=== PATIENT | male | born 1955 | race Caucasian/White ===

== ENCOUNTER 2017-10-02 01:35 | Emergency (ER) | payer MEDICARE ==
[~2017-10-02] VITALS: Ht 170.2 cm; Wt 99.5 kg
[~2017-10-02 01:35] MED LIST: AMIO200T2 PO; AMIO400T4 PO; AMIO400T5 PO; ASP325TEC PO; ASPI-983 PO; CARV3.122 PO; CEFU500T5 PO; DIGO125T PO; DIGO125T18 PO; DIGO250T PO; FURO-124 PO; FURO80TA PO; FURO80TA3 PO; HYDR-3820 PO; IPRA3AMP INH; KCL20TCR PO; LEVO500T80 PO; LISI-556 PO; LISI2.5T PO; LISI2.5T56 PO; LOVA10TA PO; MAGN400T6 PO; METO-387 PO; METO-395 PO; ONDA4TAB8 PO; PANT40TA2 PO; PRD20T PO; RT-ALBUINH IH; SPIR25TA3 PO; SPRN25T PO
[2017-10-02 02:04] LABS: BASOPHILS # (AUTO) 0.1 10^3/uL (0.0-0.1); BASOPHILS % (AUTO) 2 % (0-10); EOSINOPHILS # (AUTO) 0.4 10^3/uL (0.0-0.3); EOSINOPHILS % (AUTO) 9 % (0-10); HEMATOCRIT 43 % (40-54); LYMPHOCYTES % (AUTO) 19 % (12-44); MEAN CORPUSCULAR HEMOGLOBIN 32 PG (25-34); MEAN CORPUSCULAR HGB CONC 35 G/DL (32-36); MEAN CORPUSCULAR VOLUME 90 FL (80-99); MONOCYTES # (AUTO) 0.6 X 10^3 (0.0-1.0); MONOCYTES % (AUTO) 12 % (0-12); NEUTROPHILS # (AUTO) 2.9 X 10^3 (1.8-7.8); NEUTROPHILS % (AUTO) 59 % (42-75); PLATELET COUNT 211 10^3/uL (130-400); RED BLOOD COUNT 4.72 10^6/uL (4.35-5.85); WHITE BLOOD COUNT 4.9 10^3/uL (4.3-11.0)
[2017-10-02 02:13] LABS: INR 1.2 (0.8-1.4); PROTHROMBIN TIME PATIENT 15.7 SEC (12.2-14.7)
--- OUTSIDE RECORDS SUMMARY | 2017-10-02 02:19 | XMS REPORT | Clinical Summary ---
Author Author [facility] Organization [facility] Address Unknown Phone Unavailable Care Team Providers Care Assistant Guest Services Manager Name Role Phone PCP Unavailable Source Comments Some departments are not documenting in the electronic medical record. If you do not see the information that you expected, contact Release of Information in the Health Information Management department at [phone] for further assistance in locating additional records.[facility] Allergies No Known Allergies Current Medications Prescription Sig. Disp. Refills Start End Date Status Date aspirin EC 81 mg tablet Take 81 mg by mouth Active daily. digoxin (LANOXIN) 125 mcg Take 0.125 mg by mouth Active tablet daily. furosemide (LASIX) 80 mg Take 80 mg by mouth Active tablet daily. lisinopril (PRINIVIL; Take 5 mg by mouth daily. Active ZESTRIL) 5 mg tablet metoprolol XL (TOPROL XL) Take 100 mg by mouth Active 100 mg tablet daily. spironolactone Take 25 mg by mouth Active (ALDACTONE) 25 mg tablet daily. amiodarone (PACERONE) 400 Take 1 Tab by mouth 3 02/16/20 Active mg tablet daily. 15 Active Problems Problem Noted Date Paroxysmal SVT (supraventricular tachycardia) (HCC) 02/14/2015 SVT (supraventricular tachycardia) (HCC) 02/14/2015 ICD (implantable cardioverter-defibrillator) in place 02/14/2015 Overview: 02/14/15 RA lead placed for SVT discrimination and ICD upgraded to dual-chamber device. Wide-complex tachycardia (HCC) 01/09/2015 Systolic and diastolic CHF, chronic (HCC) 01/09/2015 Nonischemic dilated cardiomyopathy (HCC) 01/09/2015 Overview: 06/12/10: Heart Cath: Severe nonischemic cardiomyopathy with EF 5-10%.Mild mitral regurg. 08/06: Echo EF 30 09/02/10: Single Chamber pacemaker defibrillator implant. DFT's done. 10/26/11: Echo: EF 40-45. Moderate Family History Medical History Relation Name Comments Heart Disease Maternal Grandfather Heart Disease Maternal Grandmother Heart Disease Mother Hypertension Mother Heart Disease Sister Hypertension Sister Relation Name Status Comments Maternal Grandfather Maternal Grandmother Mother Sister Social History Tobacco Use Types Packs/Day Years Used Date Never Smoker Sex Assigned at Date Recorded Not on file Last Filed Vital Signs Vital Sign Reading Time Taken Blood Pressure 110/70 02/15/2015 10:24 AM CDT Pulse 76 02/15/2015 10:24 AM CDT Temperature 37.1 C (98.8 F) 02/15/2015 10:24 AM CDT Respiratory Rate - - Oxygen Saturation 95% 02/15/2015 10:24 AM CDT Inhaled Oxygen - - Concentration Weight 120.8 kg (266 lb 6.4 oz) 02/14/2015 6:46 AM CDT Height 167.6 cm (5' 6") 02/14/2015 6:46 AM CDT Body Mass Index 43 02/14/2015 6:46 AM CDT Plan of Treatment Health Maintenance Due Date Last Done Comments HEPATITIS C SCREENING 1954 PHYSICAL (COMPREHENSIVE) 1961 EXAM PERTUSSIS VACCINE 1965 TETANUS VACCINE 1971 COLORECTAL CANCER 2004 SCREENING SHINGLES VACCINE 2014 INFLUENZA VACCINE 04/27/2017 Results Not on filefrom Last 3 Months
--- OUTSIDE RECORDS SUMMARY | 2017-10-02 02:21 | XMS REPORT | Continuity of Care Document ---
Author Author [facility] Organization [facility] Address Unknown Phone Unavailable Allergies Active Description Code Type Severity Reaction Onset Reported/Identified Relationship to Patient Clinical Status Yes No Known Drug Allergies [id number] Drug Allergy Unknown N/A 06/10/2010 Medications There is no data. 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 09/03/2010 Ot V15.81 HX OF PAST NONCOMPLIANCE 09/03/2010 Ot V58.69 OTH MED,LT, CURRENT USE 05/13/2015 Ot 425.4 05/13/2015 Ot 428.0 05/13/2015 Ot V58.69 05/13/2015 Ot 425.4 05/13/2015 Ot 786.09 05/13/2015 Ot V58.69 05/13/2015 Ot V58.83 05/13/2015 MAIDA RILEY FRONT DESK MONITOR Ot 719.41 05/13/2015 MAIDA RILEY FRONT DESK MONITOR Ot 723.1 05/14/2015 EVELIN GAY FACC, NAOMIE WARRENP CCDS Ot 424.0 MITRAL VALVE DISORDER 05/14/2015 EVELIN GAY FACC, NAOMIE FACP CCDS Ot 425.4 PRIM CARDIOMYOPATHY NEC 05/14/2015 EVELIN GAY FACC, NAOMIE FACP CCDS Ot 427.1 PAROX VENTRIC TACHYCARD 05/14/2015 EVELIN GAY FAC, ALI FACP CCDS Ot 428.0 CONGESTIVE HEART FAILURE NOS 05/14/2015 EVELIN GAY FAC, ALI FACP CCDS Ot 428.40 UNSPEC SYSTOLIC/DIASTOLIC HRT FAILURE 05/14/2015 EVELIN GAY FACC, ALI FACP CCDS Ot 719.41 JOINT PAIN-SHLDER 05/14/2015 EVELIN GAY FACC, ALI FACP CCDS Ot 724.5 BACKACHE NOS 05/14/2015 EVELIN GAY FAC, ALI FACP CCDS Ot 780.2 SYNCOPE AND COLLAPSE 05/14/2015 EVELIN GAY FAC, ALI FACP CCDS Ot V45.02 AUTO IMPLANTABLE 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 I 12/12/2015 FAISAL GAY, ENEIDA Burns Ot F17.210 NICOTINE DEPENDENCE, CIGARETTES, UNCOMPL 12/12/2015 ENEIDA MALONE MD Ot J01.00 ACUTE MAXILLARY SINUSITIS, UNSPECIFIED 12/12/2015 ENEIDA MALONE MD Ot J40 BRONCHITIS, NOT SPECIFIED ACUTE OR CH 12/13/2015 ENEIDA MALONE MD Ot F17.210 12/13/2015 ENEIDA MALONE MD Ot J01.00 12/13/2015 ENEIDA MALONE MD Ot J40 01/13/2016 LYNDON TEMPLETON DO Ot K57.90 DVRTCLOS OF INTEST, PART UNSP, W/O PERF 01/13/2016 LYNDON TEMPLETON DO Ot R11.0 NAUSEA 01/13/2016 LYNDON TEMPLETON DO Ot R42 DIZZINESS AND GIDDINESS 01/13/2016 LYNDON TEMPLETON DO Ot Z95.0 PRESENCE OF CARDIAC PACEMAKER 01/14/2016 LYNDON TEMPLETON DO Ot K57.90 DVRTCLOS OF INTEST, PART UNSP, W/O PERF 01/14/2016 LYNDON TEMPLETON DO Ot R11.0 NAUSEA 01/14/2016 LYNDON TEMPLETON DO Ot R42 DIZZINESS AND GIDDINESS 01/14/2016 LYNDON TEMPLETON DO Ot Z95.0 PRESENCE OF CARDIAC PACEMAKER 01/20/2016 Ot 425.4 PRIM CARDIOMYOPATHY NEC 01/20/2016 Ot 425.4 PRIM CARDIOMYOPATHY NEC 01/20/2016 Ot 786.09 RESPIRATORY ABNORM NEC 01/20/2016 Ot V58.69 OTH MED,LT, CURRENT USE 01/20/2016 Ot V58.83 ENCOUNTER FOR THERAPEUTIC DRUG MONITORIN 01/20/2016 MAIDA RILEY FRONT DESK MONITOR Ot 719.41 JOINT PAIN-SHLDER 01/20/2016 MAIDA RILEY L FRONT DESK MONITOR Ot 723.1 CERVICALGIA 02/14/2016 ENEIDA MALONE MD Ot F17.210 NICOTINE DEPENDENCE, CIGARETTES, UNCOMPL 02/14/2016 ENEIDA MALONE MD Ot J01.00 ACUTE MAXILLARY SINUSITIS, UNSPECIFIED 02/14/2016 ENEIDA MALONE MD Ot J40 BRONCHITIS, NOT SPECIFIED ACUTE OR CH 03/10/2016 Ot 425.4 PRIM CARDIOMYOPATHY NEC 03/10/2016 Ot 786.09 RESPIRATORY ABNORM NEC 03/10/2016 Ot V58.69 OTH MED,LT, CURRENT USE 03/10/2016 Ot V58.83 ENCOUNTER FOR THERAPEUTIC DRUG MONITORIN 03/10/2016 CLAUDIADANIEL MAIDA L FRONT DESK MONITOR Ot 719.41 JOINT PAIN-SHLDER 03/10/2016 CLAUDIAMAIDA SANCHEZ L FRONT DESK MONITOR Ot 723.1 CERVICALGIA 03/10/2016 JAYESH POOLE DO Ot R09.02 HYPOXEMIA 03/12/2016 JAYESH POOLE DO Ot R09.02 HYPOXEMIA 03/13/2016 JAYESH POOLE DO Ot R09.02 HYPOXEMIA 03/13/2016 JAYESH POOLE DO Ot I50.42 CHRONIC COMBINED SYSTOLIC AND DIASTOLIC 03/13/2016 JAYESH POOLE DO Ot J90 PLEURAL EFFUSION, NOT ELSEWHERE CLASSIFI 03/19/2016 EVELIN GAY FACC, [facility] CCDS Ot G47.30 SLEEP APNEA, UNSPECIFIED 03/19/2016 EVELIN GAY FACC, ALI FACP CCDS Ot I42.0 DILATED CARDIOMYOPATHY 03/19/2016 EVELIN GAY FACC, ALI FACP CCDS Ot I47.2 VENTRICULAR TACHYCARDIA 03/19/2016 EVELIN GAY FACC, NAOMIE WARRENP CCDS Ot I50.42 CHRONIC COMBINED SYSTOLIC AND DIASTOLIC 03/24/2016 JAYESH POOLE DO Ot I42.0 DILATED CARDIOMYOPATHY 03/24/2016 JAYESH POOLE DO Ot I47.1 SUPRAVENTRICULAR TACHYCARDIA 03/24/2016 JAYESH POOLE DO Ot I50.42 CHRONIC COMBINED SYSTOLIC AND DIASTOLIC 03/24/2016 JAYESH POOLE DO Ot R09.02 HYPOXEMIA 03/24/2016 JAYESH POOLE DO Ot R09.89 OTH SYMPTOMS AND SIGNS INVOLVING THE CIR 03/24/2016 JAYESH POOLE DO Ot I50.42 CHRONIC COMBINED SYSTOLIC AND DIASTOLIC 03/24/2016 JAYESH POOLE DO Ot J90 PLEURAL EFFUSION, NOT ELSEWHERE CLASSIFI 04/01/2016 EVELIN GAY FACC, ALI FACP CCDS Ot G47.30 SLEEP APNEA, UNSPECIFIED 04/01/2016 EVELIN GAY FACC, ALI FACP CCDS Ot I42.0 DILATED CARDIOMYOPATHY 04/01/2016 EVELIN GAY FACC, ALI FACP CCDS Ot I47.2 VENTRICULAR TACHYCARDIA 04/01/2016 EVELIN GAY FACC, ALI FACP CCDS Ot I50.42 CHRONIC COMBINED SYSTOLIC AND DIASTOLIC 04/09/2016 EVELIN GAY FACC, NAOMIE FACP CCDS Ot G47.30 SLEEP APNEA, UNSPECIFIED 04/09/2016 EVELIN GAY FACC, ALI FACP CCDS Ot I42.0 DILATED CARDIOMYOPATHY 04/09/2016 EVELIN AGY FACC, ALI FACP CCDS Ot I47.1 SUPRAVENTRICULAR TACHYCARDIA 04/09/2016 EVELIN GAY FACC, ALI FACP CCDS Ot I47.2 VENTRICULAR TACHYCARDIA 04/09/2016 EVELIN WARREN, ALI FACP CCDS Ot I50.42 CHRONIC COMBINED SYSTOLIC AND DIASTOLIC 04/09/2016 JAYESH POOLE DO Ot I47.1 SUPRAVENTRICULAR TACHYCARDIA 04/09/2016 JAYESH POOLE DO Ot I50.9 HEART FAILURE, UNSPECIFIED 04/09/2016 JAYESH POOLE DO Ot R09.89 OTH SYMPTOMS AND SIGNS INVOLVING THE CIR 04/21/2016 JAYESH POOLE DO Ot I47.1 SUPRAVENTRICULAR TACHYCARDIA 04/21/2016 JAYESH POOLE DO Ot I50.9 HEART FAILURE, UNSPECIFIED 04/21/2016 JAYESH POOLE DO Ot R09.89 OTH SYMPTOMS AND SIGNS INVOLVING THE CIR 04/21/2016 EVELIN GAY FACC, ALI FACP CCDS Ot G47.30 SLEEP APNEA, UNSPECIFIED 04/21/2016 EVELIN GAY FACC, ALI FACP CCDS Ot I42.0 DILATED CARDIOMYOPATHY 04/21/[address] [facility] CCDS Ot I47.1 SUPRAVENTRICULAR TACHYCARDIA 04/21/[address] [facility], [facility] CCDS Ot I47.2 VENTRICULAR TACHYCARDIA 04/21/[address] [facility], [facility] CCDS Ot I50.42 CHRONIC COMBINED SYSTOLIC AND DIASTOLIC 04/28/2016 JAYESH POOLE DO Ot I50.42 CHRONIC COMBINED SYSTOLIC AND DIASTOLIC 04/28/2016 JAYESH POOLE DO Ot J90 PLEURAL EFFUSION, NOT ELSEWHERE CLASSIFI 05/08/2016 JAYESH POOLE DO Ot G47.33 OBSTRUCTIVE SLEEP APNEA (ADULT) (PEDIATR 05/11/2016 JAYESH POOLE DO Ot G47.33 OBSTRUCTIVE SLEEP APNEA (ADULT) (PEDIATR 05/11/2016 JAYESH POOLE DO Ot G47.33 OBSTRUCTIVE SLEEP APNEA (ADULT) (PEDIATR 05/11/2016 ZULEMAJAYESH MENDIOLA DO Ot I48.91 UNSPECIFIED ATRIAL FIBRILLATION 05/12/2016 JAYESH POOLE DO Ot G47.33 OBSTRUCTIVE SLEEP APNEA (ADULT) (PEDIATR 05/12/2016 ZULEMAJAYESH MENDIOLA DO Ot I48.91 UNSPECIFIED ATRIAL FIBRILLATION 05/19/2016 JAYESH POOLE DO Ot G47.33 OBSTRUCTIVE SLEEP APNEA (ADULT) (PEDIATR 05/19/2016 ZULEMAJAYESH MENDIOLA DO Ot I48.91 UNSPECIFIED ATRIAL FIBRILLATION 05/26/2016 MIGUEL ANGEL HART MD Ot I12.9 HYPERTENSIVE CHRONIC KIDNEY DISEASE W ST 05/26/2016 MIGUEL ANGEL HART MD Ot I25.10 ATHSCL HEART DISEASE OF [place] CORONARY 05/26/2016 MIGUEL ANGEL HART MD Ot I25.2 OLD MYOCARDIAL INFARCTION 05/26/2016 MIGUEL ANGEL HART MD Ot I25.5 ISCHEMIC CARDIOMYOPATHY 05/26/2016 MIGUEL ANGEL HART MD Ot I47.2 VENTRICULAR TACHYCARDIA 05/26/2016 MIGUEL ANGEL HART MD Ot I48.91 UNSPECIFIED ATRIAL FIBRILLATION 05/26/2016 MIGUEL ANGEL HART MD Ot I50.23 ACUTE ON CHRONIC SYSTOLIC (CONGESTIVE) H 05/26/2016 MIGUEL ANGEL HART MD Ot I95.9 HYPOTENSION, UNSPECIFIED 05/26/2016 MIGUEL ANGEL HART MD Ot J44.9 CHRONIC OBSTRUCTIVE PULMONARY DISEASE, U 05/26/2016 MIGUEL ANGEL HART MD Ot J90 PLEURAL EFFUSION, NOT ELSEWHERE CLASSIFI 05/26/2016 MIGUEL ANGEL HART MD Ot M10.9 GOUT, UNSPECIFIED 05/26/2016 MIGUEL ANGEL HART MD Ot M19.90 UNSPECIFIED OSTEOARTHRITIS, UNSPECIFIED 05/26/2016 MIGUEL ANGEL HART MD Ot N17.9 ACUTE KIDNEY FAILURE, UNSPECIFIED 05/26/2016 MIGUEL ANGEL HART MD Ot N18.9 CHRONIC KIDNEY DISEASE, UNSPECIFIED 05/26/2016 MIGUEL ANGEL HART MD Ot R73.9 HYPERGLYCEMIA, UNSPECIFIED 05/26/2016 MIGUEL ANGEL HART MD Ot Z95.810 PRESENCE OF AUTOMATIC (IMPLANTABLE) CARD 05/26/2016 MIGUEL ANGEL HART MD Ot Z99.81 DEPENDENCE ON SUPPLEMENTAL OXYGEN 05/26/2016 MIGUEL ANGEL HART MD Ot I12.9 HYPERTENSIVE CHRONIC KIDNEY DISEASE W ST 05/26/2016 MIGUEL ANGEL HART MD Ot I25.10 ATHSCL HEART DISEASE OF [place] CORONARY 05/26/2016 MIGUEL ANGEL HART MD Ot I25.2 OLD MYOCARDIAL INFARCTION 05/26/2016 MIGUEL ANGEL HART MD Ot I25.5 ISCHEMIC CARDIOMYOPATHY 05/26/2016 MIGUEL ANGEL HART MD Ot I47.2 VENTRICULAR TACHYCARDIA 05/26/2016 MIGUEL ANGEL HART MD Ot I48.91 UNSPECIFIED ATRIAL FIBRILLATION 05/26/2016 MIGUEL ANGEL HART MD Ot I50.23 ACUTE ON CHRONIC SYSTOLIC (CONGESTIVE) H 05/26/2016 MIGUEL ANGEL HART MD Ot I95.9 HYPOTENSION, UNSPECIFIED 05/26/2016 MIGUEL ANGEL HART MD, Ot J44.9 CHRONIC OBSTRUCTIVE PULMONARY DISEASE, U 05/26/2016 MIGUEL ANGEL HART MD Ot J90 PLEURAL EFFUSION, NOT ELSEWHERE CLASSIFI 05/26/2016 MIGUEL ANGEL HART MD Ot M10.9 GOUT, UNSPECIFIED 05/26/2016 MIGUEL ANGEL HART MD Ot M19.90 UNSPECIFIED OSTEOARTHRITIS, UNSPECIFIED 05/26/2016 MIGUEL ANGEL HART MD Ot N17.9 ACUTE KIDNEY FAILURE, UNSPECIFIED 05/26/2016 MIGUEL ANGEL HART MD Ot N18.9 CHRONIC KIDNEY DISEASE, UNSPECIFIED 05/26/2016 MIGUEL ANGEL HART MD Ot R73.9 HYPERGLYCEMIA, UNSPECIFIED 05/26/2016 MIGUEL ANGEL HART MD Ot Z95.810 PRESENCE OF AUTOMATIC (IMPLANTABLE) CARD 05/26/2016 MIGUEL ANGEL HART MD Ot Z99.81 DEPENDENCE ON SUPPLEMENTAL OXYGEN 05/27/2016 MIGUEL ANGEL HART MD Ot I12.9 HYPERTENSIVE CHRONIC KIDNEY DISEASE W ST 05/27/2016 MIGUEL ANGEL HART MD Ot I25.10 ATHSCL HEART DISEASE OF [place] CORONARY 05/27/2016 MIGUEL ANGEL HART MD Ot I25.2 OLD MYOCARDIAL INFARCTION 05/27/2016 MIGUEL ANGEL HART MD Ot I25.5 ISCHEMIC CARDIOMYOPATHY 05/27/2016 MIGUEL ANGEL HART MD Ot I47.2 VENTRICULAR TACHYCARDIA 05/27/2016 MIGUEL ANGEL HART MD Ot I48.91 UNSPECIFIED ATRIAL FIBRILLATION 05/27/2016 MIGUEL ANGEL HART MD Ot I50.23 ACUTE ON CHRONIC SYSTOLIC (CONGESTIVE) H 05/27/2016 MIGUEL ANGEL HART MD Ot I95.9 HYPOTENSION, UNSPECIFIED 05/27/2016 MIGUEL ANGEL HART MD Ot J44.9 CHRONIC OBSTRUCTIVE PULMONARY DISEASE, U 05/27/2016 MIGUEL ANGEL HART MD, Ot J90 PLEURAL EFFUSION, NOT ELSEWHERE CLASSIFI 05/27/2016 MIGUEL ANGEL HART MD Ot M10.9 GOUT, UNSPECIFIED 05/27/2016 MIGUEL ANGEL HART MD Ot M19.90 UNSPECIFIED OSTEOARTHRITIS, UNSPECIFIED 05/27/2016 MIGUEL ANGEL HART MD Ot N17.9 ACUTE KIDNEY FAILURE, UNSPECIFIED 05/27/2016 MIGUEL ANGEL HART MD Ot N18.9 CHRONIC KIDNEY DISEASE, UNSPECIFIED 05/27/2016 MIGUEL ANGEL HART MD Ot R73.9 HYPERGLYCEMIA, UNSPECIFIED 05/27/2016 MIGUEL ANGEL HART MD Ot Z95.810 PRESENCE OF AUTOMATIC (IMPLANTABLE) CARD 05/27/2016 MIGUEL ANGEL HART MD Ot Z99.81 DEPENDENCE ON SUPPLEMENTAL OXYGEN 05/27/2016 MIGUEL ANGEL HART MD Ot I12.9 HYPERTENSIVE CHRONIC KIDNEY DISEASE W ST 05/27/2016 MIGUEL ANGEL HART MD Ot I25.10 ATHSCL HEART DISEASE OF [place] CORONARY 05/27/2016 MIGUEL ANGEL HART MD Ot I25.2 OLD MYOCARDIAL INFARCTION 05/27/2016 MIGUEL ANGEL HART MD Ot I25.5 ISCHEMIC CARDIOMYOPATHY 05/27/2016 MIGUEL ANGEL HART MD Ot I47.2 VENTRICULAR TACHYCARDIA 05/27/2016 MIGUEL ANGEL HART MD Ot I48.91 UNSPECIFIED ATRIAL FIBRILLATION 05/27/2016 MIGUEL ANGEL HART MD Ot I50.23 ACUTE ON CHRONIC SYSTOLIC (CONGESTIVE) H 05/27/2016 MIGUEL ANGEL HART MD Ot I95.9 HYPOTENSION, UNSPECIFIED 05/27/2016 MIGUEL ANGEL HART MD, Ot J44.9 CHRONIC OBSTRUCTIVE PULMONARY DISEASE, U 05/27/2016 MIGUEL ANGEL HART MD, Ot J90 PLEURAL EFFUSION, NOT ELSEWHERE CLASSIFI 05/27/2016 MIGUEL ANGEL HART MD Ot M10.9 GOUT, UNSPECIFIED 05/27/2016 MIGUEL ANGEL HART MD Ot M19.90 UNSPECIFIED OSTEOARTHRITIS, UNSPECIFIED 05/27/2016 MIGUEL ANGEL HART MD Ot N17.9 ACUTE KIDNEY FAILURE, UNSPECIFIED 05/27/2016 MIGUEL ANGEL HART MD Ot N18.9 CHRONIC KIDNEY DISEASE, UNSPECIFIED 05/27/2016 MIGUEL ANGEL HART MD Ot R73.9 HYPERGLYCEMIA, UNSPECIFIED 05/27/2016 MIGUEL ANGEL HART MD Ot Z95.810 PRESENCE OF AUTOMATIC (IMPLANTABLE) CARD 05/27/2016 MIGUEL ANGEL HART MD Ot Z99.81 DEPENDENCE ON SUPPLEMENTAL OXYGEN 05/28/2016 MIGUEL ANGEL HART MD Ot I12.9 HYPERTENSIVE CHRONIC KIDNEY DISEASE W ST 05/28/2016 MIGUEL ANGEL HART MD Ot I25.10 ATHSCL HEART DISEASE OF [place] CORONARY 05/28/2016 MIGUEL ANGEL HART MD Ot I25.2 OLD MYOCARDIAL INFARCTION 05/28/2016 MIGUEL ANGEL HART MD, Ot I25.5 ISCHEMIC CARDIOMYOPATHY 05/28/2016 MIGUEL ANGEL HART MD Ot I47.2 VENTRICULAR TACHYCARDIA 05/28/2016 MIGUEL ANGEL HART MD Ot I48.91 UNSPECIFIED ATRIAL FIBRILLATION 05/28/2016 MIGUEL ANGEL HART MD Ot I50.23 ACUTE ON CHRONIC SYSTOLIC (CONGESTIVE) H 05/28/2016 MIGUEL ANGEL HART MD Ot I95.9 HYPOTENSION, UNSPECIFIED 05/28/2016 TANNER MD, BASHAR J Ot J44.9 CHRONIC OBSTRUCTIVE PULMONARY DISEASE, U 05/28/2016 MIGUEL ANGEL HART MD, Ot J90 PLEURAL EFFUSION, NOT ELSEWHERE CLASSIFI 05/28/2016 MIGUEL ANGEL HART MD Ot M10.9 GOUT, UNSPECIFIED 05/28/2016 MIGUEL ANGEL HART MD Ot M19.90 UNSPECIFIED OSTEOARTHRITIS, UNSPECIFIED 05/28/2016 MIGUEL ANGEL HART MD Ot N17.9 ACUTE KIDNEY FAILURE, UNSPECIFIED 05/28/2016 MIGUEL ANGEL HART MD Ot N18.9 CHRONIC KIDNEY DISEASE, UNSPECIFIED 05/28/2016 MIGUEL ANGEL HART MD Ot R73.9 HYPERGLYCEMIA, UNSPECIFIED 05/28/2016 MIGUEL ANGEL HART MD Ot Z95.810 PRESENCE OF AUTOMATIC (IMPLANTABLE) CARD 05/28/2016 MIGUEL ANGEL HART MD Ot Z99.81 DEPENDENCE ON SUPPLEMENTAL OXYGEN 05/29/2016 MIGUEL ANGEL HART MD Ot I12.9 HYPERTENSIVE CHRONIC KIDNEY DISEASE W ST 05/29/2016 MIGUEL ANGEL HART MD Ot I25.10 ATHSCL HEART DISEASE OF [place] CORONARY 05/29/2016 MIGUEL ANGEL HART MD Ot I25.2 OLD MYOCARDIAL INFARCTION 05/29/2016 MIGUEL ANGEL HART MD Ot I25.5 ISCHEMIC CARDIOMYOPATHY 05/29/2016 MIGUEL ANGEL HART MD Ot I47.2 VENTRICULAR TACHYCARDIA 05/29/2016 MIGUEL ANGEL HART MD Ot I48.91 UNSPECIFIED ATRIAL FIBRILLATION 05/29/2016 MIGUEL ANGEL HART MD Ot I50.23 ACUTE ON CHRONIC SYSTOLIC (CONGESTIVE) H 05/29/2016 MIGUEL ANGEL HART MD Ot I95.9 HYPOTENSION, UNSPECIFIED 05/29/2016 MIGUEL ANGEL HART MD, Ot J44.9 CHRONIC OBSTRUCTIVE PULMONARY DISEASE, U 05/29/2016 MIGUEL ANGEL HART MD Ot J90 PLEURAL EFFUSION, NOT ELSEWHERE CLASSIFI 05/29/2016 MIGUEL ANGEL HART MD Ot M10.9 GOUT, UNSPECIFIED 05/29/2016 MIGUEL ANGEL HART MD Ot M19.90 UNSPECIFIED OSTEOARTHRITIS, UNSPECIFIED 05/29/2016 MIGUEL ANGEL HART MD Ot N17.9 ACUTE KIDNEY FAILURE, UNSPECIFIED 05/29/2016 MIGUEL ANGEL HART MD Ot N18.9 CHRONIC KIDNEY DISEASE, UNSPECIFIED 05/29/2016 MIGUEL ANGEL HART MD Ot R73.9 HYPERGLYCEMIA, UNSPECIFIED 05/29/2016 MIGUEL ANGEL HART MD Ot Z95.810 PRESENCE OF AUTOMATIC (IMPLANTABLE) CARD 05/29/2016 MIGUEL ANGEL HART MD Ot Z99.81 DEPENDENCE ON SUPPLEMENTAL OXYGEN 05/29/2016 MIGUEL ANGEL HART MD Ot I12.9 HYPERTENSIVE CHRONIC KIDNEY DISEASE W ST 05/29/2016 MIGUEL ANGEL HART MD Ot I25.10 ATHSCL HEART DISEASE OF [place] CORONARY 05/29/2016 MIGUEL ANGEL HART MD Ot I25.2 OLD MYOCARDIAL INFARCTION 05/29/2016 MIGUEL ANGEL HART MD Ot I25.5 ISCHEMIC CARDIOMYOPATHY 05/29/2016 MIGUEL ANGEL HART MD Ot I47.2 VENTRICULAR TACHYCARDIA 05/29/2016 MIGUEL ANGEL HART MD Ot I48.91 UNSPECIFIED ATRIAL FIBRILLATION 05/29/2016 MIGUEL ANGEL HART MD Ot I50.23 ACUTE ON CHRONIC SYSTOLIC (CONGESTIVE) H 05/29/2016 MIGUEL ANGEL HART MD Ot I95.9 HYPOTENSION, UNSPECIFIED 05/29/2016 MIGUEL ANGEL HART MD, Ot J44.9 CHRONIC OBSTRUCTIVE PULMONARY DISEASE, U 05/29/2016 MIGUEL ANGEL HART MD, Ot J90 PLEURAL EFFUSION, NOT ELSEWHERE CLASSIFI 05/29/2016 MIGUEL ANGEL HART MD Ot M10.9 GOUT, UNSPECIFIED 05/29/2016 MIGUEL ANGEL HART MD Ot M19.90 UNSPECIFIED OSTEOARTHRITIS, UNSPECIFIED 05/29/2016 MIGUEL ANGEL HART MD Ot N17.9 ACUTE KIDNEY FAILURE, UNSPECIFIED 05/29/2016 MIGUEL ANGEL HART MD Ot N18.9 CHRONIC KIDNEY DISEASE, UNSPECIFIED 05/29/2016 MIGUEL ANGEL HART MD Ot R73.9 HYPERGLYCEMIA, UNSPECIFIED 05/29/2016 MIGUEL ANGEL HART MD Ot Z95.810 PRESENCE OF AUTOMATIC (IMPLANTABLE) CARD 05/29/2016 MIGUEL ANGEL HART MD Ot Z99.81 DEPENDENCE ON SUPPLEMENTAL OXYGEN 05/29/2016 MIGUEL ANGEL HART MD Ot I12.9 HYPERTENSIVE CHRONIC KIDNEY DISEASE W ST 05/29/2016 MIGUEL ANGEL HART MD Ot I25.10 ATHSCL HEART DISEASE OF [place] CORONARY 05/29/2016 MIGUEL ANGEL HART MD Ot I25.2 OLD MYOCARDIAL INFARCTION 05/29/2016 MIGUEL ANGEL HART MD Ot I25.5 ISCHEMIC CARDIOMYOPATHY 05/29/2016 MIGUEL ANGEL HART MD Ot I47.2 VENTRICULAR TACHYCARDIA 05/29/2016 MIGUEL ANGEL HART MD Ot I48.91 UNSPECIFIED ATRIAL FIBRILLATION 05/29/2016 MIGUEL ANGEL HART MD Ot I50.23 ACUTE ON CHRONIC SYSTOLIC (CONGESTIVE) H 05/29/2016 MIGUEL ANGEL HART MD Ot I95.9 HYPOTENSION, UNSPECIFIED 05/29/2016 MIGUEL ANGEL HART MD, Ot J44.9 CHRONIC OBSTRUCTIVE PULMONARY DISEASE, U 05/29/2016 MIGUEL ANGEL HART MD, Ot J90 PLEURAL EFFUSION, NOT ELSEWHERE CLASSIFI 05/29/2016 MIGUEL ANGEL HART MD Ot M10.9 GOUT, UNSPECIFIED 05/29/2016 MIGUEL ANGEL HART MD Ot M19.90 UNSPECIFIED OSTEOARTHRITIS, UNSPECIFIED 05/29/2016 MIGUEL ANGEL HART MD Ot N17.9 ACUTE KIDNEY FAILURE, UNSPECIFIED 05/29/2016 MIGUEL ANGEL HART MD Ot N18.9 CHRONIC KIDNEY DISEASE, UNSPECIFIED 05/29/2016 MIGUEL ANGEL HART MD Ot R73.9 HYPERGLYCEMIA, UNSPECIFIED 05/29/2016 MIGUEL ANGEL HART MD Ot Z95.810 PRESENCE OF AUTOMATIC (IMPLANTABLE) CARD 05/29/2016 MIGUEL ANGEL HART MD Ot Z99.81 DEPENDENCE ON SUPPLEMENTAL OXYGEN 05/30/2016 MIGUEL ANGEL HART MD Ot I12.9 HYPERTENSIVE CHRONIC KIDNEY DISEASE W ST 05/30/2016 MIGUEL ANGEL HART MD Ot I25.10 ATHSCL HEART DISEASE OF [place] CORONARY 05/30/2016 MIGUEL ANGEL HART MD Ot I25.2 OLD MYOCARDIAL INFARCTION 05/30/2016 MIGUEL ANGEL HART MD Ot I25.5 ISCHEMIC CARDIOMYOPATHY 05/30/2016 MIGUEL ANGEL HART MD Ot I47.2 VENTRICULAR TACHYCARDIA 05/30/2016 MIGUEL ANGEL HART MD Ot I48.91 UNSPECIFIED ATRIAL FIBRILLATION 05/30/2016 MIGUEL ANGEL HART MD Ot I50.23 ACUTE ON CHRONIC SYSTOLIC (CONGESTIVE) H 05/30/2016 MIGUEL ANGEL HART MD Ot I95.9 HYPOTENSION, UNSPECIFIED 05/30/2016 MIGUEL ANGEL HART MD Ot J44.9 CHRONIC OBSTRUCTIVE PULMONARY DISEASE, U 05/30/2016 MIGUEL ANGEL HART MD, Ot J90 PLEURAL EFFUSION, NOT ELSEWHERE CLASSIFI 05/30/2016 MIGUEL ANGEL HART MD Ot M10.9 GOUT, UNSPECIFIED 05/30/2016 MIGUEL ANGEL HART MD Ot M19.90 UNSPECIFIED OSTEOARTHRITIS, UNSPECIFIED 05/30/2016 MIGUEL ANGEL HART MD Ot N17.9 ACUTE KIDNEY FAILURE, UNSPECIFIED 05/30/2016 MIGUEL ANGEL HART MD, Ot N18.9 CHRONIC KIDNEY DISEASE, UNSPECIFIED 05/30/2016 MIGUEL ANGEL HART MD Ot R73.9 HYPERGLYCEMIA, UNSPECIFIED 05/30/2016 MIGUEL ANGEL HART MD Ot Z95.810 PRESENCE OF AUTOMATIC (IMPLANTABLE) CARD 05/30/2016 MIGUEL ANGEL HART MD Ot Z99.81 DEPENDENCE ON SUPPLEMENTAL OXYGEN 06/01/2016 MIGUEL ANGEL HART MD Ot I12.9 HYPERTENSIVE CHRONIC KIDNEY DISEASE W ST 06/01/2016 MIGUEL ANGEL HART MD Ot I25.10 ATHSCL HEART DISEASE OF [place] CORONARY 06/01/2016 MIGUEL ANGEL HART MD Ot I25.2 OLD MYOCARDIAL INFARCTION 06/01/2016 MIGUEL ANGEL HART MD Ot I25.5 ISCHEMIC CARDIOMYOPATHY 06/01/2016 MIGUEL ANGEL HART MD Ot I47.2 VENTRICULAR TACHYCARDIA 06/01/2016 MIGUEL ANGEL HART MD Ot I48.91 UNSPECIFIED ATRIAL FIBRILLATION 06/01/2016 MIGUEL ANGEL HART MD Ot I50.23 ACUTE ON CHRONIC SYSTOLIC (CONGESTIVE) H 06/01/2016 MIGUEL ANGEL HART MD Ot I95.9 HYPOTENSION, UNSPECIFIED 06/01/2016 MIGUEL ANGEL HART MD, Ot J44.9 CHRONIC OBSTRUCTIVE PULMONARY DISEASE, U 06/01/2016 MIGUEL ANGEL HART MD, Ot J90 PLEURAL EFFUSION, NOT ELSEWHERE CLASSIFI 06/01/2016 MIGUEL ANGEL HART MD Ot M10.9 GOUT, UNSPECIFIED 06/01/2016 MIGUEL ANGEL HART MD Ot M19.90 UNSPECIFIED OSTEOARTHRITIS, UNSPECIFIED 06/01/2016 MIGUEL ANGEL HART MD Ot N17.9 ACUTE KIDNEY FAILURE, UNSPECIFIED 06/01/2016 MIGUEL ANGEL HART MD Ot N18.9 CHRONIC KIDNEY DISEASE, UNSPECIFIED 06/01/2016 MIGUEL ANGEL HART MD Ot R73.9 HYPERGLYCEMIA, UNSPECIFIED 06/01/2016 MIGUEL ANGEL HART MD Ot Z95.810 PRESENCE OF AUTOMATIC (IMPLANTABLE) CARD 06/01/2016 MIGUEL ANGEL HART MD Ot Z99.81 DEPENDENCE ON SUPPLEMENTAL OXYGEN 06/02/2016 MIGUEL ANGEL HART MD Ot I12.9 HYPERTENSIVE CHRONIC KIDNEY DISEASE W ST 06/02/2016 MIGUEL ANGEL HART MD Ot I25.10 ATHSCL HEART DISEASE OF [place] CORONARY 06/02/2016 MIGUEL ANGEL HART MD Ot I25.2 OLD MYOCARDIAL INFARCTION 06/02/2016 MIGUEL ANGEL HART MD, Ot I25.5 ISCHEMIC CARDIOMYOPATHY 06/02/2016 MIGUEL ANGEL HART MD Ot I47.2 VENTRICULAR TACHYCARDIA 06/02/2016 MIGUEL ANGEL HRAT MD Ot I48.91 UNSPECIFIED ATRIAL FIBRILLATION 06/02/2016 MIGUEL ANGEL HART MD Ot I50.23 ACUTE ON CHRONIC SYSTOLIC (CONGESTIVE) H 06/02/2016 MIGUEL ANGEL HART MD Ot I95.9 HYPOTENSION, UNSPECIFIED 06/02/2016 MIGUEL ANGEL HART MD, Ot J44.9 CHRONIC OBSTRUCTIVE PULMONARY DISEASE, U 06/02/2016 MIGUEL ANGEL HART MD, Ot J90 PLEURAL EFFUSION, NOT ELSEWHERE CLASSIFI 06/02/2016 MIGUEL ANGEL HART MD Ot M10.9 GOUT, UNSPECIFIED 06/02/2016 MIGUEL ANGEL HART MD Ot M19.90 UNSPECIFIED OSTEOARTHRITIS, UNSPECIFIED 06/02/2016 MIGUEL ANGEL HART MD Ot N17.9 ACUTE KIDNEY FAILURE, UNSPECIFIED 06/02/2016 MIGUEL ANGEL HART MD Ot N18.9 CHRONIC KIDNEY DISEASE, UNSPECIFIED 06/02/2016 MIGUEL ANGEL HART MD Ot R73.9 HYPERGLYCEMIA, UNSPECIFIED 06/02/2016 MIGUEL ANGEL HART MD Ot Z95.810 PRESENCE OF AUTOMATIC (IMPLANTABLE) CARD 06/02/2016 MIGUEL ANGEL HART MD Ot Z99.81 DEPENDENCE ON SUPPLEMENTAL OXYGEN 06/02/2016 MIGUEL ANGEL HART MD Ot E87.2 ACIDOSIS 06/02/2016 MIGUEL ANGEL HART MD Ot I08.3 COMB RHEUMATIC DISORD OF [place], AORTIC 06/02/2016 MIGUEL ANGEL HART MD Ot I12.9 HYPERTENSIVE CHRONIC KIDNEY DISEASE W ST 06/02/2016 MIGUEL ANGEL HART MD, Ot I25.10 ATHSCL HEART DISEASE OF [place] CORONARY 06/02/2016 MIGUEL ANGEL HART MD, Ot I25.2 OLD MYOCARDIAL INFARCTION 06/02/2016 MIGUEL ANGEL HART MD, Ot I25.5 ISCHEMIC CARDIOMYOPATHY 06/02/2016 MIGUEL ANGEL HART MD Ot I42.9 CARDIOMYOPATHY, UNSPECIFIED 06/02/2016 MIGUEL ANGEL HART MD Ot I47.2 VENTRICULAR TACHYCARDIA 06/02/2016 MIGUEL ANGEL HART MD Ot I48.91 UNSPECIFIED ATRIAL FIBRILLATION 06/02/2016 MIGUEL ANGEL HART MD, Ot I50.23 ACUTE ON CHRONIC SYSTOLIC (CONGESTIVE) H 06/02/2016 MIGUEL ANGEL HART MD Ot I95.9 HYPOTENSION, UNSPECIFIED 06/02/2016 MIGUEL ANGEL HART MD, Ot J44.9 CHRONIC OBSTRUCTIVE PULMONARY DISEASE, U 06/02/2016 MIGUEL ANGEL HART MD, Ot J90 PLEURAL EFFUSION, NOT ELSEWHERE CLASSIFI 06/02/2016 MIGUEL ANGEL HART MD, Ot J93.9 PNEUMOTHORAX, UNSPECIFIED 06/02/2016 MIGUEL ANGEL HART MD Ot M10.9 GOUT, UNSPECIFIED 06/02/2016 MIGUEL ANGEL HART MD, Ot M19.90 UNSPECIFIED OSTEOARTHRITIS, UNSPECIFIED 06/02/2016 MIGUEL ANGEL HART MD Ot N17.9 ACUTE KIDNEY FAILURE, UNSPECIFIED 06/02/2016 MIGUEL ANGEL HART MD Ot N18.9 CHRONIC KIDNEY DISEASE, UNSPECIFIED 06/02/2016 MIGUEL ANGEL HART MD Ot R73.9 HYPERGLYCEMIA, UNSPECIFIED 06/02/2016 MIGUEL ANGEL HART MD Ot Z91.14 PATIENT'S OTHER NONCOMPLIANCE WITH MEDIC 06/02/2016 MIGUEL ANGEL HART MD Ot Z95.810 PRESENCE OF AUTOMATIC (IMPLANTABLE) CARD 06/02/2016 MIGUEL ANGEL HART MD, Ot Z99.81 DEPENDENCE ON SUPPLEMENTAL OXYGEN Procedures Code Description Performed By Performed On [id number] 05/27/2016 Results Test Result Range Complete blood count (CBC) with automated white blood cell (WBC) differential - 05/22/16 18:06 Blood leukocytes automated count (number/volume) 6.1 10*3/uL 4.3-11.0 Blood erythrocytes automated count (number/volume) 5.32 10*6/uL 4.35-5.85 Venous blood hemoglobin measurement (mass/volume) 16.1 g/dL 13.3-17.7 Blood hematocrit (volume fraction) 48 % 40-54 Automated erythrocyte mean corpuscular volume 90 [foz_us] 80-99 Automated erythrocyte mean corpuscular hemoglobin (mass per erythrocyte) 30 pg 25-34 Automated erythrocyte mean corpuscular hemoglobin concentration measurement ( mass/volume) 34 g/dL 32-36 Automated erythrocyte distribution width ratio 16.7 % 10.0-14.5 Automated blood platelet count (count/volume) 185 10*3/uL 130-400 Automated blood platelet mean volume measurement 10.9 [foz_us] 7.4-10.4 Automated blood neutrophils/100 leukocytes 66 % 42-75 Automated blood lymphocytes/100 leukocytes 24 % 12-44 Blood monocytes/100 leukocytes 8 % 0-12 Automated blood eosinophils/100 leukocytes 1 % 0-10 Automated blood basophils/100 leukocytes 1 % 0-10 Blood neutrophils automated count (number/volume) 4.0 10*3 1.8-7.8 Blood lymphocytes automated count (number/volume) 1.5 10*3 1.0-4.0 Blood monocytes automated count (number/volume) 0.5 10*3 0.0-1.0 Automated eosinophil count 0.1 10*3/uL 0.0-0.3 Automated blood basophil count (count/volume) 0.1 10*3/uL 0.0-0.1 PT panel in platelet poor plasma by coagulation assay - 05/22/16 18:06 Prothrombin time (PT) in platelet poor plasma by coagulation assay 15.7 s 12.2-14.7 INR in platelet poor plasma or blood by coagulation assay 1.3 0.8-1.4 Activated partial thromboplastin time (aPTT) in platelet poor plasma bycoagulation assay - 05/22/16 18:06 Activated partial thromboplastin time (aPTT) in platelet poor plasma bycoagulation assay 29 s 24-35 Comprehensive metabolic panel - 05/22/16 18:06 Serum or plasma sodium measurement (moles/volume) 140 mmol/L 135-145 Serum or plasma potassium measurement (moles/volume) 3.5 mmol/L 3.6-5.0 Serum or plasma chloride measurement (moles/volume) 100 mmol/L 98-107 Carbon dioxide 21 mmol/L 21-32 Serum or plasma anion gap determination (moles/volume) 19 mmol/L 5-14 Serum or plasma urea nitrogen measurement (mass/volume) 26 mg/dL 7-18 Serum or plasma creatinine measurement (mass/volume) 1.36 mg/dL 0.60-1.30 Serum or plasma urea nitrogen/creatinine mass ratio 19 NRG Serum or plasma creatinine measurement with calculation of estimated glomerular filtration rate 53 NRG Serum or plasma glucose measurement (mass/volume) 80 mg/dL 70-105 Serum or plasma calcium measurement (mass/volume) 9.7 mg/dL 8.5-10.1 Serum or plasma total bilirubin measurement (mass/volume) 3.4 mg/dL 0.1-1.0 Serum or plasma alkaline phosphatase measurement (enzymatic activity/volume) 63 U/L 40-136 Serum or plasma aspartate aminotransferase measurement (enzymatic activity/ volume) 21 U/L 5-34 Serum or plasma alanine aminotransferase measurement (enzymatic activity/volume ) 15 U/L 0-55 Serum or plasma protein measurement (mass/volume) 7.3 g/dL 6.4-8.2 Serum or plasma albumin measurement (mass/volume) 4.2 g/dL 3.2-4.5 Magnesium - 05/22/16 18:06 Magnesium 2.2 mg/dL 1.8-2.4 Serum or plasma lithium measurement (moles/volume) - 05/22/16 18:06 BNP level 1911.0 pg/mL <100.0 Serum or plasma troponin i.cardiac measurement (mass/volume) - 05/22/16 18:06 Serum or plasma troponin i.cardiac measurement (mass/volume) < ng/ mL <0.30 THYROID STIMULATING HORMONE - 05/22/16 18:06 THYROID STIMULATING HORMONE 2.99 u[iU]/mL 0.35-4.94 Bacterial blood culture - 05/22/16 18:25 Bacterial blood culture NG NRG Blood lactic acid measurement (moles/volume) - 05/22/16 18:30 Blood lactic acid measurement (moles/volume) 3.2 mmol/L 0.5-2.0 Bacterial blood culture - 05/22/16 18:30 Bacterial blood culture NG NRG Serum or plasma lactate measurement (moles/volume) - 05/22/16 20:36 Serum or plasma lactate measurement (moles/volume) 2.4 mmol/L 0.5-2.0 Complete urinalysis with reflex to culture - 05/23/16 01:45 Urine color determination YELLOW NRG Urine clarity determination CLEAR NRG Urine pH measurement by test strip 6.5 5-9 Specific gravity of urine by test strip 1.010 1.016- 1.022 Urine protein assay by test strip, semi-quantitative NEGATIVE NEGATIVE Urine glucose detection by automated test strip NEGATIVE NEGATIVE Erythrocytes detection in urine sediment by light microscopy NEGATIVE NEGATIVE Urine ketones detection by automated test strip NEGATIVE NEGATIVE Urine nitrite detection by test strip NEGATIVE NEGATIVE Urine total bilirubin detection by test strip NEGATIVE NEGATIVE Urine urobilinogen measurement by automated test strip (mass/volume) NORMAL NORMAL Urine leukocyte esterase detection by dipstick NEGATIVE NEGATIVE Automated urine sediment erythrocyte count by microscopy (number/high power field) NONE NRG Automated urine sediment leukocyte count by microscopy (number/high power field ) NONE NRG Bacteria detection in urine sediment by light microscopy NEGATIVE NRG Squamous epithelial cells detection in urine sediment by light microscopy 0-2 NRG Crystals detection in urine sediment by light microscopy NONE NRG Casts detection in urine sediment by light microscopy NONE NRG Mucus detection in urine sediment by light microscopy NEGATIVE NRG Complete urinalysis with reflex to culture NO NRG Complete blood count (CBC) with automated white blood cell (WBC) differential - 05/23/16 04:14 Blood leukocytes automated count (number/volume) 5.1 10*3/uL 4.3-11.0 Blood erythrocytes automated count (number/volume) 4.94 10*6/uL 4.35-5.85 Venous blood hemoglobin measurement (mass/volume) 15.1 g/dL 13.3-17.7 Blood hematocrit (volume fraction) 45 % 40-54 Automated erythrocyte mean corpuscular volume 91 [foz_us] 80-99 Automated erythrocyte mean corpuscular hemoglobin (mass per erythrocyte) 31 pg 25-34 Automated erythrocyte mean corpuscular hemoglobin concentration measurement ( mass/volume) 34 g/dL 32-36 Automated erythrocyte distribution width ratio 16.4 % 10.0-14.5 Automated blood platelet count (count/volume) 167 10*3/uL 130-400 Automated blood platelet mean volume measurement 11.2 [foz_us] 7.4-10.4 Automated blood neutrophils/100 leukocytes 64 % 42-75 Automated blood lymphocytes/100 leukocytes 22 % 12-44 Blood monocytes/100 leukocytes 11 % 0-12 Automated blood eosinophils/100 leukocytes 2 % 0-10 Automated blood basophils/100 leukocytes 1 % 0-10 Blood neutrophils automated count (number/volume) 3.3 10*3 1.8-7.8 Blood lymphocytes automated count (number/volume) 1.1 10*3 1.0-4.0 Blood monocytes automated count (number/volume) 0.6 10*3 0.0-1.0 Automated eosinophil count 0.1 10*3/uL 0.0-0.3 Automated blood basophil count (count/volume) 0.0 10*3/uL 0.0-0.1 Comprehensive metabolic panel - 05/23/16 04:14 Serum or plasma sodium measurement (moles/volume) 139 mmol/L 135-145 Serum or plasma potassium measurement (moles/volume) 3.8 mmol/L 3.6-5.0 Serum or plasma chloride measurement (moles/volume) 100 mmol/L 98-107 Carbon dioxide 21 mmol/L 21-32 Serum or plasma anion gap determination (moles/volume) 18 mmol/L 5-14 Serum or plasma urea nitrogen measurement (mass/volume) 29 mg/dL 7-18 Serum or plasma creatinine measurement (mass/volume) 1.51 mg/dL 0.60-1.30 Serum or plasma urea nitrogen/creatinine mass ratio 19 NRG Serum or plasma creatinine measurement with calculation of estimated glomerular filtration rate 47 NRG Serum or plasma glucose measurement (mass/volume) 84 mg/dL 70-105 Serum or plasma calcium measurement (mass/volume) 9.5 mg/dL 8.5-10.1 Serum or plasma total bilirubin measurement (mass/volume) 3.2 mg/dL 0.1-1.0 Serum or plasma alkaline phosphatase measurement (enzymatic activity/volume) 50 U/L 40-136 Serum or plasma aspartate aminotransferase measurement (enzymatic activity/ volume) 20 U/L 5-34 Serum or plasma alanine aminotransferase measurement (enzymatic activity/volume ) 7 U/L 0-55 Serum or plasma protein measurement (mass/volume) 6.1 g/dL 6.4-8.2 Serum or plasma albumin measurement (mass/volume) 3.6 g/dL 3.2-4.5 Serum or plasma lithium measurement (moles/volume) - 05/23/16 04:14 BNP level 2294.9 pg/mL <100.0 Magnesium - 05/23/16 04:14 Magnesium 2.0 mg/dL 1.8-2.4 THYROID STIMULATING HORMONE - 05/23/16 04:14 THYROID STIMULATING HORMONE 2.57 u[iU]/mL 0.35-4.94 Automated blood complete blood count (hemogram) panel - 05/24/16 04:21 Blood leukocytes automated count (number/volume) 6.2 10*3/uL 4.3-11.0 Blood erythrocytes automated count (number/volume) 4.76 10*6/uL 4.35-5.85 Venous blood hemoglobin measurement (mass/volume) 14.6 g/dL 13.3-17.7 Blood hematocrit (volume fraction) 43 % 40-54 Automated erythrocyte mean corpuscular volume 91 [foz_us] 80-99 Automated erythrocyte mean corpuscular hemoglobin (mass per erythrocyte) 31 pg 25-34 Automated erythrocyte mean corpuscular hemoglobin concentration measurement ( mass/volume) 34 g/dL 32-36 Automated erythrocyte distribution width ratio 16.3 % 10.0-14.5 Automated blood platelet count (count/volume) 176 10*3/uL 130-400 Automated blood platelet mean volume measurement 11.5 [foz_us] 7.4-10.4 Comprehensive metabolic panel - 05/24/16 04:21 Serum or plasma sodium measurement (moles/volume) 138 mmol/L 135-145 Serum or plasma potassium measurement (moles/volume) 4.3 mmol/L 3.6-5.0 Serum or plasma chloride measurement (moles/volume) 101 mmol/L 98-107 Carbon dioxide 21 mmol/L 21-32 Serum or plasma anion gap determination (moles/volume) 16 mmol/L 5-14 Serum or plasma urea nitrogen measurement (mass/volume) 33 mg/dL 7-18 Serum or plasma creatinine measurement (mass/volume) 2.23 mg/dL 0.60-1.30 Serum or plasma urea nitrogen/creatinine mass ratio 15 NRG Serum or plasma creatinine measurement with calculation of estimated glomerular filtration rate 30 NRG Serum or plasma glucose measurement (mass/volume) 101 mg/dL 70-105 Serum or plasma calcium measurement (mass/volume) 9.0 mg/dL 8.5-10.1 Serum or plasma total bilirubin measurement (mass/volume) 2.5 mg/dL 0.1-1.0 Serum or plasma alkaline phosphatase measurement (enzymatic activity/volume) 49 U/L 40-136 Serum or plasma aspartate aminotransferase measurement (enzymatic activity/ volume) 20 U/L 5-34 Serum or plasma alanine aminotransferase measurement (enzymatic activity/volume ) 11 U/L 0-55 Serum or plasma protein measurement (mass/volume) 5.6 g/dL 6.4-8.2 Serum or plasma albumin measurement (mass/volume) 3.3 g/dL 3.2-4.5 Serum or plasma lithium measurement (moles/volume) - 05/24/16 04:21 BNP level 2541.5 pg/mL <100.0 Arterial blood gas measurement - 05/24/16 11:16 Blood pCO2 39 mm[Hg] 35-45 Blood pO2 107 mm[Hg] 79-93 Arterial blood bicarbonate measurement (moles/volume) 25 mmol/L 23-27 Arterial blood base excess by calculation -0.2 mmol/L - 2.5-2.5 Arterial blood oxygen saturation measurement 98 % 94-100 * Inhaled oxygen flow rate 2 NRG Arterial blood pH measurement with patient temperature correction 7.41 7.37-7.43 Arterial blood carbon dioxide, total measurement (moles/volume) 25.8 mmol/L 21.0-31.0 Body site R.RADIAL NRG Assessment of wrist artery patency prior to arterial puncture YES- POS NRG Setting of ventilation mode NO NRG Measurement of body temperature 96.9 NRG Complete urinalysis with reflex to culture - 05/25/16 00:00 Urine color determination ELSY NRG Urine clarity determination CLEAR NRG Urine pH measurement by test strip 5 5-9 Specific gravity of urine by test strip 1.025 1.016- 1.022 Urine protein assay by test strip, semi-quantitative 3+ NEGATIVE Urine glucose detection by automated test strip NEGATIVE NEGATIVE Erythrocytes detection in urine sediment by light microscopy 1+ NEGATIVE Urine ketones detection by automated test strip 1+ NEGATIVE Urine nitrite detection by test strip POSITIVE NEGATIVE Urine total bilirubin detection by test strip 2+ NEGATIVE Urine urobilinogen measurement by automated test strip (mass/volume) 4 mg/dL NORMAL Urine leukocyte esterase detection by dipstick 1+ NEGATIVE Automated urine sediment erythrocyte count by microscopy (number/high power field) RARE NRG Automated urine sediment leukocyte count by microscopy (number/high power field ) [HPF] NRG Bacteria detection in urine sediment by light microscopy TRACE NRG Squamous epithelial cells detection in urine sediment by light microscopy 2-5 NRG Crystals detection in urine sediment by light microscopy NONE NRG Casts detection in urine sediment by light microscopy PRESENT NRG Mucus detection in urine sediment by light microscopy NEGATIVE NRG Complete urinalysis with reflex to culture YES NRG Hyaline casts detection in urine sediment by light microscopy 10-25 NRG Bacterial urine culture - 05/25/16 00:00 Bacterial urine culture NG NRG Automated blood complete blood count (hemogram) panel - 05/25/16 04:05 Blood leukocytes automated count (number/volume) 7.4 10*3/uL 4.3-11.0 Blood erythrocytes automated count (number/volume) 4.49 10*6/uL 4.35-5.85 Venous blood hemoglobin measurement (mass/volume) 13.9 g/dL 13.3-17.7 Blood hematocrit (volume fraction) 40 % 40-54 Automated erythrocyte mean corpuscular volume 90 [foz_us] 80-99 Automated erythrocyte mean corpuscular hemoglobin (mass per erythrocyte) 31 pg 25-34 Automated erythrocyte mean corpuscular hemoglobin concentration measurement ( mass/volume) 34 g/dL 32-36 Automated erythrocyte distribution width ratio 15.9 % 10.0-14.5 Automated blood platelet count (count/volume) 176 10*3/uL 130-400 Automated blood platelet mean volume measurement 11.4 [foz_us] 7.4-10.4 Whole blood basic metabolic panel - 05/25/16 04:05 Serum or plasma sodium measurement (moles/volume) 136 mmol/L 135-145 Serum or plasma potassium measurement (moles/volume) 4.1 mmol/L 3.6-5.0 Serum or plasma chloride measurement (moles/volume) 100 mmol/L 98-107 Carbon dioxide 21 mmol/L 21-32 Serum or plasma anion gap determination (moles/volume) 15 mmol/L 5-14 Serum or plasma urea nitrogen measurement (mass/volume) 43 mg/dL 7-18 Serum or plasma creatinine measurement (mass/volume) 2.62 mg/dL 0.60-1.30 Serum or plasma urea nitrogen/creatinine mass ratio 16 NRG Serum or plasma creatinine measurement with calculation of estimated glomerular filtration rate 25 NRG Serum or plasma glucose measurement (mass/volume) 100 mg/dL 70-105 Serum or plasma calcium measurement (mass/volume) 9.0 mg/dL 8.5-10.1 Serum or plasma phosphate measurement (mass/volume) - 05/25/16 04:05 Serum or plasma phosphate measurement (mass/volume) 5.3 mg/dL 2.3-4.7 Magnesium - 05/25/16 04:05 Magnesium 2.0 mg/dL 1.8-2.4 Serum or plasma lithium measurement (moles/volume) - 05/25/16 04:05 BNP level 1098.5 pg/mL <100.0 Sputum Gram stain - 05/25/16 16:25 Bacterial sputum culture - 05/25/16 16:25 Bacterial sputum culture NORMAL [facility] Automated blood complete blood count (hemogram) panel - 05/26/16 04:30 Blood leukocytes automated count (number/volume) 7.0 10*3/uL 4.3-11.0 Blood erythrocytes automated count (number/volume) 4.63 10*6/uL 4.35-5.85 Venous blood hemoglobin measurement (mass/volume) 14.0 g/dL 13.3-17.7 Blood hematocrit (volume fraction) 42 % 40-54 Automated erythrocyte mean corpuscular volume 91 [foz_us] 80-99 Automated erythrocyte mean corpuscular hemoglobin (mass per erythrocyte) 30 pg 25-34 Automated erythrocyte mean corpuscular hemoglobin concentration measurement ( mass/volume) 33 g/dL 32-36 Automated erythrocyte distribution width ratio 16.3 % 10.0-14.5 Automated blood platelet count (count/volume) 162 10*3/uL 130-400 Automated blood platelet mean volume measurement 10.8 [foz_us] 7.4-10.4 Comprehensive metabolic panel - 05/26/16 04:30 Serum or plasma sodium measurement (moles/volume) 136 mmol/L 135-145 Serum or plasma potassium measurement (moles/volume) 4.5 mmol/L 3.6-5.0 Serum or plasma chloride measurement (moles/volume) 100 mmol/L 98-107 Carbon dioxide 21 mmol/L 21-32 Serum or plasma anion gap determination (moles/volume) 15 mmol/L 5-14 Serum or plasma urea nitrogen measurement (mass/volume) 45 mg/dL 7-18 Serum or plasma creatinine measurement (mass/volume) 2.30 mg/dL 0.60-1.30 Serum or plasma urea nitrogen/creatinine mass ratio 20 NRG Serum or plasma creatinine measurement with calculation of estimated glomerular filtration rate 29 NRG Serum or plasma glucose measurement (mass/volume) 112 mg/dL 70-105 Serum or plasma calcium measurement (mass/volume) 8.9 mg/dL 8.5-10.1 Serum or plasma total bilirubin measurement (mass/volume) 2.1 mg/dL 0.1-1.0 Serum or plasma alkaline phosphatase measurement (enzymatic activity/volume) 44 U/L 40-136 Serum or plasma aspartate aminotransferase measurement (enzymatic activity/ volume) 20 U/L 5-34 Serum or plasma alanine aminotransferase measurement (enzymatic activity/volume ) 15 U/L 0-55 Serum or plasma protein measurement (mass/volume) 5.8 g/dL 6.4-8.2 Serum or plasma albumin measurement (mass/volume) 3.3 g/dL 3.2-4.5 Serum or plasma lithium measurement (moles/volume) - 05/26/16 04:30 BNP level 767.6 pg/mL <100.0 Whole blood basic metabolic panel - 05/27/16 04:36 Serum or plasma sodium measurement (moles/volume) 136 mmol/L 135-145 Serum or plasma potassium measurement (moles/volume) 4.6 mmol/L 3.6-5.0 Serum or plasma chloride measurement (moles/volume) 102 mmol/L 98-107 Carbon dioxide 20 mmol/L 21-32 Serum or plasma anion gap determination (moles/volume) 14 mmol/L 5-14 Serum or plasma urea nitrogen measurement (mass/volume) 44 mg/dL 7-18 Serum or plasma creatinine measurement (mass/volume) 1.89 mg/dL 0.60-1.30 Serum or plasma urea nitrogen/creatinine mass ratio 23 NRG Serum or plasma creatinine measurement with calculation of estimated glomerular filtration rate 36 NRG Serum or plasma glucose measurement (mass/volume) 129 mg/dL 70-105 Serum or plasma calcium measurement (mass/volume) 8.9 mg/dL 8.5-10.1 Serum or plasma phosphate measurement (mass/volume) - 05/27/16 04:36 Serum or plasma phosphate measurement (mass/volume) 4.4 mg/dL 2.3-4.7 Magnesium - 05/27/16 04:36 Magnesium 2.5 mg/dL 1.8-2.4 Complete blood count (CBC) with automated white blood cell (WBC) differential - 05/27/16 04:36 Blood leukocytes automated count (number/volume) 6.9 10*3/uL 4.3-11.0 Blood erythrocytes automated count (number/volume) 4.62 10*6/uL 4.35-5.85 Venous blood hemoglobin measurement (mass/volume) 14.1 g/dL 13.3-17.7 Blood hematocrit (volume fraction) 42 % 40-54 Automated erythrocyte mean corpuscular volume 91 [foz_us] 80-99 Automated erythrocyte mean corpuscular hemoglobin (mass per erythrocyte) 31 pg 25-34 Automated erythrocyte mean corpuscular hemoglobin concentration measurement ( mass/volume) 34 g/dL 32-36 Automated erythrocyte distribution width ratio 16.6 % 10.0-14.5 Automated blood platelet count (count/volume) 161 10*3/uL 130-400 Automated blood platelet mean volume measurement 10.8 [foz_us] 7.4-10.4 Automated blood neutrophils/100 leukocytes 86 % 42-75 Automated blood lymphocytes/100 leukocytes 6 % 12-44 Blood monocytes/100 leukocytes 8 % 0-12 Automated blood eosinophils/100 leukocytes 0 % 0-10 Automated blood basophils/100 leukocytes 0 % 0-10 Blood neutrophils automated count (number/volume) 5.9 10*3 1.8-7.8 Blood lymphocytes automated count (number/volume) 0.4 10*3 1.0-4.0 Blood monocytes automated count (number/volume) 0.5 10*3 0.0-1.0 Automated eosinophil count 0.0 10*3/uL 0.0-0.3 Automated blood basophil count (count/volume) 0.0 10*3/uL 0.0-0.1 Body fluid cell count - 05/27/16 09:30 Specimen source identification of body fluid PLEURAL NRG Evaluation of color of body fluid ELSY NRG Determination of appearance of body fluid MOD CLDY NRG Body fluid leukocytes count (number/volume) TNP NRG Body fluid erythrocytes count (number/volume) TNP NRG Manual body fluid polymorphonuclear cells/100 leukocytes TNP NRG Manual body fluid mononuclear cells/100 leukocytes TNP NRG Manual body fluid lymphocytes/100 leukocytes TNP NRG Other cells/100 leukocytes in body fluid by manual count TN NR Specific gravity of body fluid - 05/27/16 09:30 Specific gravity of body fluid 1.010 NRG * Body fluid crystals type by light microscopy - 05/27/16 09:30 * Body fluid crystals type by light microscopy NOT SEEN NRG Body fluid chloride measurement (moles/volume) - 05/27/16 09:30 Body fluid chloride measurement (moles/volume) 104 mmol/L NRG Glucose body fluid - 05/27/16 09:30 Glucose body fluid 131 mg/dL NRG Body fluid total protein measurement - 05/27/16 09:30 Body fluid total protein measurement 1.7 g/dL NRG Body fluid/serum or plasma lactate dehydrogenase (LDH) ratio - 05/27/16 09:30 Body fluid/serum or plasma lactate dehydrogenase (LDH) ratio 90 U/L NRG Amylase body fluid - 05/27/16 09:30 Amylase body fluid 12 U/L NRG Creatinine body fluid - 05/27/16 09:30 Creatinine body fluid 2 mg/dL NRG Bacteria identification in isolate by anaerobe culture - 05/27/16 09:30 Bacteria identification in isolate by anaerobe culture [facility] Gram stain microscopy - 05/27/16 09:30 GRAM STAIN RESULT FEW WBC'S, NO BACTERIA OBSERVED NR Bacteria identification in wound by culture - 05/27/16 09:30 Bacteria identification in wound by culture [facility] Fungus culture - 05/27/16 09:30 Fungus culture [facility] Mycobacterium species detection by organism specific culture - 05/27/16 09:30 DATE/TIME MICROSCOPIC 06/11/16 12:15 NR MICROSCOPIC NO ACID-FAST BACILLI FOUND NRG AFB CULTURE NO MYCOBACTERIA RECOVERED AFTER 6 WEEKS NRG DATE FINAL AFB CULTURE 07/09/16 NR Complete blood count (CBC) with automated white blood cell (WBC) differential - 05/28/16 05:21 Blood leukocytes automated count (number/volume) 6.6 10*3/uL 4.3-11.0 Blood erythrocytes automated count (number/volume) 4.60 10*6/uL 4.35-5.85 Venous blood hemoglobin measurement (mass/volume) 14.3 g/dL 13.3-17.7 Blood hematocrit (volume fraction) 42 % 40-54 Automated erythrocyte mean corpuscular volume 92 [foz_us] 80-99 Automated erythrocyte mean corpuscular hemoglobin (mass per erythrocyte) 31 pg 25-34 Automated erythrocyte mean corpuscular hemoglobin concentration measurement ( mass/volume) 34 g/dL 32-36 Automated erythrocyte distribution width ratio 16.9 % 10.0-14.5 Automated blood platelet count (count/volume) 173 10*3/uL 130-400 Automated blood platelet mean volume measurement 10.9 [foz_us] 7.4-10.4 Automated blood neutrophils/100 leukocytes 80 % 42-75 Automated blood lymphocytes/100 leukocytes 11 % 12-44 Blood monocytes/100 leukocytes 9 % 0-12 Automated blood eosinophils/100 leukocytes 1 % 0-10 Automated blood basophils/100 leukocytes 0 % 0-10 Blood neutrophils automated count (number/volume) 5.3 10*3 1.8-7.8 Blood lymphocytes automated count (number/volume) 0.7 10*3 1.0-4.0 Blood monocytes automated count (number/volume) 0.6 10*3 0.0-1.0 Automated eosinophil count 0.0 10*3/uL 0.0-0.3 Automated blood basophil count (count/volume) 0.0 10*3/uL 0.0-0.1 Whole blood basic metabolic panel - 05/28/16 05:21 Serum or plasma sodium measurement (moles/volume) 139 mmol/L 135-145 Serum or plasma potassium measurement (moles/volume) 4.2 mmol/L 3.6-5.0 Serum or plasma chloride measurement (moles/volume) 101 mmol/L 98-107 Carbon dioxide 26 mmol/L 21-32 Serum or plasma anion gap determination (moles/volume) 12 mmol/L 5-14 Serum or plasma urea nitrogen measurement (mass/volume) 37 mg/dL 7-18 Serum or plasma creatinine measurement (mass/volume) 1.58 mg/dL 0.60-1.30 Serum or plasma urea nitrogen/creatinine mass ratio 23 NRG Serum or plasma creatinine measurement with calculation of estimated glomerular filtration rate 45 NRG Serum or plasma glucose measurement (mass/volume) 112 mg/dL 70-105 Serum or plasma calcium measurement (mass/volume) 8.3 mg/dL 8.5-10.1 Serum or plasma phosphate measurement (mass/volume) - 05/28/16 05:21 Serum or plasma phosphate measurement (mass/volume) 3.7 mg/dL 2.3-4.7 Magnesium - 05/28/16 05:21 Magnesium 1.9 mg/dL 1.8-2.4 Complete blood count (CBC) with automated white blood cell (WBC) differential - 05/29/16 04:29 Blood leukocytes automated count (number/volume) 7.4 10*3/uL 4.3-11.0 Blood erythrocytes automated count (number/volume) 5.10 10*6/uL 4.35-5.85 Venous blood hemoglobin measurement (mass/volume) 15.7 g/dL 13.3-17.7 Blood hematocrit (volume fraction) 47 % 40-54 Automated erythrocyte mean corpuscular volume 91 [foz_us] 80-99 Automated erythrocyte mean corpuscular hemoglobin (mass per erythrocyte) 31 pg 25-34 Automated erythrocyte mean corpuscular hemoglobin concentration measurement ( mass/volume) 34 g/dL 32-36 Automated erythrocyte distribution width ratio 16.7 % 10.0-14.5 Automated blood platelet count (count/volume) 164 10*3/uL 130-400 Automated blood platelet mean volume measurement 11.2 [foz_us] 7.4-10.4 Automated blood neutrophils/100 leukocytes 83 % 42-75 Automated blood lymphocytes/100 leukocytes 9 % 12-44 Blood monocytes/100 leukocytes 8 % 0-12 Automated blood eosinophils/100 leukocytes 1 % 0-10 Automated blood basophils/100 leukocytes 0 % 0-10 Blood neutrophils automated count (number/volume) 6.1 10*3 1.8-7.8 Blood lymphocytes automated count (number/volume) 0.6 10*3 1.0-4.0 Blood monocytes automated count (number/volume) 0.6 10*3 0.0-1.0 Automated eosinophil count 0.1 10*3/uL 0.0-0.3 Automated blood basophil count (count/volume) 0.0 10*3/uL 0.0-0.1 Whole blood basic metabolic panel - 05/29/16 04:29 Serum or plasma sodium measurement (moles/volume) 137 mmol/L 135-145 Serum or plasma potassium measurement (moles/volume) 4.5 mmol/L 3.6-5.0 Serum or plasma chloride measurement (moles/volume) 96 mmol/L 98-107 Carbon dioxide 30 mmol/L 21-32 Serum or plasma anion gap determination (moles/volume) 11 mmol/L 5-14 Serum or plasma urea nitrogen measurement (mass/volume) 33 mg/dL 7-18 Serum or plasma creatinine measurement (mass/volume) 1.39 mg/dL 0.60-1.30 Serum or plasma urea nitrogen/creatinine mass ratio 24 NRG Serum or plasma creatinine measurement with calculation of estimated glomerular filtration rate 52 NRG Serum or plasma glucose measurement (mass/volume) 109 mg/dL 70-105 Serum or plasma calcium measurement (mass/volume) 8.6 mg/dL 8.5-10.1 Serum or plasma phosphate measurement (mass/volume) - 05/29/16 04:29 Serum or plasma phosphate measurement (mass/volume) 3.2 mg/dL 2.3-4.7 Magnesium - 05/29/16 04:29 Magnesium 1.9 mg/dL 1.8-2.4 Complete blood count (CBC) with automated white blood cell (WBC) differential - 05/30/16 04:22 Blood leukocytes automated count (number/volume) 7.0 10*3/uL 4.3-11.0 Blood erythrocytes automated count (number/volume) 5.06 10*6/uL 4.35-5.85 Venous blood hemoglobin measurement (mass/volume) 15.6 g/dL 13.3-17.7 Blood hematocrit (volume fraction) 46 % 40-54 Automated erythrocyte mean corpuscular volume 92 [foz_us] 80-99 Automated erythrocyte mean corpuscular hemoglobin (mass per erythrocyte) 31 pg 25-34 Automated erythrocyte mean corpuscular hemoglobin concentration measurement ( mass/volume) 34 g/dL 32-36 Automated erythrocyte distribution width ratio 16.8 % 10.0-14.5 Automated blood platelet count (count/volume) 152 10*3/uL 130-400 Automated blood platelet mean volume measurement 11.4 [foz_us] 7.4-10.4 Automated blood neutrophils/100 leukocytes 71 % 42-75 Automated blood lymphocytes/100 leukocytes 14 % 12-44 Blood monocytes/100 leukocytes 7 % 0-12 Automated blood eosinophils/100 leukocytes 9 % 0-10 Automated blood basophils/100 leukocytes 0 % 0-10 Blood neutrophils automated count (number/volume) 5.0 10*3 1.8-7.8 Blood lymphocytes automated count (number/volume) 1.0 10*3 1.0-4.0 Blood monocytes automated count (number/volume) 0.5 10*3 0.0-1.0 Automated eosinophil count 0.6 10*3/uL 0.0-0.3 Automated blood basophil count (count/volume) 0.0 10*3/uL 0.0-0.1 Whole blood basic metabolic panel - 05/30/16 04:22 Serum or plasma sodium measurement (moles/volume) 140 mmol/L 135-145 Serum or plasma potassium measurement (moles/volume) 4.1 mmol/L 3.6-5.0 Serum or plasma chloride measurement (moles/volume) 100 mmol/L 98-107 Carbon dioxide 27 mmol/L 21-32 Serum or plasma anion gap determination (moles/volume) 13 mmol/L 5-14 Serum or plasma urea nitrogen measurement (mass/volume) 29 mg/dL 7-18 Serum or plasma creatinine measurement (mass/volume) 1.20 mg/dL 0.60-1.30 Serum or plasma urea nitrogen/creatinine mass ratio 24 NRG Serum or plasma creatinine measurement with calculation of estimated glomerular filtration rate > NRG Serum or plasma glucose measurement (mass/volume) 84 mg/dL 70-105 Serum or plasma calcium measurement (mass/volume) 8.1 mg/dL 8.5-10.1 Serum or plasma phosphate measurement (mass/volume) - 05/30/16 04:22 Serum or plasma phosphate measurement (mass/volume) 2.9 mg/dL 2.3-4.7 Magnesium - 05/30/16 04:22 Magnesium 1.8 mg/dL 1.8-2.4 Complete blood count (CBC) with automated white blood cell (WBC) differential - 05/31/16 04:01 Blood leukocytes automated count (number/volume) 7.4 10*3/uL 4.3-11.0 Blood erythrocytes automated count (number/volume) 4.78 10*6/uL 4.35-5.85 Venous blood hemoglobin measurement (mass/volume) 14.9 g/dL 13.3-17.7 Blood hematocrit (volume fraction) 44 % 40-54 Automated erythrocyte mean corpuscular volume 92 [foz_us] 80-99 Automated erythrocyte mean corpuscular hemoglobin (mass per erythrocyte) 31 pg 25-34 Automated erythrocyte mean corpuscular hemoglobin concentration measurement ( mass/volume) 34 g/dL 32-36 Automated erythrocyte distribution width ratio 16.4 % 10.0-14.5 Automated blood platelet count (count/volume) 156 10*3/uL 130-400 Automated blood platelet mean volume measurement 11.1 [foz_us] 7.4-10.4 Automated blood neutrophils/100 leukocytes 68 % 42-75 Automated blood lymphocytes/100 leukocytes 17 % 12-44 Blood monocytes/100 leukocytes 8 % 0-12 Automated blood eosinophils/100 leukocytes 7 % 0-10 Automated blood basophils/100 leukocytes 0 % 0-10 Blood neutrophils automated count (number/volume) 5.0 10*3 1.8-7.8 Blood lymphocytes automated count (number/volume) 1.2 10*3 1.0-4.0 Blood monocytes automated count (number/volume) 0.6 10*3 0.0-1.0 Automated eosinophil count 0.5 10*3/uL 0.0-0.3 Automated blood basophil count (count/volume) 0.0 10*3/uL 0.0-0.1 Whole blood basic metabolic panel - 05/31/16 04:01 Serum or plasma sodium measurement (moles/volume) 139 mmol/L 135-145 Serum or plasma potassium measurement (moles/volume) 4.4 mmol/L 3.6-5.0 Serum or plasma chloride measurement (moles/volume) 98 mmol/L 98-107 Carbon dioxide 30 mmol/L 21-32 Serum or plasma anion gap determination (moles/volume) 11 mmol/L 5-14 Serum or plasma urea nitrogen measurement (mass/volume) 24 mg/dL 7-18 Serum or plasma creatinine measurement (mass/volume) 1.08 mg/dL 0.60-1.30 Serum or plasma urea nitrogen/creatinine mass ratio 22 NRG Serum or plasma creatinine measurement with calculation of estimated glomerular filtration rate > NRG Serum or plasma glucose measurement (mass/volume) 73 mg/dL 70-105 Serum or plasma calcium measurement (mass/volume) 8.3 mg/dL 8.5-10.1 Serum or plasma phosphate measurement (mass/volume) - 05/31/16 04:01 Serum or plasma phosphate measurement (mass/volume) 2.9 mg/dL 2.3-4.7 Magnesium - 05/31/16 04:01 Magnesium 1.7 mg/dL 1.8-2.4 Complete blood count (CBC) with automated white blood cell (WBC) differential - 06/01/16 04:07 Blood leukocytes automated count (number/volume) 7.0 10*3/uL 4.3-11.0 Blood erythrocytes automated count (number/volume) 4.90 10*6/uL 4.35-5.85 Venous blood hemoglobin measurement (mass/volume) 15.3 g/dL 13.3-17.7 Blood hematocrit (volume fraction) 44 % 40-54 Automated erythrocyte mean corpuscular volume 90 [foz_us] 80-99 Automated erythrocyte mean corpuscular hemoglobin (mass per erythrocyte) 31 pg 25-34 Automated erythrocyte mean corpuscular hemoglobin concentration measurement ( mass/volume) 35 g/dL 32-36 Automated erythrocyte distribution width ratio 16.0 % 10.0-14.5 Automated blood platelet count (count/volume) 170 10*3/uL 130-400 Automated blood platelet mean volume measurement 10.5 [foz_us] 7.4-10.4 Automated blood neutrophils/100 leukocytes 74 % 42-75 Automated blood lymphocytes/100 leukocytes 12 % 12-44 Blood monocytes/100 leukocytes 9 % 0-12 Automated blood eosinophils/100 leukocytes 6 % 0-10 Automated blood basophils/100 leukocytes 0 % 0-10 Blood neutrophils automated count (number/volume) 5.2 10*3 1.8-7.8 Blood lymphocytes automated count (number/volume) 0.8 10*3 1.0-4.0 Blood monocytes automated count (number/volume) 0.6 10*3 0.0-1.0 Automated eosinophil count 0.4 10*3/uL 0.0-0.3 Automated blood basophil count (count/volume) 0.0 10*3/uL 0.0-0.1 Whole blood basic metabolic panel - 06/01/16 04:07 Serum or plasma sodium measurement (moles/volume) 138 mmol/L 135-145 Serum or plasma potassium measurement (moles/volume) 4.1 mmol/L 3.6-5.0 Serum or plasma chloride measurement (moles/volume) 97 mmol/L 98-107 Carbon dioxide 28 mmol/L 21-32 Serum or plasma anion gap determination (moles/volume) 13 mmol/L 5-14 Serum or plasma urea nitrogen measurement (mass/volume) 22 mg/dL 7-18 Serum or plasma creatinine measurement (mass/volume) 1.17 mg/dL 0.60-1.30 Serum or plasma urea nitrogen/creatinine mass ratio 19 NRG Serum or plasma creatinine measurement with calculation of estimated glomerular filtration rate > NRG Serum or plasma glucose measurement (mass/volume) 92 mg/dL 70-105 Serum or plasma calcium measurement (mass/volume) 8.6 mg/dL 8.5-10.1 Serum or plasma phosphate measurement (mass/volume) - 06/01/16 04:07 Serum or plasma phosphate measurement (mass/volume) 3.2 mg/dL 2.3-4.7 Magnesium - 06/01/16 04:07 Magnesium 1.9 mg/dL 1.8-2.4 Complete blood count (CBC) with automated white blood cell (WBC) differential - 06/02/16 04:51 Blood leukocytes automated count (number/volume) 7.1 10*3/uL 4.3-11.0 Blood erythrocytes automated count (number/volume) 4.94 10*6/uL 4.35-5.85 Venous blood hemoglobin measurement (mass/volume) 15.2 g/dL 13.3-17.7 Blood hematocrit (volume fraction) 45 % 40-54 Automated erythrocyte mean corpuscular volume 90 [foz_us] 80-99 Automated erythrocyte mean corpuscular hemoglobin (mass per erythrocyte) 31 pg 25-34 Automated erythrocyte mean corpuscular hemoglobin concentration measurement ( mass/volume) 34 g/dL 32-36 Automated erythrocyte distribution width ratio 15.8 % 10.0-14.5 Automated blood platelet count (count/volume) 178 10*3/uL 130-400 Automated blood platelet mean volume measurement 11.4 [foz_us] 7.4-10.4 Automated blood neutrophils/100 leukocytes 74 % 42-75 Automated blood lymphocytes/100 leukocytes 12 % 12-44 Blood monocytes/100 leukocytes 9 % 0-12 Automated blood eosinophils/100 leukocytes 5 % 0-10 Automated blood basophils/100 leukocytes 0 % 0-10 Blood neutrophils automated count (number/volume) 5.3 10*3 1.8-7.8 Blood lymphocytes automated count (number/volume) 0.8 10*3 1.0-4.0 Blood monocytes automated count (number/volume) 0.6 10*3 0.0-1.0 Automated eosinophil count 0.4 10*3/uL 0.0-0.3 Automated blood basophil count (count/volume) 0.0 10*3/uL 0.0-0.1 Whole blood basic metabolic panel - 06/02/16 04:51 Serum or plasma sodium measurement (moles/volume) 138 mmol/L 135-145 Serum or plasma potassium measurement (moles/volume) 4.1 mmol/L 3.6-5.0 Serum or plasma chloride measurement (moles/volume) 99 mmol/L 98-107 Carbon dioxide 25 mmol/L 21-32 Serum or plasma anion gap determination (moles/volume) 14 mmol/L 5-14 Serum or plasma urea nitrogen measurement (mass/volume) 22 mg/dL 7-18 Serum or plasma creatinine measurement (mass/volume) 1.14 mg/dL 0.60-1.30 Serum or plasma urea nitrogen/creatinine mass ratio 19 NRG Serum or plasma creatinine measurement with calculation of estimated glomerular filtration rate > NRG Serum or plasma glucose measurement (mass/volume) 99 mg/dL 70-105 Serum or plasma calcium measurement (mass/volume) 8.9 mg/dL 8.5-10.1 Serum or plasma phosphate measurement (mass/volume) - 06/02/16 04:51 Serum or plasma phosphate measurement (mass/volume) 3.1 mg/dL 2.3-4.7 Magnesium - 06/02/16 04:51 Magnesium 1.9 mg/dL 1.8-2.4 Encounters ACCT No. Visit Date/Time Discharge Status Pt. Type Provider Facility Loc./Unit Complaint [id number] 05/22/2016 19:56:00 06/02/2016 22:10:00 DIS Inpatient MIGUEL ANGEL HART MD [facility] 4TH ACUTE HEART FAILURE DEFIBRILLATION DISCHARGE [id number] 05/08/2016 19:50:00 05/08/2016 23:59:59 CLS Outpatient JAYESH POOLE DO [facility] SLEEP KHADIJAH [id number] 04/08/2016 12:35:00 04/08/2016 23:59:59 CLS Outpatient EVELIN GAY FACC, NAOMIE LI CCDS [facility] LAB [id number] 04/08/2016 12:30:00 04/08/2016 23:59:59 CLS Outpatient JAYESH POOLE DO [facility] RT [id number] 03/17/2016 14:11:00 03/17/2016 23:59:59 CLS Outpatient EVELIN GAY FACC, NAOMIE LI CCDS [facility] RAD [id number] 03/12/2016 11:18:00 03/12/2016 23:59:59 CLS Outpatient JAYESH POOLE DO [facility] RAD [id number] 03/10/2016 15:30:00 03/10/2016 23:59:59 CLS Outpatient JAYESH POOLE DO [facility] RAD [id number] 01/12/2016 20:26:00 01/13/2016 01:05:00 DIS Emergency LYNDON TEMPLETON DO [facility] ER [id number] 12/12/2015 12:26:00 12/12/2015 15:40:00 DIS Emergency FAISAL GAY, ENEIDA Burns [facility] ER [id number] 05/13/2015 11:05:00 05/14/2015 12:40:00 DIS Inpatient NAOMIE WATERS MD, FACC, FACP CCDS [facility] CSD [id number] 03/10/2013 10:47:00 03/10/2013 23:59:59 CLS Outpatient MAIDA RILEY [facility] LAB [id number] 10/22/2011 10:42:00 Document Registration [id number] 09/02/2010 08:43:00 Document Registration [id number] 08/11/2010 09:20:00 Document Registration [id number] 07/28/2010 17:04:00 Document Registration [id number] 06/10/2010 11:34:00 Document Registration
[2017-10-02 02:30] LABS: ALANINE AMINOTRANSFERASE 10 U/L (0-55); ALBUMIN 3.6 GM/DL (3.2-4.5); ALKALINE PHOSPHATASE 116 U/L (40-136); BILIRUBIN,TOTAL 2.2 MG/DL (0.1-1.0); BUN/CREATININE RATIO 20; CALCIUM 8.8 MG/DL (8.5-10.1); CARBON DIOXIDE 28 MMOL/L (21-32); CHLORIDE 100 MMOL/L (98-107); CREATININE SERUM 1.42 MG/DL (0.60-1.30); GFR ESTIMATED 51; MAGNESIUM 2.6 MG/DL (1.8-2.4); POTASSIUM 5.1 MMOL/L (3.6-5.0); SODIUM 140 MMOL/L (135-145); TOTAL PROTEIN 7.7 GM/DL (6.4-8.2)
[2017-10-02 02:31] LABS: GLUCOSE 59 MG/DL (70-105)
[2017-10-02] MEDS ORDERED: FUROSEMIDE 40 MG/4 ML INJ (LASIX) IVP ONE (02:45)
[2017-10-02] MEDS ORDERED: DEXTROSE 50% 50 ML (IMS) SYR IV ONE (02:45)
[2017-10-02] MEDS ORDERED: DEXTROSE 50% 50 ML (IMS) SYR ONE (02:46)
--- NOTE | 2017-10-02 03:10 | ED General ---
General Chief Complaint: Respiratory Problems Stated Complaint: DIZZY Nursing Triage Note: BROUGHT IN BY [facility] FOR LOW SPO2, DIZZINESS Nursing Sepsis Screen: No Definite Risk Source of Information: Patient (DIFFICULT HISTORIAN), EMS, Old Records History of Present Illness Time Seen by Provider: 01:37 Initial Comments PT ARRIVES VIA EMS FROM HOME EMS REPORT THAT THEY HAVE BEEN CALLED TO RESIDENCE TWICE THIS EVENING AND PT REFUSED CARE BOTH TIMES, BUT EMS INSISTED THAT HE COME TO ER AFTER THE SECOND CALL PT IS ON HOSPICE PT STATES HE DID NOT CALL EMS, BUT THAT THE MALE THAT LIVES WITH HIM CALLED EMS BOTH TIMES EMS STATE THEY WERE CALLED TO SCENE FOR A PERSON WITH DIZZINESS AND SHORTNESS OF BREATH EMS STATE O2 SATS WERE IN 70'S AT HOME PT HAS COPD AND HAS HOME O2 BUT HAS NOT BEEN WEARING IT AT ALL TODAY OR RECENTLY AND DOES NOT WEAR ON ROUTINE BASIS IS UNCLEAR IF HE TAKES HIS MEDICATIONS ON A REGULAR BASIS PT ALSO HAS HISTORY OF CAD/CHF PT DENIES HAVING ANY SYMPTOMS OF ANY KIND AT ALL NOW DENIES ANY CHEST PAIN AT ALL TODAY NO COUGH NO FEVER NO SWEATS NO NAUSEA/VOMITING DENIES DIZZINESS HAS CHRONIC LEG SWELLING AND IS NO DIFFERENT TODAY. PT HAS CHF AND HAS A 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 PT DENIES 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 DISCHARGE PT FIXATED ON HIS MALE FRIEND THAT LIVES WITH HIM, AND REPEATS "HE'S A RAGING LUNATIC" AND GOES ON AT LENGTH ABOUT CONSTANTLY FIGHTING AND ARGUING WITH HIM DOES STATE THAT ARGUING DOES CAUSE HIM TO BE SHORT OF BREATH PT STATES HE DOES NOT HAVE A PCP SPECIAL SKILLS OFFICER: DR. WATERS SENIOR PRODUCT DESIGNER: DR. POOLE Allergies and Home Medications Allergies Coded Allergies: No Known Drug Allergies (Unverified , 06/10/10) Home Medications Amiodarone HCl 200 Mg Tablet, 400 MG PO HS, #30 Prescribed by: DOM SMITH on 06/02/16 1059 Aspirin 81 Mg Tablet.dr, 81 MG PO HS, #30 Prescribed by: DOM SMITH on 06/02/16 1059 Digoxin 125 Mcg Tablet, 0.125 MG PO HS, #30 Prescribed by: DOM SMITH on 06/02/16 1059 Furosemide 40 Mg Tablet, 40 MG PO BID, #60 Prescribed by: DOM SMITH on 06/02/16 1059 Hydrocodone/Acetaminophen 1 Each Tablet, 1 EA PO Q4H PRN for PAIN, #30 Prescribed by: DOM SMITH on 06/02/16 1059 Ipratropium/Albuterol Sulfate 3 Ml Ampul.neb, 3 ML INH RTQ6HR, #60 Prescribed by: DOM SMITH on 06/02/16 1059 Lovastatin 10 Mg Tablet, 10 MG PO DAILY, #30 Prescribed by: DOM SMITH on 06/02/16 1100 Metoprolol Succinate 25 Mg Tab.er.24h, 25 MG PO DAILY, #30 Prescribed by: DOM SMITH on 06/02/16 1059 Constitutional: see HPI, No chills, No diaphoresis, No fever EENTM: no symptoms reported Respiratory: see HPI, No cough, short of breath Cardiovascular: see HPI, No chest pain, edema, No palpitations, No syncope Gastrointestinal: no symptoms reported Genitourinary: no symptoms reported Musculoskeletal: see HPI (CHRONIC LEG EDEMA) Skin: no symptoms reported Psychiatric/Neurological: See HPI, Anxiety Hematologic/Lymphatic: No Symptoms Reported Immunological/Allergic: no symptoms reported Past Chubrxv-Xmnabi-Wygeml Hx Patient Social History Alcohol Use: Denies Use Recreational Drug Use: No Smoking Status: Former Smoker 2nd Hand Smoke Exposure: No Recent Foreign Travel: No Contact w/Someone Who Travel: No Recent Infectious Disease Expo: No Recent Hopitalizations: No Immunizations Up To Date Tetanus Booster (TDap): Unknown Seasonal Allergies Seasonal Allergies: No Surgeries History of Surgeries: Yes ( LT KNEE ARTHROSCOPY, UMBILICAL HERNIA; CARDIAC CATH --NO INTERVENTION) Surgeries: Abdominal, Adenoidectomy, Cardiac, Defibrillator, Orthopedic, Pacemaker, Tonsillectomy Respiratory History of Respiratory Disorde: Yes (CHILDHOOD ASTHMA) Respiratory Disorders: Asthma, COPD Currently Using CPAP: No Currently Using BIPAP: No Cardiovascular History of Cardiac Disorders: Yes (CHF; EF 30%; PACEMAKER/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; VENTRICULAR TACHYCARDIA; CARDIAC CATH--NO INTERVENTION) Cardiac Disorders: Atrial Fibrillation, Cardiomyopathy, Chronic Edema/Swelling , Coronary Artery Disease, Heart Attack, Hypertension Neurological History of Neurological Disord: No Reproductive System Hx Reproductive Disorders: No Sexually Transmitted Disease: No HIV/AIDS: No Genitourinary History of Genitourinary Disor: Yes (CHRONIC RENAL INSUFFICIENCY) Gastrointestinal History of Gastrointestinal Di: Yes (UMBILICAL HERNIA) Gastrointestinal Disorders: Abdominal Hernia Musculoskeletal History of Musculoskeletal Dis: Yes Musculoskeletal Disorders: Arthritis, Gout Endocrine History of Endocrine Disorders: No HEENT History of HEENT Disorders: Yes (POOR DENTITION) Loss of Vision: Denies Hearing Impairment: Denies Cancer History of Cancer: No Psychosocial History of Psychiatric Problem: No Integumentary History of Skin or Integumenta: No Blood Transfusions History of Blood Disorders: No Family Medical History Significant Family History: Heart Disease, Diabetes Family Medial History: Cardiovascular disease G8 SISTER Diabetes mellitus G8 BROTHER FH: congestive heart failure 19 MOTHER Hypercholesterolemia 19 MOTHER G8 SISTER Hypertension 19 MOTHER G8 SISTER Myocardial infarction G8 SISTER Physical Exam Vital Signs Vital Sign - Last 12Hours 10/02/17 01:35 Temp 98.7 Pulse 105 Resp 18 B/P (MAP) 109/81 (90) Pulse Ox 100 O2 Delivery Nasal Cannula O2 Flow Rate 4.00 Capillary Refill : Less Than 3 Seconds General Appearance: No Apparent Distress, Other (UNKEMPT, MALODOROUS) HEENT: PERRL/EOMI, Other (POOR DENTITION, MULTIPLE MISSING TEETH AND REMAINING TEETH WITH EXTENSIVE DECAY) Neck: Full Range of Motion, Normal Inspection, Non Tender, Supple, No Carotid Bruit, No JVD Respiratory: Normal Breath Sounds, No Accessory Muscle Use, No Respiratory Distress Cardiovascular: Regular Rate, Rhythm, No JVD, No Murmur Gastrointestinal: Non Tender, Soft Extremity: Pedal Edema (2+ EDEMA WITH CHRONIC APPEARING ERYTHEMA/CHRONIC VENOUS STASIS CHANGES BILATERALLY. LOWER LEGS AND FEET COOL BILATERALLY. UNABLE TO PALPATE PULSES IN EITHER FOOT. ), Slow Capillary Refill Neurologic/Psychiatric: Alert, Oriented x3, No Motor/Sensory Deficits, Normal Mood/Affect, fish technologist II-XII Norm as Tested Skin: Normal Color, Warm/Dry Progress/Results/Core Measures Suspected Sepsis Recent Fever Within 48 Hours: No Infection Criteria Present: None New/Unexplained Altered Menta: No Sepsis Screen: No Definite Risk Sepsis Diagnosis: SIRS Temperature:98.7 Pulse: 105 Respiratory Rate: 18 Laboratory Tests 10/02/17 01:55: White Blood Count 4.9 Blood Pressure 109 /81 Mean: 90 Laboratory Tests 10/02/17 01:55: Creatinine 1.42H, INR Comment 1.2, Platelet Count 211, Total Bilirubin 2.2H Results/Orders Lab Results Laboratory Tests Test 10/02/17 01:55 10/02/17 03:19 Range/Units White Blood Count 4.9 4.3-11.0 10^3/uL Red Blood Count 4.72 4.35-5.85 10^6/uL Hemoglobin 15.0 13.3-17.7 G/DL Hematocrit 43 40-54 % Mean Corpuscular Volume 90 80-99 FL Mean Corpuscular Hemoglobin 32 25-34 PG Mean Corpuscular Hemoglobin Concent 35 32-36 G/DL Red Cell Distribution Width 15.0 H 10.0-14.5 % Platelet Count 211 130-400 10^3/uL Mean Platelet Volume 10.0 7.4-10.4 FL Neutrophils (%) (Auto) 59 42-75 % Lymphocytes (%) (Auto) 19 12-44 % Monocytes (%) (Auto) 12 0-12 % Eosinophils (%) (Auto) 9 0-10 % Basophils (%) (Auto) 2 0-10 % Neutrophils # (Auto) 2.9 1.8-7.8 X 10^3 Lymphocytes # (Auto) 1.0 1.0-4.0 X 10^3 Monocytes # (Auto) 0.6 0.0-1.0 X 10^3 Eosinophils # (Auto) 0.4 H 0.0-0.3 10^3/uL Basophils # (Auto) 0.1 0.0-0.1 10^3/uL Prothrombin Time 15.7 H 12.2-14.7 SEC INR Comment 1.2 0.8-1.4 Activated Partial Thromboplast Time 34 24-35 SEC Sodium Level 140 135-145 MMOL/L Potassium Level 5.1 H 3.6-5.0 MMOL/L Chloride Level 100 98-107 MMOL/L Carbon Dioxide Level 28 21-32 MMOL/L Anion Gap 12 5-14 MMOL/L Blood Urea Nitrogen 29 H 7-18 MG/DL Creatinine 1.42 H 0.60-1.30 MG/DL Estimat Glomerular Filtration Rate 51 BUN/Creatinine Ratio 20 Glucose Level 59 *L 70-105 MG/DL Calcium Level 8.8 8.5-10.1 MG/DL Magnesium Level 2.6 H 1.8-2.4 MG/DL Total Bilirubin 2.2 H 0.1-1.0 MG/DL Aspartate Amino Transf (AST/SGOT) 26 5-34 U/L Alanine Aminotransferase (ALT/SGPT) 10 0-55 U/L Alkaline Phosphatase 116 40-136 U/L Troponin I < 0.30 <0.30 NG/ML B-Type Natriuretic Peptide 1630.1 H <100.0 PG/ML Total Protein 7.7 6.4-8.2 GM/DL Albumin 3.6 3.2-4.5 GM/DL Digoxin Level < 0.30 L 0.80-2.00 NG/ML Glucometer 114 H 70-110 MG/DL My Orders Orders - LYNDON TEMPLETON DO Saline Lock/Iv-Start (10/02/17 01:54) Ekg Tracing (10/02/17 01:54) O2 (10/02/17 01:54) Monitor-Rhythm Ecg Trace Only (10/02/17 01:54) BNP (10/02/17 01:54) Cbc With Automated Diff (10/02/17 01:54) Comprehensive Metabolic Panel (10/02/17 01:54) Magnesium (10/02/17 01:54) Protime With Inr (10/02/17 01:54) Partial Thromboplastin Time (10/02/17 01:54) Troponin I (10/02/17 01:54) Chest 1 View, Ap/Pa Only (10/02/17 01:54) D50w (Emergency) Syringe (Dextrose 50% 5 (10/02/17 02:45) Digoxin (10/02/17 02:37) Furosemide Injection (Lasix Injection) (10/02/17 02:45) Accucheck Stat ONCE (10/02/17 03:15) D50w (Emergency) Syringe (Dextrose 50% 5 (10/02/17 02:46) Medications Given in ED Current Medications Medications Dose Ordered Sig/Maurizio Route Start Time Stop Time Status Last Admin Dose Admin Dextrose 25 ml ONCE ONCE IV 10/02/17 02:45 10/02/17 03:23 DC 10/02/17 02:50 25 ML Furosemide 80 mg ONCE ONCE IVP 10/02/17 02:45 10/02/17 02:46 DC 10/02/17 02:50 80 MG Vital Signs/I&O Vital Sign - Last 12Hours 10/02/17 10/02/17 10/02/17 10/02/17 01:35 01:45 03:02 03:24 Temp 98.7 98.7 Pulse 105 105 104 Resp 18 23 19 B/P (MAP) 109/81 (90) 103/63 Pulse Ox 100 100 100 100 O2 Delivery Nasal Cannula Nasal Cannula Nasal Cannula Nasal Cannula O2 Flow Rate 4.00 4.00 4.00 2.00 Capillary Refill : Less Than 3 Seconds Blood Pressure Mean: 90 Progress Note : Progress Note PT HAD NO COMPLAINTS OF ANY KIND DURING ER STAY O2 SAT 100% ON 2L/NC THROUGHOUT ER STAY ECG Initial ECG Impression Time: 02:09 Initial ECG Rate: 96 Initial ECG Rhythm: Normal Sinus Initial ECG Impression: Nonspecific Changes Initial ECG Comparisson: Changed (AXIS CHANGE AND PT NO LONGER IN ATRIAL FIBRILLATION) Diagnostic Imaging Comments CXR--MILD CHF, PENDING RADIOLOGIST REVIEW Reviewed: Reviewed by Me Departure Impression Impression: Primary Impression: Acute on chronic congestive heart failure Disposition: HOME, SELF-CARE Condition: Stable Departure-Patient Inst. Referrals: JAYESH POOLE ALI MD FACP FACC CCDS NO,LOCAL PHYSICIAN (PCP) Primary Care Physician Patient Instructions: CHF Add. Discharge Instructions: WEAR YOUR OXYGEN AT ALL TIMES TAKE ALL OF YOUR MEDICATIONS EXACTLY PRESCRIBED FOLLOW UP WITH DR. WATERS ON WEDNESDAY FOR FURTHER CARE, RETURN TO ER IF SYMPTOMS WORSEN All discharge instructions reviewed with patient and/or family. Voiced understanding. LYNDON TEMPLETON DO Oct 02, 2017 03:10
[2017-10-02 03:24] VITALS: BP 102/55
--- NOTE | 2017-10-02 07:35 | Diagnostic Imaging Report ---
Patient History: Cough and congestion, shortness of air Technique: Single frontal view of the chest Comparison: 06/02/2016 FINDINGS: Lung volumes are low. There is mild cardiomegaly with stable appearance of a left-sided AICD. Mild interstitial perihilar opacities are seen, which may be due to mild interstitial edema. There is a small right pleural effusion. No pneumothorax is identified. No acute osseous abnormality seen. IMPRESSION: 1. Cardiomegaly with mild perihilar interstitial edema and a small right pleural effusion. Dictated by: Dictated on workstation # [id number]
== END 2017-10-02 03:23 | disposition home or self-care (01) ==
LOC: EDUNIT# 01:35 → ER 01:36
DX: I11.9 Hypertensive heart disease without heart failure (principal); I50.9 Heart failure, unspecified; I48.91 Unspecified atrial fibrillation; I25.10 Atherosclerotic heart disease of native coronary artery without angina pectoris; I25.2 Old myocardial infarction; J44.9 Chronic obstructive pulmonary disease, unspecified; Z79.82 Long term (current) use of aspirin; Z87.891 Personal history of nicotine dependence; Z90.89 Acquired absence of other organs; Z95.810 Presence of automatic (implantable) cardiac defibrillator; Z82.49 Family history of ischemic heart disease and other diseases of the circulatory system
CPT/HCPCS: 36415; 71045; 80053; 80162; 82962; 83735; 83880; 84484; 85025; 85610; 85730; 93005; 93041

== ENCOUNTER → 2020-08-12 | Outpatient (CLI) | payer MEDICARE ==
[~2020-08-12] MED LIST changes: +ACHYD1T PO; -AMIO200T2 PO; +AMIO200T6 PO; -AMIO400T4 PO; +ASPI-1238 PO; -ASPI-983 PO; -DIGO125T PO; +DIGO125T3 PO; +DIGO250T3 PO; +FURO40TA4 PO; +GBPN600T PO; -HYDR-3820 PO; -IPRA3AMP INH; +IPRA3AMP31 INH; +LEVO25TA5 PO; -METO-387 PO; -METO-395 PO; +MTP100TCR PO; +MTP25TSR PO; -SPIR25TA3 PO; +SPIR25TA5 PO
== END ==
LOC: CARD 12:00
PROVIDERS: ATTEND Internal Medicine Cardiovascular Disease
DX: I42.0 Dilated cardiomyopathy (principal); I08.0 Rheumatic disorders of both mitral and aortic valves; I47.1 Supraventricular tachycardia; G47.33 Obstructive sleep apnea (adult) (pediatric); Z95.810 Presence of automatic (implantable) cardiac defibrillator
CPT/HCPCS: 93306

== ENCOUNTER → 2020-09-13 | Outpatient (CLI) | payer MEDICARE ==
[~2020-09-13] MED LIST changes: +RT-ALBUTEROL SULF 2.5 MG/3 ML PRE-MIX VIAL INH ONE
== END ==
LOC: RT 14:41
PROVIDERS: ATTEND Nurse Practitioner Family
DX: I50.42 Chronic combined systolic (congestive) and diastolic (congestive) heart failure (principal); J98.4 Other disorders of lung
CPT/HCPCS: 94060; 94726; 94729

== ENCOUNTER 2020-10-16 15:06 | Inpatient (IN) | payer MEDICARE ==
[~2020-10-16] VITALS: Ht 170 cm; Wt 113.8 kg
[~2020-10-16 15:06] MED LIST changes: -RT-ALBUTEROL SULF 2.5 MG/3 ML PRE-MIX VIAL INH ONE
[2020-10-16] MEDS ORDERED: ACETAMINOPHEN 325 MG TABLET PO ONE (15:30)
[2020-10-16] MEDS ORDERED: ONDANSETRON 4 MG/2 ML (SDV) Z0FRAN IVP ONE (15:30)
--- NOTE | 2020-10-16 15:33 | ED Syncope ---
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 He reports having cough and fever 1 week and feeling more short of breath. Had a negative COVID test 3 weeks ago. States he has been having low-grade fevers at home and increasing weakness. He denies headache, chest pain, abdominal pain, nausea, vomiting, diarrhea, difficult to urinating. Allergies and Home Medications Allergies Coded Allergies: No Known Drug Allergies (Unverified , 06/10/10) Home Medications Amiodarone HCl 200 Mg Tablet, 400 MG PO HS, (Reported) LAST FILLED #180 02-28-19 TAKES 2 (200MG) TABLETS Aspirin 81 Mg Tablet.dr, 81 MG PO DAILY Prescribed by: MENA GRAMAJO on 07/12/19 112 Digoxin 125 Mcg Tablet, 0.125 MG PO HS Prescribed by: MENA GRAMAJO on 07/12/19 1126 Furosemide 40 Mg Tablet, 40 MG PO DAILY, (Reported) LAST FILLED #90 02-28-19 Gabapentin 600 Mg Tablet, 600 MG PO BID, (Reported) Levothyroxine Sodium 25 Mcg Tablet, 25 MCG PO DAILY, (Reported) LAST FILLED #90 02-28-19 Metoprolol Succinate 25 Mg Tab.er.24h, 25 MG PO DAILY Prescribed by: MENA GRAMAJO on 07/12/19 1126 Patient Home Medication List Home Medication List Reviewed: Yes Review of Systems Constitutional: see HPI EENTM: no symptoms reported Respiratory: see HPI Cardiovascular: see HPI Gastrointestinal: no symptoms reported Genitourinary: no symptoms reported Musculoskeletal: no symptoms reported Skin: no symptoms reported Psychiatric/Neurological: No Symptoms Reported Past Pqvppvs-Pkithr-Isbsgx Hx Patient Social History 2nd Hand Smoke Exposure: No Recent Hopitalizations: No Immunizations Up To Date Tetanus Booster (TDap): Unknown Seasonal Allergies Seasonal Allergies: No Past Medical History Surgeries: Yes ( LT KNEE ARTHROSCOPY, UMBILICAL HERNIA; CARDIAC CATH--NO INTERVENTION) Abdominal, Adenoidectomy, Cardiac, Defibrillator, Orthopedic, Pacemaker, Tonsillectomy Respiratory: Yes (CHILDHOOD ASTHMA) Asthma, COPD Currently Using CPAP: No Currently Using BIPAP: No Cardiac: Yes Atrial Fibrillation, Cardiomyopathy, Chronic Edema/Swelling, Coronary Artery Disease, Heart Attack, Hypertension Neurological: No Reproductive Disorders: No Sexually Transmitted Disease: No HIV/AIDS: No Genitourinary: Yes (CHRONIC RENAL INSUFFICIENCY) Gastrointestinal: Yes (UMBILICAL HERNIA) Abdominal Hernia Musculoskeletal: Yes Arthritis, Gout Endocrine: No HEENT: Yes (POOR DENTITION) Loss of Vision: Denies Hearing Impairment: Denies Cancer: No Psychosocial: No Integumentary: No Blood Disorders: No Family Medical History Cardiovascular disease G8 SISTER Diabetes mellitus G8 BROTHER FH: congestive heart failure 19 MOTHER Hypercholesterolemia 19 MOTHER G8 SISTER Hypertension 19 MOTHER G8 SISTER Myocardial infarction G8 SISTER Heart Disease, Diabetes Physical Exam Vital Signs Vital Signs - First Documented Capillary Refill : Height, Weight, BMI Height: 5'7.00" Weight: 219lbs. 6.0oz. 99.189251nf; 42.31 BMI Method:Stated General Appearance: No Apparent Distress, WD/WN HEENT: PERRL/EOMI, Normal ENT Inspection, Moist Mucous Membranes Neck: Full Range of Motion, Normal Inspection, Non Tender, Supple Cardiovascular: Regular Rate, Rhythm, Normal Peripheral Pulses, Other (1+ bilateral pedal edema ) Respiratory: Chest Non Tender, Lungs Clear, Normal Breath Sounds, No Accessory Muscle Use Gastrointestinal: Normal Bowel Sounds, Non Tender, Soft Neurologic/Psychiatric: Alert, Oriented x3, No Motor/Sensory Deficits, Normal Mood/Affect Cranial Nerves: Normal Hearing, Normal Speech, PERRL Motor/Sensory: No Motor Deficit, No Sensory Deficit Skin: Normal Color, Warm/Dry Focused Exam Lactate Level 10/16/20 15:34: Lactic Acid Level 1.31 Lactic Acid Level Laboratory Tests Test 10/16/20 15:34 Lactic Acid Level 1.31 MMOL/L (0.50-2.00) Progress/Results/Core Measures Results/Orders Lab Results Laboratory Tests Test 10/16/20 15:34 10/16/20 15:37 10/16/20 15:40 10/16/20 17:05 Range/Units White Blood Count 6.0 4.3-11.0 10^3/uL Red Blood Count 5.00 4.30-5.52 10^6/uL Hemoglobin 15.0 13.3-17.7 g/dL Hematocrit 46 40-54 % Mean Corpuscular Volume 91 80-99 fL Mean Corpuscular Hemoglobin 30 25-34 pg Mean Corpuscular Hemoglobin Concent 33 32-36 g/dL Red Cell Distribution Width 13.1 10.0-14.5 % Platelet Count 201 130-400 10^3/uL Mean Platelet Volume 11.0 9.0-12.2 fL Immature Granulocyte % (Auto) 0 % Neutrophils (%) (Auto) 74 42-75 % Lymphocytes (%) (Auto) 14 12-44 % Monocytes (%) (Auto) 11 0-12 % Eosinophils (%) (Auto) 0 0-10 % Basophils (%) (Auto) 1 0-10 % Neutrophils # (Auto) 4.4 1.8-7.8 10^3/uL Lymphocytes # (Auto) 0.8 L 1.0-4.0 10^3/uL Monocytes # (Auto) 0.7 0.0-1.0 10^3/uL Eosinophils # (Auto) 0.0 0.0-0.3 10^3/uL Basophils # (Auto) 0.0 0.0-0.1 10^3/uL Immature Granulocyte # (Auto) 0.0 0.0-0.1 10^3/uL Prothrombin Time 14.2 12.2-14.7 SEC INR Comment 1.1 0.8-1.4 Activated Partial Thromboplast Time 35 24-35 SEC Fibrinogen 525 H 221-496 MG/DL D-Dimer 0.85 H 0.00-0.49 UG/ML Sodium Level 138 135-145 MMOL/L Potassium Level 4.2 3.6-5.0 MMOL/L Chloride Level 99 98-107 MMOL/L Carbon Dioxide Level 28 21-32 MMOL/L Anion Gap 11 5-14 MMOL/L Blood Urea Nitrogen 17 7-18 MG/DL Creatinine 1.70 H 0.60-1.30 MG/DL Estimat Glomerular Filtration Rate 41 BUN/Creatinine Ratio 10 Glucose Level 74 70-105 MG/DL Lactic Acid Level 1.31 0.50-2.00 MMOL/L Calcium Level 8.5 8.5-10.1 MG/DL Corrected Calcium 8.7 8.5-10.1 MG/DL Ferritin 207.6 32.0-356.0 ng/mL Total Bilirubin 0.7 0.1-1.0 MG/DL Aspartate Amino Transf (AST/SGOT) 22 5-34 U/L Alanine Aminotransferase (ALT/SGPT) 13 0-55 U/L Alkaline Phosphatase 79 40-136 U/L Lactate Dehydrogenase 185 125-220 U/L Troponin I 0.721 *H <0.028 NG/ML C-Reactive Protein High Sensitivity 5.34 H 0.00-0.50 MG/DL Total Protein 6.7 6.4-8.2 GM/DL Albumin 3.8 3.2-4.5 GM/DL Procalcitonin 0.09 <0.10 NG/ML Urine Color YELLOW Urine Clarity CLEAR Urine pH 5.5 5-9 Urine Specific [place] 1.010 L 1.016-1.022 Urine Protein NEGATIVE NEGATIVE Urine Glucose (UA) NEGATIVE NEGATIVE Urine Ketones NEGATIVE NEGATIVE Urine Nitrite NEGATIVE NEGATIVE Urine Bilirubin NEGATIVE NEGATIVE Urine Urobilinogen 0.2 < = 1.0 MG/DL Urine Leukocyte Esterase NEGATIVE NEGATIVE Urine RBC (Auto) NEGATIVE NEGATIVE Urine RBC NONE /HPF Urine WBC NONE /HPF Urine Squamous Epithelial Cells 0-2 /HPF Urine Crystals PRESENT H /LPF Urine Amorphous Sediment RARE QUYNH URATES H /LPF Urine Bacteria NEGATIVE /HPF Urine Casts NONE /LPF Urine Mucus NEGATIVE /LPF Urine Culture Indicated NO Coronavirus 2019 (CRUZ) Positive H Negative Blood Gas Puncture Site RR Blood Gas Patient Temperature 100.3 Arterial Blood pH 7.33 *L 7.37-7.43 Arterial Blood Partial Pressure CO2 46 H 35-45 MMHG Arterial Blood Partial Pressure O2 88 79-93 MMHG Arterial Blood HCO3 23 23-27 MMOL/L Arterial Blood Total CO2 24.5 21.0-31.0 MMOL/L Arterial Blood Oxygen Saturation 96 94-100 % Arterial Blood Base Excess -1.7 -2.5-2.5 MMOL/L James Test YES-POS Blood Gas Ventilator Setting NO Blood Gas Inspired Oxygen 1L Test 10/16/20 17:28 Range/Units Troponin I 0.733 *H <0.028 NG/ML Micro Results Microbiology 10/16/20 Influenza Types A,B Antigen (MOHINDER) - Final, Complete My Orders Orders - CYNDI AL APRN Vital Signs: Every 4 Hours (Or (10/16/20 15:23) Monitor-Rhythm Ecg Trace Only (10/16/20 15:23) Ed Iv/Invasive Line Start (10/16/20 15:23) Cbc With Automated Diff (10/16/20 15:23) Comprehensive Metabolic Panel (10/16/20 15:23) Ferritin (10/16/20 15:23) LDH (10/16/20 15:23) Hs C Reactive Protein (10/16/20 15:23) Troponin I (10/16/20 15:23) Lactic Acid Analyzer (10/16/20 15:23) Protime With Inr (10/16/20 15:23) Partial Thromboplastin Time (10/16/20 15:23) Fibrin Degradation Products (10/16/20 15:23) Fibrinogen (10/16/20 15:23) Ekg Tracing (10/16/20 15:23) Chest 1 View, Ap/Pa Only (10/16/20 15:23) Acetaminophen Tablet/Caplet (Tylenol T (10/16/20 15:30) Blood Culture (10/16/20 15:23) Urinalysis (10/16/20 15:23) Urine Culture (10/16/20 15:23) Vital Signs Adult Sepsis Patie Q15M (10/16/20 15:23) O2 (10/16/20 15:23) Influenza A And B Antigens (10/16/20 15:25) Covid 19 Inhouse Test (10/16/20 15:25) Ondansetron Injection (Zofran Injectio (10/16/20 15:30) Ns Iv 1000 Ml (Sodium Chloride 0.9%) (10/16/20 16:00) Procalcitonin (Pct) (10/16/20 16:32) Troponin I (10/16/20 17:30) Arterial Blood Gas (10/16/20 16:55) Arterial Blood Draw (10/16/20 ) Lactated Ringers (Lr 1000 Ml Iv Solution (10/16/20 17:30) Dexamethasone Injection (Decadron Inje (10/16/20 18:15) Medications Given in ED Current Medications Medications Dose Ordered Sig/Maurizio Route Start Time Stop Time Status Last Admin Dose Admin Acetaminophen 650 mg ONCE ONCE PO 10/16/20 15:30 10/16/20 15:31 DC 10/16/20 15:56 650 MG Lactated Ringer's 1,000 ml @ 0 mls/hr Q0M ONCE IV 1/20/21 17:30 10/16/20 17:31 DC 10/16/20 17:25 1,000 MLS/HR Ondansetron HCl 4 mg ONCE ONCE IVP 10/16/20 15:30 10/16/20 15:31 DC 10/16/20 15:55 4 MG Sodium Chloride 1,000 ml @ 100 mls/hr Q10H ONCE IV 10/16/20 16:00 10/17/20 01:59 10/16/20 15:53 100 MLS/HR Vital Signs/I&O 10/16/20 10/16/20 10/16/20 10/16/20 15:06 15:06 15:56 17:02 Temp 37.9 37.9 Pulse 81 77 Resp 22 21 B/P (MAP) 85/55 (65) 90/63 (72) Pulse Ox 92 92 92 O2 Delivery Nasal Cannula Nasal Cannula Nasal Cannula O2 Flow Rate 1.00 1.00 1.00 10/16/20 18:00 Temp 37.1 Pulse 71 Resp 22 B/P (MAP) 84/49 (61) Pulse Ox 98 O2 Delivery Nasal Cannula 10/17/20 00:00 Intake Total 1000 ml Balance 1000 ml Progress Progress Note : Progress Note Upon arrival he is noted to be hypotensive, but in no acute respiratory distress. He is sustaining O2 Sat of 99% on 2liters via NC. Cardiac and COVID order set placed due to reported weakness and syncope. He was examined and had no complaints other than severe weakness at this time. Orders placed for IVF. Given 2 liter bolus for hypotension. Opted for 2 liters d/t history of cardiomyopathy. Labs reviewed. He is COVID Pos and Influenza B post. WBC is unremarkable. CMP shows elevated Creat-1.7, Trop-0.721, CRP-5.34, lactic-1.3, and Ddimer-0.85. 1809: Called Dr. Womack and updated on patient Flu and COVID status as well as initial and repeat troponin. States patient may be placed on Levophed if needed to support BP. Recommended admission per hospitalist. No new orders regarding elevated Trop. 1814: Discussed case with Dr. Gramajo. Agrees with ICU admission. Orders given to place patient on Decadron and Remdesivir for COVID. 1821: Notified Dr. Dennis of admission to ICU. SBP persistently below 90bpm. Orders placed for 3rd fluid bolus and Levophed drip. After 3rd fluid bolus patient BP stabilized above 90. Will keep in ICU with close monitoring and Levophed PRN if SBP falls below 90. Discussed POC with patient and he is agreeable with plan. Plan: Admit to ICU for COVID, FLU, and Hypotension -CBC, CMP in AM -NS at 70ml/hr -CXR in am -Decadron 6mg IVP daily -Remdesivir per protocol -Levophed drip titrate to SBP >90 -Daily weight and strict I/O -Zofran 4mg IVP Q6 hours PRN -Tylenol 650mg PO q6 hours PRN -O2 PRN to keep above 92% FULL CODE Initial ECG Impression Date: Oct 16, 2020 Initial ECG Impression Time: 15:16 Initial ECG Rate: 85 Initial ECG Rhythm: Normal Sinus Initial ECG Intervals LBBB Initial ECG Impression: Nonspecific Changes Initial ECG Comparisson: Unchanged Diagnostic Imaging Diagonstic Imaging: Xray Plain Films/CT/US/NM/MRI: chest Comments NAME: [facility] REC#: [id number] PT STATUS: REG ER : 1955 PHYSICIAN: CYNDI AL APRN ADMIT DATE: 10/16/20/ER Signed Date of Exam:10/16/20 CHEST 1 VIEW, AP/PA ONLY INDICATION: Fever and weakness. TIME OF EXAM: 03:41 p.m. COMPARISON: Correlation is made with prior chest from 07/12/2019. FINDINGS: Heart is enlarged but stable. Cardiac defibrillator remains in place. Lungs appear to be clear apart from some questionable minimal infiltrate or atelectasis in the right base. There is no effusion or pneumothorax. IMPRESSION: Minimal infiltrate or atelectasis right base. Dictated by: Dictated on workstation # [id number] Dict: 10/16/20 1558 Trans: 10/16/20 1630 [facility] [id number] Interpreted by: GLENDA PAGAN MD Electronically signed by: GLENDA PAGAN MD 10/16/20 1630 Departure Communication (Admissions) Time/Spoke to Admitting Phy: 18:15 Dr. Gramajo accepted patient admission at this time. Time/Spoke to Consulting Phy: 18:[address] Womack, reviewed troponin levels. No new orders. 1821: Discussed with Dr. Dennis, notified of patient admission to ICU. Impression Primary Impression: COVID-19 Additional Impressions: Influenza B Hypotension Disposition: ADMITTED INPATIENT Condition: Stable Admissions Decision to Admit Reason: Admit from ER (General) Decision to Admit/Date: Oct 16, 2020 Time/Decision to Admit Time: 18:00 Departure-Patient Inst. Referrals: [facility] (PCP/Family) Primary Care Physician CYNDI AL [employer] SUPER[employer] Oct 16, 2020 15:33
[2020-10-16 15:50] LABS: BILIRUBIN,URINE NEGATIVE (NEGATIVE); CLARITY,URINE CLEAR; COLOR,URINE YELLOW; GLUCOSE, URINE (UA) NEGATIVE (NEGATIVE); KETONES,URINE NEGATIVE (NEGATIVE); LEUKOCYTE ESTERASE ,URINE NEGATIVE (NEGATIVE); NITRITE,URINE NEGATIVE (NEGATIVE); PH,URINE 5.5 (5-9); PROTEIN,URINE NEGATIVE (NEGATIVE)
[2020-10-16 15:50] LABS: BASOPHILS % (AUTO) 1 % (0-10); EOSINOPHILS % (AUTO) 0 % (0-10); HEMATOCRIT 46 % (40-54); LYMPHOCYTES # (AUTO) 0.8 10^3/uL (1.0-4.0); LYMPHOCYTES % (AUTO) 14 % (12-44); MEAN CORPUSCULAR HEMOGLOBIN 30 pg (25-34); MEAN CORPUSCULAR HGB CONC 33 g/dL (32-36); MEAN CORPUSCULAR VOLUME 91 fL (80-99); MONOCYTES # (AUTO) 0.7 10^3/uL (0.0-1.0); MONOCYTES % (AUTO) 11 % (0-12); NEUTROPHILS # (AUTO) 4.4 10^3/uL (1.8-7.8); NEUTROPHILS % (AUTO) 74 % (42-75); PLATELET COUNT 201 10^3/uL (130-400)
[2020-10-16 15:56] LABS: AMORPHOUS SEDIMENT,UR RARE AMOR URATES /LPF; BACTERIA,URINE NEGATIVE /HPF; SQUAMOUS EPITHELIAL CELL,UR 0-2 /HPF
[2020-10-16] MEDS ORDERED: NS IV 1000 ML 1,000 ML IV ONE ×2 (16:00→18:45)
--- NOTE | 2020-10-16 16:00 | Diagnostic Imaging Report ---
INDICATION: Fever and weakness. TIME OF EXAM: 03:41 p.m. COMPARISON: Correlation is made with prior chest from 07/12/2019. FINDINGS: Heart is enlarged but stable. Cardiac defibrillator remains in place. Lungs appear to be clear apart from some questionable minimal infiltrate or atelectasis in the right base. There is no effusion or pneumothorax. IMPRESSION: Minimal infiltrate or atelectasis right base. Dictated by: Dictated on workstation # [id number]
[2020-10-16 16:01] LABS: ALBUMIN 3.8 GM/DL (3.2-4.5); POTASSIUM 4.2 MMOL/L (3.6-5.0)
[2020-10-16 16:02] LABS: CALCIUM 8.5 MG/DL (8.5-10.1)
[2020-10-16 16:03] LABS: TOTAL PROTEIN 6.7 GM/DL (6.4-8.2)
[2020-10-16 16:05] LABS: BILIRUBIN,TOTAL 0.7 MG/DL (0.1-1.0)
--- NOTE | 2020-10-16 16:05 | NUR ---
Patient has +1 edema to bilateral lower legs. He states this is normal for him.
[2020-10-16 16:07] LABS: CREATININE SERUM 1.7 MG/DL (0.60-1.30)
[2020-10-16 16:34] LABS: INR 1.1 (0.8-1.4); PROTHROMBIN TIME PATIENT 14.2 SEC (12.2-14.7)
[2020-10-16 16:35] LABS: FIBRIN DEGRADATION PRODUCTS 0.85 UG/ML (0.00-0.49)
[2020-10-16 17:15] LABS: ABG BASE EXCESS -1.7 MMOL/L (-2.5-2.5); ABG OXYGEN SATURATION 96 % (94-100); ABG PCO2 46 MMHG (35-45); ABG PO2 88 MMHG (79-93); ABG TCO2 24.5 MMOL/L (21.0-31.0)
[2020-10-16 17:16] LABS: ALLENS TEST YES-POS; INSPIRED O2 1L; PATIENT TEMP 100.3; VENTILATOR NO
[2020-10-16 17:17] LABS: ABG PH 7.33 (7.37-7.43)
[2020-10-16] MEDS ORDERED: LACTATED RINGERS 1,000 ML IV ONE (17:30)
[2020-10-16] MEDS ORDERED: NOREPINEPHRINE 4 MG/250 ML 250 ML IV SCH (18:45)
--- NOTE | 2020-10-16 19:38 | NUR ---
Report called to Loyd LOCKE in ICU.
[2020-10-16 22:13] VITALS: BP 93/52
[2020-10-16] MEDS ORDERED: ACETAMINOPHEN 325 MG TABLET PO PRN (22:15)
[2020-10-16] MEDS ORDERED: ONDANSETRON 4 MG/2 ML (SDV) Z0FRAN IVP PRN (22:15)
[2020-10-16] MEDS: NS IV 1000 ML 1,000 ML IV SCH ×2 (22:24→22:30)
[2020-10-16] MEDS: NOREPINEPHRINE 4 MG/250 ML 250 ML IV SCH (22:24)
[2020-10-16] MEDS ORDERED: RT-ALBUTEROL INHALER HFA (VENTOLIN HFA) 18 GM IH PRN (22:30)
[2020-10-17] MEDS: NOREPINEPHRINE 4 MG/250 ML 250 ML IV SCH (04:20)
[2020-10-17 04:37] LABS: BASOPHILS % (AUTO) 0 % (0-10); EOSINOPHILS % (AUTO) 0 % (0-10); HEMATOCRIT 43 % (40-54); HEMOGLOBIN 13.9 g/dL (13.3-17.7); LYMPHOCYTES # (AUTO) 0.4 10^3/uL (1.0-4.0); LYMPHOCYTES % (AUTO) 11 % (12-44); MEAN CORPUSCULAR HEMOGLOBIN 30 pg (25-34); MEAN CORPUSCULAR HGB CONC 32 g/dL (32-36); MEAN CORPUSCULAR VOLUME 92 fL (80-99); MEAN PLATELET VOLUME 11.4 fL (9.0-12.2); MONOCYTES # (AUTO) 0.2 10^3/uL (0.0-1.0); MONOCYTES % (AUTO) 6 % (0-12); NEUTROPHILS # (AUTO) 3.1 10^3/uL (1.8-7.8); NEUTROPHILS % (AUTO) 83 % (42-75); PLATELET COUNT 182 10^3/uL (130-400); WHITE BLOOD COUNT 3.8 10^3/uL (4.3-11.0)
--- NOTE | 2020-10-17 04:49 | Pulmonary Consultation ---
History of Present Illness History of Present Illness Date Seen by Provider: Oct 17, 2020 Time Seen by Provider: 04:44 Date of Admission Allergies and Home Medications Allergies Coded Allergies: No Known Drug Allergies (Unverified , 06/10/10) Home Medications Amiodarone HCl 200 Mg Tablet, 400 MG PO HS, (Reported) LAST FILLED #180 02-28-19 TAKES 2 (200MG) TABLETS Aspirin 81 Mg Tablet.dr, 81 MG PO DAILY Prescribed by: MENA GRAMAJO on 07/12/19 112 Digoxin 125 Mcg Tablet, 0.125 MG PO HS Prescribed by: MENA GRAMAJO on 07/12/19 1126 Furosemide 40 Mg Tablet, 40 MG PO DAILY, (Reported) LAST FILLED #90 02-28-19 Gabapentin 600 Mg Tablet, 600 MG PO BID, (Reported) Levothyroxine Sodium 25 Mcg Tablet, 25 MCG PO DAILY, (Reported) LAST FILLED #90 02-28-19 Metoprolol Succinate 25 Mg Tab.er.24h, 25 MG PO DAILY Prescribed by: MENA GRAMAJO on 07/12/19 112 Past Mujufib-Efchwu-Olvnrr Hx Patient Social History Alcohol Use: Denies Use Smoking Status: Never a Smoker 2nd Hand Smoke Exposure: No Recent Infectious Disease Expo: No Recent Hopitalizations: No Have you traveled recently?: No Alcohol Use?: No Immunizations Up To Date Tetanus Booster (TDap): Unknown Seasonal Allergies Seasonal Allergies: No Past Medical History Surgeries: Yes ( LT KNEE ARTHROSCOPY, UMBILICAL HERNIA; CARDIAC CATH--NO INTERVENTION) Abdominal, Adenoidectomy, Cardiac, Defibrillator, Orthopedic, Pacemaker, Tonsillectomy Respiratory: Yes (CHILDHOOD ASTHMA) Asthma, COPD Currently Using CPAP: No Currently Using BIPAP: No Cardiac: Yes Atrial Fibrillation, Cardiomyopathy, Chronic Edema/Swelling, Coronary Artery Disease, Heart Attack, Hypertension Neurological: No Reproductive Disorders: No Sexually Transmitted Disease: No HIV/AIDS: No Genitourinary: Yes (CHRONIC RENAL INSUFFICIENCY) Gastrointestinal: Yes (UMBILICAL HERNIA) Abdominal Hernia Musculoskeletal: Yes Arthritis, Gout Endocrine: No HEENT: Yes (POOR DENTITION) Loss of Vision: Denies Hearing Impairment: Denies Cancer: No Psychosocial: No Integumentary: No Blood Disorders: No Family Medical History Cardiovascular disease G8 SISTER Diabetes mellitus G8 BROTHER FH: congestive heart failure 19 MOTHER Hypercholesterolemia 19 MOTHER G8 SISTER Hypertension 19 MOTHER G8 SISTER Myocardial infarction G8 SISTER Heart Disease, Diabetes Review of Systems Time Seen by Provider: 04:44 Sepsis Event Evaluation Height, Weight, BMI Height: 5'7.00" Weight: 219lbs. 6.0oz. 99.938786bb; 39.37 BMI Method:Stated Exam Exam Vital Signs Date Time Temp Pulse Resp B/P (MAP) Pulse Ox O2 Delivery O2 Flow Rate FiO2 10/17/20 04:00 73 30 104/69 (81) 94 Nasal Cannula 3.00 10/17/20 03:00 69 22 115/75 (88) 91 Nasal Cannula 3.00 10/17/20 02:00 68 21 105/66 (79) 92 Nasal Cannula 3.00 10/17/20 01:00 75 23 114/71 (85) 92 Nasal Cannula 3.00 10/17/20 01:00 80 10/17/20 00:00 70 22 102/65 (77) 93 Nasal Cannula 3.00 10/16/20 23:30 Nasal Cannula 3.00 10/16/20 23:00 66 20 116/69 (85) 92 Nasal Cannula 2.00 10/16/20 22:33 Nasal Cannula 2.00 10/16/20 22:15 76 24 112/63 (79) 91 Nasal Cannula 2.00 10/16/20 22:13 37.0 81 97 10/16/20 21:45 80 31 103/70 (81) 92 Nasal Cannula 2.00 10/16/20 21:15 90 26 106/70 (82) 92 Nasal Cannula 2.00 10/16/20 21:00 91 20 104/55 (71) 93 Nasal Cannula 2.00 10/16/20 20:51 81 10/16/20 20:45 85 20 102/66 (78) 94 Nasal Cannula 2.00 10/16/20 20:30 85 20 97/60 (72) 94 Nasal Cannula 2.00 10/16/20 19:38 37.0 80 20 93/52 97 Nasal Cannula 2.00 10/16/20 18:00 37.1 71 22 84/49 (61) 98 Nasal Cannula 10/16/20 17:02 77 21 90/63 (72) 92 Nasal Cannula 1.00 10/16/20 15:56 37.9 10/16/20 15:06 92 Nasal Cannula 1.00 10/16/20 15:06 37.9 81 22 85/55 (65) 92 Nasal Cannula 1.00 I & O 10/17/20 07:00 Intake Total 2000 ml Output Total 800 ml Balance 1200 ml Height & Weight Height: 5'7.00" Weight: 219lbs. 6.0oz. 99.984659gs; 39.37 BMI Method:Stated General Appearance: No Apparent Distress, WD/WN HEENT: PERRL/EOMI, Normal ENT Inspection, Moist Mucous Membranes Neck: Full Range of Motion, Normal Inspection, Non Tender, Supple Respiratory: Chest Non Tender, Lungs Clear, Normal Breath Sounds, No Accessory Muscle Use Cardiovascular: Regular Rate, Rhythm, Normal Peripheral Pulses, Other (1+ bilateral pedal edema ) Capillary Refill: Less Than 3 Seconds Neurologic/Psychiatric: Alert, Oriented x3, No Motor/Sensory Deficits, Normal Mood/Affect Skin: Normal Color, Warm/Dry Results Lab Laboratory Tests 10/16/20 15:34 10/17/20 04:25 Assessment/Plan Assessment/Plan COVID 19 -Currently only requiring 2 liters of oxygen -PCT -Remdesivir -Decadron Influenza B -Tamiflu Hypotension - improved with IVF -s/p 3 liters IVF NSTEMI -Cardiology following Hypothyroid -Synthroid JAYESH POOLE DO Oct 17, 2020 04:49
[2020-10-17 04:56] LABS: ALBUMIN 3.4 GM/DL (3.2-4.5); POTASSIUM 4.8 MMOL/L (3.6-5.0)
[2020-10-17 04:58] LABS: CALCIUM 7.8 MG/DL (8.5-10.1)
[2020-10-17 05:01] LABS: BILIRUBIN,TOTAL 0.4 MG/DL (0.1-1.0)
[2020-10-17 05:02] LABS: PHOSPHORUS 4.5 MG/DL (2.3-4.7)
[2020-10-17 05:03] LABS: CREATININE SERUM 1.49 MG/DL (0.60-1.30)
[2020-10-17] MEDS: LEVOTHYROXINE 25 MCG (LEVOTHROID) TAB PO SCH (05:48)
[2020-10-17] MEDS: ENOXAPARIN 40 MG/0.4 ML (LOVENOX) SYR SC SCH (05:48)
--- NOTE | 2020-10-17 07:56 | Consultation-Cardiology ---
HPI-Cardiology Cardiology Consultation: Date of Consultation 10/17/20 Time Seen by a Provider: 09:20 Date of Admission 10-16-20 Attending Physician Clover Spaulding MD Admitting Physician [place] Consulting Physician Libby Womack MD HPI: Chief Complaint: Hypotension COVID (+), Influenza B (+) Mr. Moreno is a 64 yr old male admitted to ICU 11 from the ED with increasing SOB and hypotension. He was found to be COVID (+) and Influenza B (+). This morning he states he feels better. He feels his lightheadedness has improved and gen weakness has improved. No c/o CP, palpitations. Occ cough. No c/o LE swelling. Review of Systems-Cardiology Review of Systems Constitutional: chills, fever, malaise Eyes: No vision change Ears/Nose/Throat: No epistaxis, No recent hearing loss Respiratory: As described under HPI Cardiovascular: As described under HPI Gastrointestinal: No constipation, No diarrhea, No nausea, No vomiting Genitourinary: No dysuria, No hematuria Skin: No rash on exposed areas, No ulcerations on exposed areas Psychiatric/Neurological: No anxiety, No depression, No seizure, No focal weakness, No syncope Hematologic: No bleeding abnormalities SGG-Ekhfsv-Rdmaxh Hx Patient Social History Smoking Status: Never a Smoker 2nd Hand Smoke Exposure: No Have you traveled recently?: No Alcohol Use?: No Pt feels they are or have been: No Immunizations Up To Date Tetanus Booster (TDap): Unknown Past Medical History PMH As described under Assessment. Family Medical History Family Medical History: He reports his mother had heart disease and high blood pressure. Family History: Cardiovascular disease G8 SISTER Diabetes mellitus G8 BROTHER FH: congestive heart failure 19 MOTHER Hypercholesterolemia 19 MOTHER G8 SISTER Hypertension 19 MOTHER G8 SISTER Myocardial infarction G8 SISTER Allergies and Home Medications Allergies Coded Allergies: No Known Drug Allergies (Unverified , 06/10/10) Home Medications Amiodarone HCl 200 Mg Tablet, 400 MG PO HS, (Reported) TAKES 2 (200MG) TABLETS Aspirin 81 Mg Tablet.dr, 81 MG PO DAILY, (Reported) Digoxin 125 Mcg Tablet, 125 MCG PO DAILY, (Reported) Diltiazem HCl 360 Mg Cap.er.24h, 360 MG PO HS, (Reported) Furosemide 40 Mg Tablet, 40 MG PO DAILY, (Reported) Levothyroxine Sodium 25 Mcg Tablet, 25 MCG PO DAILY, (Reported) Physical Exam-Cardiology Physical Exam Vital Signs/I&O 10/17/20 10/18/20 10/18/20 10/18/20 23:59 04:00 08:21 08:55 Temp 36.3 36.2 35.8 Pulse 77 70 69 Resp 20 20 22 B/P (MAP) 95/61 (72) 98/66 (77) 108/59 (75) Pulse Ox 95 93 95 O2 Delivery Nasal Cannula Nasal Cannula Nasal Cannula Nasal Cannula O2 Flow Rate 2.00 2.00 2.00 2.00 10/18/20 00:00 Intake Total 1450 ml Output Total 900 ml Balance 550 ml Capillary Refill : Less Than 3 Seconds Constitutional: AAO x 3, well-developed, well-nourished HEENT: PERRL, hearing is well preserved, oral hygience is good Neck: No carotid bruit; carotid pulses are 2 + bilaterally Respiratory: No accessory muscle use, No respiratory distress, No chest expansion is symmetric, No chest is bilaterally symmetric; other (good air entry) Cardiovascular: regular rate-rhythm; No JVD; S1 and S2 Gastrointestinal: No tender; soft, round, audible bowel sounds Extremities: no lower extremity edema bilateral Neurologic/Psychiatric: grossly intact (moves all extremities) Skin: No rash on exposed areas, No ulcerations on exposed areas Data Review Labs Laboratory Tests 10/18/20 04:43: White Blood Count 5.8, Red Blood Count 4.64, Hemoglobin 13.8, Hematocrit 42, Mean Corpuscular Volume 91, Mean Corpuscular Hemoglobin 30, Mean Corpuscular Hemoglobin Concent 33, Red Cell Distribution Width 12.8, Platelet Count 224, Mean Platelet Volume 11.6, Immature Granulocyte % (Auto) 0, Neutrophils (%) (Auto) 78H, Lymphocytes (%) (Auto) 13, Monocytes (%) (Auto) 9, Eosinophils (%) (Auto) 0, Basophils (%) (Auto) 0, Neutrophils # (Auto) 4.5, Lymphocytes # (Auto) 0.8L, Monocytes # (Auto) 0.5, Eosinophils # (Auto) 0.0, Basophils # (Auto) 0.0, Immature Granulocyte # (Auto) 0.0 10/18/20 05:43: Sodium Level 140, Potassium Level 4.6, Chloride Level 106, Carbon Dioxide Level 25, Anion Gap 9, Blood Urea Nitrogen 24H, Creatinine 1.27, Estimat Glomerular Filtration Rate 57, BUN/Creatinine Ratio 19, Glucose Level 107H, Calcium Level 8.3L, Phosphorus Level 3.7, Magnesium Level 2.1 Microbiology 10/16/20 MRSA Screen - Final, Complete MRSA not isolated 10/16/20 Urine Culture - Final, Complete NO GROWTH 10/16/20 Blood Culture - Preliminary, Resulted No growth Radiology NAME: LYN MORENO [facility] REC#: [id number] PT STATUS: REG ER : 1955 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 TIME OF EXAM: 03:41 p.m. COMPARISON: Correlation is made with prior chest from 07/12/2019. FINDINGS: Heart is enlarged but stable. Cardiac defibrillator remains in place. Lungs appear to be clear apart from some questionable minimal infiltrate or atelectasis in the right base. There is no effusion or pneumothorax. IMPRESSION: Minimal infiltrate or atelectasis right base. Dictated by: Dictated on workstation # [id number] Dict: 10/16/20 1558 Trans: 10/16/20 1630 [facility] [id number] Interpreted by: GLENDA PAGAN MD Electronically signed by: GLENDA PAGAN MD 10/16/20 1630 A/P-Cardiology Assessment/Admission Diagnosis COVID (+) and Influenza B (+) Elevated troponin NSTEMI vs Type 2 [place] d/t hypotension/hypoxemia Gen malaise Exertional shortness of breath, multifactorial (see below) Nonischemic cardiomyopathy - ejection fraction 10% per echo of 05-23-[address] Lopez. - Last echo of 08/12/20 showed LVEF 30-35%. Mod diffuse hypokinesis. Severely dilated LA. Mod MR, Mild AI. RVSP 20 mmHg Status post single-chamber pacemaker defibrillator implantation in August 2010. - Device upgrade February 14, 2015 to a dual chamber device (RA, RV lead) per Dr. Page on 02-14-2015. - Device functioning normally per interrogation of Jul 2020. - Device interrogation 07/29/20 shows episodes of SVT and NSVT. He received a shock on 07/14/20 for what appears to be SVT/A Fl at approx 200 bpm, has had antitach pacing for some other episodes Pulmonary edema and large R pleural effusion in late Apr 2016, status post Pleurx catheter placement by Dr Jackson, removed late Jul 2016 Restrictive lung disease managed by Dr Dennis Chronic systolic congestive heart failure, clinically compensated D/t hypotension has not been able to tolerate BB, COURTNEY (-) or ARB History of nonsustained ventricular tachycardia, controlled after initiation of therapy with amiodarone (currently on 400 mg daily) Paroxysmal atrial tachycardia as documented on device interrogation of Chronic renal insufficiency. CKD stage 2-3 Obs sleep apnea for which he follows with Dr Dennis Discussion and Recomendations Management of COVID pneumonia and influenza B per medical/pulmonary services Elevated troponin - NSTEMI vs Type 2 [place] d/t hypoxemia and hypotension Continue Amiodarone Monitor lab closely Replace electrolytes as indicated Further recs will be based on his hospital course We would like to thank medical services for this consult MAIDA RILEY Oct 17, 2020 07:56
[2020-10-17] MEDS: OSELTAMIVIR 30 MG (TAMIFLU) CAPSULE PO SCH ×2 (08:38→20:55)
[2020-10-17] MEDS: FAMOTIDINE 20 MG (PEPCID) TABLET PO SCH ×2 (08:38→20:55)
[2020-10-17] MEDS ORDERED: REMDESIVIR 200 MG/NS 250 ML IVPB IV NR ×2 (09:00)
[2020-10-17] MEDS ORDERED: FAMOTIDINE 20 MG (PEPCID) TABLET PO SCH (09:00)
[2020-10-17] MEDS ORDERED: ASPI-1238 PO (11:07)
[2020-10-17] MEDS ORDERED: DIGO125T3 PO (11:07)
[2020-10-17] MEDS ORDERED: DILT360C36 PO (11:07)
--- NOTE | 2020-10-17 11:10 | NUR ---
SPOKE WITH THE PT AND WENT THRU THE EXT MED HISTORY TO COMPLETE THE MED REC PT WAS ABLE TO NAME ALL HIS MEDICATIONS WELL WHEN/HOW HE TAKES EACH OTC MEDS: ASPIRIN 81MG
--- NOTE | 2020-10-17 11:17 | Consultation-Cardiology ---
HPI-Cardiology Cardiology Consultation: Date of Consultation 10/17/20 Time Seen by a Provider: 10:30 Date of Admission Attending Physician Clover Spaulding MD Admitting Physician [place]/[facility] Consulting Physician NAOMIE WATERS MD, FACP, [facility] HPI: Chief Complaint: Reason for consultation: Hypotension, COVID (+), Influenza B (+) HPI Mr. Horowitz is a 64 yr old male admitted to ICU 11 from the ED with increasing SOB and hypotension. He was found to be COVID (+) and Influenza B (+). This morning he states he feels better. He feels his lightheadedness has improved and gen weakness has improved. No c/o CP, palpitations. Occ cough. No c/o LE swelling. Review of Systems-Cardiology Review of Systems Constitutional: chills, fever, malaise Eyes: No vision change Ears/Nose/Throat: No epistaxis, No recent hearing loss Respiratory: As described under HPI Cardiovascular: As described under HPI Gastrointestinal: No constipation, No diarrhea, No nausea, No vomiting Genitourinary: No dysuria, No hematuria Skin: No rash on exposed areas, No ulcerations on exposed areas Psychiatric/Neurological: No anxiety, No depression, No seizure, No focal weakness, No syncope Hematologic: No bleeding abnormalities BBF-Oiqelj-Futzjc Hx Patient Social History Smoking Status: Never a Smoker 2nd Hand Smoke Exposure: No Have you traveled recently?: No Alcohol Use?: No Pt feels they are or have been: No Immunizations Up To Date Tetanus Booster (TDap): Unknown Past Medical History PMH As described under Assessment. Family Medical History Family Medical History: He reports his mother had heart disease and high blood pressure. Family History: Cardiovascular disease G8 SISTER Diabetes mellitus G8 BROTHER FH: congestive heart failure 19 MOTHER Hypercholesterolemia 19 MOTHER G8 SISTER Hypertension 19 MOTHER G8 SISTER Myocardial infarction G8 SISTER Allergies and Home Medications Allergies Coded Allergies: No Known Drug Allergies (Unverified , 06/10/10) Home Medications Amiodarone HCl 200 Mg Tablet, 400 MG PO HS, (Reported) TAKES 2 (200MG) TABLETS Aspirin 81 Mg Tablet.dr, 81 MG PO DAILY, (Reported) Digoxin 125 Mcg Tablet, 125 MCG PO DAILY, (Reported) Diltiazem HCl 360 Mg Cap.er.24h, 360 MG PO HS, (Reported) Furosemide 40 Mg Tablet, 40 MG PO DAILY, (Reported) Levothyroxine Sodium 25 Mcg Tablet, 25 MCG PO DAILY, (Reported) Patient Home Medication List Home Medication List Reviewed: Yes Physical Exam-Cardiology Physical Exam Vital Signs/I&O 10/16/20 10/17/20 10/17/20 10/17/20 23:30 00:00 01:00 01:00 Pulse 70 80 75 Resp 22 23 B/P (MAP) 102/65 (77) 114/71 (85) Pulse Ox 93 92 O2 Delivery Nasal Cannula Nasal Cannula Nasal Cannula O2 Flow Rate 3.00 3.00 3.00 10/17/20 10/17/20 10/17/20 10/17/20 02:00 03:00 04:00 05:00 Temp 36.6 Pulse 68 69 73 Resp 22 30 B/P (MAP) 105/66 (79) 115/75 (88) 104/69 (81) Pulse Ox 92 91 94 O2 Delivery Nasal Cannula Nasal Cannula Nasal Cannula O2 Flow Rate 3.00 3.00 3.00 10/17/20 10/17/20 10/17/20 10/17/20 05:00 06:00 06:54 07:00 Pulse 69 69 78 80 Resp 28 25 24 B/P (MAP) 106/76 (86) 102/73 (83) 88/46 (60) Pulse Ox 94 94 93 O2 Delivery Nasal Cannula Nasal Cannula Nasal Cannula O2 Flow Rate 3.00 3.00 3.00 10/17/20 08:00 Pulse 65 Resp 17 B/P (MAP) 98/70 (79) Pulse Ox 95 O2 Delivery Nasal Cannula O2 Flow Rate 3.00 10/17/20 00:00 Intake Total 2000 ml Output Total 800 ml Balance 1200 ml Capillary Refill : Less Than 3 Seconds Constitutional: AAO x 3, well-developed, well-nourished HEENT: PERRL, hearing is well preserved, oral hygience is good Neck: No carotid bruit; carotid pulses are 2 + bilaterally Respiratory: No accessory muscle use, No respiratory distress, No chest expansion is symmetric, No chest is bilaterally symmetric; other (good air entry) Cardiovascular: regular rate-rhythm; No JVD; S1 and S2 Gastrointestinal: No tender; soft, round, audible bowel sounds Extremities: no lower extremity edema bilateral Neurologic/Psychiatric: grossly intact (moves all extremities) Skin: No rash on exposed areas, No ulcerations on exposed areas Data Review Labs Laboratory Tests 10/16/20 15:34: White Blood Count 6.0, Red Blood Count 5.00, Hemoglobin 15.0, Hematocrit 46, Mean Corpuscular Volume 91, Mean Corpuscular Hemoglobin 30, Mean Corpuscular Hemoglobin Concent 33, Red Cell Distribution Width 13.1, Platelet Count 201, Mean Platelet Volume 11.0, Immature Granulocyte % (Auto) 0, Neutrophils (%) (Auto) 74, Lymphocytes (%) (Auto) 14, Monocytes (%) (Auto) 11, Eosinophils (%) (Auto) 0, Basophils (%) (Auto) 1, Neutrophils # (Auto) 4.4, Lymphocytes # (Auto) 0.8L, Monocytes # (Auto) 0.7, Eosinophils # (Auto) 0.0, Basophils # (Auto) 0.0, Immature Granulocyte # (Auto) 0.0, Prothrombin Time 14.2, INR Comment 1.1, Activated Partial Thromboplast Time 35, Fibrinogen 525H, D-Dimer 0.85H, Sodium Level 138, Potassium Level 4.2, Chloride Level 99, Carbon Dioxide Level 28, Anion Gap 11, Blood Urea Nitrogen 17, Creatinine 1.70H, Estimat Glomerular Filtration Rate 41, BUN/Creatinine Ratio 10, Glucose Level 74, Lactic Acid Level 1.31, Calcium Level 8.5, Corrected Calcium 8.7, Ferritin 207.6, Total Bilirubin 0.7, Aspartate Amino Transf (AST/SGOT) 22, Alanine Aminotransferase (ALT/SGPT) 13, Alkaline Phosphatase 79, Lactate Dehydrogenase 185, Troponin I 0.721*H, C- Reactive Protein High Sensitivity 5.34H, Total Protein 6.7, Albumin 3.8, Procalcitonin 0.09 10/16/20 15:37: Urine Color YELLOW, Urine Clarity CLEAR, Urine pH 5.5, Urine Specific [place] 1.010L, Urine Protein NEGATIVE, Urine Glucose (UA) NEGATIVE, Urine Ketones NEGATIVE, Urine Nitrite NEGATIVE, Urine Bilirubin NEGATIVE, Urine Urobilinogen 0.2, Urine Leukocyte Esterase NEGATIVE, Urine RBC (Auto) NEGATIVE, Urine RBC NONE, Urine WBC NONE, Urine Squamous Epithelial Cells 0-2, Urine Crystals PRESENTH, Urine Amorphous Sediment RARE QUYNH URATESH, Urine Bacteria NEGATIVE, Urine Casts NONE, Urine Mucus NEGATIVE, Urine Culture Indicated NO 1/20/21 15:40: Coronavirus 2019 (CRUZ) PositiveH 10/16/20 17:05: Blood Gas Puncture Site RR, Blood Gas Patient Temperature 100.3, Arterial Blood pH 7.33*L, Arterial Blood Partial Pressure CO2 46H, Arterial Blood Partial Pressure O2 88, Arterial Blood HCO3 23, Arterial Blood Total CO2 24.5, Arterial Blood Oxygen Saturation 96, Arterial Blood Base Excess -1.7, James Test YES-POS, Blood Gas Ventilator Setting NO, Blood Gas Inspired Oxygen 1L 10/16/20 17:28: Troponin I 0.733*H 10/17/20 04:25: White Blood Count 3.8L, Red Blood Count 4.69, Hemoglobin 13.9, Hematocrit 43, Mean Corpuscular Volume 92, Mean Corpuscular Hemoglobin 30, Mean Corpuscular Hemoglobin Concent 32, Red Cell Distribution Width 13.1, Platelet Count 182, Mean Platelet Volume 11.4, Immature Granulocyte % (Auto) 0, Neutrophils (%) (Auto) 83H, Lymphocytes (%) (Auto) 11L, Monocytes (%) (Auto) 6, Eosinophils (%) (Auto) 0, Basophils (%) (Auto) 0, Neutrophils # (Auto) 3.1, Lymphocytes # (Auto) 0.4L, Monocytes # (Auto) 0.2, Eosinophils # (Auto) 0.0, Basophils # (Auto) 0.0, Immature Granulocyte # (Auto) 0.0, Sodium Level 138, Potassium Level 4.8, Chloride Level 104, Carbon Dioxide Level 25, Anion Gap 9, Blood Urea Nitrogen 20H, Creatinine 1.49H, Estimat Glomerular Filtration Rate 47, BUN/Creatinine Ratio 13, Glucose Level 116H, Calcium Level 7.8L, Corrected Calcium 8.3L, Phosphorus Level 4.5, Magnesium Level 2.0, Total Bilirubin 0.4, Aspartate Amino Transf (AST/SGOT) 24, Alanine Aminotransferase (ALT/SGPT) 16, Alkaline Phosphatase 71, Total Protein 6.0L, Albumin 3.4, Digoxin Level 0.43L Microbiology 10/16/20 Influenza Types A,B Antigen (MOHINDER) - Final, Complete Laboratory Tests 10/16/20 15:34 10/17/20 04:25 A/P-Cardiology Assessment/Admission Diagnosis COVID (+) and Influenza B (+) Elevated troponin: Type 2 [place] d/t hypotension/hypoxemia (no other evidence of t ype 1 IN) Gen malaise Exertional shortness of breath, multifactorial (see below) Nonischemic cardiomyopathy - ejection fraction 10% per echo of 05-23-[address] Lopez. - Last echo of 08/12/20 showed LVEF 30-35%. Mod diffuse hypokinesis. Severely dilated LA. Mod MR, Mild AI. RVSP 20 mmHg Status post single-chamber pacemaker defibrillator implantation in August 2010. - Device upgrade February 14, 2015 to a dual chamber device (RA, RV lead) per Dr. Page on 02-14-2015. - Device functioning normally per interrogation of Jul 2020. - Device interrogation 07/29/20 shows episodes of SVT and NSVT. He received a shock on 07/14/20 for what appears to be SVT/A Fl at approx 200 bpm, has had antitach pacing for some other episodes Pulmonary edema and large R pleural effusion in late Apr 2016, status post Pleurx catheter placement by Dr Jackson, removed late Jul 2016 Restrictive lung disease managed by Dr Dennis Chronic systolic congestive heart failure, clinically compensated Chronically low bp. D/t hypotension has not been able to tolerate BB, COURTNEY (-) or ARB History of nonsustained ventricular tachycardia, controlled after initiation of therapy with amiodarone (currently on 400 mg daily) Paroxysmal atrial tachycardia as documented on device interrogation of Chronic renal insufficiency. CKD stage 2-3 Obs sleep apnea for which he follows with Dr Dnenis Discussion and Recomendations Management of COVID pneumonia and influenza B per medical/pulmonary services Continue Amiodarone Monitor lab closely Replace electrolytes as indicated Further recs will be based on his hospital course We would like to thank Medical services for this consult NAOMIE WATERS MD FACP [facility] Oct 17, 2020 11:17
--- NOTE | 2020-10-17 19:13 | History & Physical ---
HPI History of Present Illness: 64 yo M that presented with increasing shortness of breath and cough, direct admit from cardiology office. States that he was weak and was unable to stand up in the office after he sat down. He states that he started feeling bad 2 days ago. Patient has significant cardiac h/o, denies any chest pain this AM. No home oxygen requirement prior to admission. Source: patient Exam Limitations: no limitations Date seen by provider: Oct 17, 2020 Time Seen by Provider: 10:05 Attending Physician Mena Spaulding MD [place]CP [place] [place] Consult Date of Admission Oct 16, 2020 at 18:23 Home Medications Home Medications Reviewed patient Home Medication Reconciliation performed by pharmacy medication reconciliations garage door technician and/or nursing. Patients Allergies have been reviewed. Allergies Coded Allergies: No Known Drug Allergies (Unverified , 06/10/10) [facility] Hx Patient Social History Smoking Status: Never a Smoker 2nd Hand Smoke Exposure: No Recent Hopitalizations: No Alcohol Use?: No Have you traveled recently?: No Immunizations Up To Date Tetanus Booster (TDap): Unknown Past Medical History Cardiomyopathy defibrillator in place Atrial fibrillation Pulmonary Fibrosis Family Medical History Significant Family History: Heart Disease, Diabetes Family History: Cardiovascular disease G8 SISTER Diabetes mellitus G8 BROTHER FH: congestive heart failure 19 MOTHER Hypercholesterolemia 19 MOTHER G8 SISTER Hypertension 19 MOTHER G8 SISTER Myocardial infarction G8 SISTER Review of Systems (CHC) Constitutional: No chills, No fever; malaise, weakness EENTM: no symptoms reported; No mouth pain, No nose congestion, No nose pain Respiratory: cough, dyspnea on exertion; No orthopnea Cardiovascular: chest pain; No palpitations Gastrointestinal: no symptoms reported; No abdominal pain, No constipation, No diarrhea, No nausea, No vomiting Genitourinary: no symptoms reported; No dysuria, No frequency, No hematuria Musculoskeletal: no symptoms reported; No back pain, No joint pain, No muscle pain Skin: no symptoms reported; No lesions, No rash Psychiatric/Neurological: Weakness Reviewed Test Results Reviewed Test Results Lab Laboratory Tests Test 10/17/20 04:25 Range/Units White Blood Count 3.8 L 4.3-11.0 10^3/uL Red Blood Count 4.69 4.30-5.52 10^6/uL Hemoglobin 13.9 13.3-17.7 g/dL Hematocrit 43 40-54 % Mean Corpuscular Volume 92 80-99 fL Mean Corpuscular Hemoglobin 30 25-34 pg Mean Corpuscular Hemoglobin Concent 32 32-36 g/dL Red Cell Distribution Width 13.1 10.0-14.5 % Platelet Count 182 130-400 10^3/uL Mean Platelet Volume 11.4 9.0-12.2 fL Immature Granulocyte % (Auto) 0 % Neutrophils (%) (Auto) 83 H 42-75 % Lymphocytes (%) (Auto) 11 L 12-44 % Monocytes (%) (Auto) 6 0-12 % Eosinophils (%) (Auto) 0 0-10 % Basophils (%) (Auto) 0 0-10 % Neutrophils # (Auto) 3.1 1.8-7.8 10^3/uL Lymphocytes # (Auto) 0.4 L 1.0-4.0 10^3/uL Monocytes # (Auto) 0.2 0.0-1.0 10^3/uL Eosinophils # (Auto) 0.0 0.0-0.3 10^3/uL Basophils # (Auto) 0.0 0.0-0.1 10^3/uL Immature Granulocyte # (Auto) 0.0 0.0-0.1 10^3/uL Sodium Level 138 135-145 MMOL/L Potassium Level 4.8 3.6-5.0 MMOL/L Chloride Level 104 98-107 MMOL/L Carbon Dioxide Level 25 21-32 MMOL/L Anion Gap 9 5-14 MMOL/L Blood Urea Nitrogen 20 H 7-18 MG/DL Creatinine 1.49 H 0.60-1.30 MG/DL Estimat Glomerular Filtration Rate 47 BUN/Creatinine Ratio 13 Glucose Level 116 H 70-105 MG/DL Calcium Level 7.8 L 8.5-10.1 MG/DL Corrected Calcium 8.3 L 8.5-10.1 MG/DL Phosphorus Level 4.5 2.3-4.7 MG/DL Magnesium Level 2.0 1.6-2.4 MG/DL Total Bilirubin 0.4 0.1-1.0 MG/DL Aspartate Amino Transf (AST/SGOT) 24 5-34 U/L Alanine Aminotransferase (ALT/SGPT) 16 0-55 U/L Alkaline Phosphatase 71 40-136 U/L Total Protein 6.0 L 6.4-8.2 GM/DL Albumin 3.4 3.2-4.5 GM/DL Digoxin Level 0.43 L 0.80-2.00 NG/ML Radiology NAME: LYN MORENO [facility] REC#: [id number] PT STATUS: REG ER : 1955 PHYSICIAN: CYNDI AL CAR SUPERVISOR ADMIT DATE: 10/16/20/ER Signed Date of Exam:10/16/20 CHEST 1 VIEW, AP/PA ONLY INDICATION: Fever and weakness. TIME OF EXAM: 03:41 p.m. COMPARISON: Correlation is made with prior chest from 07/12/2019. FINDINGS: Heart is enlarged but stable. Cardiac defibrillator remains in place. Lungs appear to be clear apart from some questionable minimal infiltrate or atelectasis in the right base. There is no effusion or pneumothorax. IMPRESSION: Minimal infiltrate or atelectasis right base. Dictated by: Dictated on workstation # [id number] Dict: 10/16/20 1558 Trans: 10/16/20 1630 [facility] [id number] Interpreted by: GLENDA PAGAN MD Electronically signed by: GLENDA PAGAN MD 10/16/20 1630 Physical Exam-(CHC) Physical Exam Vital Signs VS - Last 72 Hours, by Label 10/16/20 10/16/20 10/16/20 10/16/20 15:06 15:06 15:56 17:02 Temp 37.9 37.9 Pulse 81 77 Resp B/P (MAP) 85/55 (65) 90/63 (72) Pulse Ox 92 92 92 O2 Delivery Nasal Cannula Nasal Cannula Nasal Cannula O2 Flow Rate 1.00 1.00 1.00 10/16/20 10/16/20 10/16/20 10/16/20 18:00 19:38 20:30 20:45 Temp 37.1 37.0 Pulse 71 80 85 85 Resp B/P (MAP) 84/49 (61) 93/52 97/60 (72) 102/66 (78) Pulse Ox 98 97 94 94 O2 Delivery Nasal Cannula Nasal Cannula Nasal Cannula Nasal Cannula O2 Flow Rate 2.00 2.00 2.00 10/16/20 10/16/20 10/16/20 10/16/20 20:51 21:00 21:15 21:45 Pulse 81 91 90 80 Resp 20 26 31 B/P (MAP) 104/55 (71) 106/70 (82) 103/70 (81) Pulse Ox 93 92 92 O2 Delivery Nasal Cannula Nasal Cannula Nasal Cannula O2 Flow Rate 2.00 2.00 2.00 10/16/20 10/16/20 10/16/20 10/16/20 22:13 22:15 22:33 23:00 Temp 37.0 Pulse 81 76 66 Resp 24 20 B/P (MAP) 112/63 (79) 116/69 (85) Pulse Ox 97 91 92 O2 Delivery Nasal Cannula Nasal Cannula Nasal Cannula O2 Flow Rate 2.00 2.00 2.00 10/16/20 10/17/20 10/17/20 10/17/20 23:30 00:00 01:00 01:00 Pulse 70 80 75 Resp 23 B/P (MAP) 102/65 (77) 114/71 (85) Pulse Ox 93 92 O2 Delivery Nasal Cannula Nasal Cannula Nasal Cannula O2 Flow Rate 3.00 3.00 3.00 10/17/20 10/17/20 10/17/20 10/17/20 02:00 03:00 04:00 05:00 Temp 36.6 Pulse 68 69 73 Resp 30 B/P (MAP) 105/66 (79) 115/75 (88) 104/69 (81) Pulse Ox 92 91 94 O2 Delivery Nasal Cannula Nasal Cannula Nasal Cannula O2 Flow Rate 3.00 3.00 3.00 10/17/20 10/17/20 10/17/20 10/17/20 05:00 06:00 06:54 07:00 Pulse 69 69 78 80 Resp 24 B/P (MAP) 106/76 (86) 102/73 (83) 88/46 (60) Pulse Ox 94 94 93 O2 Delivery Nasal Cannula Nasal Cannula Nasal Cannula O2 Flow Rate 3.00 3.00 3.00 10/17/20 10/17/20 10/17/20 10/17/20 08:00 09:00 12:25 16:50 Temp 36.4 Pulse 65 66 68 Resp 17 20 B/P (MAP) 98/70 (79) 115/62 (79) Pulse Ox 95 95 95 O2 Delivery Nasal Cannula Nasal Cannula Nasal Cannula O2 Flow Rate 3.00 3.00 3.00 10/17/20 19:03 Pulse Ox 91 O2 Delivery Nasal Cannula O2 Flow Rate 2.00 Capillary Refill : Less Than 3 Seconds General Appearance: WD/WN, no apparent distress HEENT: PERRL/EOMI Neck: non-tender, full range of motion Respiratory: no respiratory distress, no accessory muscle use, crackles, whe ezing Cardiovascular: normal peripheral pulses, regular rate, rhythm, no murmur Gastrointestinal: normal bowel sounds, non tender, soft Extremities: non-tender, no pedal edema, no calf tenderness, normal capillary refill Neurologic/Psychiatric: chin strap sewer II-XII nml as tested, alert, normal mood/affect, oriented x 3 Skin: normal color, warm/dry Lymphatic: no adenopathy Assessment/Plan Assessment/Plan Admission Status: Inpatient Order (span 2 midnights) Reason for Inpatient Admission: Patient requiring supplemental oxygen and IV antibioitics (1) Sepsis Status: Acute Assessment & Plan: - HDS this AM, hypotension resolved with IVFs, Normal LA Qualifiers: Qualified Codes: A41.9 - Sepsis, unspecified organism; R65.20 - Severe sepsis without septic shock; J96.01 - Acute respiratory failure with hypoxia (2) Acute and chronic respiratory failure with hypoxia Status: Acute Assessment & Plan: - Continue to titrate oxygen as tolerated (3) Acute on chronic renal failure Status: Acute Assessment & Plan: - Gentle hydration, continue to monitor daily BMP (4) COVID-19 Status: Acute (5) Influenza B Status: Acute (6) NICM (nonischemic cardiomyopathy) Status: Acute (7) NSTEMI (non-ST elevated myocardial infarction) Status: Acute Assessment & Plan: - Cardiology consulted, appreciate recommendations (8) Hypothyroidism Status: Chronic Assessment & Plan: - Continue home meds Qualifiers: Qualified Codes: E03.9 - Hypothyroidism, unspecified (9) Atypical chest pain Status: Acute (10) DVT prophylaxis Status: Acute Assessment & Plan: - MENA Vergara MD Oct 17, 2020 19:13
[2020-10-17] MEDS: AMIODARONE 200 MG (CORDARONE) TAB PO SCH (20:55)
[2020-10-18] MEDS: ENOXAPARIN 40 MG/0.4 ML (LOVENOX) SYR SC SCH (05:06)
[2020-10-18] MEDS: LEVOTHYROXINE 25 MCG (LEVOTHROID) TAB PO SCH (05:06)
[2020-10-18 06:12] LABS: BASOPHILS % (AUTO) 0 % (0-10); EOSINOPHILS % (AUTO) 0 % (0-10); HEMATOCRIT 42 % (40-54); HEMOGLOBIN 13.8 g/dL (13.3-17.7); LYMPHOCYTES # (AUTO) 0.8 10^3/uL (1.0-4.0); LYMPHOCYTES % (AUTO) 13 % (12-44); MEAN CORPUSCULAR HEMOGLOBIN 30 pg (25-34); MEAN CORPUSCULAR HGB CONC 33 g/dL (32-36); MEAN CORPUSCULAR VOLUME 91 fL (80-99); MEAN PLATELET VOLUME 11.6 fL (9.0-12.2); MONOCYTES # (AUTO) 0.5 10^3/uL (0.0-1.0); MONOCYTES % (AUTO) 9 % (0-12); NEUTROPHILS # (AUTO) 4.5 10^3/uL (1.8-7.8); NEUTROPHILS % (AUTO) 78 % (42-75); PLATELET COUNT 224 10^3/uL (130-400); WHITE BLOOD COUNT 5.8 10^3/uL (4.3-11.0)
[2020-10-18 06:22] LABS: POTASSIUM 4.6 MMOL/L (3.6-5.0)
[2020-10-18 06:23] LABS: CALCIUM 8.3 MG/DL (8.5-10.1)
[2020-10-18 06:27] LABS: PHOSPHORUS 3.7 MG/DL (2.3-4.7)
[2020-10-18 06:28] LABS: CREATININE SERUM 1.27 MG/DL (0.60-1.30)
[2020-10-18 06:30] LABS: MAGNESIUM 2.1 MG/DL (1.6-2.4)
--- NOTE | 2020-10-18 07:20 | Diagnostic Imaging Report ---
INDICATION: Influenza and hypotension. TIME OF EXAM: 1:56 AM Correlation is made with prior chest 10/16/2020. FINDINGS: Cardiac defibrillator is in place. There appears to be some questionable infiltrate versus fluid in a fissure in the right mid chest. There is some infiltrate or atelectasis right base. Left lung is clear. No pneumothorax is seen. IMPRESSION: Stable chest since exam 2 days earlier. Dictated by: Dictated on workstation # [id number]
[2020-10-18 08:21] VITALS: BP 108/59
[2020-10-18] MEDS: ASPIRIN E.C. 81 MG (ECOTRIN) TAB PO SCH (08:45)
[2020-10-18] MEDS: REMDESIVIR 100 MG/NS 250 ML IVPB IV SCH ×2 (08:45)
[2020-10-18] MEDS: FUROSEMIDE 40 MG (LASIX) TAB PO SCH (08:46)
[2020-10-18] MEDS: OSELTAMIVIR 30 MG (TAMIFLU) CAPSULE PO SCH ×2 (08:46→20:24)
[2020-10-18] MEDS: DIGOXIN 0.125 MG (LANOXIN) TAB PO SCH (08:46)
[2020-10-18] MEDS: FAMOTIDINE 20 MG (PEPCID) TABLET PO SCH ×2 (08:46→20:23)
--- NOTE | 2020-10-18 11:25 | Progress Note - Cardiology ---
Cardiology SOAP Progress Note Subjective: Sitting up in bed States he feels a little more SOB at this moment d/t recent coughing spell No c/o CP or palpitations Objective: I&O/Vital Signs 10/21/20 10/21/20 10/21/20 00:36 08:00 09:00 Temp 36.5 36.0 Pulse 64 68 Resp 16 18 B/P (MAP) 103/65 (78) 105/65 (78) Pulse Ox 95 94 O2 Delivery Nasal Cannula Room Air Room Air O2 Flow Rate 1.00 10/21/20 00:00 Intake Total 1360 ml Output Total 1400 ml Balance -40 ml Weight (Pounds): 219 Weight (Ounces): 6.0 Weight (Calculated Kilograms): 99.811791 Constitutional: AAO x 3, well-developed, well-nourished Respiratory: No accessory muscle use, No respiratory distress, No chest expansion is symmetric, No chest is bilaterally symmetric; other (good air entry) Cardiovascular: regular rate-rhythm; No JVD; S1 and S2 Gastrointestional: No tender; soft, round, audible bowel sounds Extremities: no lower extremity edema bilateral Neurologic/Psychiatric: grossly intact (moves all extremities) Skin: No rash on exposed areas, No ulcerations on exposed areas Results/Procedures: Labs Laboratory Tests 10/21/20 06:00: White Blood Count 5.8, Red Blood Count 5.29, Hemoglobin 15.7, Hematocrit 47, Rula n Corpuscular Volume 88, Mean Corpuscular Hemoglobin 30, Mean Corpuscular Hemoglobin Concent 34, Red Cell Distribution Width 12.8, Platelet Count 234, Mean Platelet Volume 11.6, Immature Granulocyte % (Auto) 0, Neutrophils (%) (Auto) 79H, Lymphocytes (%) (Auto) 13, Monocytes (%) (Auto) 9, Eosinophils (%) (Auto) 0, Basophils (%) (Auto) 0, Neutrophils # (Auto) 4.5, Lymphocytes # (Auto) 0.7L, Monocytes # (Auto) 0.5, Eosinophils # (Auto) 0.0, Basophils # (Auto) 0.0, Immature Granulocyte # (Auto) 0.0, Sodium Level 137, Potassium Level 3.9, Chloride Level 99, Carbon Dioxide Level 28, Anion Gap 10, Blood Urea Nitrogen 33H, Creatinine 1.27, Estimat Glomerular Filtration Rate 57, BUN/Creatinine Ratio 26, Glucose Level 115H, Calcium Level 8.0L, Corrected Calcium 8.5, Total Bilirubin 0.5, Aspartate Amino Transf (AST/SGOT) 29, Alanine Aminotransferase (ALT/SGPT) 38, Alkaline Phosphatase 65, Total Protein 6.0L, Albumin 3.4 Microbiology 10/16/20 MRSA Screen - Final, Complete MRSA not isolated 10/16/20 Urine Culture - Final, Complete NO GROWTH 10/16/20 Blood Culture - Preliminary, Resulted Staph, Coag Neg (PRODUCT DIRECTOR) A/P: Assessment: COVID (+) and Influenza B (+) Elevated troponin: Type 2 ID d/t hypotension/hypoxemia (no other evidence of type 1 ID) Gen malaise Exertional shortness of breath, multifactorial (see below) Nonischemic cardiomyopathy - ejection fraction 10% per echo of 05-23-[address] Lopez. - Last echo of 08/12/20 showed LVEF 30-35%. Mod diffuse hypokinesis. Severely dilated LA. Mod MR, Mild AI. RVSP 20 mmHg Status post single-chamber pacemaker defibrillator implantation in August 2010. - Device upgrade February 14, 2015 to a dual chamber device (RA, RV lead) per Dr. Maria Guadalupe darby on 02-14-2015. - Device functioning normally per interrogation of Jul 2020. - Device interrogation 07/29/20 shows episodes of SVT and NSVT. He received a shock on 07/14/20 for what appears to be SVT/A Fl at approx 200 bpm, has had antitach pacing for some other episodes Pulmonary edema and large R pleural effusion in late Apr 2016, status post Pleurx catheter placement by Dr Jackson, removed late Jul 2016 Restrictive lung disease managed by Dr Dennis Chronic systolic congestive heart failure, clinically compensated Chronically low bp. D/t hypotension has not been able to tolerate BB, COURTNEY (-) or ARB History of nonsustained ventricular tachycardia, controlled after initiation of therapy with amiodarone (currently on 400 mg daily) Paroxysmal atrial tachycardia as documented on device interrogation of Chronic renal insufficiency. CKD stage 2-3 Obs sleep apnea for which he follows with Dr Dennis Plan: Management of COVID pneumonia and influenza B per medical/pulmonary services Continue current medication regimen Monitor lab closely Replace electrolytes as indicated MAIDA RILEY 22, 2021 11:25
--- NOTE | 2020-10-18 15:58 | Progress Note ---
Subjective Subjective/Events-last exam Patient states that he is feeling some better but still fatigued. Tolerating PO diet and ambulation. Review of Systems Pulmonary: Dyspnea, Cough Cardiovascular: Edema; No: Chest Pain, Palpitations Gastrointestinal: No: Nausea, Vomiting, Abdominal Pain, Diarrhea, Constipation Neurological: Weakness, Incoordination Focused Exam Lactate Level 10/16/20 15:34: Lactic Acid Level 1.31 Objective Exam Last Set of Vital Signs Vital Signs Date Time Temp Pulse Resp B/P (MAP) Pulse Ox O2 Delivery O2 Flow Rate FiO2 10/18/20 08:55 Nasal Cannula 2.00 10/18/20 08:21 35.8 69 22 108/59 (75) 95 Capillary Refill : Less Than 3 Seconds I&O Intake and Output 10/18/20 00:00 Intake Total 1600 ml Output Total 1500 ml Balance 100 ml Intake Oral 1350 ml IV Total 250 ml Output Urine Total 1500 ml # Voids 2 # Bowel Movements 2 General: Alert, Oriented X3, No Acute Distress Lungs: Clear to Auscultation, Normal Air Movement Heart: Regular Rate, No Murmurs Abdomen: Normal Bowel Sounds, Soft, No Tenderness, No Masses Extremities: No Edema, No Tenderness/Swelling Neuro: Normal Speech, Sensation Intact, Cranial Nerves 3-12 NL Results/Procedures Lab Laboratory Tests 10/18/20 04:43: White Blood Count 5.8, Red Blood Count 4.64, Hemoglobin 13.8, Hematocrit 42, Mean Corpuscular Volume 91, Mean Corpuscular Hemoglobin 30, Mean Corpuscular Hemoglobin Concent 33, Red Cell Distribution Width 12.8, Platelet Count 224, Mean Platelet Volume 11.6, Immature Granulocyte % (Auto) 0, Neutrophils (%) (Auto) 78H, Lymphocytes (%) (Auto) 13, Monocytes (%) (Auto) 9, Eosinophils (%) (Auto) 0, Basophils (%) (Auto) 0, Neutrophils # (Auto) 4.5, Lymphocytes # (Auto) 0.8L, Monocytes # (Auto) 0.5, Eosinophils # (Auto) 0.0, Basophils # (Auto) 0.0, Immature Granulocyte # (Auto) 0.0 10/18/20 05:43: Sodium Level 140, Potassium Level 4.6, Chloride Level 106, Carbon Dioxide Level 25, Anion Gap 9, Blood Urea Nitrogen 24H, Creatinine 1.27, Estimat Glomerular Filtration Rate 57, BUN/Creatinine Ratio 19, Glucose Level 107H, Calcium Level 8.3L, Phosphorus Level 3.7, Magnesium Level 2.1 Microbiology 10/16/20 MRSA Screen - Final, Complete MRSA not isolated 10/16/20 Urine Culture - Final, Complete NO GROWTH 10/16/20 Blood Culture - Preliminary, Resulted Probable Coag Negative Staph Radiology NAME: LYN MORENO [facility] REC#: [id number] PT STATUS: REG ER : 1955 PHYSICIAN: CYNDI AL FOOD SCIENCE PROFESSOR ADMIT DATE: 10/16/20/ER Signed Date of Exam:10/16/20 CHEST 1 VIEW, AP/PA ONLY INDICATION: Fever and weakness. TIME OF EXAM: 03:41 p.m. COMPARISON: Correlation is made with prior chest from 07/12/2019. FINDINGS: Heart is enlarged but stable. Cardiac defibrillator remains in place. Lungs appear to be clear apart from some questionable minimal infiltrate or atelectasis in the right base. There is no effusion or pneumothorax. IMPRESSION: Minimal infiltrate or atelectasis right base. Dictated by: Dictated on workstation # [id number] Dict: 10/16/20 1558 Trans: 10/16/20 1630 [facility] [id number] Interpreted by: GLENDA PAGAN MD Electronically signed by: GLENDA PAGAN MD 10/16/20 1630 Assessment/Plan Assessment/Plan (1) Sepsis Status: Resolved Assessment & Plan: - HDS this AM, hypotension resolved with IVFs, Normal LA 10/18: Continue IV antibiotics, HDS, labs improved Qualifiers: Qualified Codes: A41.9 - Sepsis, unspecified organism; R65.20 - Severe sepsis without septic shock; J96.01 - Acute respiratory failure with hypoxia (2) Acute and chronic respiratory failure with hypoxia Status: Acute Assessment & Plan: - Continue to titrate oxygen as tolerated 10/18: 2L NC today, continue to titrate as tolerates (3) Acute on chronic renal failure Status: Resolved Assessment & Plan: - Gentle hydration, continue to monitor daily BMP (4) COVID-19 Status: Acute (5) Influenza B Status: Acute (6) NICM (nonischemic cardiomyopathy) Status: Acute (7) NSTEMI (non-ST elevated myocardial infarction) Status: Acute Assessment & Plan: - Cardiology consulted, appreciate recommendations (8) Hypothyroidism Status: Chronic Assessment & Plan: - Continue home meds Qualifiers: Qualified Codes: E03.9 - Hypothyroidism, unspecified (9) Atypical chest pain Status: Acute (10) DVT prophylaxis Status: Acute Assessment & Plan: - MENA Vergara MD Oct 18, 2020 15:58
[2020-10-18 16:03] VITALS: BP 101/63
[2020-10-18] MEDS: AMIODARONE 200 MG (CORDARONE) TAB PO SCH (20:32)
[2020-10-19 00:25] VITALS: BP 94/61
[2020-10-19] MEDS: LEVOTHYROXINE 25 MCG (LEVOTHROID) TAB PO SCH (05:37)
[2020-10-19] MEDS: ENOXAPARIN 40 MG/0.4 ML (LOVENOX) SYR SC SCH (05:37)
[2020-10-19 06:46] LABS: POTASSIUM 4.2 MMOL/L (3.6-5.0)
[2020-10-19 06:47] LABS: CALCIUM 7.9 MG/DL (8.5-10.1)
[2020-10-19 06:51] LABS: CREATININE SERUM 1.21 MG/DL (0.60-1.30)
--- NOTE | 2020-10-19 08:16 | Diagnostic Imaging Report ---
INDICATION: Positive COVID. Hypotension. EXAMINATION: Chest 10/19/2020. COMPARISON: 10/18/2020 FINDINGS: There is cardiomegaly. Pulmonary vasculature is congested. There are scattered peripheral infiltrates especially in the right lung similar to previous imaging. No significant effusions. No pneumothorax. Left-sided pacemaker stable. IMPRESSION: 1. Diffuse bilateral infiltrates right worse than left. 2. Cardiomegaly and mild pulmonary vascular congestion. Dictated by: Dictated on workstation # [id number]
[2020-10-19 08:20] VITALS: BP 119/76
[2020-10-19] MEDS: FAMOTIDINE 20 MG (PEPCID) TABLET PO SCH ×2 (09:10→19:40)
[2020-10-19] MEDS: DIGOXIN 0.125 MG (LANOXIN) TAB PO SCH (09:10)
[2020-10-19] MEDS: ASPIRIN E.C. 81 MG (ECOTRIN) TAB PO SCH (09:10)
[2020-10-19] MEDS: FUROSEMIDE 40 MG (LASIX) TAB PO SCH (09:10)
[2020-10-19] MEDS: REMDESIVIR 100 MG/NS 250 ML IVPB IV SCH ×2 (09:10)
[2020-10-19] MEDS: OSELTAMIVIR 30 MG (TAMIFLU) CAPSULE PO SCH ×2 (09:13→19:41)
--- NOTE | 2020-10-19 12:30 | Progress Note - Hospitalist ---
Subjective HPI/CC On Admission Date Seen by Provider: Oct 19, 2020 Time Seen by Provider: 11:00 Patient reports still feeling weaker than baseline but no increase in shortness of breath. reports a little more chest tightness at night with stable nonproductive cough. He was able to get some sleep last night. He denies chest pain night sweats chills or fever. Focused Exam Lactate Level 10/16/20 15:34: Lactic Acid Level 1.31 Objective Exam Vital Signs Vital Signs Date Time Temp Pulse Resp B/P (MAP) Pulse Ox O2 Delivery O2 Flow Rate FiO2 10/19/20 08:20 35.8 75 20 119/76 (90) 94 Room Air 10/18/20 20:59 3.00 Capillary Refill : Less Than 3 Seconds General Appearance: No Apparent Distress, Anxious Respiratory: Other (Few rales in the left midlung field elsewhere the chest is clear without wheezes or rhonchi.) Cardiovascular: Regular Rate, Rhythm, No Edema, No Gallop, No JVD, No Murmur, Normal Peripheral Pulses Gastrointestinal: Normal Bowel Sounds, No Organomegaly, No Pulsatile Mass, Non Tender, Soft Extremity: Normal Inspection, Normal Range of Motion, Non Tender, No Calf Tenderness, No Pedal Edema Results/Procedures Lab Laboratory Tests 10/19/20 06:14 Patient resulted labs reviewed. Assessment/Plan Assessment and Plan Assess & Plan/Chief Complaint COVID (+) and Influenza B With secondary sepsis now resolved patient responding well to therapy with no worsening in respiratory status continue to monitor. Elevated troponin: Type 2 [place] d/t hypotension/hypoxemia (no other evidence of type 1 [place]) Gen malaise Exertional shortness of breath, multifactorial (see below) Nonischemic cardiomyopathy - ejection fraction 10% per echo of 05-23-[address] Lopez. - Last echo of 08/12/20 showed LVEF 30-35%. Mod diffuse hypokinesis. Severely dilated LA. Mod MR, Mild AI. RVSP 20 mmHg Status post single-chamber pacemaker defibrillator implantation in August 2010. - Device upgrade February 14, 2015 to a dual chamber device (RA, RV lead) per Dr. Page on 02-14-2015. - Device functioning normally per interrogation of Jul 2020. - Device interrogation 07/29/20 shows episodes of SVT and NSVT. He received a shock on 07/14/20 for what appears to be SVT/A Fl at approx 200 bpm, has had antitach pacing for some other episodes Pulmonary edema and large R pleural effusion in late Apr 2016, status post Pleurx catheter placement by Dr Jackson, removed late Jul 2016 Restrictive lung disease managed by Dr Dennis Chronic systolic congestive heart failure, clinically compensated Chronically low bp. D/t hypotension has not been able to tolerate BB, COURTNEY (-) or ARB History of nonsustained ventricular tachycardia, controlled after initiation of therapy with amiodarone (currently on 400 mg daily) Paroxysmal atrial tachycardia as documented on device interrogation of Chronic renal insufficiency. CKD stage 2-3 Obs sleep apnea for which he follows with SARANYA Lewis MD Oct 19, 2020 12:30
[2020-10-19 16:39] VITALS: BP 113/72
[2020-10-19] MEDS: AMIODARONE 200 MG (CORDARONE) TAB PO SCH (19:40)
[2020-10-20] VITALS: BP 99/61
[2020-10-20] MEDS: ENOXAPARIN 40 MG/0.4 ML (LOVENOX) SYR SC SCH (05:16)
[2020-10-20] MEDS: LEVOTHYROXINE 25 MCG (LEVOTHROID) TAB PO SCH (05:18)
[2020-10-20 06:57] LABS: POTASSIUM 3.9 MMOL/L (3.6-5.0)
[2020-10-20 06:58] LABS: CALCIUM 7.9 MG/DL (8.5-10.1)
[2020-10-20 07:02] LABS: CREATININE SERUM 1.22 MG/DL (0.60-1.30)
[2020-10-20 07:44] VITALS: BP 103/66
--- NOTE | 2020-10-20 08:01 | Diagnostic Imaging Report ---
EXAMINATION: Chest radiograph, portable AP view. DATE: 10/20/2020 3:45 AM INDICATION: 64-year-old male, history of COVID 19 infection. Hypotension. COMPARISON: October 19, 2020. CT chest March 10, 2016. FINDINGS: There is a masslike area of opacification projecting over the right midlung measuring approximately 5.0 x 3.7 cm in size. There is nonspecific peripheral opacification in the right midlung and right lower lobe with interval improved appearance of the comparison study. There is a left-sided cardiac assist device and leads. Heart size and mediastinal contours are unchanged. There is no identified pneumothorax. IMPRESSION: 1. Masslike opacification projecting over the right midlung. This potentially could be pleurally based or associated with the chest wall. Alveolar consolidative process in the right lung would also be considered. Intravenous contrast is recommended for further assessment. 2. Interval improved airspace consolidative process in the right mid and lower lung zones with persistent opacification. Dictated by: Dictated on workstation # [id number]
[2020-10-20] MEDS: REMDESIVIR 100 MG/NS 250 ML IVPB IV SCH ×2 (08:47)
[2020-10-20] MEDS: ASPIRIN E.C. 81 MG (ECOTRIN) TAB PO SCH (08:47)
[2020-10-20] MEDS: FAMOTIDINE 20 MG (PEPCID) TABLET PO SCH ×2 (08:47→19:58)
[2020-10-20] MEDS: DIGOXIN 0.125 MG (LANOXIN) TAB PO SCH (08:47)
[2020-10-20] MEDS: FUROSEMIDE 40 MG (LASIX) TAB PO SCH (08:47)
[2020-10-20] MEDS: OSELTAMIVIR 30 MG (TAMIFLU) CAPSULE PO SCH (08:47)
--- NOTE | 2020-10-20 12:52 | Progress Note - Hospitalist ---
Subjective HPI/CC On Admission Date Seen by Provider: Oct 20, 2020 Time Seen by Provider: 11:30 Patient reports still feeling weaker than baseline but no increase in shortness of breath. reports a little more chest tightness at night with stable nonproductive cough. He was able to get some sleep last night. He denies chest pain night sweats chills or fever. Subjective/Events-last exam Patient reports still intermittently feeling short of breath with nonproductive cough but does feel as though he is improving with more stamina and getting to the bathroom and back etc. He said no night sweats chills fever chest pain. Objective Exam Vital Signs Vital Signs Date Time Temp Pulse Resp B/P (MAP) Pulse Ox O2 Delivery O2 Flow Rate FiO2 10/20/20 08:48 Nasal Cannula 1.00 10/20/20 07:44 36.4 68 18 103/66 (78) 97 Capillary Refill : Less Than 3 Seconds General Appearance: No Apparent Distress Respiratory: No Accessory Muscle Use, No Respiratory Distress, Other (Mild expiratory wheezing bilateral breath sounds are equal bilateral.) Cardiovascular: Regular Rate, Rhythm, No Edema, No Gallop, No JVD, No Murmur, Normal Peripheral Pulses Results/Procedures Lab Laboratory Tests 10/20/20 06:21 Patient resulted labs reviewed. Assessment/Plan Assessment and Plan Assess & Plan/Chief Complaint COVID (+) and Influenza B With secondary sepsis now resolved patient responding well to therapy. Decreasing shortness of breath and improving stamina. The patient does have a questionable right mid chest mass on chest x-ray. He does report a history of congestive heart failure that required chest tube placement a number of years ago on the right side. Chest x-ray has been stable in regards to the mass as well as patchy infiltrates compatible with Covid. He is a non- smoker with no other red flag symptoms having felt in his usual state of health prior to coming down with Covid. At this point would just recommend repeat CT scanning in several weeks. Elevated troponin: Type 2 [place] d/t hypotension/hypoxemia (no other evidence of type 1 WA) Gen malaise Exertional shortness of breath, multifactorial (see below) Nonischemic cardiomyopathy - ejection fraction 10% per echo of 05-23-[address] Lopez. - Last echo of 08/12/20 showed LVEF 30-35%. Mod diffuse hypokinesis. Severely dilated LA. Mod MR, Mild AI. RVSP 20 mmHg Status post single-chamber pacemaker defibrillator implantation in August 2010. - Device upgrade February 14, 2015 to a dual chamber device (RA, RV lead) per Dr. Page on 02-14-2015. - Device functioning normally per interrogation of Jul 2020. - Device interrogation 07/29/20 shows episodes of SVT and NSVT. He received a shock on 07/14/20 for what appears to be SVT/A Fl at approx 200 bpm, has had antitach pacing for some other episodes Pulmonary edema and large R pleural effusion in late Apr 2016, status post Pleurx catheter placement by Dr Jackson, removed late Jul 2016 Restrictive lung disease managed by Dr Dennis Chronic systolic congestive heart failure, clinically compensated Chronically low bp. D/t hypotension has not been able to tolerate BB, COURTNEY (-) or ARB History of nonsustained ventricular tachycardia, controlled after initiation of therapy with amiodarone (currently on 400 mg daily) Paroxysmal atrial tachycardia as documented on device interrogation of Chronic renal insufficiency. CKD stage 2-3 Obs sleep apnea for which he follows with SARANYA Lewis MD Oct 20, 2020 12:52
[2020-10-20 16:00] VITALS: BP 107/72
--- NOTE | 2020-10-20 19:43 | Progress Note - Cardiology ---
Cardiology SOAP Progress Note Subjective: No cp or palp or syncope Shortness of breath improving Malaise improving No swelling No n/v/d Gen weakness present Objective: I&O/Vital Signs 10/20/20 10/20/20 10/20/20 07:44 08:48 16:00 Temp 36.4 36.8 Pulse 68 67 Resp 18 20 B/P (MAP) 103/66 (78) 107/72 (84) Pulse Ox 97 95 O2 Delivery Room Air Nasal Cannula Room Air O2 Flow Rate 1.00 10/20/20 00:00 Intake Total 1460 ml Balance 1460 ml Weight (Pounds): 219 Weight (Ounces): 6.0 Weight (Calculated Kilograms): 99.047428 Constitutional: AAO x 3, well-developed, well-nourished Respiratory: No accessory muscle use, No respiratory distress, No chest expansion is symmetric, No chest is bilaterally symmetric; other (good air entry) Cardiovascular: regular rate-rhythm; No JVD; S1 and S2 Gastrointestional: No tender; soft, round, audible bowel sounds Extremities: no lower extremity edema bilateral Neurologic/Psychiatric: grossly intact (moves all extremities) Skin: No rash on exposed areas, No ulcerations on exposed areas Results/Procedures: Labs Laboratory Tests 10/20/20 06:21: Sodium Level 137, Potassium Level 3.9, Chloride Level 100, Carbon Dioxide Level 26, Anion Gap 11, Blood Urea Nitrogen 31H, Creatinine 1.22, Estimat Glomerular Filtration Rate 60, BUN/Creatinine Ratio 25, Glucose Level 103, Calcium Level 7.9L Microbiology 10/16/20 MRSA Screen - Final, Complete MRSA not isolated 10/16/20 Urine Culture - Final, Complete NO GROWTH 10/16/20 Blood Culture - Preliminary, Resulted Staph, Coag Neg ([employer]) Laboratory Tests 10/19/20 06:14 10/20/20 06:21 A/P: Assessment: COVID (+) and Influenza B (+) Elevated troponin: Type 2 [place] d/t hypotension/hypoxemia (no other evidence of type 1 VA) Gen malaise Exertional shortness of breath, multifactorial (see below) Nonischemic cardiomyopathy - ejection fraction 10% per echo of 05-23-[address] Lopez. - Last echo of 08/12/20 showed LVEF 30-35%. Mod diffuse hypokinesis. Severely dilated LA. Mod MR, Mild AI. RVSP 20 mmHg Status post single-chamber pacemaker defibrillator implantation in August 2010. - Device upgrade February 14, 2015 to a dual chamber device (RA, RV lead) per Dr. Page on 02-14-2015. - Device functioning normally per interrogation of Jul 2020. - Device interrogation 07/29/20 shows episodes of SVT and NSVT. He received a shock on 07/14/20 for what appears to be SVT/A Fl at approx 200 bpm, has had antitach pacing for some other episodes Pulmonary edema and large R pleural effusion in late Apr 2016, status post Pleu rx catheter placement by Dr Jackson, removed late Jul 2016 Restrictive lung disease managed by Dr Dennis Chronic systolic congestive heart failure, clinically compensated Chronically low bp. D/t hypotension has not been able to tolerate BB, COURTNEY (-) or ARB History of nonsustained ventricular tachycardia, controlled after initiation of therapy with amiodarone (currently on 400 mg daily) Paroxysmal atrial tachycardia as documented on device interrogation of Chronic renal insufficiency. CKD stage 2-3 Obs sleep apnea for which he follows with Dr Dennis Plan: Management of COVID pneumonia and influenza B per medical/pulmonary services Continue current medication regimen Monitor lab closely NAOMIE WATERS MD FACP FAC CCDS Oct 20, 2020 19:43
[2020-10-20] MEDS: AMIODARONE 200 MG (CORDARONE) TAB PO SCH (19:59)
[2020-10-20] MEDS: OSELTAMIVIR 75 MG (TAMIFLU) CAPSULE PO SCH (21:34)
[2020-10-21 00:36] VITALS: BP 103/65
[2020-10-21] MEDS: ENOXAPARIN 40 MG/0.4 ML (LOVENOX) SYR SC SCH (06:07)
[2020-10-21] MEDS: LEVOTHYROXINE 25 MCG (LEVOTHROID) TAB PO SCH (06:07)
[2020-10-21 06:14] LABS: BASOPHILS % (AUTO) 0 % (0-10); EOSINOPHILS % (AUTO) 0 % (0-10); HEMATOCRIT 47 % (40-54); HEMOGLOBIN 15.7 g/dL (13.3-17.7); LYMPHOCYTES # (AUTO) 0.7 10^3/uL (1.0-4.0); LYMPHOCYTES % (AUTO) 13 % (12-44); MEAN CORPUSCULAR HEMOGLOBIN 30 pg (25-34); MEAN CORPUSCULAR HGB CONC 34 g/dL (32-36); MEAN CORPUSCULAR VOLUME 88 fL (80-99); MEAN PLATELET VOLUME 11.6 fL (9.0-12.2); MONOCYTES # (AUTO) 0.5 10^3/uL (0.0-1.0); MONOCYTES % (AUTO) 9 % (0-12); NEUTROPHILS # (AUTO) 4.5 10^3/uL (1.8-7.8); NEUTROPHILS % (AUTO) 79 % (42-75); PLATELET COUNT 234 10^3/uL (130-400); WHITE BLOOD COUNT 5.8 10^3/uL (4.3-11.0)
[2020-10-21 06:28] LABS: ALBUMIN 3.4 GM/DL (3.2-4.5)
[2020-10-21 06:29] LABS: POTASSIUM 3.9 MMOL/L (3.6-5.0)
[2020-10-21 06:33] LABS: BILIRUBIN,TOTAL 0.5 MG/DL (0.1-1.0)
[2020-10-21 06:35] LABS: CREATININE SERUM 1.27 MG/DL (0.60-1.30)
[2020-10-21 08:00] VITALS: BP 105/65
[2020-10-21] MEDS: FAMOTIDINE 20 MG (PEPCID) TABLET PO SCH (08:00)
[2020-10-21] MEDS: FUROSEMIDE 40 MG (LASIX) TAB PO SCH (08:00)
[2020-10-21] MEDS: DIGOXIN 0.125 MG (LANOXIN) TAB PO SCH (08:00)
[2020-10-21] MEDS: OSELTAMIVIR 75 MG (TAMIFLU) CAPSULE PO SCH (08:01)
[2020-10-21] MEDS: REMDESIVIR 100 MG/NS 250 ML IVPB IV SCH ×2 (08:01)
[2020-10-21] MEDS: ASPIRIN E.C. 81 MG (ECOTRIN) TAB PO SCH (08:01)
[2020-10-21] MEDS ORDERED: DEXA6TAB6 PO (10:52)
[2020-10-21] MEDS ORDERED: ALBU18HF2 IH (10:52)
--- NOTE | 2020-10-21 10:52 | Discharge Summary ---
Discharge Summary Hospital Course Was the Problem List Reviewed?: Yes Problems/Dx: (1) COVID-19 Status: Acute (2) Influenza B Status: Acute (3) NICM (nonischemic cardiomyopathy) Status: Acute (4) Hypothyroidism Status: Chronic Qualifiers: Qualified Codes: E03.9 - Hypothyroidism, unspecified (5) Acute and chronic respiratory failure with hypoxia Status: Acute Hospital Course Date of Admission: Oct 16, 2020 at 18:23 Admission Diagnosis : Family Physician/Provider: Center/[facility] [place] Date of Discharge: 10/21/20 Discharge Diagnosis: COVID 19 PNA, Hypoxia, CHF, Flu B Hospital Course: Hospital Course: Pt had a standard hospital course for 6 days after her was admitted for Covid-19 and influenza. Ejection fraction of 10% was managed conservatively. Overall he was well enough to be discharged. Home O2 evaluation was performed and overall he felt well and had finished his Tamiflu and will be monitored closely with a close follow up with his PCP. Labs and Pending Lab Test: Laboratory Tests 10/21/20 06:00: White Blood Count 5.8, Red Blood Count 5.29, Hemoglobin 15.7, Hematocrit 47, Mean Corpuscular Volume 88, Mean Corpuscular Hemoglobin 30, Mean Corpuscular Hemoglobin Concent 34, Red Cell Distribution Width 12.8, Platelet Count 234, Mean Platelet Volume 11.6, Immature Granulocyte % (Auto) 0, Neutrophils (%) (Auto) 79H, Lymphocytes (%) (Auto) 13, Monocytes (%) (Auto) 9, Eosinophils (%) (Auto) 0, Basophils (%) (Auto) 0, Neutrophils # (Auto) 4.5, Lymphocytes # (Auto) 0.7L, Monocytes # (Auto) 0.5, Eosinophils # (Auto) 0.0, Basophils # (Auto) 0.0, Immature Granulocyte # (Auto) 0.0, Sodium Level 137, Potassium Level 3.9, Chloride Level 99, Carbon Dioxide Level 28, Anion Gap 10, Blood Urea Nitrogen 33H, Creatinine 1.27, Estimat Glomerular Filtration Rate 57, BUN/Creatinine Ratio 26, Glucose Level 115H, Calcium Level 8.0L, Corrected Calcium 8.5, Total Bilirubin 0.5, Aspartate Amino Transf (AST/SGOT) 29, Alanine Aminotransferase (ALT/SGPT) 38, Alkaline Phosphatase 65, Total Protein 6.0L, Albumin 3.4 Microbiology 10/16/20 MRSA Screen - Final, Complete MRSA not isolated 10/16/20 Urine Culture - Final, Complete NO GROWTH 10/16/20 Blood Culture - Preliminary, Resulted Staph, Coag Neg ([employer]) Home Meds Active Reported Aspirin EC (Aspirin) 81 Mg Tablet.dr 81 Mg PO DAILY Diltiazem 24Hr ER (Diltiazem HCl) 360 Mg Cap.er.24h 360 Mg PO HS Digoxin 125 Mcg Tablet 125 Mcg PO DAILY Levothyroxine Sodium 25 Mcg Tablet 25 Mcg PO DAILY Amiodarone HCl 200 Mg Tablet 400 Mg PO HS TAKES 2 (200MG) TABLETS Furosemide 40 Mg Tablet 40 Mg PO DAILY Assessment/Pt Instructions [facility] 1 week Discharge Planning: <30 minutes discharge planning Discharge Physical Examination Vital Signs Vital Signs Date Time Temp Pulse Resp B/P (MAP) Pulse Ox O2 Delivery O2 Flow Rate FiO2 10/21/20 09:00 Room Air 10/21/20 08:00 36.0 68 18 105/65 (78) 94 10/21/20 00:36 1.00 General Appearance: No Apparent Distress, WD/WN Respiratory: Lungs Clear Cardiovascular: Regular Rate, Rhythm Neurologic/Psychiatric: Alert, Oriented x3, No Motor/Sensory Deficits, Normal Mood/Affect Allergies: Coded Allergies: No Known Drug Allergies (Unverified , 06/10/10) Discharge Summary Date of Admission Oct 16, 2020 at 18:23 Date of Discharge Discharge Date: Oct 21, 2020 DOM SMITH DO Oct 21, 2020 10:52
--- NOTE | 2020-10-21 12:07 | Cardiology Progress Note ---
Subjective Date Seen by Provider: Oct 21, 2020 Time Seen by Provider: 11:00 Subjective/Events-last exam Patient is sitting up in bed, denies any chest pain or increased dyspnea. Objective-Cardiology Exam Last Set of Vital Signs Vital Signs 10/21/20 10/21/20 10/21/20 00:36 08:00 09:00 Temp 36.0 Pulse 68 Resp 18 B/P (MAP) 105/65 (78) Pulse Ox 94 O2 Delivery Room Air O2 Flow Rate 1.00 Capillary Refill : Less Than 3 Seconds I&O Intake and Output 10/21/20 00:00 Intake Total 1560 ml Output Total 1400 ml Balance 160 ml Intake Oral 1560 ml Output Urine Total 1400 ml # Voids 8 General: Alert, Oriented X3, No Acute Distress Lungs: Clear to Auscultation, Normal Air Movement Heart: Regular Rate, No Murmurs Abdomen: Normal Bowel Sounds, Soft, No Tenderness, No Masses Extremities: No Edema, No Tenderness/Swelling Neuro: Normal Speech, Sensation Intact, Cranial Nerves 3-12 NL Results Lab Laboratory Tests 10/21/20 06:00 A/P-Cardiology Admission Diagnosis COVID Influenza B nonischemic cardiomyopathy NSVT Assessment/Plan COVID (+) and Influenza B (+) Elevated troponin: Type 2 [place] d/t hypotension/hypoxemia (no other evidence of type 1 [place]) Gen malaise Exertional shortness of breath, multifactorial (see below) Nonischemic cardiomyopathy - ejection fraction 10% per echo of 05-23-[address] Lopez. - Last echo of 08/12/20 showed LVEF 30-35%. Mod diffuse hypokinesis. Severely dilated LA. Mod MR, Mild AI. RVSP 20 mmHg Status post single-chamber pacemaker defibrillator implantation in August 0. - Device upgrade February 14, 2015 to a dual chamber device (RA, RV lead) per Dr. Page on 02-14-2015. - Device functioning normally per interrogation of Jul 2020. - Device interrogation 07/29/20 shows episodes of SVT and NSVT. He received a shock on 07/14/20 for what appears to be SVT/A Fl at approx 200 bpm, has had antitach pacing for some other episodes Pulmonary edema and large R pleural effusion in late Apr 2016, status post Pleurx catheter placement by Dr Jackson, removed late Jul 2016 Restrictive lung disease managed by Dr Dennis Chronic systolic congestive heart failure, clinically compensated Chronically low bp. D/t hypotension has not been able to tolerate BB, COURTNEY (-) or ARB History of nonsustained ventricular tachycardia, controlled after initiation of therapy with amiodarone (currently on 400 mg daily) Paroxysmal atrial tachycardia as documented on device interrogation of Chronic renal insufficiency. CKD stage 2-3 Obs sleep apnea for which he follows with Dr Dennis OK for discharge from cardiology standpoint. F/u with Dr. Womack in 2 weeks. ALVINO VIRK Oct 21, 2020 12:07
[2020-10-21 14:31] VITALS: BP 105/65
--- NOTE | 2020-10-21 14:36 | NUR ---
PATIENT WAS ON RA AND O2 SAT OF 92% AT REST; PATIENT WALKED FOR 6 MINS AND O2 RANGED FROM 90% TO 95% ON RA; HR RANGED FROM 74 TO 105. PATIENT DID NOT NEED ANY O2 AT REST OR AMBULATION AT THIS TIME
== END 2020-10-21 15:29 | disposition home or self-care (01) | DRG 871 ==
LOC: EDUNIT# 15:06 → ER 15:09 → ICU 18:23 → 4TH 10-17 13:20
PROVIDERS: ADMIT Family Medicine; ATTEND Family Medicine
DX: A41.89 Other specified sepsis (principal); U07.1 COVID-19; J12.82 Pneumonia due to coronavirus disease 2019; J96.21 Acute and chronic respiratory failure with hypoxia; I21.A1 Myocardial infarction type 2; I42.8 Other cardiomyopathies; J81.1 Chronic pulmonary edema; I50.22 Chronic systolic (congestive) heart failure; I47.2 Ventricular tachycardia; I47.1 Supraventricular tachycardia; I13.0 Hypertensive heart and chronic kidney disease with heart failure and stage 1 through stage 4 chronic kidney disease, or unspecified chronic kidney disease; R65.20 Severe sepsis without septic shock; J10.1 Influenza due to other identified influenza virus with other respiratory manifestations; E03.9 Hypothyroidism, unspecified; J98.4 Other disorders of lung; I95.89 Other hypotension; N18.30 Chronic kidney disease, stage 3 unspecified; G47.33 Obstructive sleep apnea (adult) (pediatric); R53.81 Other malaise; Z79.82 Long term (current) use of aspirin; Z79.01 Long term (current) use of anticoagulants; Z90.49 Acquired absence of other specified parts of digestive tract; Z95.0 Presence of cardiac pacemaker
CPT/HCPCS: 36415; 36600; 71045; 80048; 80053; 80162; 81000; 82728; 82805; 83605; 83615; 83735; 84100; 84145; 84484; 85025; 85379; 85384; 85610; 85730; 86141; 87040; 87081; 87088; 87635; 87804; 93005; 93041; 94760; 94761

== ENCOUNTER 2020-10-30 09:06 | Inpatient (IN) | payer MEDICARE ==
[~2020-10-30] VITALS: Ht 170 cm; Wt 130.0 kg
[2020-10-30] VITALS (12 sets, daily range): BP systolic 86–111; BP diastolic 60–71
[~2020-10-30 09:06] MED LIST changes: +ALBU18HF2 IH; +DEXA6TAB6 PO; +DILT360C36 PO; -LISI-556 PO; +LISI-729 PO
--- NOTE | 2020-10-30 09:20 | ED Dyspnea ---
General Stated Complaint: SOB Source of Information: Patient Exam Limitations: No Limitations History of Present Illness Date Seen by Provider: Oct 30, 2020 Time Seen by Provider: 09:10 Initial Comments Patient is a 65-year-old male who presents to the emergency department today with a chief complaint of progressive shortness of breath ongoing over the last 2-1/2 to 3 weeks. Patient tells me a couple of weeks ago he was diagnosed with coronavirus as well as influenza. Patient states that he had a hospital stay of about 6 days. Patient states that he has continued to cough and be short of breath until it became worse this morning. Patient presented to triage with oxygen saturations of 62% on room air. Obvious respiratory distress with a respiratory effort around 48-56 times a minute. Patient denies any chest pain. He states he does have a history of atrial fibrillation and has a defibrillator in place. He denies any recent fevers or chills. He states his cough has been productive of yellowish sputum but he is not getting much up. He denies any swelling in his legs or cramping in his calves. He is on a water pill for congestive heart failure. No problems with bowel or bladder. All other review of systems reviewed and negative except as stated. Timing/Duration: 1 Week, Constant, Increasing Severity: Severe Prior Episodes/Possible Cause: Illness Exposure Modifying Factors: Worse With Lying Down; Improves With Oxygen Associated Symptoms: Cough, Lightheadedness, Weakness Allergies and Home Medications Allergies Coded Allergies: No Known Drug Allergies (Unverified , 06/10/10) Home Medications Albuterol Sulfate 18 Gm Hfa.aer.ad, 2 PUFF INH Q4H PRN for SHORTNESS OF BREATH, (Reported) Amiodarone HCl 200 Mg Tablet, 400 MG PO HS, (Reported) TAKES 2 (200MG) TABLETS Aspirin 81 Mg Tablet.dr, 81 MG PO DAILY, (Reported) Digoxin 125 Mcg Tablet, 125 MCG PO DAILY, (Reported) Diltiazem HCl 360 Mg Cap.er.24h, 360 MG PO HS, (Reported) Furosemide 40 Mg Tablet, 40 MG PO DAILY, (Reported) LAST FILLED 06-22-2020 #90/90 DAY SUPPLY Levothyroxine Sodium 25 Mcg Tablet, 25 MCG PO DAILY, (Reported) LAST FILLED 06-26-2020 #90/90 DAY SUPPLY Patient Home Medication List Home Medication List Reviewed: Yes Review of Systems Review of Systems Constitutional: see HPI EENTM: no symptoms reported Respiratory: cough, dyspnea on exertion, short of breath Cardiovascular: no symptoms reported Gastrointestinal: no symptoms reported Genitourinary: no symptoms reported Musculoskeletal: no symptoms reported Skin: no symptoms reported Psychiatric/Neurological: Anxiety All Other Systems Reviewed Negative Unless Noted: Yes Past Knseiad-Yjndrf-Lmixxj Hx Patient Social History 2nd Hand Smoke Exposure: No Recent Hopitalizations: No Immunizations Up To Date Tetanus Booster (TDap): Unknown Seasonal Allergies Seasonal Allergies: No Past Medical History Surgeries: Yes ( LT KNEE ARTHROSCOPY, UMBILICAL HERNIA; CARDIAC CATH--NO INTERVENTION) Abdominal, Adenoidectomy, Cardiac, Defibrillator, Orthopedic, Pacemaker, Tonsillectomy Respiratory: Yes (CHILDHOOD ASTHMA) Asthma, COPD Currently Using CPAP: No Currently Using BIPAP: No Cardiac: Yes Atrial Fibrillation, Cardiomyopathy, Chronic Edema/Swelling, Coronary Artery Disease, Heart Attack, Hypertension Neurological: No Reproductive Disorders: No Sexually Transmitted Disease: No HIV/AIDS: No Genitourinary: Yes (CHRONIC RENAL INSUFFICIENCY) Gastrointestinal: Yes (UMBILICAL HERNIA) Abdominal Hernia Musculoskeletal: Yes Arthritis, Gout Endocrine: No HEENT: Yes (POOR DENTITION) Loss of Vision: Denies Hearing Impairment: Denies Cancer: No Psychosocial: No Integumentary: No Blood Disorders: No Family Medical History Cardiovascular disease G8 SISTER Diabetes mellitus G8 BROTHER FH: congestive heart failure 19 MOTHER Hypercholesterolemia 19 MOTHER G8 SISTER Hypertension 19 MOTHER G8 SISTER Myocardial infarction G8 SISTER Heart Disease, Diabetes Physical Exam Vital Signs Vital Signs - First Documented 10/30/20 10/30/20 09:06 09:25 Temp 37.7 Pulse 95 Resp 48 B/P (MAP) 132/49 (76) Pulse Ox 62 O2 Delivery Room Air O2 Flow Rate 40.00 FiO2 100 Capillary Refill : Height, Weight, BMI Height: 5'7.00" Weight: 219lbs. 6.0oz. 99.770481xq; 39.37 BMI Method:Stated General Appearance: WD/WN, Anxious, Moderate Distress HEENT: PERRL/EOMI Neck: Full Range of Motion Respiratory: Crackles (Left basilar crackles heard on auscultation.), Other (Patient has increased work of breathing with a respiratory rate from 46 to 54 breaths/min) Cardiovascular: Regular Rate, Rhythm, Tachycardia Gastrointestinal: Non Tender, Soft Extremity: No Pedal Edema; No Pedal Edema; Slow Capillary Refill, Other (Dusky nailbeds, cyanotic) Neurologic/Psychiatric: Alert, Oriented x3, No Motor/Sensory Deficits, Normal Mood/Affect Skin: Warm/Dry, Cyanosis, Pallor Focused Exam Lactate Level Lactic Acid Level Procedures/Interventions Lumen: triple Central Line Procedure: betadine prep, sterile drapes applied, sterile dressing applied Position: femoral (R) Anesthesia: Lidocaine Volume Anesthetic (ccs): 4 Complications: none Post Position: sutured, good blood return Progress/Results/Core Measures Results/Orders Lab Results Laboratory Tests Test 10/30/20 09:19 10/30/20 09:30 10/30/20 10:10 Range/Units Blood Gas Puncture Site LT RAD Blood Gas Patient Temperature 37.7 Arterial Blood pH 7.44 H 7.37-7.43 Arterial Blood Partial Pressure CO2 34 L 35-45 MMHG Arterial Blood Partial Pressure O2 66 L 79-93 MMHG Arterial Blood HCO3 23 23-27 MMOL/L Arterial Blood Total CO2 23.8 21.0-31.0 MMOL/L Arterial Blood Oxygen Saturation 90 L 94-100 % Arterial Blood Base Excess -0.6 -2.5-2.5 MMOL/L James Test YES-POS Blood Gas Ventilator Setting NO Blood Gas Inspired Oxygen 10 L Sodium Level 137 135-145 MMOL/L Potassium Level 4.2 3.6-5.0 MMOL/L Chloride Level 99 98-107 MMOL/L Carbon Dioxide Level 26 21-32 MMOL/L Anion Gap 12 5-14 MMOL/L Blood Urea Nitrogen 24 H 7-18 MG/DL Creatinine 1.45 H 0.60-1.30 MG/DL Estimat Glomerular Filtration Rate 49 BUN/Creatinine Ratio 17 Glucose Level 88 70-105 MG/DL Calcium Level 8.1 L 8.5-10.1 MG/DL Corrected Calcium 8.7 8.5-10.1 MG/DL Total Bilirubin 1.0 0.1-1.0 MG/DL Aspartate Amino Transf (AST/SGOT) 33 5-34 U/L Alanine Aminotransferase (ALT/SGPT) 23 0-55 U/L Alkaline Phosphatase 59 40-136 U/L Troponin I < 0.028 <0.028 NG/ML C-Reactive Protein High Sensitivity 18.34 H 0.00-0.50 MG/DL Total Protein 6.6 6.4-8.2 GM/DL Albumin 3.3 3.2-4.5 GM/DL Procalcitonin 0.35 H <0.10 NG/ML White Blood Count 10.6 4.3-11.0 10^3/uL Red Blood Count 4.74 4.30-5.52 10^6/uL Hemoglobin 14.1 13.3-17.7 g/dL Hematocrit 43 40-54 % Mean Corpuscular Volume 91 80-99 fL Mean Corpuscular Hemoglobin 30 25-34 pg Mean Corpuscular Hemoglobin Concent 33 32-36 g/dL Red Cell Distribution Width 13.4 10.0-14.5 % Platelet Count 160 130-400 10^3/uL Mean Platelet Volume 10.4 9.0-12.2 fL Immature Granulocyte % (Auto) 1 % Neutrophils (%) (Auto) 91 H 42-75 % Lymphocytes (%) (Auto) 6 L 12-44 % Monocytes (%) (Auto) 3 0-12 % Eosinophils (%) (Auto) 0 0-10 % Basophils (%) (Auto) 0 0-10 % Neutrophils # (Auto) 9.6 H 1.8-7.8 10^3/uL Lymphocytes # (Auto) 0.6 L 1.0-4.0 10^3/uL Monocytes # (Auto) 0.3 0.0-1.0 10^3/uL Eosinophils # (Auto) 0.0 0.0-0.3 10^3/uL Basophils # (Auto) 0.0 0.0-0.1 10^3/uL Immature Granulocyte # (Auto) 0.1 0.0-0.1 10^3/uL Neutrophils % (Manual) 90 % Lymphocytes % (Manual) 2 % Monocytes % (Manual) 1 % Band Neutrophils 7 % Blood Morphology Comment NORMAL D-Dimer 0.93 H 0.00-0.49 UG/ML B-Type Natriuretic Peptide 317.4 H <100.0 PG/ML My Orders Orders - MIHIR CAMPBELL MD Ed Iv/Invasive Line Start (10/30/20 09:18) Cbc With Automated Diff (10/30/20 09:18) Comprehensive Metabolic Panel (10/30/20 09:18) Procalcitonin (Pct) (10/30/20 09:18) Lactic Acid Analyzer (10/30/20 09:18) Hs C Reactive Protein (10/30/20 09:18) Blood Culture (10/30/20 09:18) Chest 1 View, Ap/Pa Only (10/30/20 09:18) Ekg Tracing (10/30/20 09:18) Troponin I (10/30/20 09:18) BNP (10/30/20 09:18) Fibrin Degradation Products (10/30/20 09:20) Arterial Blood Gas (10/30/20 09:28) Albuterol Pre-Mix Nebs (Rt) (Proventil (10/30/20 09:29) Norepinephrine 4 Mg/250 Ml (Norepinephri (10/30/20 09:41) Manual Differential (10/30/20 10:10) Ns Iv 1000 Ml (Sodium Chloride 0.9%) (10/30/20 11:00) Ns Iv 1000 Ml (Sodium Chloride 0.9%) (10/30/20 11:00) Cefepime Injection (Maxipime Injection) (10/30/20 11:15) Vancomycin Injection (Vancomycin Injecti (10/30/20 11:15) Medications Given in ED Vital Signs/I&O 10/30/20 10/30/20 09:06 09:25 Temp 37.7 Pulse 95 Resp 48 B/P (MAP) 132/49 (76) Pulse Ox 62 95 O2 Delivery Room Air Vapotherm O2 Flow Rate 40.00 FiO2 100 Progress Progress Note : Time: 11:34 Progress Note Patient is a 65-year-old male who presents to the emergency department today with a chief complaint of shortness of breath. Patient evaluation today includes a physical exam, CBC, Chem-12, lactic acid, CRP, procalcitonin, D- dimer, single view chest x-ray. During the course and scope of evaluation and placing the patient on Vapotherm oxygen supplementation the patient became quite hypotensive dipping his systolic blood pressures into the 60s. At that point central line placement was accomplished in the right groin using sterile technique. Patient was given a 2 L fluid bolus and had a nice improvement in his blood pressure. He was quite fluid responsive. He did have Levophed running through peripheral line for about 10 to 15 minutes. Patient maintained his level of mentation throughout. He did become kind of dizzy and lightheaded. But this subsided once the procedure was done. Patient is currently receiving cefepime and vancomycin broad-spectrum antibiotics. He is getting normal saline at 150 cc an hour. He will be ad mitted to the ICU under the care of Dr. Mckenna with Dr. Dennis as a sap treasury consultant. Nursing has spoken to his significant other and kept them updated on his progress. Patient remains a DNR/DNI. Oxygen saturations have been good on Vapotherm 70% running at 95 to 97% pulse ox. Initial ECG Impression Date: Oct 30, 2020 Initial ECG Impression Time: 10:25 Initial ECG Rate: 96 Initial ECG Rhythm: A Fib/Flutter Initial ECG Impression: Atrial Fibrillation Diagnostic Imaging Diagonstic Imaging: Xray Plain Films/CT/US/NM/MRI: chest Comments [facility] [place], [place] NAME: LYN MORENO [facility] REC#: [id number] PT STATUS: REG ER : 1955 PHYSICIAN: MIHIR CAMPBELL MD ADMIT DATE: 10/30/20/ER Signed Date of Exam:10/30/20 CHEST 1 VIEW, AP/PA ONLY INDICATION: COVID positive. COMPARISON: 10/20/2020. FINDINGS: Dense bilateral lower lobe consolidated alveolar infiltrates have developed. The upper lungs remain relatively clear. Cardiomegaly again noted with ICD pacer on the left. Probable small bilateral pleural effusion. IMPRESSION: Development of dense consolidated pneumonia within the lower lobes bilaterally. Dictated by: Dictated on workstation # [id number] Dict: 10/30/20 1053 Trans: 10/30/20 1122 CV [id number] Interpreted by: MARTÍN RUDD MD Electronically signed by: MARTÍN RUDD MD 10/30/20 1122 Critical Care Note Critical Care Start Time: 09:10 Stop Time: 11:34 Total Time (minutes) Critical care time 1 hour including the evaluation and management of this patient with profound hypoxia. Supplemental oxygen initially started with simple facemask and then transition to Vapotherm at 70%. Patient also became quite hypotensive, left femoral central line was placed. Patient had a brief stent on Levophed. Critical care time includes evaluation of past medical records. Discussion with the patient regarding DNR/DNI status, discussion with family member, review and interpretation of laboratory studies, discussion with hospitalist as well as discussion with critical care. Departure Communication (Admissions) Time/Spoke to Admitting Phy: 11:13 Dr Mckenna Time/Spoke to Consulting Phy: 11:30 DR Dennis Impression Primary Impression: Sepsis Qualified Codes: A41.9 - Sepsis, unspecified organism; R65.20 - Severe sepsis without septic shock; J96.01 - Acute respiratory failure with hypoxia Additional Impression: Pneumonia Qualified Codes: J18.9 - Pneumonia, unspecified organism Disposition: ADMITTED INPATIENT Condition: Stable Admissions Decision to Admit Reason: Admit from ER (General) Decision to Admit/Date: Oct 30, 2020 Time/Decision to Admit Time: 11:41 Departure-Patient Inst. Referrals: [facility] (PCP/Family) Primary Care Physician MIHIR CAMPBELL MD Oct 30, 2020 09:20
[2020-10-30] MEDS ORDERED: RT-ALBUTEROL SULF 2.5 MG/3 ML PRE-MIX VIAL ONE (09:29)
[2020-10-30 09:31] LABS: ABG BASE EXCESS -0.6 MMOL/L (-2.5-2.5); ABG OXYGEN SATURATION 90 % (94-100); ABG PCO2 34 MMHG (35-45); ABG PH 7.44 (7.37-7.43); ABG PO2 66 MMHG (79-93); ABG TCO2 23.8 MMOL/L (21.0-31.0); ALLENS TEST YES-POS
[2020-10-30 09:32] LABS: INSPIRED O2 10 L; PATIENT TEMP 37.7; VENTILATOR NO
[2020-10-30] MEDS ORDERED: NOREPINEPHRINE 4 MG/250 ML 250 ML IV ONE (09:41)
[2020-10-30 09:51] LABS: ALBUMIN 3.3 GM/DL (3.2-4.5); CHLORIDE 99 MMOL/L (98-107); POTASSIUM 4.2 MMOL/L (3.6-5.0); SODIUM 137 MMOL/L (135-145)
[2020-10-30 09:52] LABS: CALCIUM 8.1 MG/DL (8.5-10.1)
[2020-10-30 09:54] LABS: GLUCOSE 88 MG/DL (70-105); TOTAL PROTEIN 6.6 GM/DL (6.4-8.2)
[2020-10-30 09:55] LABS: CARBON DIOXIDE 26 MMOL/L (21-32)
[2020-10-30 09:57] LABS: ALKALINE PHOSPHATASE 59 U/L (40-136); CREATININE SERUM 1.45 MG/DL (0.60-1.30); GFR ESTIMATED 49
[2020-10-30 09:58] LABS: BUN/CREATININE RATIO 17
[2020-10-30 10:00] LABS: ALANINE AMINOTRANSFERASE 23 U/L (0-55)
[2020-10-30 10:19] LABS: BASOPHILS % (AUTO) 0 % (0-10); EOSINOPHILS % (AUTO) 0 % (0-10); HEMATOCRIT 43 % (40-54); HEMOGLOBIN 14.1 g/dL (13.3-17.7); LYMPHOCYTES # (AUTO) 0.6 10^3/uL (1.0-4.0); LYMPHOCYTES % (AUTO) 6 % (12-44); MEAN CORPUSCULAR HEMOGLOBIN 30 pg (25-34); MEAN CORPUSCULAR HGB CONC 33 g/dL (32-36); MEAN CORPUSCULAR VOLUME 91 fL (80-99); MEAN PLATELET VOLUME 10.4 fL (9.0-12.2); MONOCYTES # (AUTO) 0.3 10^3/uL (0.0-1.0); MONOCYTES % (AUTO) 3 % (0-12); NEUTROPHILS # (AUTO) 9.6 10^3/uL (1.8-7.8); NEUTROPHILS % (AUTO) 91 % (42-75); PLATELET COUNT 160 10^3/uL (130-400); WHITE BLOOD COUNT 10.6 10^3/uL (4.3-11.0)
[2020-10-30 10:30] LABS: BAND NEUTROPHILS 7 %; LYMPHOCYTES % (MANUAL) 2 %; MONOCYTES % (MANUAL) 1 %; NEUTROPHILS % (MANUAL) 90 %; RBC MORPH NORMAL
--- NOTE | 2020-10-30 10:55 | Diagnostic Imaging Report ---
INDICATION: COVID positive. COMPARISON: 10/20/2020. FINDINGS: Dense bilateral lower lobe consolidated alveolar infiltrates have developed. The upper lungs remain relatively clear. Cardiomegaly again noted with ICD pacer on the left. Probable small bilateral pleural effusion. IMPRESSION: Development of dense consolidated pneumonia within the lower lobes bilaterally. Dictated by: Dictated on workstation # [id number]
[2020-10-30] MEDS ORDERED: NS IV 1000 ML 1,000 ML IV SCH ×2 (11:00)
[2020-10-30] MEDS ORDERED: VANCOMYCIN INJECTION 1,000 MG in NS (IVPB) 250 ML IV ONE (11:15)
[2020-10-30] MEDS ORDERED: CEFEPIME INJECTION 1,000 MG in WATER (STERILE) FOR INJECTION 10 ML IV ONE (11:15)
[2020-10-30] MEDS: NS IV 1000 ML 1,000 ML IV SCH ×2 (13:15→19:22)
--- NOTE | 2020-10-30 13:28 | History & Physical ---
MAURA JONES MED STUDENT 10/30/20 1328: History of Present Illness History of Present Illness Reason for visit/HPI Cr is a 65 yo male that presented to the ER today with the chief complaint of respiratory distress. He was recently in the hospital for 6 days with the diagnosis of COVID-19 and emphysema. At his follow up appointment with Dr. Pan his O2 stat was 62% on room air and pt was experiencing dyspnea and a productive cough so he was told to go directly to the ER. Currently he has stabilized with an O2 stat of 96% on 40 of vapotherm. He currently denies dysnpea, chest pain, or cough since being put on the vapotherm. He complains of fatigue. The cough was described as productive with yellow tinged sputum. Past medical history is significant for congestive heart failure and a fib with difibrillator placement. Both of the pts parents also struggled with CHF. He is following his wifes in 1996. Pt denies smoking, drinking, or illicit drug use. Past surgical history includes tonsillectomy and umbilical hernia repair. Pt had mild edema and stated that he is on a water pill but hasn't been able to take his medication today. Date of Admission Oct 30, 2020 at 11:15 Date Seen by a Provider: Oct 30, 2020 Time Seen by a Provider: 01:00 I consulted on this patient on 10/30/20 13:15 Attending Physician Odell Garcia MD Admitting Physician Center/[facility] Consult Allergies and Home Medications Allergies Coded Allergies: No Known Drug Allergies (Unverified , 06/10/10) Home Medications Albuterol Sulfate 18 Gm Hfa.aer.ad, 2 PUFF INH Q4H PRN for SHORTNESS OF BREATH, (Reported) Amiodarone HCl 200 Mg Tablet, 400 MG PO HS, (Reported) TAKES 2 (200MG) TABLETS Aspirin 81 Mg Tablet.dr, 81 MG PO DAILY, (Reported) Digoxin 125 Mcg Tablet, 125 MCG PO DAILY, (Reported) Diltiazem HCl 360 Mg Cap.er.24h, 360 MG PO HS, (Reported) Furosemide 40 Mg Tablet, 40 MG PO DAILY, (Reported) LAST FILLED 06-22-2020 #90/90 DAY SUPPLY Levothyroxine Sodium 25 Mcg Tablet, 25 MCG PO DAILY, (Reported) LAST FILLED 06-26-2020 #90/90 DAY SUPPLY Past Gbnjrhh-Ngblam-Coxizd Hx Patient Social History Marrital Status: Smoking Status: Never a Smoker 2nd Hand Smoke Exposure: No Recent Hopitalizations: No Immunizations Up To Date Tetanus Booster (TDap): Unknown Seasonal Allergies Seasonal Allergies: No Surgeries Yes ( LT KNEE ARTHROSCOPY, UMBILICAL HERNIA; CARDIAC CATH--NO INTERVENTION) Abdominal, Cardiac, Defibrillator, Orthopedic, Pacemaker, Tonsillectomy Respiratory Yes (CHILDHOOD ASTHMA) Currently Using CPAP: No Currently Using BIPAP: No Cardiovascular Yes Atrial Fibrillation, Cardiomyopathy, Chronic Edema/Swelling, Coronary Artery Disease, Heart Attack, Hypertension Neurological No Reproductive System Hx Reproductive Disorders: No Sexually Transmitted Disease: No HIV/AIDS: No Genitourinary Yes (CHRONIC RENAL INSUFFICIENCY) Gastrointestinal Yes (UMBILICAL HERNIA) Abdominal Hernia Musculoskeletal Yes Arthritis, Gout Endocrine History of Endocrine Disorders: No HEENT History of HEENT Disorders: Yes (POOR DENTITION) Loss of Vision: Denies Hearing Impairment: Denies Cancer No Psychosocial History of Psychiatric Problem: No Integumentary History of Skin or Integumenta: No Blood Transfusions History of Blood Disorders: No Family Medical History Significant Family History: Heart Disease, Diabetes Family Hx: Cardiovascular disease G8 SISTER Diabetes mellitus G8 BROTHER FH: congestive heart failure 19 MOTHER Hypercholesterolemia 19 MOTHER G8 SISTER Hypertension 19 MOTHER G8 SISTER Myocardial infarction G8 SISTER Review of Systems Constitutional: No dizziness, No fever; malaise, weakness; No weight gain, No weight loss EENTM: No ear pain, No blurred vision, No eye pain, No hoarseness, No throat pain Respiratory: see HPI, cough (productive), dyspnea on exertion, short of breath, wheezing Cardiovascular: No chest pain; edema (mild bilateral lower extremities), Hx of Intervention Gastrointestinal: no symptoms reported; No abdominal pain, No constipation, No diarrhea, No hematemesis, No melena Genitourinary: No dysuria, No frequency, No hematuria; hesitancy; No pain Musculoskeletal: no symptoms reported Skin: no symptoms reported; No change in color, No dryness, No lesions, No rash Psychiatric/Neurological: No Symptoms Reported; Denies Headache Physical Exam Vital Signs Vital Signs - First Documented 10/30/20 10/30/20 09:06 09:25 Temp 37.7 Pulse 95 Resp 48 B/P (MAP) 132/49 (76) Pulse Ox 62 O2 Delivery Room Air O2 Flow Rate 40.00 FiO2 100 Capillary Refill : Less Than 3 Seconds Height, Weight, BMI Height: 5'7.00" Weight: 219lbs. 6.0oz. 99.351291lf; 38.33 BMI Method:Stated General Appearance: Chronically ill, Mild Distress, Obese HEENT: PERRL/EOMI Neck: Normal Inspection, Non Tender, Supple Respiratory: Chest Non Tender, No Accessory Muscle Use, No Respiratory Distress, Decreased Breath Sounds, Wheezing Cardiovascular: Irregularly Irregular Gastrointestinal: No Organomegaly, No Pulsatile Mass, Non Tender, Soft Extremity: Normal Inspection, Non Tender, No Calf Tenderness, Pedal Edema Neurologic/Psychiatric: Alert, Oriented x3, No Motor/Sensory Deficits, Normal Mood/Affect Skin: Normal Color, Warm/Dry Lymphatic: No Adenopathy Assessment/Plan Assessment and Plan Assessment: hypoxic respiratory distress- elevated respirations at 48bpm history of recent covid infection elevated d-dimer of 0.93 congestive heart failure a fib Plan: continue vapotherm chest x-ray echo ODELL GARCIA MD 10/30/201999: History of Present Illness History of Present Illness Date Seen by a Provider: Oct 30, 2020 Time Seen by a Provider: 16:10 Allergies and Home Medications Allergies Coded Allergies: No Known Drug Allergies (Unverified , 06/10/10) Home Medications Albuterol Sulfate 18 Gm Hfa.aer.ad, 2 PUFF INH Q4H PRN for SHORTNESS OF BREATH, (Reported) Amiodarone HCl 200 Mg Tablet, 400 MG PO HS, (Reported) TAKES 2 (200MG) TABLETS Aspirin 81 Mg Tablet.dr, 81 MG PO DAILY, (Reported) Digoxin 125 Mcg Tablet, 125 MCG PO DAILY, (Reported) Diltiazem HCl 360 Mg Cap.er.24h, 360 MG PO HS, (Reported) Furosemide 40 Mg Tablet, 40 MG PO DAILY, (Reported) LAST FILLED 06-22-2020 #90/ DAY SUPPLY Levothyroxine Sodium 25 Mcg Tablet, 25 MCG PO DAILY, (Reported) LAST FILLED 06-26-2020 #90/90 DAY SUPPLY Patient Home Medication List Home Medication List Reviewed: Yes Past Swwegzt-Iljlmv-Eywaqm Hx Family Medical History Family Hx: Cardiovascular disease G8 SISTER Diabetes mellitus G8 BROTHER FH: congestive heart failure 19 MOTHER Hypercholesterolemia 19 MOTHER G8 SISTER Hypertension 19 MOTHER G8 SISTER Myocardial infarction G8 SISTER Assessment/Plan Assessment and Plan Problems: (1) Pneumonia Status: Acute Qualifiers: Qualified Codes: J18.9 - Pneumonia, unspecified organism Assessment & Plan: With recent hospital stay for COVID and influenza, treat with vancomycin and cefepime (2) Acute and chronic respiratory failure with hypoxia Status: Acute Assessment & Plan: Improved on vapotherm, but still with increased work of breathing. Appreciate Dr. Dennis's recommendations. (3) Hypothyroidism Status: Chronic (4) CKD (chronic kidney disease) Status: Acute (5) NICM (nonischemic cardiomyopathy) Status: Chronic (6) Dual implantable cardioverter-defibrillator in situ Status: Chronic (7) History of ventricular tachycardia Status: Chronic (8) Chronic systolic (congestive) heart failure Status: Chronic (9) Acute on chronic renal failure Status: Acute (10) DVT prophylaxis Status: Acute Assessment & Plan: Enoxaparin Admission Diagnosis Admission Status: Inpatient Order (span 2 midnights) Reason for Inpatient Admission: Hypoxic respiratory failure Supervisory-Addendum Brief Verification & Attestation Participated in pt care: history, MDM, physical Personally performed: exam, history, MDM Care discussed with: Medical Student Procedures: n/a Procedure type: I&D I personally saw and examined patient and obtained my own history. Critically ill with respiratory failure, confirmed he would not want intubated if it came to that. Suspect combination of post-COVID lung dysfunction with superimposed pneumonia and CHF. Will give lasix as tolerated, BP running low. MAURA JONES MED STUDENT Oct 30, 2020 13:28 ODELL GARCIA MD Oct 30, 2020 20:00
[2020-10-30] MEDS ORDERED: VANCOMYCIN INJECTION 0.1 MG in NS (IVPB) 250 ML IV SCH (13:30)
[2020-10-30] MEDS ORDERED: EPINEPHrine 1 MG INJECTION 4 MG in NS (IVPB) 248 ML IV SCH (13:30)
[2020-10-30] MEDS ORDERED: VANCOMYCIN 1250 MG/NS 250 ML IVPB IV NR ×2 (13:34)
[2020-10-30] MEDS: NOREPINEPHRINE 4 MG/250 ML 250 ML IV SCH ×3 (14:31→21:30)
[2020-10-30] MEDS: VASOPRESSIN INJECTION 20 UNIT in NS (IVPB) 100 ML IV SCH ×2 (14:32→22:09)
--- NOTE | 2020-10-30 14:55 | Pulmonary Consultation ---
History of Present Illness History of Present Illness Date Seen by Provider: Oct 30, 2020 Time Seen by Provider: 14:51 Date of Admission Allergies and Home Medications Allergies Coded Allergies: No Known Drug Allergies (Unverified , 06/10/10) Home Medications Albuterol Sulfate 18 Gm Hfa.aer.ad, 0 GM IH RTQ4HR PRN for SOA Prescribed by: DOM SMITH on 10/21/20 1052 Amiodarone HCl 200 Mg Tablet, 400 MG PO HS, (Reported) TAKES 2 (200MG) TABLETS Aspirin 81 Mg Tablet.dr, 81 MG PO DAILY, (Reported) Dexamethasone 6 Mg Tablet, 6 MG PO DAILY Prescribed by: DOM SMITH on 10/21/20 1052 Digoxin 125 Mcg Tablet, 125 MCG PO DAILY, (Reported) Diltiazem HCl 360 Mg Cap.er.24h, 360 MG PO HS, (Reported) Furosemide 40 Mg Tablet, 40 MG PO DAILY, (Reported) Levothyroxine Sodium 25 Mcg Tablet, 25 MCG PO DAILY, (Reported) Past Pqkxcis-Yvjhpa-Hyefyl Hx Patient Social History Alcohol Use: Denies Use Smoking Status: Never a Smoker 2nd Hand Smoke Exposure: No Recent Infectious Disease Expo: No Recent Hopitalizations: No Immunizations Up To Date Tetanus Booster (TDap): Unknown Seasonal Allergies Seasonal Allergies: No Past Medical History Surgeries: Yes ( LT KNEE ARTHROSCOPY, UMBILICAL HERNIA; CARDIAC CATH--NO INTERVENTION) Abdominal, Cardiac, Defibrillator, Orthopedic, Pacemaker, Tonsillectomy Respiratory: Yes (CHILDHOOD ASTHMA) Asthma, COPD Currently Using CPAP: No Currently Using BIPAP: No Cardiac: Yes Atrial Fibrillation, Cardiomyopathy, Chronic Edema/Swelling, Coronary Artery Disease, Heart Attack, Hypertension Neurological: No Reproductive Disorders: No Sexually Transmitted Disease: No HIV/AIDS: No Genitourinary: Yes (CHRONIC RENAL INSUFFICIENCY) Gastrointestinal: Yes (UMBILICAL HERNIA) Abdominal Hernia Musculoskeletal: Yes Arthritis, Gout Endocrine: No HEENT: Yes (POOR DENTITION) Loss of Vision: Denies Hearing Impairment: Denies Cancer: No Psychosocial: No Integumentary: No Blood Disorders: No Family Medical History Cardiovascular disease G8 SISTER Diabetes mellitus G8 BROTHER FH: congestive heart failure 19 MOTHER Hypercholesterolemia 19 MOTHER G8 SISTER Hypertension 19 MOTHER G8 SISTER Myocardial infarction G8 SISTER Heart Disease, Diabetes Sepsis Event Evaluation Height, Weight, BMI Height: 5'7.00" Weight: 219lbs. 6.0oz. 99.570003pm; 38.33 BMI Method:Stated Exam Exam Vital Signs Date Time Temp Pulse Resp B/P (MAP) Pulse Ox O2 Delivery O2 Flow Rate FiO2 10/30/20 14:05 96 Vapotherm 40.00 100 10/30/20 12:50 91 Vapotherm 40.00 100.00 10/30/20 12:40 94 Vapotherm 40.00 70 10/30/20 12:39 85 14 103/66 (78) 88 Vapotherm 40.00 70.00 10/30/20 09:25 95 Vapotherm 40.00 100 10/30/20 09:06 37.7 95 48 132/49 (76) 62 Room Air Height & Weight Height: 5'7.00" Weight: 219lbs. 6.0oz. 99.854970cc; 38.33 BMI Method:Stated General Appearance: Chronically ill, Mild Distress, Obese HEENT: PERRL/EOMI Neck: Normal Inspection, Non Tender, Supple Respiratory: Chest Non Tender, No Accessory Muscle Use, No Respiratory Distress, Decreased Breath Sounds, Wheezing Cardiovascular: Irregularly Irregular Capillary Refill: Less Than 3 Seconds Extremity: Normal Inspection, Non Tender, No Calf Tenderness, Pedal Edema Neurologic/Psychiatric: Alert, Oriented x3, No Motor/Sensory Deficits, Normal Mood/Affect Skin: Normal Color, Warm/Dry Lymphatic: No Adenopathy Results Lab Laboratory Tests 10/30/20 09:30 10/30/20 10:10 Assessment/Plan Assessment/Plan Acute respiratory failure -Currently requiring Vapotherm PNA Avina cultures -Vanco and Cefepime HX of COVID 19 [facility] AFib JAYESH POOLE DO Oct 30, 2020 14:55
[2020-10-30] MEDS ORDERED: ALBU18HF2 INH (15:28)
[2020-10-30 15:58] LABS: ABG BASE EXCESS -3.4 MMOL/L (-2.5-2.5); ABG OXYGEN SATURATION 97 % (94-100); ABG PCO2 40 MMHG (35-45); ABG PH 7.35 (7.37-7.43); ABG PO2 92 MMHG (79-93); ABG TCO2 22.8 MMOL/L (21.0-31.0); ALLENS TEST YES-POS
[2020-10-30 15:59] LABS: INSPIRED O2 40 L; PATIENT TEMP 36.2; VENTILATOR NO
[2020-10-30] MEDS ORDERED: RT-ALBUTEROL/IPRATROPIUM 3 ML (DUONEB) VIAL INH PRN (16:15)
[2020-10-30] MEDS ORDERED: ENOXAPARIN 40 MG/0.4 ML (LOVENOX) SYR SQ SCH (18:00)
[2020-10-30] MEDS: inSUlin ASPART (NovoLOG) 1 UNIT/0.01 ML (CHARGE PER UNIT) SC SCH (18:18)
[2020-10-30] MEDS: CEFEPIME INJECTION 1,000 MG in WATER (STERILE) FOR INJECTION 10 ML IV SCH (18:18)
[2020-10-30] MEDS: RT-ALBUTEROL/IPRATROPIUM 3 ML (DUONEB) VIAL INH SCH ×2 (18:31→22:12)
[2020-10-30] MEDS ORDERED: AMIODARONE 200 MG (CORDARONE) TAB PO SCH (21:00)
[2020-10-31] VITALS (30 sets, daily range): BP systolic 88–139; BP diastolic 48–87
[2020-10-31] MEDS: inSUlin ASPART (NovoLOG) 1 UNIT/0.01 ML (CHARGE PER UNIT) SC SCH ×4 (00:23→18:25)
[2020-10-31] MEDS: CEFEPIME INJECTION 1,000 MG in WATER (STERILE) FOR INJECTION 10 ML IV SCH ×4 (00:25→18:34)
[2020-10-31] MEDS: RT-ALBUTEROL/IPRATROPIUM 3 ML (DUONEB) VIAL INH SCH ×6 (01:37→22:02)
[2020-10-31] MEDS: NOREPINEPHRINE 4 MG/250 ML 250 ML IV SCH ×4 (01:49→19:43)
[2020-10-31] MEDS: NS IV 1000 ML 1,000 ML IV SCH (01:49)
[2020-10-31 02:13] LABS: BASOPHILS % (AUTO) 0 % (0-10); EOSINOPHILS % (AUTO) 0 % (0-10); HEMATOCRIT 47 % (40-54); HEMOGLOBIN 15.1 g/dL (13.3-17.7); LYMPHOCYTES # (AUTO) 0.5 10^3/uL (1.0-4.0); LYMPHOCYTES % (AUTO) 3 % (12-44); MEAN CORPUSCULAR HEMOGLOBIN 30 pg (25-34); MEAN CORPUSCULAR HGB CONC 32 g/dL (32-36); MEAN CORPUSCULAR VOLUME 93 fL (80-99); MEAN PLATELET VOLUME 10.8 fL (9.0-12.2); MONOCYTES # (AUTO) 0.5 10^3/uL (0.0-1.0); MONOCYTES % (AUTO) 3 % (0-12); NEUTROPHILS # (AUTO) 15.3 10^3/uL (1.8-7.8); NEUTROPHILS % (AUTO) 94 % (42-75); PLATELET COUNT 213 10^3/uL (130-400); WHITE BLOOD COUNT 16.3 10^3/uL (4.3-11.0)
[2020-10-31 02:19] LABS: BILIRUBIN,URINE NEGATIVE (NEGATIVE); CLARITY,URINE CLEAR; COLOR,URINE YELLOW; GLUCOSE, URINE (UA) NEGATIVE (NEGATIVE); KETONES,URINE TRACE (NEGATIVE); LEUKOCYTE ESTERASE ,URINE NEGATIVE (NEGATIVE); NITRITE,URINE NEGATIVE (NEGATIVE); PH,URINE 5.5 (5-9); PROTEIN,URINE TRACE (NEGATIVE)
[2020-10-31 02:26] LABS: POTASSIUM 4.2 MMOL/L (3.6-5.0)
[2020-10-31 02:27] LABS: CALCIUM 7.7 MG/DL (8.5-10.1)
[2020-10-31 02:28] LABS: BACTERIA,URINE TRACE /HPF
[2020-10-31 02:29] LABS: HYALINE CASTS, URINE 0-2 /LPF; SQUAMOUS EPITHELIAL CELL,UR RARE /HPF
[2020-10-31 02:31] LABS: CREATININE SERUM 1.21 MG/DL (0.60-1.30)
[2020-10-31 02:32] LABS: AMPHETAMINE SCREEN, URINE NEGATIVE (NEGATIVE); BARBITURATE SCREEN URINE NEGATIVE (NEGATIVE); BENZODIAZEPINES SCREEN URINE NEGATIVE (NEGATIVE); CANNABINOID SCREEN, URINE NEGATIVE (NEGATIVE); COCAINE SCREEN URINE NEGATIVE (NEGATIVE); METHADONE STAT NEGATIVE (NEGATIVE); METHAMPHETAMINE SCREEN URINE S NEGATIVE (NEGATIVE); OPIATE SCREEN URINE NEGATIVE (NEGATIVE); OXYCODONE STAT NEGATIVE (NEGATIVE); PROPOXYPHENE STAT NEGATIVE (NEGATIVE); TRICYCLIC ANTIDEPRESSANTS SCRE NEGATIVE (NEGATIVE)
[2020-10-31 02:34] LABS: MAGNESIUM 2.2 MG/DL (1.6-2.4)
[2020-10-31] MEDS ORDERED: PROPOFOL DRIP (ICU) 100 ML IV ONE (04:02)
[2020-10-31] MEDS ORDERED: AMIODARONE 450 MG/9 ML (CORDARONE) VIAL IV ONE (04:14)
[2020-10-31] MEDS ORDERED: D5W IV SOLUTION (EXCEL) 250 ML IV ONE (04:15)
[2020-10-31] MEDS ORDERED: fentaNYL DRIP PRE-MIX 250 ML IV ONE (04:15)
[2020-10-31] MEDS: fentaNYL DRIP PRE-MIX 250 ML IV SCH ×3 (04:30→19:44)
[2020-10-31] MEDS: PROPOFOL DRIP (ICU) 100 ML IV SCH ×7 (04:30→23:24)
--- NOTE | 2020-10-31 04:35 | Pulmonary Progress Note ---
Subjective Time Seen by a Provider: 04:28 Subjective/Events-last exam Pt is in acute respiratory distress and refusing intubation. Pt is a full DNR. Sepsis Event Evaluation Height, Weight, BMI Height: 5'7.00" Weight: 219lbs. 6.0oz. 99.808499cz; 38.33 BMI Method:Stated Focused Exam Lactate Level 10/30/20 12:00: Lactic Acid Level 1.05 10/30/20 14:48: Lactic Acid Level 0.96 Exam Exam Vital Signs Date Time Temp Pulse Resp B/P (MAP) Pulse Ox O2 Delivery O2 Flow Rate FiO2 10/31/20 04:00 89 13 123/87 (99) 76 Vapotherm 100.00 10/31/20 03:00 87 36 131/79 (96) 96 Vapotherm 100.00 10/31/20 02:02 90 50 97 100.00 10/31/20 02:00 93 12 139/85 (103) 96 Vapotherm 100.00 10/31/20 01:49 82 116/64 10/31/20 01:37 92 Vapotherm 40.00 90 10/31/20 01:30 NIV Bilevel 100.00 10/31/20 01:00 70 10/31/20 01:00 65 35 106/84 (91) 96 Vapotherm 40.00 70.00 10/31/20 00:00 73 33 104/66 (79) 94 Vapotherm 40.00 70.00 10/30/20 23:00 70 33 111/71 (84) 94 Vapotherm 40.00 70.00 10/30/20 22:14 40.00 70.00 10/30/20 22:12 98 Vapotherm 40.00 80 10/30/20 22:00 60 31 103/63 (76) 97 Vapotherm 40.00 80.00 10/30/20 21:30 75 77/44 10/30/20 21:00 90 Vapotherm 40.00 80 10/30/20 21:00 72 34 101/66 (78) 95 Vapotherm 40.00 80.00 10/30/20 20:00 66 32 98/69 (79) 94 Vapotherm 40.00 80.00 10/30/20 19:32 40.00 80.00 10/30/20 19:31 36.2 10/30/20 19:00 67 10/30/20 19:00 66 31 94/63 (73) 97 Vapotherm 40.00 90.00 10/30/20 18:32 96 Vapotherm 40.00 90 10/30/20 18:00 73 31 97/60 (72) 90 Vapotherm 40.00 90.00 10/30/20 17:00 75 21 95/64 (74) 95 Vapotherm 40.00 90.00 10/30/20 16:00 71 34 95/65 (75) 96 Vapotherm 40.00 90.00 10/30/20 15:00 36.2 10/30/20 15:00 76 12 92/63 (73) 96 Vapotherm 40.00 90.00 10/30/20 14:05 Vapotherm 40.00 90.00 10/30/20 14:05 96 Vapotherm 40.00 100 10/30/20 14:00 74 38 86/62 (70) 96 Vapotherm 40.00 100.00 10/30/20 13:21 82 10/30/20 13:00 82 43 95/63 (74) 91 Vapotherm 40.00 100.00 10/30/20 12:50 90 Vapotherm 100 10/30/20 12:50 91 Vapotherm 40.00 100.00 10/30/20 12:40 94 Vapotherm 40.00 70 10/30/20 12:40 36.6 10/30/20 12:39 85 14 103/66 (78) 88 Vapotherm 40.00 70.00 10/30/20 09:25 95 Vapotherm 40.00 100 10/30/20 09:06 37.7 95 48 132/49 (76) 62 Room Air I & O 10/31/20 07:00 Intake Total 275 ml Output Total 650 ml Balance -375 ml Height & Weight Height: 5'7.00" Weight: 219lbs. 6.0oz. 99.358970fu; 38.33 BMI Method:Stated General Appearance: Chronically ill, Obese, Severe Distress HEENT: PERRL/EOMI Neck: Normal Inspection, Non Tender, Supple Respiratory: Chest Non Tender, Accessory Muscle Use, Decreased Breath Sounds, Wheezing Cardiovascular: Irregularly Irregular Capillary Refill: Less Than 3 Seconds Gastrointestinal: non tender, soft Extremity: Normal Inspection, Non Tender, No Calf Tenderness, Pedal Edema Neurologic/Psychiatric: Alert, Oriented x3, No Motor/Sensory Deficits, Normal Mood/Affect Skin: Normal Color, Warm/Dry Lymphatic: No Adenopathy Results Lab Laboratory Tests 10/30/20 09:30 10/30/20 10:10 10/31/20 02:00 Assessment/Plan Assessment/Plan Acute on chronic respiratory failure -Currently requiring Vapotherm -Pt's Sp02 was in the 70's when I entered room while on 100% high flow mask -Pt was refusing bipap - -He was initially refusing intubation. After I called pt's girl friend pt was agreeable to emergent intubation. Pt was quickly intubated without difficulty. C02 detector had color change. Bilateral BS heard. After intubation pt went into Vtach. Pt is a No Code. 150mg of Amiodarone given. Pt's AICD fired and pt converted to a paced rhythem. Amiodarone gtt ordered. -CXR confirms ET tube placement with size 8 ET tube. -ABG 1hr after intubation pending. -I called and updated girl friend who is pt's only contact. -Will consult cardiology and check EKG. PNA Avina cultures pending -Vanco and Cefepime HX of COVID 19 [facility]FAE AFib CKD NICM with dual implanted Critical Care: Critically Ill Patient Time spent with patient (mins): 120 JAYESH POOLE DO Oct 31, 2020 04:35
[2020-10-31] MEDS ORDERED: SODIUM BICARB 8.4% 50 MEQ/50 ML VIAL IV ONE (04:45)
[2020-10-31] MEDS ORDERED: PROPOFOL DRIP (ICU) 100 ML IV SCH ×2 (04:45→05:30)
[2020-10-31] MEDS ORDERED: LACTATED RINGERS 1,000 ML IV ONE (04:53)
[2020-10-31] MEDS ORDERED: fentaNYL DRIP PRE-MIX 250 ML IV SCH (05:30)
[2020-10-31] MEDS: LACTATED RINGERS 1,000 ML IV SCH ×3 (05:44→19:44)
[2020-10-31] MEDS: KCL 20 MEQ TAB (K-DUR) PO SCH (05:44)
[2020-10-31] MEDS: AMIODARONE INJECTION 450 MG in D5W IV SOLUTION (EXCEL) 250 ML IV SCH ×2 (05:45→15:02)
--- NOTE | 2020-10-31 05:59 | Diagnostic Imaging Report ---
INDICATION: Respiratory failure Portable AP view of the chest is obtained. Since the study of earlier in the day, there has been placement of endotracheal tube with tip just below the thoracic inlet. Nasogastric tube passes into the stomach. There is continued cardiomegaly and extensive bilateral airspace disease. IMPRESSION: Cardiomegaly and bilateral airspace disease similar to previous study. There has been placement of endotracheal tube and nasogastric tube without complication identified. Dictated by: Dictated on workstation # [id number]
[2020-10-31] MEDS ORDERED: MAGNESIUM 1 GM/100 ML IVPB 100 ML IV SCH (06:00)
[2020-10-31] MEDS ORDERED: KCL 20 MEQ TAB (K-DUR) PO SCH (06:00)
[2020-10-31] MEDS ORDERED: POTASSIUM CL 10MEQ/50ML IVPB 50 ML IV SCH (06:00)
[2020-10-31] MEDS: MAGNESIUM 1 GM/100 ML IVPB 100 ML IV SCH (06:16)
[2020-10-31] MEDS: POTASSIUM CL 10MEQ/50ML IVPB 50 ML IV SCH (06:16)
[2020-10-31] MEDS: LEVOTHYROXINE 25 MCG (LEVOTHROID) TAB PO SCH (06:31)
[2020-10-31] MEDS: VASOPRESSIN INJECTION 20 UNIT in NS (IVPB) 100 ML IV SCH ×3 (06:31→23:26)
--- NOTE | 2020-10-31 07:07 | Occ Therapy Progress Note ---
Therapy Progress Note Pt is currently intubated and sedated. OT will monitor pt and initiate tx when pt is more medically stable and able to actively participate in skilled therapy. NOHEMI JOSHI Oct 31, 2020 07:07
--- NOTE | 2020-10-31 07:24 | Pulmonary Procedures ---
Pulmonary Procedures Date of Procedure Date of Service: Oct 31, 2020 Reason for Intubation: Acute respiratory failure Time of Intubation: 06:30 Intubation Method: orotracheal Tube Size: 8 Medications: Propofol, Rocuronium, Versed Positive End Tide CO2: Yes Breath Sounds after Intubation: bilateral-equal Intubation Complications: no complications Post Intubation Xray: Yes JAYESH POOLE DO Oct 31, 2020 07:24
[2020-10-31] MEDS ORDERED: ASPIRIN 81 MG CHEW (CHILDREN'S ASA) ONE (07:34)
--- NOTE | 2020-10-31 07:49 | Diagnostic Imaging Report ---
EXAM: CHEST 1 VIEW, AP/PA ONLY INDICATION: Respiratory distress. COMPARISON: Chest radiograph 10/30/2020. FINDINGS: Low lung volumes. Cardiomegaly. Dense airspace consolidation throughout both lungs. No large pleural effusion or pneumothorax. AICD. IMPRESSION: Stable cardiomegaly and dense airspace consolidation throughout both lungs. Dictated by: Dictated on workstation # [id number]
--- NOTE | 2020-10-31 08:10 | Physical Therapy Progress Note ---
Therapy Progress Note Patient currently sedated and intubated. PT will continue to monitor patient status. JONO CHÁVEZ PT Oct 31, 2020 08:10
[2020-10-31 08:14] LABS: ABG BASE EXCESS -4.5 MMOL/L (-2.5-2.5); ABG OXYGEN SATURATION 89 % (94-100); ABG PCO2 54 MMHG (35-45); ABG PO2 68 MMHG (79-93); ABG TCO2 23.7 MMOL/L (21.0-31.0)
[2020-10-31 08:16] LABS: ABG PH 7.23 (7.37-7.43); ALLENS TEST YES-POS; INSPIRED O2 100%; PATIENT TEMP 36.6; VENTILATOR YES
[2020-10-31] MEDS: ASPIRIN 81 MG CHEW (CHILDREN'S ASA) PO SCH (08:25)
[2020-10-31] MEDS: PANTOPRAZOLE 40 MG (PROTONIX) VIAL IV SCH (08:26)
[2020-10-31] MEDS: DIGOXIN 0.125 MG (LANOXIN) TAB PO SCH (08:26)
[2020-10-31] MEDS: ARTIFICIAL TEARS OINT (LACRI-LUBE) 3.5 GM TUBE OU SCH ×3 (08:51→23:26)
[2020-10-31] MEDS ORDERED: FUROSEMIDE 40 MG (LASIX) TAB PO SCH (09:00)
[2020-10-31] MEDS ORDERED: ASPIRIN E.C. 81 MG (ECOTRIN) TAB PO SCH (09:00)
[2020-10-31 11:10] LABS: ABG BASE EXCESS -3.9 MMOL/L (-2.5-2.5); ABG OXYGEN SATURATION 95 % (94-100); ABG PCO2 49 MMHG (35-45); ABG PO2 89 MMHG (79-93); ABG TCO2 23.5 MMOL/L (21.0-31.0)
[2020-10-31 11:11] LABS: ABG PH 7.28 (7.37-7.43)
[2020-10-31 11:12] LABS: INSPIRED O2 90%; PATIENT TEMP 36.4; VENTILATOR YES
[2020-10-31] MEDS ORDERED: NS IV 1000 ML 1,000 ML ONE (11:57)
--- NOTE | 2020-10-31 12:55 | Progress Note ---
Subjective Subjective Date Seen by Provider: Oct 31, 2020 Time Seen by Provider: 07:30 Pt was seen and examined this morning. He was placed on a mechanical ventilator this morning at [address] Dennis. Pt was experiencing acute respiratory failure with an O2 sat of 76% on 100 vapotherm. He is currently under sedation with propofol, AC with volume control setting, FiO2 100%, and a PEEP increased from 16-18.O2 sat is currently oat 90%. Review of Systems Pulmonary: Other (acute respiratory failure, place of mechanical ventilator) All Other Systems Reviewed All Other Systems Reviewed: Yes Objective Exam Vital Signs Vital Signs - First Documented 10/30/20 10/30/20 09:06 09:25 Temp 37.7 Pulse 95 Resp 48 B/P (MAP) 132/49 (76) Pulse Ox 62 O2 Delivery Room Air O2 Flow Rate 40.00 FiO2 100 Capillary Refill : Less Than 3 Seconds General Appearance: Chronically ill, Obese, Severe Distress HEENT: PERRL/EOMI Neck: Normal Inspection, Supple Respiratory: Chest Non Tender, Decreased Breath Sounds, Respiratory Distress, Wheezing, Other (mechanical ventilation) Cardiovascular: Irregularly Irregular Gastrointestinal: Normal Bowel Sounds, No Organomegaly, No Pulsatile Mass, Soft Extremity: Normal Inspection, Pedal Edema Neurologic/Psychiatric: Other (sedated) Skin: Normal Color, Warm/Dry, Cool (cervical, axillary, inguinal) Lymphatic: No Adenopathy Results Lab Laboratory Tests 10/30/20 14:48: Lactic Acid Level 0.96 10/30/20 15:52: Blood Gas Puncture Site R RAD, Blood Gas Patient Temperature 36.2, Arterial Blood pH 7.35L, Arterial Blood Partial Pressure CO2 40, Arterial Blood Partial Pressure O2 92, Arterial Blood HCO3 22L, Arterial Blood Total CO2 22.8, Arterial Blood Oxygen Saturation 97, Arterial Blood Base Excess -3.4L, James Test YES- POS, Blood Gas Ventilator Setting NO, Blood Gas Inspired Oxygen 40 L 10/30/20 18:16: Glucometer 154H 10/31/20 02:00: White Blood Count 16.3H, Red Blood Count 5.06, Hemoglobin 15.1, Hematocrit 47, Mean Corpuscular Volume 93, Mean Corpuscular Hemoglobin 30, Mean Corpuscular Hemoglobin Concent 32, Red Cell Distribution Width 13.4, Platelet Count 213, Mean Platelet Volume 10.8, Immature Granulocyte % (Auto) 1, Neutrophils (%) (Auto) 94H, Lymphocytes (%) (Auto) 3L, Monocytes (%) (Auto) 3, Eosinophils (%) (Auto) 0, Basophils (%) (Auto) 0, Neutrophils # (Auto) 15.3H, Lymphocytes # (Auto) 0.5L, Monocytes # (Auto) 0.5, Eosinophils # (Auto) 0.0, Basophils # (Auto) 0.0, Immature Granulocyte # (Auto) 0.1, Urine Color YELLOW, Urine Clarity CLEAR, Urine pH 5.5, Urine Specific [place] >=1.030, Urine Protein TRACEH, Urine Glucose (UA) NEGATIVE, Urine Ketones TRACEH, Urine Nitrite NEGATIVE, Urine Bilirubin NEGATIVE, Urine Urobilinogen 0.2, Urine Leukocyte Esterase NEGATIVE, Urine RBC (Auto) NEGATIVE, Urine RBC NONE, Urine WBC 2-5, Urine Squamous Epithelial Cells RARE, Urine Crystals NONE, Urine Bacteria TRACE, Urine Casts PRESENT, Urine Hyaline Casts 0-2H, Urine Granular Casts 2-5H, Urine Mucus NEGATIVE, Urine Culture Indicated NO, Sodium Level 139, Potassium Level 4.2, Chloride Level 106, Carbon Dioxide Level 17L, Anion Gap 16H, Blood Urea Nitrogen 23H, Creatinine 1.21, Estimat Glomerular Filtration Rate 60, BUN/Creatinine Ratio 19, Glucose Level 218H, Calcium Level 7.7L, Phosphorus Level 4.0, Magnesium Level 2.2, Urine Opiates Screen NEGATIVE, Urine Oxycodone Screen NEGATIVE, Urine Methadone Screen NEGATIVE, Urine Propoxyphene Screen NEGATIVE, Urine Barbiturates Screen NEGATIVE, Ur Tricyclic Antidepressants Screen NEGATIVE, Urine Phencyclidine Screen NEGATIVE, Urine Amphetamines Screen NEGATIVE, Urine Methamphetamines Screen NEGATIVE, Urine Benzodiazepines Screen NEGATIVE, Urine Cocaine Screen NEGATIVE, Urine Cannabinoids Screen NEGATIVE 10/31/20 06:30: Lactic Acid Level 2.12*H, Triglycerides Level 109 10/31/20 08:05: Blood Gas Puncture Site R RAD, Blood Gas Patient Temperature 36.6, Arterial Blood pH 7.23*L, Arterial Blood Partial Pressure CO2 54H, Arterial Blood Partial Pressure O2 68L, Arterial Blood HCO3 22L, Arterial Blood Total CO2 23.7, Arterial Blood Oxygen Saturation 89L, Arterial Blood Base Excess -4.5L, James Test YES-POS, Blood Gas Ventilator Setting YES, Blood Gas Inspired Oxygen 100% 10/31/20 08:40: Lactic Acid Level 2.47*H 10/31/20 10:48: Lactic Acid Level 2.28*H 10/31/20 10:53: Glucometer 179H 10/31/20 10:55: Blood Gas Puncture Site RT RAD, Blood Gas Patient Temperature 36.4, Arterial Blood pH 7.28*L, Arterial Blood Partial Pressure CO2 49H, Arterial Blood Partial Pressure O2 89, Arterial Blood HCO3 22L, Arterial Blood Total CO2 23.5, Arterial Blood Oxygen Saturation 95, Arterial Blood Base Excess -3.9L, James Test NA, Blood Gas Ventilator Setting YES, Blood Gas Inspired Oxygen 90% Microbiology 10/30/20 MRSA Screen - Final, Complete MRSA not isolated Assessment/Plan Assessment/Plan Admission Dx Assessment and Plan Assessment: acute respiratory failure-hypoxic and hypercapnic- O2 of 90% NG tube femoral IV access history of recent covid infection congestive heart failure a fib Plan: mechanical ventilation monitor ABG Problems: (1) Pneumonia Qualifiers: Qualified Codes: J18.9 - Pneumonia, unspecified organism Assessment & Plan: With recent hospital stay for COVID and influenza, treat with vancomycin and cefepime (2) Acute and chronic respiratory failure with hypoxia Assessment & Plan: Improved on vapotherm, but still with increased work of breathing. Appreciate Dr. Dennis's recommendations. 10/31 worsening overnight, decided to go ahead with intubation, intubated early this morning, appreciate Dr. Dennis's recs, still requiring 100% FiO2 and on PEE P 18 this morning. (3) Hypothyroidism (4) CKD (chronic kidney disease) (5) NICM (nonischemic cardiomyopathy) (6) Dual implantable cardioverter-defibrillator in situ (7) History of ventricular tachycardia Assessment & Plan: V tach with defib activation after intubation, on amiodarone drip, Cardiology consulted. (8) Chronic systolic (congestive) heart failure (9) Acute on chronic renal failure (10) DVT prophylaxis Assessment & Plan: Enoxaparin Admission Dx Assessment: hypoxic respiratory distress- elevated respirations at 48bpm history of recent covid infection elevated d-dimer of 0.93 congestive heart failure a fib Plan: continue vapotherm chest x-ray echo Supervisory-Addendum Brief Verification & Attestation Participated in pt care: history, MDM, physical Personally performed: exam, history, MDM Care discussed with: Medical Student Procedures: n/a I saw and examined patient, agree with student documentation of history. See problem list for my assessment and plan. MAURA JONES MED STUDENT Oct 31, 2020 12:55 ODELL GARCIA MD Oct 31, 2020 17:19
[2020-10-31] MEDS: ENOXAPARIN 40 MG/0.4 ML (LOVENOX) SYR SQ SCH ×2 (13:09→23:26)
--- NOTE | 2020-10-31 13:19 | Anesthesia-Procedure Note ---
Procedures/Interventions Procedure Start/Stop/Diagnosis Date of Procedure: Oct 31, 2020 Start Time: 12:40 Stop Time: 12:58 Arterial Line Arterial Line Catheter: 20G Type: Radial Location: Right Procedure: prepped, draped in sterile fashion, good wave-form was obtained, patient tolerated procedure well, no immediate complications, post procedure area cleaned, post procedure dressing applied VIDAL NICHOLSON CRNA Oct 31, 2020 13:19
[2020-10-31] MEDS ORDERED: VANCOMYCIN 1,750 MG/NS 500 ML IVPB IV SCH ×2 (14:00)
[2020-10-31] MEDS ORDERED: MIDAZOLAM 5 MG/5 ML (VERSED) VIAL IJ ONE (14:35)
[2020-10-31] MEDS ORDERED: SUCCINYLCHOLINE INJ 100 MG/5 ML SYR/VIAL INJ ONE (14:36)
[2020-11-01] VITALS (30 sets, daily range): BP systolic 66–125; BP diastolic 36–67
[2020-11-01] MEDS: CEFEPIME INJECTION 1,000 MG in WATER (STERILE) FOR INJECTION 10 ML IV SCH ×5 (00:32→23:34)
[2020-11-01] MEDS: AMIODARONE INJECTION 450 MG in D5W IV SOLUTION (EXCEL) 250 ML IV SCH (00:32)
[2020-11-01] MEDS: inSUlin ASPART (NovoLOG) 1 UNIT/0.01 ML (CHARGE PER UNIT) SC SCH ×5 (00:34→23:34)
[2020-11-01] MEDS: NOREPINEPHRINE 4 MG/250 ML 250 ML IV SCH ×4 (01:04→20:23)
[2020-11-01] MEDS: RT-ALBUTEROL/IPRATROPIUM 3 ML (DUONEB) VIAL INH SCH ×6 (01:06→22:37)
[2020-11-01] MEDS: fentaNYL DRIP PRE-MIX 250 ML IV SCH ×4 (02:01→20:22)
[2020-11-01] MEDS: PROPOFOL DRIP (ICU) 100 ML IV SCH ×6 (02:04→20:22)
[2020-11-01] MEDS: LACTATED RINGERS 1,000 ML IV SCH ×4 (02:04→17:35)
[2020-11-01 02:11] LABS: BASOPHILS % (AUTO) 0 % (0-10); EOSINOPHILS % (AUTO) 0 % (0-10); HEMATOCRIT 43 % (40-54); HEMOGLOBIN 13.7 g/dL (13.3-17.7); LYMPHOCYTES # (AUTO) 0.4 10^3/uL (1.0-4.0); LYMPHOCYTES % (AUTO) 2 % (12-44); MEAN CORPUSCULAR HEMOGLOBIN 30 pg (25-34); MEAN CORPUSCULAR HGB CONC 32 g/dL (32-36); MEAN CORPUSCULAR VOLUME 93 fL (80-99); MONOCYTES # (AUTO) 0.1 10^3/uL (0.0-1.0); MONOCYTES % (AUTO) 1 % (0-12); NEUTROPHILS # (AUTO) 17.9 10^3/uL (1.8-7.8); NEUTROPHILS % (AUTO) 97 % (42-75); PLATELET COUNT 164 10^3/uL (130-400); WHITE BLOOD COUNT 18.5 10^3/uL (4.3-11.0)
[2020-11-01 02:12] LABS: ABG BASE EXCESS -3.9 MMOL/L (-2.5-2.5); ABG OXYGEN SATURATION 98 % (94-100); ABG PCO2 55 MMHG (35-45); ABG PO2 94 MMHG (79-93); ABG TCO2 24.1 MMOL/L (21.0-31.0)
[2020-11-01 02:14] LABS: ABG PH 7.24 (7.37-7.43); ALLENS TEST ART LINE; INSPIRED O2 65%; VENTILATOR YES
[2020-11-01 02:20] LABS: CHLORIDE 106 MMOL/L (98-107); POTASSIUM 4.6 MMOL/L (3.6-5.0); SODIUM 135 MMOL/L (135-145)
[2020-11-01 02:21] LABS: CALCIUM 7.7 MG/DL (8.5-10.1)
[2020-11-01 02:22] LABS: GLUCOSE 126 MG/DL (70-105)
[2020-11-01 02:23] LABS: CARBON DIOXIDE 19 MMOL/L (21-32)
[2020-11-01 02:25] LABS: PHOSPHORUS 3.1 MG/DL (2.3-4.7)
[2020-11-01 02:26] LABS: BUN/CREATININE RATIO 15; CREATININE SERUM 1.19 MG/DL (0.60-1.30); GFR ESTIMATED > 60
--- NOTE | 2020-11-01 04:13 | Pulmonary Progress Note ---
Subjective Time Seen by a Provider: 04:08 Subjective/Events-last exam Pt is sedated on vent. Sepsis Event Evaluation Height, Weight, BMI Height: 5'7.00" Weight: 219lbs. 6.0oz. 99.100604hu; 38.33 BMI Method:Stated Focused Exam Lactate Level 10/31/20 08:40: Lactic Acid Level 2.47*H 10/31/20 10:48: Lactic Acid Level 2.28*H 10/31/20 12:40: Lactic Acid Level 1.67 Exam Exam Vital Signs Date Time Temp Pulse Resp B/P (MAP) Pulse Ox O2 Delivery O2 Flow Rate FiO2 11/01/20 02:04 98 112/48 11/01/20 01:06 95 24 97 65 11/01/20 01:04 98 87/41 11/01/20 00:35 37.6 11/01/20 00:00 94 19 109/52 (71) 99 Mechanical Ventilator 65.00 10/31/20 23:24 100 113/61 10/31/20 23:00 87 21 111/54 (73) 99 Mechanical Ventilator 65.00 10/31/20 22:04 85 24 100 65 10/31/20 22:00 85 24 102/49 (66) 99 Mechanical Ventilator 65.00 10/31/20 21:00 86 24 102/50 (67) 100 Mechanical Ventilator 65.00 10/31/20 21:00 92 OxyMask 90 10/31/20 20:00 87 23 102/51 (68) 99 Mechanical Ventilator 65.00 10/31/20 19:44 87 106/53 10/31/20 19:43 88 106/51 10/31/20 19:00 87 10/31/20 19:00 87 24 102/50 (67) 97 Mechanical Ventilator 65.00 10/31/20 18:41 Mechanical Ventilator 65.00 10/31/20 18:26 85 24 97 65 10/31/20 18:00 86 24 100/51 (67) 97 Mechanical Ventilator 70.00 10/31/20 17:20 89 108/53 10/31/20 17:00 90 24 100/49 (66) 97 Mechanical Ventilator 70.00 10/31/20 16:00 83 23 88/48 (61) 94 Mechanical Ventilator 70.00 10/31/20 15:48 36.6 10/31/20 15:00 86 29 94/48 (63) 93 Mechanical Ventilator 70.00 10/31/20 14:40 Mechanical Ventilator 70.00 10/31/20 14:38 85 24 94 80 10/31/20 14:06 102/55 10/31/20 14:00 86 30 104/51 (68) 96 Mechanical Ventilator 90.00 10/31/20 13:03 100/56 10/31/20 13:00 97 31 104/55 (71) 96 Mechanical Ventilator 90.00 10/31/20 13:00 80 10/31/20 12:30 10/31/20 12:22 36.3 10/31/20 12:00 80 22 99/62 (74) 96 Mechanical Ventilator 90.00 10/31/20 11:00 85 24 97/64 (75) 95 Mechanical Ventilator 90.00 10/31/20 10:30 Mechanical Ventilator 90.00 10/31/20 10:29 78 24 97 100 10/31/20 10:20 76 95/62 10/31/20 10:00 84 14 100/64 (76) 97 Mechanical Ventilator 100.00 10/31/20 09:00 79 23 97/64 (75) 92 Mechanical Ventilator 100.00 10/31/20 08:55 92 OxyMask 100 10/31/20 08:50 101/65 10/31/20 08:26 86 105/66 10/31/20 08:00 92 27 101/65 (77) 92 Mechanical Ventilator 100.00 10/31/20 07:03 80 24 90 100 10/31/20 07:00 107 10/31/20 07:00 82 23 103/68 (80) 91 Mechanical Ventilator 100.00 10/31/20 06:00 107 12 105/75 (85) 91 Mechanical Ventilator 100.00 10/31/20 05:43 120 10/31/20 05:00 126 25 116/79 (91) 97 Mechanical Ventilator 100.00 10/31/20 04:42 104 25 91 100 10/31/20 04:30 124 107/63 I & O 11/01/20 06:59 Intake Total 100 ml Output Total 775 ml Balance -675 ml Height & Weight Height: 5'7.00" Weight: 219lbs. 6.0oz. 99.465202bg; 38.33 BMI Method:Stated General Appearance: Chronically ill, Obese, Severe Distress HEENT: PERRL/EOMI Neck: Normal Inspection, Supple Respiratory: Chest Non Tender, Decreased Breath Sounds, Respiratory Distress, Wheezing, Other (mechanical ventilation) Cardiovascular: Irregularly Irregular Capillary Refill: Less Than 3 Seconds Gastrointestinal: non tender, soft Extremity: Normal Inspection, Pedal Edema Neurologic/Psychiatric: Other (sedated) Skin: Normal Color, Warm/Dry, Cool (cervical, axillary, inguinal) Lymphatic: No Adenopathy Results Lab Laboratory Tests 10/30/20 09:30 10/30/20 10:10 10/31/20 02:00 11/01/20 01:50 Assessment/Plan Assessment/Plan Acute on chronic respiratory failure -Ventilator 450//18 65% -ABG reviewed -Permissive hypercapnea -S/p intubation 10/31 - s/p VTach -- AICD converted pt to paced -Continue Ammio gtt -Consult cardiology PNA Avina cultures pending -Vanco and Cefepime Hypotension - since intubation -LR at 150 -Levophed and Vasopressin HX of COVID 19 CHFAE AFib CKD NICM with dual implanted JAYESH POOLE DO Nov 01, 2020 04:13
[2020-11-01] MEDS: VASOPRESSIN INJECTION 20 UNIT in NS (IVPB) 100 ML IV SCH ×3 (04:27→20:22)
[2020-11-01] MEDS: KCL 20 MEQ TAB (K-DUR) PO SCH (05:54)
[2020-11-01] MEDS: MAGNESIUM 1 GM/100 ML IVPB 100 ML IV SCH (05:54)
[2020-11-01] MEDS: POTASSIUM CL 10MEQ/50ML IVPB 50 ML IV SCH (05:54)
[2020-11-01] MEDS: LEVOTHYROXINE 25 MCG (LEVOTHROID) TAB PO SCH (05:55)
--- NOTE | 2020-11-01 07:26 | Diagnostic Imaging Report ---
INDICATION: Dyspnea. TECHNIQUE: Single view chest 12:59 AM. CORRELATION STUDY: 10/31/2020 FINDINGS: Endotracheal tube and gastric tube remain in place. Unchanged cardiac enlargement with left-sided pacemaker. Vasculature is largely obscured. Bilateral pulmonary opacities persisting but overall are improved and partially cleared. IMPRESSION: 1. Stable support lines and tubes. 2. Cardiac enlargement. 3. Bilateral pulmonary opacities persisting but overall are improved and partially cleared from previous. Dictated by: Dictated on workstation # [id number]
[2020-11-01] MEDS: ARTIFICIAL TEARS OINT (LACRI-LUBE) 3.5 GM TUBE OU SCH ×3 (07:37→20:24)
[2020-11-01] MEDS: PANTOPRAZOLE 40 MG (PROTONIX) VIAL IV SCH (07:37)
[2020-11-01] MEDS: ASPIRIN 81 MG CHEW (CHILDREN'S ASA) PO SCH (07:37)
[2020-11-01] MEDS: DIGOXIN 0.125 MG (LANOXIN) TAB PO SCH (07:37)
[2020-11-01] MEDS: ENOXAPARIN 40 MG/0.4 ML (LOVENOX) SYR SQ SCH ×2 (07:37→20:23)
--- NOTE | 2020-11-01 07:56 | Physical Therapy Progress Note ---
Therapy Progress Note Patient currently sedated and intubated. PT will continue to monitor patient status. JONO CHÁVEZ PT Nov 01, 2020 07:56
[2020-11-01] MEDS: APAP 325 MG/10.15 ML LIQ (TYLENOL) UDC PO PRN (08:24)
[2020-11-01] MEDS ORDERED: TROUGH ORDER-PHARMACY XX NR (13:00)
--- NOTE | 2020-11-01 16:09 | Consultation-Cardiology ---
HPI-Cardiology Cardiology Consultation: Date of Consultation 11/01/20 Date of Admission Attending Physician Liza Mckenna MD Admitting Physician [facility] Consulting Physician Adalberto EDGE MD HPI: Time Seen by a Provider: 15:00 Chief Complaint: wide-complex tachycardia there is a 65-year-old gentleman who is being treated in the ICU for severe sepsis, respiratory failure and hypotension. The patient is intubated and on broad spectrum antibiotics. Patient has history of cardiomyopathy with dual- chamber [employer] [facility] ICD placed by Dr. Moreno at . Patient had wide complex tachycardia, cardiology was consulted. Currently the patient is in atrial fibrillation. History is limited to review of the chart and speaking to the nurse. Review of Systems-Cardiology Review of Systems Constitutional: As described under HPI; No As described under HPI, No no symptoms reported, No chills, No fever, No lightheadedness Eyes: No As described under HPI, No no symptoms reported, No blindness, No blurred vision, No contact lenses, No drainage, No decreased acuity, No foreign body sensation, No pain, No vision change Ears/Nose/Throat: No As described under HPI, No no symptoms reported, No chronic hearing loss, No ear discharge, No ear pain, No nasal drainage, No ulcerations Respiratory: No no symptoms reported; As described under HPI; No As described under HPI, No cough, No orthopnea, No shortness of breath, No SOB with excertion Cardiovascular: No no symptoms reported; As described under HPI; No As described under HPI, No chest pain, No edema, No irregular heart rate, No lightheadedness, No palpitations Gastrointestinal: No no symptoms reported, No As described under HPI, No abdomen distended, No abdominal pain, No blood streaked bowels, No constipation, No diarrhea, No nausea, No vomiting, No stool coloration changes Genitourinary: No As described under HPI, No burning, No dysuria, No discharge, No frequency, No flank pain, No hematuria, No urgency Skin: No rash, No skin related problems, No ulcerations Psychiatric/Neurological: No anxiety, No depression, No seizure, No focal weakness, No syncope Hematologic: No bleeding abnormalities All Other Systems Reviewed Negative Unless Noted: Yes EJZ-Giuvta-Lytlcn Hx Patient Social History Marrital Status: Smoking Status: Never a Smoker 2nd Hand Smoke Exposure: No Immunizations Up To Date Tetanus Booster (TDap): Unknown Past Medical History PMH As described under Assessment. Family Medical History Family Medical History: He reports his mother had heart disease and high blood pressure. Family History: Cardiovascular disease G8 SISTER Diabetes mellitus G8 BROTHER FH: congestive heart failure 19 MOTHER Hypercholesterolemia 19 MOTHER G8 SISTER Hypertension 19 MOTHER G8 SISTER Myocardial infarction G8 SISTER Allergies and Home Medications Allergies Coded Allergies: No Known Drug Allergies (Unverified , 06/10/10) Home Medications Albuterol Sulfate 18 Gm Hfa.aer.ad, 2 PUFF INH Q4H PRN for SHORTNESS OF BREATH, (Reported) Amiodarone HCl 200 Mg Tablet, 400 MG PO HS, (Reported) TAKES 2 (200MG) TABLETS Aspirin 81 Mg Tablet.dr, 81 MG PO DAILY, (Reported) Digoxin 125 Mcg Tablet, 125 MCG PO DAILY, (Reported) Diltiazem HCl 360 Mg Cap.er.24h, 360 MG PO HS, (Reported) Furosemide 40 Mg Tablet, 40 MG PO DAILY, (Reported) LAST FILLED 06-22-2020 #90/90 DAY SUPPLY Levothyroxine Sodium 25 Mcg Tablet, 25 MCG PO DAILY, (Reported) LAST FILLED 06-26-2020 #90/90 DAY SUPPLY Patient Home Medication List Home Medication List Reviewed: Yes Physical Exam-Cardiology Physical Exam Vital Signs/I&O 11/02/20 11/02/20 11/02/20 11/02/20 04:42 05:00 06:00 06:48 Temp 36.7 36.7 36.9 Pulse 89 86 80 Resp 24 24 24 B/P (MAP) 99/62 (74) 107/63 (78) Pulse Ox 98 97 96 O2 Delivery Mechanical Ventilator Mechanical Ventilator Mechanical Ventilator O2 Flow Rate 40.00 40.00 40.00 FiO2 35 11/02/20 11/02/20 11/02/20 11/02/20 07:00 07:00 07:13 08:00 Temp 37.0 37.1 Pulse 87 90 93 77 Resp 24 24 B/P (MAP) 107/62 (77) 93/54 (67) Pulse Ox 96 96 O2 Delivery Mechanical Ventilator Mechanical Ventilator O2 Flow Rate 40.00 40.00 11/02/20 11/02/20 11/02/20 11/02/20 09:00 09:00 10:00 10:49 Temp 37.2 37.3 Pulse 89 82 83 Resp 24 24 24 B/P (MAP) 94/55 (68) 93/54 (67) Pulse Ox 96 95 95 94 O2 Delivery Mechanical Ventilator Mechanical Ventilator Mechanical Ventilator O2 Flow Rate 40.00 40.00 FiO2 35 35 11/02/20 11/02/20 11/02/20 11/02/20 10:56 10:57 11:00 12:00 Temp 37.3 37.4 Pulse 73 73 82 141 Resp 24 24 B/P (MAP) 97/56 97/56 101/59 (73) 94/58 (70) Pulse Ox 94 91 O2 Delivery Mechanical Ventilator Mechanical Ventilator O2 Flow Rate 40.00 40.00 11/02/20 11/02/20 11/02/20 11/02/20 13:00 13:00 13:01 14:00 Temp 37.4 37.4 Pulse 111 113 109 108 Resp 24 24 B/P (MAP) 97/53 (68) 100/56 99/58 (72) Pulse Ox 92 94 O2 Delivery Mechanical Ventilator Mechanical Ventilator O2 Flow Rate 40.00 40.00 11/02/20 14:47 Pulse 93 Resp 24 Pulse Ox 94 FiO2 35 11/02/20 00:00 Intake Total 1621 ml Output Total 450 ml Balance 1171 ml Capillary Refill : Less Than 3 Seconds Constitutional: appears stated age; No apparent distress; well-developed, well- nourished HEENT: No discharge, No ulceration, No xanthelasmas are seen Neck: No carotid bruit; carotid pulses are 2 + bilaterally Respiratory: other (intubated/ventilated.) Cardiovascular: irregularly irregular, tachycardia Gastrointestinal: No spleenomegaly Rectal: deferred Extremities: No clubbing, No cyanosis, No significant edema Neurologic/Psychiatric: other (intubated/ventilated.) Skin: No rash, No ulcerations Data Review Labs Laboratory Tests 11/01/20 17:57: Glucometer 160H 11/01/20 23:33: Glucometer 144H 11/02/20 01:50: White Blood Count 8.6, Red Blood Count 3.94L, Hemoglobin 11.8L, Hematocrit 36L, Mean Corpuscular Volume 92, Mean Corpuscular Hemoglobin 30, Mean Corpuscular Hemoglobin Concent 33, Red Cell Distribution Width 13.2, Platelet Count 130, Mean Platelet Volume 11.5, Immature Granulocyte % (Auto) 1, Neutrophils (%) (Auto) 90H, Lymphocytes (%) (Auto) 6L, Monocytes (%) (Auto) 1, Eosinophils (%) (Auto) 3, Basophils (%) (Auto) 0, Neutrophils # (Auto) 7.7, Lymphocytes # (Auto) 0.5L, Monocytes # (Auto) 0.1, Eosinophils # (Auto) 0.3, Basophils # (Auto) 0.0, Immature Granulocyte # (Auto) 0.0, Blood Gas Puncture Site RADIAL ART LINE, Blood Gas Patient Temperature 36.3, Arterial Blood pH 7.29*L, Arterial Blood Partial Pressure CO2 50H, Arterial Blood Partial Pressure O2 96H, Arterial Blood HCO3 23, Arterial Blood Total CO2 24.7, Arterial Blood Oxygen Saturation 97, Arterial Blood Base Excess -2.7L, James Test ART LINE, Blood Gas Ventilator Setting YES, Blood Gas Inspired Oxygen 40%, Sodium Level 133L, Potassium Level 4.3, Chloride Level 104, Carbon Dioxide Level 19L, Anion Gap 10, Blood Urea Nitrogen 18, Creatinine 0.90, Estimat Glomerular Filtration Rate > 60, BUN/Creatinine Ratio 20, Glucose Level 139H, Calcium Level 7.5L, Phosphorus Level 2.4, Magnesium Level 1.9, Triglycerides Level 135 11/02/20 11:32: Glucometer 107 Microbiology 10/31/20 Gram Stain - Final, Resulted 10/31/20 Sputum Culture - Preliminary, Resulted No growth 10/30/20 Blood Culture - Preliminary, Resulted No growth ECG Impression ECG Comment junctional tachycardia/atrial fibrillation with left bundle branch block A/P-Cardiology Assessment/Admission Diagnosis severe pneumonia, Septic shock, Wide-complex tachycardia, Atrial fibrillation with RVR, ICD in place Plan severe pneumonia and septic shock, patient is on broad-spectrum antibiotics and vasopressors. Defer to Dr. Dennis and the ICU team. Patient had an episode of wide complex tachycardia which was likely junctional tachycardia or atrial fibrillation with baseline left bundle branch block. Currently patient is in atrial fibrillation with RVR. ICD interrogation did not reveal any ICD shock/ICD therapy. No monitored VT was noted. Currently on amiodarone infusion. patient with known severe cardiomyopathy. ICD: No ICD therapies noted. Thank you for your consultation. Please call me if you have any questions. Anam Edge MD, FACP, FACC, FSCAI, FHRS, CCDS Interventional Cardiology Cardiac Electrophysiology Vascular Medicine and Endovascular Interventions Adalberto EDGE MD Nov 01, 2020 16:09
[2020-11-01] MEDS: AMIODARONE 200 MG (CORDARONE) TAB PO SCH (20:24)
[2020-11-02] VITALS (30 sets, daily range): BP systolic 93–114; BP diastolic 51–65
[2020-11-02] MEDS: LACTATED RINGERS 1,000 ML IV SCH ×3 (00:13→11:00)
[2020-11-02] MEDS: PROPOFOL DRIP (ICU) 100 ML IV SCH ×5 (00:13→16:43)
[2020-11-02] MEDS: RT-ALBUTEROL/IPRATROPIUM 3 ML (DUONEB) VIAL INH SCH ×6 (01:33→22:29)
[2020-11-02 02:06] LABS: BASOPHILS % (AUTO) 0 % (0-10); HEMOGLOBIN 11.8 g/dL (13.3-17.7); LYMPHOCYTES # (AUTO) 0.5 10^3/uL (1.0-4.0)
[2020-11-02 02:08] LABS: EOSINOPHILS # (AUTO) 0.3 10^3/uL (0.0-0.3); EOSINOPHILS % (AUTO) 3 % (0-10); HEMATOCRIT 36 % (40-54); LYMPHOCYTES % (AUTO) 6 % (12-44); MEAN CORPUSCULAR HEMOGLOBIN 30 pg (25-34); MEAN CORPUSCULAR HGB CONC 33 g/dL (32-36); MEAN CORPUSCULAR VOLUME 92 fL (80-99); MEAN PLATELET VOLUME 11.5 fL (9.0-12.2); MONOCYTES # (AUTO) 0.1 10^3/uL (0.0-1.0); MONOCYTES % (AUTO) 1 % (0-12); NEUTROPHILS # (AUTO) 7.7 10^3/uL (1.8-7.8); NEUTROPHILS % (AUTO) 90 % (42-75); PLATELET COUNT 130 10^3/uL (130-400); WHITE BLOOD COUNT 8.6 10^3/uL (4.3-11.0)
[2020-11-02 02:11] LABS: ABG BASE EXCESS -2.7 MMOL/L (-2.5-2.5); ABG OXYGEN SATURATION 97 % (94-100); ABG PCO2 50 MMHG (35-45); ABG PO2 96 MMHG (79-93); ABG TCO2 24.7 MMOL/L (21.0-31.0)
[2020-11-02 02:15] LABS: CHLORIDE 104 MMOL/L (98-107); POTASSIUM 4.3 MMOL/L (3.6-5.0); SODIUM 133 MMOL/L (135-145)
[2020-11-02] MEDS ORDERED: AMIODARONE INJECTION 150 MG in D5W 100 ML IVPB 100 ML IV ONE (02:15)
[2020-11-02 02:17] LABS: CALCIUM 7.5 MG/DL (8.5-10.1); GLUCOSE 139 MG/DL (70-105); TRIGLYCERIDES 135 MG/DL (<150)
[2020-11-02 02:19] LABS: CARBON DIOXIDE 19 MMOL/L (21-32)
[2020-11-02 02:21] LABS: GFR ESTIMATED > 60; PHOSPHORUS 2.4 MG/DL (2.3-4.7)
[2020-11-02] MEDS ORDERED: AMIODARONE (BOLUS) 150 MG/3 ML IV ONE (02:21)
[2020-11-02] MEDS ORDERED: D5W 100 ML IVPB 100 ML IV ONE (02:21)
[2020-11-02 02:22] LABS: BUN/CREATININE RATIO 20
[2020-11-02 02:23] LABS: ABG PH 7.29 (7.37-7.43); ALLENS TEST ART LINE; INSPIRED O2 40%; MAGNESIUM 1.9 MG/DL (1.6-2.4); PATIENT TEMP 36.3; VENTILATOR YES
[2020-11-02] MEDS: fentaNYL DRIP PRE-MIX 250 ML IV SCH ×3 (02:27→16:42)
[2020-11-02] MEDS: MAGNESIUM 1 GM/100 ML IVPB 100 ML IV SCH (03:53)
[2020-11-02] MEDS: POTASSIUM CL 10MEQ/50ML IVPB 50 ML IV SCH (03:53)
[2020-11-02] MEDS: KCL 20 MEQ TAB (K-DUR) PO SCH (03:54)
[2020-11-02] MEDS: VASOPRESSIN INJECTION 20 UNIT in NS (IVPB) 100 ML IV SCH ×3 (04:35→21:16)
[2020-11-02] MEDS: NOREPINEPHRINE 4 MG/250 ML 250 ML IV SCH ×3 (04:36→16:41)
[2020-11-02] MEDS: CEFEPIME INJECTION 1,000 MG in WATER (STERILE) FOR INJECTION 10 ML IV SCH ×4 (04:36→23:31)
[2020-11-02] MEDS: LEVOTHYROXINE 25 MCG (LEVOTHROID) TAB PO SCH (04:36)
[2020-11-02] MEDS ORDERED: NS IV 500 ML 500 ML ONE (06:13)
[2020-11-02] MEDS: inSUlin ASPART (NovoLOG) 1 UNIT/0.01 ML (CHARGE PER UNIT) SC SCH ×4 (06:22→23:31)
[2020-11-02] MEDS: PANTOPRAZOLE 40 MG (PROTONIX) VIAL IV SCH (09:01)
[2020-11-02] MEDS: AMIODARONE 200 MG (CORDARONE) TAB PO SCH ×2 (09:01→21:16)
[2020-11-02] MEDS: DIGOXIN 0.125 MG (LANOXIN) TAB PO SCH (09:01)
[2020-11-02] MEDS: ASPIRIN 81 MG CHEW (CHILDREN'S ASA) PO SCH (09:01)
[2020-11-02] MEDS: ARTIFICIAL TEARS OINT (LACRI-LUBE) 3.5 GM TUBE OU SCH ×3 (09:02→21:17)
[2020-11-02] MEDS: ENOXAPARIN 40 MG/0.4 ML (LOVENOX) SYR SQ SCH ×2 (09:02→21:16)
[2020-11-02] MEDS ORDERED: MAGNESIUM 1 GM/100 ML IVPB 100 ML IV ONE (09:15)
[2020-11-02] MEDS ORDERED: FUROSEMIDE 40 MG/4 ML INJ (LASIX) IVP ONE (09:15)
--- NOTE | 2020-11-02 09:39 | Diagnostic Imaging Report ---
INDICATION: Dyspnea COMPARISON STUDY: Chest from yesterday. FINDINGS: Frontal view chest demonstrates an endotracheal tube, orogastric tube and cardiac defibrillator remain in place. Bilateral pulmonary infiltrates have not appreciably changed. No pleural effusion is present. IMPRESSION: Stable pulmonary infiltrates and life support tubes. Dictated by: Dictated on workstation # [id number]
--- NOTE | 2020-11-02 09:55 | Progress Note - Hospitalist ---
Subjective HPI/CC On Admission Date Seen by Provider: Nov 02, 2020 Time Seen by Provider: 09:15 Subjective/Events-last exam Patient is intubated and sedated. He remains on pressor support. eICU has been managing his vent and is turning down the PEEP. In addition sedation will be lightened and this should help his blood pressure as well. Medications and management was discussed with the nurse. It appears that he did not have V. tach but rather it was an accelerated junctional rhythm as the defibrillator had not fired and on interrogation it appeared to not be V. tach Focused Exam Lactate Level 10/31/20 08:40: Lactic Acid Level 2.47*H 10/31/20 10:48: Lactic Acid Level 2.28*H 10/31/20 12:40: Lactic Acid Level 1.67 Objective Exam Vital Signs Vital Signs Date Time Temp Pulse Resp B/P (MAP) Pulse Ox O2 Delivery O2 Flow Rate FiO2 11/02/20 07:13 93 11/02/20 07:00 37.0 24 107/62 (77) 96 Mechanical Ventilator 40.00 11/02/20 06:48 35 Capillary Refill : Less Than 3 Seconds General Appearance: Other (Intubated) Neck: Limited Range of Motion Respiratory: Lungs Clear, Normal Breath Sounds, No Accessory Muscle Use Cardiovascular: Systolic Murmur, Irregularly Irregular Gastrointestinal: Soft Extremity: Swelling (Fusilli edematous) Neurologic/Psychiatric: Other Results/Procedures Lab Laboratory Tests 11/02/20 01:50 Patient resulted labs reviewed. Imaging: Reviewed Imaging Report Assessment/Plan Assessment and Plan Assess & Plan/Chief Complaint Acute on chronic respiratory failure intubated 10/31/2020 now on 40% FiO2 assist control 14 of PEEP-patient is a DNR Accelerated junctional rhythm History of ischemic cardiomyopathy with an ejection fraction of 10 to 15% History of Covid COPD Plan to continue to try and wean off pressors and ventilator per eICU Critical Care Critically Ill Patient QUOC ALLISON MD Nov 02, 2020 09:55
--- NOTE | 2020-11-02 16:45 | Cardiology Progress Note ---
Cardiology SOAP Progress Note Subjective: intubated/ventilated. Few episodes of A. fib RVR overnight. Objective: I&O/Vital Signs 11/02/20 11/02/20 11/02/20 11/02/20 05:00 06:00 06:48 07:00 Temp 36.7 36.9 37.0 Pulse 89 86 80 87 Resp 24 24 24 24 B/P (MAP) 99/62 (74) 107/63 (78) 107/62 (77) Pulse Ox 98 97 96 96 O2 Delivery Mechanical Ventilator Mechanical Ventilator Mechanical Ventilator O2 Flow Rate 40.00 40.00 40.00 FiO2 35 11/02/20 11/02/20 11/02/20 11/02/20 07:00 07:13 08:00 09:00 Temp 37.1 Pulse 90 93 77 Resp 24 B/P (MAP) 93/54 (67) Pulse Ox 96 96 O2 Delivery Mechanical Ventilator Mechanical Ventilator O2 Flow Rate 40.00 FiO2 35 11/02/20 11/02/20 11/02/20 11/02/20 09:00 10:00 10:49 10:56 Temp 37.2 37.3 Pulse 89 82 83 73 Resp 24 24 24 B/P (MAP) 94/55 (68) 93/54 (67) 97/56 Pulse Ox 95 95 94 O2 Delivery Mechanical Ventilator Mechanical Ventilator O2 Flow Rate 40.00 40.00 FiO2 35 11/02/20 11/02/20 11/02/20 11/02/20 10:57 11:00 12:00 13:00 Temp 37.3 37.4 Pulse 73 82 141 111 Resp 24 24 B/P (MAP) 97/56 101/59 (73) 94/58 (70) Pulse Ox 94 91 O2 Delivery Mechanical Ventilator Mechanical Ventilator O2 Flow Rate 40.00 40.00 11/02/20 11/02/20 11/02/20 11/02/20 13:00 13:01 14:00 14:47 Temp 37.4 37.4 Pulse 113 109 108 93 Resp 24 24 24 B/P (MAP) 97/53 (68) 100/56 99/58 (72) Pulse Ox 92 94 94 O2 Delivery Mechanical Ventilator Mechanical Ventilator O2 Flow Rate 40.00 40.00 FiO2 35 11/02/20 00:00 Intake Total 1621 ml Output Total 450 ml Balance 1171 ml Weight (Pounds): 219 Weight (Ounces): 6.0 Weight (Calculated Kilograms): 99.262359 Constitutional: appears stated age; No apparent distress; well-developed, well- nourished Respiratory: other (intubated/ventilated.) Cardiovascular: irregularly irregular, tachycardia Gastrointestional: No spleenomegaly Extremities: No clubbing, No cyanosis, No significant edema Neurologic/Psychiatric: other (intubated/ventilated.) Skin: No rash, No ulcerations Results/Procedures: Labs Laboratory Tests 11/01/20 17:57: Glucometer 160H 11/01/20 23:33: Glucometer 144H 11/02/20 01:50: White Blood Count 8.6, Red Blood Count 3.94L, Hemoglobin 11.8L, Hematocrit 36L, Mean Corpuscular Volume 92, Mean Corpuscular Hemoglobin 30, Mean Corpuscular Hemoglobin Concent 33, Red Cell Distribution Width 13.2, Platelet Count 130, Mean Platelet Volume 11.5, Immature Granulocyte % (Auto) 1, Neutrophils (%) (Auto) 90H, Lymphocytes (%) (Auto) 6L, Monocytes (%) (Auto) 1, Eosinophils (%) (Auto) 3, Basophils (%) (Auto) 0, Neutrophils # (Auto) 7.7, Lymphocytes # (Auto) 0.5L, Monocytes # (Auto) 0.1, Eosinophils # (Auto) 0.3, Basophils # (Auto) 0.0, Immature Granulocyte # (Auto) 0.0, Blood Gas Puncture Site RADIAL ART LINE, Blood Gas Patient Temperature 36.3, Arterial Blood pH 7.29*L, Arterial Blood Partial Pressure CO2 50H, Arterial Blood Partial Pressure O2 96H, Arterial Blood HCO3 23, Arterial Blood Total CO2 24.7, Arterial Blood Oxygen Saturation 97, Arterial Blood Base Excess -2.7L, James Test ART LINE, Blood Gas Ventilator Setting YES, Blood Gas Inspired Oxygen 40%, Sodium Level 133L, Potassium Level 4.3, Chloride Level 104, Carbon Dioxide Level 19L, Anion Gap 10, Blood Urea Nitrogen 18, Creatinine 0.90, Estimat Glomerular Filtration Rate > 60, BUN/Creatinine Ratio 20, Glucose Level 139H, Calcium Level 7.5L, Phosphorus Level 2.4, Magnesium Level 1.9, Triglycerides Level 135 11/02/20 11:32: Glucometer 107 Microbiology 10/31/20 Gram Stain - Final, Resulted 10/31/20 Sputum Culture - Preliminary, Resulted No growth 10/30/20 Blood Culture - Preliminary, Resulted No growth A/P: Assessment/Dx: severe pneumonia, Septic shock, Wide-complex tachycardia, Atrial fibrillation with RVR, ICD in place Plan: severe pneumonia and septic shock, patient is on broad-spectrum antibiotics and vasopressors. Defer to Dr. Dennis and the ICU team. Patient had an episode of wide complex tachycardia which was likely junctional tachycardia or atrial fibrillation with baseline left bundle branch block. Currently patient is in atrial fibrillation with RVR. ICD interrogation did not reveal any ICD shock/ICD therapy. No monitored VT was noted. amiodarone was switched to by mouth. However due to episodes of RVR overnight he was given another bolus of 150 mg IV. This morning he was given Cardizem 10 mg IV times one. Cardizem infusion was not given due to hypotension. Patient is already on vasopressors. A. fib with RVR will be difficult to treat with severe underlying systemic illness and septic shock. patient with known severe cardiomyopathy. ICD: No ICD therapies noted. Thank you for your consultation. Please call me if you have any questions. Anam Edge MD, FACP, FACC, FSCAI, FHRS, CCDS Interventional Cardiology Cardiac Electrophysiology Vascular Medicine and Endovascular Interventions Focused Exam Lactate Level 10/31/20 08:40: Lactic Acid Level 2.47*H 10/31/20 10:48: Lactic Acid Level 2.28*H 10/31/20 12:40: Lactic Acid Level 1.67 Adalberto EDGE MD Nov 02, 2020 16:45
[2020-11-02 17:13] LABS: ABG OXYGEN SATURATION 97 % (94-100); ABG PCO2 49 MMHG (35-45); ABG PO2 100 MMHG (79-93); ABG TCO2 25.7 MMOL/L (21.0-31.0)
[2020-11-02 17:29] LABS: INSPIRED O2 35%; PATIENT TEMP 37.3; VENTILATOR YES
[2020-11-02 17:31] LABS: ABG PH 7.32 (7.37-7.43)
[2020-11-02] MEDS: APAP 325 MG/10.15 ML LIQ (TYLENOL) UDC PO PRN (21:17)
[2020-11-03] VITALS (31 sets, daily range): BP systolic 88–125; BP diastolic 51–71
[2020-11-03 01:41] LABS: ABG BASE EXCESS 0.3 MMOL/L (-2.5-2.5); ABG OXYGEN SATURATION 94 % (94-100); ABG PCO2 46 MMHG (35-45); ABG PH 7.36 (7.37-7.43); ABG PO2 69 MMHG (79-93); ABG TCO2 26.4 MMOL/L (21.0-31.0)
[2020-11-03 01:45] LABS: ALLENS TEST YES-POS; INSPIRED O2 40%; PATIENT TEMP 37.6; VENTILATOR YES
[2020-11-03 01:49] LABS: BASOPHILS % (AUTO) 0 % (0-10); EOSINOPHILS # (AUTO) 0.4 10^3/uL (0.0-0.3); EOSINOPHILS % (AUTO) 4 % (0-10); HEMATOCRIT 36 % (40-54); HEMOGLOBIN 11.4 g/dL (13.3-17.7); LYMPHOCYTES # (AUTO) 0.5 10^3/uL (1.0-4.0); LYMPHOCYTES % (AUTO) 6 % (12-44); MEAN CORPUSCULAR HEMOGLOBIN 29 pg (25-34); MEAN CORPUSCULAR HGB CONC 32 g/dL (32-36); MEAN CORPUSCULAR VOLUME 91 fL (80-99); MEAN PLATELET VOLUME 11.2 fL (9.0-12.2); MONOCYTES # (AUTO) 0.2 10^3/uL (0.0-1.0); MONOCYTES % (AUTO) 2 % (0-12); NEUTROPHILS # (AUTO) 8.1 10^3/uL (1.8-7.8); NEUTROPHILS % (AUTO) 88 % (42-75); PLATELET COUNT 155 10^3/uL (130-400); WHITE BLOOD COUNT 9.2 10^3/uL (4.3-11.0)
[2020-11-03 01:58] LABS: CHLORIDE 98 MMOL/L (98-107); POTASSIUM 3.9 MMOL/L (3.6-5.0); SODIUM 130 MMOL/L (135-145)
[2020-11-03 01:59] LABS: CALCIUM 7.4 MG/DL (8.5-10.1); GLUCOSE 111 MG/DL (70-105)
[2020-11-03 02:01] LABS: CARBON DIOXIDE 22 MMOL/L (21-32)
[2020-11-03 02:03] LABS: CREATININE SERUM 0.92 MG/DL (0.60-1.30); GFR ESTIMATED > 60; PHOSPHORUS 2.1 MG/DL (2.3-4.7)
[2020-11-03 02:04] LABS: BUN/CREATININE RATIO 17
[2020-11-03 02:06] LABS: MAGNESIUM 1.8 MG/DL (1.6-2.4)
[2020-11-03] MEDS: NOREPINEPHRINE 4 MG/250 ML 250 ML IV SCH ×4 (02:23→19:22)
[2020-11-03] MEDS: RT-ALBUTEROL/IPRATROPIUM 3 ML (DUONEB) VIAL INH SCH ×6 (02:58→23:11)
[2020-11-03] MEDS: fentaNYL DRIP PRE-MIX 250 ML IV SCH ×2 (05:05→17:42)
[2020-11-03] MEDS: VASOPRESSIN INJECTION 20 UNIT in NS (IVPB) 100 ML IV SCH ×2 (05:05→13:56)
[2020-11-03] MEDS: CEFEPIME INJECTION 1,000 MG in WATER (STERILE) FOR INJECTION 10 ML IV SCH ×3 (05:05→17:41)
[2020-11-03] MEDS: MAGNESIUM 1 GM/100 ML IVPB 100 ML IV SCH (05:09)
[2020-11-03] MEDS: POTASSIUM CL 10MEQ/50ML IVPB 50 ML IV SCH (05:09)
[2020-11-03] MEDS: inSUlin ASPART (NovoLOG) 1 UNIT/0.01 ML (CHARGE PER UNIT) SC SCH ×3 (05:09→17:48)
[2020-11-03] MEDS: KCL 20 MEQ TAB (K-DUR) PO SCH (05:09)
[2020-11-03] MEDS: LEVOTHYROXINE 25 MCG (LEVOTHROID) TAB PO SCH (06:00)
[2020-11-03] MEDS: ASPIRIN 81 MG CHEW (CHILDREN'S ASA) PO SCH (07:46)
[2020-11-03] MEDS: AMIODARONE 200 MG (CORDARONE) TAB PO SCH ×2 (07:46→20:17)
[2020-11-03] MEDS: ARTIFICIAL TEARS OINT (LACRI-LUBE) 3.5 GM TUBE OU SCH ×3 (07:46→20:18)
[2020-11-03] MEDS: PANTOPRAZOLE 40 MG (PROTONIX) VIAL IV SCH (07:46)
[2020-11-03] MEDS: DIGOXIN 0.125 MG (LANOXIN) TAB PO SCH (07:46)
--- NOTE | 2020-11-03 09:30 | Diagnostic Imaging Report ---
CHEST 1 VIEW, AP/PA ONLY Indication: Dyspnea Comparison: 11/02/2020 Findings: Stable ET and enteric tubes. Stable left pectoral transvenous pacemaker/ICD. Bilateral perihilar and basilar hazy pulmonary opacities are unchanged. Potential small layering left pleural effusion is unchanged. No pneumothorax. Stable cardiac silhouette. Impression: 1. Stable support devices. 2. No change in pulmonary opacities and potential small left pleural effusion. Dictated by: Dictated on workstation # [id number]
[2020-11-03] MEDS: ENOXAPARIN 40 MG/0.4 ML (LOVENOX) SYR SQ SCH ×2 (09:48→21:11)
[2020-11-03] MEDS: PROPOFOL DRIP (ICU) 100 ML IV SCH ×2 (09:56→17:42)
--- NOTE | 2020-11-03 10:35 | Progress Note - Hospitalist ---
Subjective HPI/CC On Admission Date Seen by Provider: Nov 03, 2020 Time Seen by Provider: 08:45 Subjective/Events-last exam Reviewed history with the nurse and examined the patient. Patient is sedated on on the ventilator. He has had increasing edema and tube feedings have been held because of increased residual. Focused Exam Lactate Level 10/31/20 10:48: Lactic Acid Level 2.28*H 10/31/20 12:40: Lactic Acid Level 1.67 Objective Exam Vital Signs Vital Signs Date Time Temp Pulse Resp B/P (MAP) Pulse Ox O2 Delivery O2 Flow Rate FiO2 11/03/20 10:19 89 24 92 40 11/03/20 10:00 37.3 102/57 (72) Mechanical Ventilator 40.00 Capillary Refill : Less Than 3 Seconds General Appearance: Chronically ill HEENT: Normal ENT Inspection Neck: Limited Range of Motion Respiratory: Lungs Clear, Normal Breath Sounds, No Accessory Muscle Use, No Respiratory Distress Cardiovascular: Regular Rate, Rhythm, No Gallop Gastrointestinal: Normal Bowel Sounds, Soft Extremity: Pedal Edema, Swelling Skin: Warm/Dry Results/Procedures Lab Laboratory Tests 11/03/20 01:25 Patient resulted labs reviewed. Imaging: Reviewed Imaging Report Assessment/Plan Assessment and Plan Assess & Plan/Chief Complaint Acute on chronic respiratory failure intubated 10/31/2020 now on 40% FiO2 assist control 12 of PEEP-patient is a DNR Accelerated junctional rhythm, A. fib flutter History of ischemic cardiomyopathy with an ejection fraction of 10 to 15%-we will give Lasix 40 mg IV x1 because decreased urine output and diffuse edema History of Covid COPD Increased gastric residual we will start Reglan Hypotension still requiring Levophed Plan to continue to try and wean off pressors and ventilator per eICU Critical Care Critically Ill Patient QUOC ALLISON MD Nov 03, 2020 10:35
[2020-11-03] MEDS ORDERED: FUROSEMIDE 40 MG/4 ML INJ (LASIX) IVP ONE (10:45)
[2020-11-03] MEDS: METOCLOPRAMIDE INJ 10 MG/2 ML (REGLAN) IVP SCH ×2 (11:05→17:48)
--- NOTE | 2020-11-03 14:59 | Cardiology Progress Note ---
Cardiology SOAP Progress Note Subjective: Intubated/ventilated. Objective: I&O/Vital Signs 11/03/20 11/03/20 11/03/20 11/03/20 02:59 03:00 04:00 04:00 Temp 37.1 37.2 37.2 Pulse 73 72 66 Resp 24 24 24 B/P (MAP) 118/67 (84) 121/64 (83) Pulse Ox 95 99 96 O2 Delivery Mechanical Ventilator Mechanical Ventilator Mechanical Ventilator O2 Flow Rate 40.00 40.00 40.00 FiO2 45 11/03/20 11/03/20 11/03/20 11/03/20 05:00 05:05 06:00 06:55 Temp 37.3 37.3 Pulse 73 70 74 67 Resp 24 24 B/P (MAP) 120/65 (83) 109/63 (78) Pulse Ox 97 99 96 O2 Delivery Mechanical Ventilator Mechanical Ventilator O2 Flow Rate 40.00 40.00 FiO2 40 11/03/20 11/03/20 11/03/20 11/03/20 07:00 07:00 08:00 08:15 Temp 37.3 37.3 Pulse 77 68 65 Resp 24 B/P (MAP) 115/63 (80) 120/63 (82) Pulse Ox 96 96 90 O2 Delivery Mechanical Ventilator Mechanical Ventilator Mechanical Ventilator O2 Flow Rate 40.00 40.00 FiO2 40 11/03/20 11/03/20 11/03/20 11/03/20 09:00 09:56 09:56 10:00 Temp 37.3 37.3 Pulse 102 102 102 91 Resp 24 B/P (MAP) 117/64 (81) 117/64 117/64 102/57 (72) Pulse Ox 93 89 O2 Delivery Mechanical Ventilator Mechanical Ventilator O2 Flow Rate 40.00 40.00 11/03/20 11/03/20 11/03/20 11/03/20 10:19 11:00 12:00 13:00 Temp 37.1 37.1 37.1 Pulse 89 85 73 80 Resp 24 24 19 16 B/P (MAP) 112/60 (77) 111/60 (77) 109/56 (73) Pulse Ox 92 92 92 95 O2 Delivery Mechanical Ventilator Mechanical Ventilator Mechanical Ventilator O2 Flow Rate 40.00 40.00 40.00 FiO2 40 11/03/20 11/03/20 11/03/20 11/03/20 13:00 13:56 14:00 14:43 Temp 37.1 Pulse 82 80 88 86 Resp 9 24 B/P (MAP) 109/56 114/60 (78) Pulse Ox 96 96 O2 Delivery Mechanical Ventilator O2 Flow Rate 40.00 FiO2 40 11/03/20 00:00 Intake Total 1071 ml Output Total 3200 ml Balance -2129 ml Weight (Pounds): 219 Weight (Ounces): 6.0 Weight (Calculated Kilograms): 99.770649 Constitutional: appears stated age; No apparent distress; well-developed, well- nourished Respiratory: other (intubated/ventilated.) Cardiovascular: irregularly irregular, tachycardia Gastrointestional: No spleenomegaly Extremities: No clubbing, No cyanosis, No significant edema Neurologic/Psychiatric: other (intubated/ventilated.) Skin: No rash, No ulcerations Results/Procedures: Labs Laboratory Tests 11/02/20 16:15: Blood Gas Puncture Site UNKNOWN, Blood Gas Patient Temperature 37.3, Arterial Blood pH 7.32*L, Arterial Blood Partial Pressure CO2 49H, Arterial Blood Partial Pressure O2 100H, Arterial Blood HCO3 24, Arterial Blood Total CO2 25.7, Arterial Blood Oxygen Saturation 97, Arterial Blood Base Excess -1.0, James Test UNKNOWN, Blood Gas Ventilator Setting YES, Blood Gas Inspired Oxygen 35% 11/02/20 17:12: Glucometer 115H 11/02/20 23:29: Glucometer 110 11/03/20 01:25: Blood Gas Puncture Site RIGHT RADIAL, Blood Gas Patient Temperature 37.6, Arterial Blood pH 7.36L, Arterial Blood Partial Pressure CO2 46H, Arterial Blood Partial Pressure O2 69L, Arterial Blood HCO3 25, Arterial Blood Total CO2 26.4, Arterial Blood Oxygen Saturation 94, Arterial Blood Base Excess 0.3, James Test YES-POS, Blood Gas Ventilator Setting YES, Blood Gas Inspired Oxygen 40%, White Blood Count 9.2, Red Blood Count 3.92L, Hemoglobin 11.4L, Hematocrit 36L, Mean Corpuscular Volume 91, Mean Corpuscular Hemoglobin 29, Mean Corpuscular Hemoglobin Concent 32, Red Cell Distribution Width 13.2, Platelet Count 155, Mean Platelet Volume 11.2, Immature Granulocyte % (Auto) 1, Neutrophils (%) (Auto) 88H, Lymphocytes (%) (Auto) 6L, Monocytes (%) (Auto) 2, Eosinophils (%) (Auto) 4, Basophils (%) (Auto) 0, Neutrophils # (Auto) 8.1H, Lymphocytes # (Auto) 0.5L, Monocytes # (Auto) 0.2, Eosinophils # (Auto) 0.4H, Basophils # (Auto) 0.0, Immature Granulocyte # (Auto) 0.1, Sodium Level 130L, Potassium Level 3.9, Chloride Level 98, Carbon Dioxide Level 22, Anion Gap 10, Blood Urea Nitrogen 16, Creatinine 0.92, Estimat Glomerular Filtration Rate > 60, BUN/Creatinine Ratio 17, Glucose Level 111H, Calcium Level 7.4L, Phosphorus Level 2.1L, Magnesium Level 1.8 11/03/20 09:58: 11/03/20 11:07: Glucometer 90 Microbiology 10/31/20 Gram Stain - Final, Complete 10/31/20 Sputum Culture - Final, Complete No growth 10/30/20 Blood Culture - Preliminary, Resulted No growth A/P: Assessment/Dx: severe pneumonia, Septic shock, Wide-complex tachycardia, Atrial fibrillation with RVR, ICD in place Plan: severe pneumonia and septic shock, patient is on broad-spectrum antibiotics and vasopressors. Defer to Dr. Dennis and the ICU team. Patient had an episode of wide complex tachycardia which was likely junctional tachycardia or atrial fibrillation with baseline left bundle branch block. Currently patient is in atrial fibrillation with RVR. ICD interrogation did not reveal any ICD shock/ICD therapy. No monitored VT was noted. amiodarone was switched to by mouth. However due to episodes of RVR overnight he was given another bolus of 150 mg IV. This morning he was given Cardizem 10 mg IV times one. Cardizem infusion was not given due to hypotension. Patient is already on vasopressors. A. fib with RVR will be difficult to treat with severe underlying systemic illness and septic shock. patient with known severe cardiomyopathy. ICD: No ICD therapies noted. Thank you for your consultation. Please call me if you have any questions. Anam Edge MD, FACP, FACC, FSCAI, FHRS, CCDS Interventional Cardiology Cardiac Electrophysiology Vascular Medicine and Endovascular Interventions Adalberto EDGE MD Nov 03, 2020 14:59
[2020-11-04] VITALS (30 sets, daily range): BP systolic 92–138; BP diastolic 51–69
[2020-11-04] MEDS: METOCLOPRAMIDE INJ 10 MG/2 ML (REGLAN) IVP SCH ×5 (00:02→23:19)
[2020-11-04] MEDS: CEFEPIME INJECTION 1,000 MG in WATER (STERILE) FOR INJECTION 10 ML IV SCH ×2 (00:02→05:32)
[2020-11-04] MEDS: inSUlin ASPART (NovoLOG) 1 UNIT/0.01 ML (CHARGE PER UNIT) SC SCH ×5 (00:02→23:20)
[2020-11-04] MEDS: PROPOFOL DRIP (ICU) 100 ML IV SCH ×4 (00:34→20:02)
[2020-11-04] MEDS: VASOPRESSIN INJECTION 20 UNIT in NS (IVPB) 100 ML IV SCH ×3 (01:23→17:42)
[2020-11-04] MEDS: NOREPINEPHRINE 4 MG/250 ML 250 ML IV SCH ×5 (02:14→20:01)
[2020-11-04 02:39] LABS: ABG BASE EXCESS 5.3 MMOL/L (-2.5-2.5); ABG OXYGEN SATURATION 96 % (94-100); ABG PCO2 49 MMHG (35-45); ABG PO2 81 MMHG (79-93); ABG TCO2 31.3 MMOL/L (21.0-31.0)
[2020-11-04 02:40] LABS: BASOPHILS % (AUTO) 0 % (0-10); EOSINOPHILS # (AUTO) 0.5 10^3/uL (0.0-0.3); EOSINOPHILS % (AUTO) 6 % (0-10); HEMATOCRIT 37 % (40-54); HEMOGLOBIN 12.3 g/dL (13.3-17.7); LYMPHOCYTES # (AUTO) 0.5 10^3/uL (1.0-4.0); LYMPHOCYTES % (AUTO) 6 % (12-44); MEAN CORPUSCULAR HEMOGLOBIN 29 pg (25-34); MEAN CORPUSCULAR HGB CONC 33 g/dL (32-36); MEAN CORPUSCULAR VOLUME 89 fL (80-99); MEAN PLATELET VOLUME 10.9 fL (9.0-12.2); MONOCYTES # (AUTO) 0.1 10^3/uL (0.0-1.0); MONOCYTES % (AUTO) 2 % (0-12); NEUTROPHILS % (AUTO) 86 % (42-75); PLATELET COUNT 179 10^3/uL (130-400); WHITE BLOOD COUNT 8.1 10^3/uL (4.3-11.0)
[2020-11-04 02:41] LABS: ALLENS TEST ARTLINE; INSPIRED O2 40; PATIENT TEMP 37.5; VENTILATOR YES
[2020-11-04 02:49] LABS: CHLORIDE 95 MMOL/L (98-107); POTASSIUM 3.6 MMOL/L (3.6-5.0); SODIUM 132 MMOL/L (135-145)
[2020-11-04 02:51] LABS: CALCIUM 7.8 MG/DL (8.5-10.1); GLUCOSE 96 MG/DL (70-105); TRIGLYCERIDES 112 MG/DL (<150)
[2020-11-04 02:53] LABS: CARBON DIOXIDE 26 MMOL/L (21-32)
[2020-11-04 02:55] LABS: GFR ESTIMATED > 60
[2020-11-04 02:56] LABS: BUN/CREATININE RATIO 16
[2020-11-04 02:57] LABS: MAGNESIUM 1.9 MG/DL (1.6-2.4)
[2020-11-04] MEDS: KCL 20 MEQ TAB (K-DUR) PO SCH (03:12)
[2020-11-04] MEDS: MAGNESIUM 1 GM/100 ML IVPB 100 ML IV SCH (03:12)
[2020-11-04] MEDS: POTASSIUM CL 10MEQ/50ML IVPB 50 ML IV SCH (03:12)
--- NOTE | 2020-11-04 03:12 | Pulmonary Progress Note ---
ROSETTA LORENZO MED STUDENT 11/04/20 0311: Subjective Date Seen by a Provider: Nov 04, 2020 Time Seen by a Provider: 03:11 Subjective/Events-last exam No acute events overnight. Patient on vent. Pt is sedated. Sepsis Event Evaluation Height, Weight, BMI Height: 5'7.00" Weight: 219lbs. 6.0oz. 99.690736io; 38.33 BMI Method:Stated Exam Exam Vital Signs Date Time Temp Pulse Resp B/P (MAP) Pulse Ox O2 Delivery O2 Flow Rate FiO2 11/04/20 02:14 97/58 11/04/20 00:34 98/52 11/03/20 23:11 89 24 96 30 11/03/20 23:01 37.1 91 24 100/51 (67) 96 Mechanical Ventilator 30.00 11/03/20 22:00 37.1 84 24 92/52 (65) 95 Mechanical Ventilator 30.00 11/03/20 21:10 Mechanical Ventilator 30.00 11/03/20 21:00 37.2 84 24 107/51 (69) 97 Mechanical Ventilator 40.00 11/03/20 20:32 96 Mechanical Ventilator 40 11/03/20 20:15 37.2 100 24 95/51 (66) 92 Mechanical Ventilator 40.00 11/03/20 20:12 87 24 95 40 11/03/20 20:00 37.1 82 24 114/64 (81) 97 Mechanical Ventilator 40.00 11/03/20 19:22 109/61 11/03/20 19:00 37.1 78 24 111/60 (77) 96 Mechanical Ventilator 40.00 11/03/20 19:00 82 11/03/20 18:00 37.1 96 24 103/61 (75) 92 Mechanical Ventilator 40.00 11/03/20 17:42 93 121/66 11/03/20 17:00 37.1 93 19 121/66 (84) 96 Mechanical Ventilator 40.00 11/03/20 16:00 37.1 102 25 117/64 (81) 95 Mechanical Ventilator 40.00 11/03/20 15:00 37.1 80 24 120/62 (81) 94 Mechanical Ventilator 40.00 11/03/20 14:43 86 24 96 40 11/03/20 14:00 37.1 88 9 114/60 (78) 96 Mechanical Ventilator 40.00 11/03/20 13:56 80 109/56 11/03/20 13:00 82 11/03/20 13:00 37.1 80 16 109/56 (73) 95 Mechanical Ventilator 40.00 11/03/20 12:00 37.1 73 19 111/60 (77) 92 Mechanical Ventilator 40.00 11/03/20 11:00 37.1 85 24 112/60 (77) 92 Mechanical Ventilator 40.00 11/03/20 10:19 89 24 92 40 11/03/20 10:00 37.3 91 102/57 (72) 89 Mechanical Ventilator 40.00 11/03/20 09:56 102 117/64 11/03/20 09:56 102 117/64 11/03/20 09:00 37.3 102 24 117/64 (81) 93 Mechanical Ventilator 40.00 11/03/20 08:15 90 Mechanical Ventilator 40 11/03/20 08:00 37.3 65 24 120/63 (82) 96 Mechanical Ventilator 40.00 11/03/20 07:00 37.3 68 24 115/63 (80) 96 Mechanical Ventilator 40.00 11/03/20 07:00 77 11/03/20 06:55 67 24 96 40 11/03/20 06:00 37.3 74 24 109/63 (78) 99 Mechanical Ventilator 40.00 11/03/20 05:05 70 11/03/20 05:00 37.3 73 24 120/65 (83) 97 Mechanical Ventilator 40.00 11/03/20 04:00 37.2 Mechanical Ventilator 40.00 11/03/20 04:00 37.2 66 24 121/64 (83) 96 Mechanical Ventilator 40.00 I & O 11/04/20 07:00 Intake Total 1371 ml Output Total 5100 ml Balance -3729 ml Height & Weight Height: 5'7.00" Weight: 219lbs. 6.0oz. 99.865334wf; 38.33 BMI Method:Stated General Appearance: Chronically ill HEENT: Normal ENT Inspection Neck: Limited Range of Motion Respiratory: Lungs Clear, Normal Breath Sounds, No Accessory Muscle Use, No Respiratory Distress Cardiovascular: Regular Rate, Rhythm, No Gallop Capillary Refill: Less Than 3 Seconds Gastrointestinal: non tender, soft Extremity: Pedal Edema, Swelling Neurologic/Psychiatric: Other Skin: Warm/Dry Lymphatic: No Adenopathy Results Lab Laboratory Tests 11/03/20 01:25 11/04/20 02:30 Assessment/Plan Assessment/Plan Acute on chronic respiratory failure -Ventilator 450/24/12 40% -ABG reviewed -Permissive hypercapnea -S/p intubation 2/4 - s/p VTach -- AICD converted pt to paced -Continue Ammio gtt -Consult cardiology PNA Avina cultures pending -Vanco and Cefepime Hypotension - since intubation -LR at 150 -Levophed and Vasopressin Hyponatremia -replace sodium Hypocalcemia -replace calcium HX of COVID 19 CHFAE AFib CKD NICM with dual implanted JAYESH POOLE DO 11/04/20 0352: Assessment/Plan Assessment/Plan Acute on chronic respiratory failure -Ventilator 450/24/12 40% -Decrease PEEP to 10 -ABG reviewed -Permissive hypercapnea -S/p intubation 2/4 - s/p VTach -- AICD converted pt to paced -Continue Ammio gtt -Consult cardiology PNA Avina cultures pending -Vanco and Cefepime Hypotension - since intubation -LR at 150 -Levophed and Vasopressin Hyponatremia -replace sodium Hypocalcemia -replace calcium HX of COVID 19 CHFAE AFib CKD NICM with dual implanted Supervisory-Addendum Brief Verification & Attestation Participated in pt care: history, MDM, physical Personally performed: exam, history, MDM Care discussed with: Medical Student Procedures: n/a Results interpretation: Verified all documentation Verification and Attestation of Medical Student E/M Service A medical student performed and documented this service in my presence. I reviewed and verified all information documented by the medical student and made modifications to such information, when appropriate. I personally performed the physical exam and medical decision making. Jayesh Poole, Nov 18, 2020,16:42 ROSETTA LORENZO MED STUDENT Nov 04, 2020 03:11 JAYESH POOLE DO Nov 04, 2020 03:52
[2020-11-04] MEDS: RT-ALBUTEROL/IPRATROPIUM 3 ML (DUONEB) VIAL INH SCH ×6 (03:18→21:41)
[2020-11-04] MEDS: fentaNYL DRIP PRE-MIX 250 ML IV SCH ×2 (05:32→18:01)
[2020-11-04] MEDS: LEVOTHYROXINE 25 MCG (LEVOTHROID) TAB PO SCH (05:33)
[2020-11-04] MEDS: APAP 325 MG/10.15 ML LIQ (TYLENOL) UDC PO PRN (05:33)
--- NOTE | 2020-11-04 07:40 | Diagnostic Imaging Report ---
INDICATION: Dyspnea. COMPARISON: 11/03/2020 FINDINGS: Single frontal radiograph view of the chest was obtained and demonstrates indwelling endotracheal tube with tip below the clavicular heads and above the davon. Left-sided AICD is noted. Cardiac silhouette remains moderately enlarged. Lungs continue to show diffuse bilateral interstitial thickening with hazy opacification of left base obscuring left hemidiaphragm. Overall, aeration is stable compared to prior exam. There is no large effusion on the right. No pneumothorax is seen on either side. Osseous structures show no acute adverse interval change. IMPRESSION: 1. Persistent moderate cardiomegaly. 2. Diffuse prominence of the pulmonary interstitium. Given the presence of cardiomegaly, findings could be on the basis of interstitial pulmonary edema. Interstitial pneumonia is not entirely excluded. 3. Findings suggestive of potential left basilar effusion. Correlation with lateral view may be of benefit. Dictated by: Dictated on workstation # [id number]
[2020-11-04] MEDS ORDERED: POTASSIUM PHOSPHATE INJ 30 MM in NS (IVPB) 250 ML IV ONE (08:00)
--- NOTE | 2020-11-04 08:11 | Physical Therapy Progress Note ---
Therapy Progress Note Patient sedated and intubated. PT will continue to monitor patient status. JONO CHÁVEZ PT Nov 04, 2020 08:10
[2020-11-04] MEDS: AMIODARONE 200 MG (CORDARONE) TAB PO SCH ×2 (08:37→19:44)
[2020-11-04] MEDS: ASPIRIN 81 MG CHEW (CHILDREN'S ASA) PO SCH (08:37)
[2020-11-04] MEDS: DIGOXIN 0.125 MG (LANOXIN) TAB PO SCH (08:37)
[2020-11-04] MEDS: PANTOPRAZOLE 40 MG (PROTONIX) VIAL IV SCH (08:38)
[2020-11-04] MEDS: ENOXAPARIN 40 MG/0.4 ML (LOVENOX) SYR SQ SCH ×2 (08:39→21:05)
--- NOTE | 2020-11-04 09:51 | Progress Note - Hospitalist ---
Subjective HPI/CC On Admission Date Seen by Provider: Nov 04, 2020 Time Seen by Provider: 09:00 Subjective/Events-last exam Pt maintained on ventilator Poor prognosis DNR and do not intubate Checked meds and labs Objective Exam Vital Signs Vital Signs Date Time Temp Pulse Resp B/P (MAP) Pulse Ox O2 Delivery O2 Flow Rate FiO2 11/05/20 03:58 101/49 11/05/20 02:00 36.8 101 18 98 Mechanical Ventilator 60.00 11/05/20 01:38 65 Capillary Refill : Less Than 3 Seconds General Appearance: No Apparent Distress, Chronically ill, Other (intubated) Respiratory: No Accessory Muscle Use, No Respiratory Distress, Decreased Breath Sounds Cardiovascular: Regular Rate, Rhythm Results/Procedures Lab Laboratory Tests 11/05/20 03:05 Patient resulted labs reviewed. Imaging: Reviewed Imaging Report Assessment/Plan Assessment and Plan Assess & Plan/Chief Complaint Assessment: VDRF Previous COVID-19 Severe chronic debility Cardiomyopathy EF 10% PLan: Vent management Monitor closely Prognosis poor Critical Care Critically Ill Patient DOM SMITH DO Nov 04, 2020 09:51
[2020-11-04] MEDS: ARTIFICIAL TEARS OINT (LACRI-LUBE) 3.5 GM TUBE OU SCH ×3 (10:39→20:02)
[2020-11-04 11:05] LABS: ABG BASE EXCESS 5.1 MMOL/L (-2.5-2.5); ABG OXYGEN SATURATION 100 % (94-100); ABG PCO2 54 MMHG (35-45); ABG PH 7.37 (7.37-7.43); ABG PO2 152 MMHG (79-93); ABG TCO2 31.5 MMOL/L (21.0-31.0)
[2020-11-04 11:06] LABS: ALLENS TEST ART LINE; INSPIRED O2 100%; PATIENT TEMP 37.9; VENTILATOR YES
--- NOTE | 2020-11-04 11:32 | Diagnostic Imaging Report ---
INDICATION: Hypoxia. Increased oxygen demand. COMPARISON: Earlier this same day. FINDINGS: A single frontal radiographic view of the chest was obtained and again demonstrates an indwelling endotracheal tube with the tip just below the level of the clavicular heads. Gastric tube tip terminates in the stomach. Left-sided AICD is noted. Cardiomediastinal structures show persistent moderate cardiomegaly. Lungs continue to show diffuse prominence of the interstitium, right greater than left. Small effusions cannot be excluded. There is no pneumothorax. Osseous structures show no adverse interval change. IMPRESSION: 1. Stable exam of the chest showing cardiomegaly with diffuse interstitial pneumonia versus edema. 2. Lines and tubes as above. Dictated by: Dictated on workstation # [id number]
[2020-11-04] MEDS: LACTATED RINGERS 1,000 ML IV SCH (11:58)
--- NOTE | 2020-11-04 13:18 | Diagnostic Imaging Report ---
INDICATION: PICC line placement Portable chest 1:05 PM ET tube projects over the trachea. Right extremity PICC line tip projects over the SVC. There is a dual-chamber pacemaker. There is cardiomegaly. There are diffuse alveolar infiltrates in the lungs with relative sparing of the apices. There is no appreciable effusion. There is no pneumothorax. IMPRESSION: Diffuse alveolar infiltrates in the lungs appear slightly worse compared to earlier in the day. Dictated by: Dictated on workstation # [id number]
--- NOTE | 2020-11-04 13:31 | Progress Note - Cardiology ---
Cardiology SOAP Progress Note Subjective: Intubated and sedated Objective: I&O/Vital Signs 11/04/20 11/04/20 11/05/20 11/05/20 23:00 23:33 00:00 00:16 Temp 36.9 36.9 Pulse 99 101 Resp 24 24 B/P (MAP) 100/55 (70) 95/56 (69) 110/64 Pulse Ox 94 91 O2 Delivery Mechanical Ventilator Mechanical Ventilator Mechanical Ventilator O2 Flow Rate 65.00 60.00 60.00 11/05/20 11/05/20 11/05/20 11/05/20 01:00 01:00 01:38 02:00 Temp 36.8 36.8 Pulse 96 96 88 101 Resp 24 24 18 B/P (MAP) 114/55 (74) 115/59 (77) Pulse Ox 94 94 98 O2 Delivery Mechanical Ventilator Mechanical Ventilator O2 Flow Rate 60.00 60.00 FiO2 65 11/05/20 11/05/20 11/05/20 11/05/20 02:41 03:00 03:58 04:00 Temp 36.7 36.9 Pulse 93 90 Resp 24 24 B/P (MAP) 108/57 105/49 (67) 101/49 105/51 (69) Pulse Ox 94 94 O2 Delivery Mechanical Ventilator Mechanical Ventilator O2 Flow Rate 60.00 60.00 11/05/20 11/05/20 11/05/20 11/05/20 05:00 06:00 06:04 06:20 Temp 37.1 37.2 Pulse 90 89 84 Resp 24 24 B/P (MAP) 105/54 (71) 98/51 (67) Pulse Ox 92 96 O2 Delivery Mechanical Ventilator Mechanical Ventilator Mechanical Ventilator O2 Flow Rate 60.00 60.00 50.00 11/05/20 11/05/20 11/05/20 11/05/20 06:51 07:00 07:50 08:00 Temp 37.3 37.5 Pulse 103 107 103 100 Resp 24 56 23 B/P (MAP) 107/56 (73) 99/51 107/55 (72) Pulse Ox 91 96 90 O2 Delivery Mechanical Ventilator Mechanical Ventilator O2 Flow Rate 50.00 50.00 FiO2 55 11/05/20 11/05/20 11/05/20 11/05/20 08:05 08:09 09:00 09:31 Temp 37.5 Pulse 90 103 Resp 24 B/P (MAP) 113/56 (75) 99/51 Pulse Ox 94 97 O2 Delivery Mechanical Ventilator Mechanical Ventilator O2 Flow Rate 80.00 80.00 FiO2 70 11/05/20 11/05/20 09:40 10:00 Pulse 106 Resp 24 Pulse Ox 92 O2 Flow Rate 70.00 FiO2 70 11/04/20 23:59 Intake Total 1460 ml Output Total 2975 ml Balance -1515 ml Weight (Pounds): 219 Weight (Ounces): 6.0 Weight (Calculated Kilograms): 99.899088 Constitutional: appears stated age, well-developed, well-nourished Respiratory: other (intubated/ventilated; fair air entry) Cardiovascular: irregularly irregular, tachycardia Gastrointestional: No spleenomegaly Extremities: swelling (mod bilat LE swelling) Neurologic/Psychiatric: other (unable to cooperate with neuro exam d/t sedation) Skin: No rash on exposed areas, No ulcerations on exposed areas Results/Procedures: Labs Laboratory Tests 11/04/20 10:58: Blood Gas Puncture Site RT RAD, Blood Gas Patient Temperature 37.9, Arterial Blood pH 7.37, Arterial Blood Partial Pressure CO2 54H, Arterial Blood Partial Pressure O2 152H, Arterial Blood HCO3 30H, Arterial Blood Total CO2 31.5H, Arterial Blood Oxygen Saturation 100, Arterial Blood Base Excess 5.1H, James Test ART LINE, Blood Gas Ventilator Setting YES, Blood Gas Inspired Oxygen 100% 11/04/20 11:18: Glucometer 109 11/04/20 17:35: Glucometer 163H 11/04/20 23:19: Glucometer 146H 11/05/20 03:05: White Blood Count 6.4, Red Blood Count 4.01L, Hemoglobin 11.8L, Hematocrit 37L, Mean Corpuscular Volume 91, Mean Corpuscular Hemoglobin 29, Mean Corpuscular Hemoglobin Concent 32, Red Cell Distribution Width 13.5, Platelet Count 193, Mean Platelet Volume 10.7, Immature Granulocyte % (Auto) 1, Neutrophils (%) (Auto) 85H, Lymphocytes (%) (Auto) 7L, Monocytes (%) (Auto) 2, Eosinophils (%) (Auto) 5, Basophils (%) (Auto) 0, Neutrophils # (Auto) 5.4, Lymphocytes # (Auto) 0.5L, Monocytes # (Auto) 0.1, Eosinophils # (Auto) 0.3, Basophils # (Auto) 0.0, Immature Granulocyte # (Auto) 0.1, Blood Gas Puncture Site ART LINE, Blood Gas Patient Temperature 36.7, Arterial Blood pH 7.41, Arterial Blood Partial Pressure CO2 53H, Arterial Blood Partial Pressure O2 96H, Arterial Blood HCO3 33H, Arterial Blood Total CO2 34.3H, Arterial Blood Oxygen Saturation 98, Arterial Blood Base Excess 7.8H, James Test ART LINE, Blood Gas Ventilator Setting YES, Blood Gas Inspired Oxygen 60%, Sodium Level 143, Potassium Level 3.7, Chloride Level 104, Carbon Dioxide Level 30, Anion Gap 9, Blood Urea Nitrogen 11, Creatinine 0.80, Estimat Glomerular Filtration Rate > 60, BUN/C reatinine Ratio 14, Glucose Level 141H, Calcium Level 7.8L, Phosphorus Level 2.8, Magnesium Level 2.3, Procalcitonin 0.66H Microbiology 10/31/20 Gram Stain - Final, Complete 10/31/20 Sputum Culture - Final, Complete No growth 10/30/20 Blood Culture - Final, Complete No growth Procedures NAME: LYN MORENO [facility] REC#: [id number] PT STATUS: ADM IN : 1955 PHYSICIAN: JAYESH DENNIS DO ADMIT DATE: 10/30/20/ICU Draft Date of Exam:11/04/20 CHEST 1 VIEW, AP/PA ONLY INDICATION: PICC line placement Portable chest 1:05 PM ET tube projects over the trachea. Right extremity PICC line tip projects over the SVC. There is a dual-chamber pacemaker. There is cardiomegaly. There are diffuse alveolar infiltrates in the lungs with relative sparing of the apices. There is no appreciable effusion. There is no pneumothorax. IMPRESSION: Diffuse alveolar infiltrates in the lungs appear slightly worse compared to earlier in the day. Dictated on workstation # [id number] Dict: 11/04/20 1315 Trans: 11/04/20 1318 CV [id number] Interpreted by: ENEIDA FRANCO MD Electronically signed by: A/P: Assessment: Respiratory failure requiring intubation Recent hospitalization with COVID and influenza during late September 2020 Episode of a-fib with RVR - treated with IV Cardizem Nonischemic cardiomyopathy - ejection fraction 10% per echo of 05-23-[address] Lopez. - Last echo of 08/12/20 showed LVEF 30-35%. Mod diffuse hypokinesis. Severely dilated LA. Mod MR, Mild AI. RVSP 20 mmHg Status post single-chamber pacemaker defibrillator implantation in August 2010. - Device upgrade February 14, 2015 to a dual chamber device (RA, RV lead) per Dr. Page on 02-14-2015. - Device functioning normally per interrogation of Jul 2020. - Device interrogation 07/29/20 shows episodes of SVT and NSVT. He received a shock on 07/14/20 for what appears to be SVT/A Fl at approx 200 bpm, has had antitach pacing for some other episodes Pulmonary edema and large R pleural effusion in late Apr 2016, status post Pleurx catheter placement by Dr Jackson, removed late Jul 2016 Restrictive lung disease managed by Dr Dennis Chronic systolic congestive heart failure, clinically compensated Chronically low bp. D/t hypotension has not been able to tolerate BB, COURTNEY (-) or ARB History of nonsustained ventricular tachycardia, controlled after initiation of therapy with amiodarone (currently on 400 mg daily) Paroxysmal atrial tachycardia as documented on device interrogation of Chronic renal insufficiency. CKD stage 2-3 Obs sleep apnea for which he follows with Dr Dennis Plan: Respiratory failure requiring intubation Sepsis with hypotension requiring pressor support Continue current regimen Monitor lab closely Replace electrolytes as indicated MAIDA RILEY Nov 04, 2020 13:31
--- NOTE | 2020-11-04 14:37 | Physician Query Clarification ---
"Physician Query-General Query to Physician: The medical record reflects the following clinical scenario: History/Risk factors: Recent OR procedure, Recent Hospitalization for COVID Clinical Findings:Admission VS/LABS HR 95, RR 48, Temp 37.7, Sp02 62% on RA, BP 132/49 -> 86/62 after fluid boluses, PCT 0.35 Treatment: ER: 2L NS bolus, Norepi, Cefepime and Vanco IV, (list no more than 2) Question: Do you agree with the impression of Sepsis per Dr. Yossi Davis and Septic Shock per Dr. Cnonie Edge? If you agree, please document in Progress Notes or Discharge Summary. 1. Yes; will document Sepsis with septic shock likely due to pneumonia present on admission in the Progress Notes 2. No; will continue to document Pneumonia in the Progress Notes 3. Other; will document explanation of clinical findings 4. Clinically undetermined; no explanation for clinical findings Please remember a lack of response to the above will prompt a phone page by CDI/coding staff. In responding to this query, please exercise your independent professional judgment. The purpose of this communication is to more accurately reflect the complexity of your patients condition. The fact that a question is asked does not imply that any particular answer is desired or expected. Thank you for timely response to this clarification. Asia Rome, MSN, RN RN Specialist-Clinical Doc Improvement CD -Health Info Mgmt Operations [address] [facility] t: [phone] | f: [phone] If you are unable to reach me at my extension, I may be working from home. Please contact me at [phone] PHYSICIAN RESPONSE: Based on the clinical findings in the record, please respond to the query above on this document as an addendum. Physician Response: Physician Response Inquire with the admitting physician Dr Knapp on an admit question If you have questions please contact: Pipe Organ Mechanic: Ext: Thank you for your time and cooperation. Clinical Loom Operator/Pipe Organ Mechanic This is a permanent part of the medical record ASIA ROME Nov 04, 2020 14:37 DOM SMITH DO Nov 04, 2020 20:26"
--- NOTE | 2020-11-04 18:01 | Progress Note - Cardiology ---
Cardiology SOAP Progress Note Subjective: On [facility] vent. Unable to provide any history Objective: I&O/Vital Signs 11/04/20 11/04/20 11/04/20 11/04/20 06:00 06:47 06:53 07:00 Temp 37.8 37.9 Pulse 103 92 96 100 Resp 24 B/P (MAP) 108/56 (73) 99/52 (68) Pulse Ox 90 91 96 O2 Delivery Mechanical Ventilator Mechanical Ventilator O2 Flow Rate 30.00 65.00 FiO2 45 11/04/20 11/04/20 11/04/20 11/04/20 07:00 07:29 08:00 08:10 Temp 37.9 37.9 Pulse 96 97 Resp 12 B/P (MAP) 100/53 109/59 (76) Pulse Ox 90 O2 Delivery Mechanical Ventilator O2 Flow Rate 65.00 65.00 11/04/20 11/04/20 11/04/20 11/04/20 08:39 09:00 09:00 10:00 Temp 37.8 37.8 Pulse 96 96 87 Resp 18 14 B/P (MAP) 100/53 97/54 (68) 104/56 (72) Pulse Ox 96 88 96 O2 Delivery Mechanical Ventilator Mechanical Ventilator Mechanical Ventilator O2 Flow Rate 65.00 65.00 FiO2 55 11/04/20 11/04/20 11/04/20 11/04/20 11:00 11:00 11:14 11:36 Temp 37.8 Pulse 94 90 90 Resp 24 24 B/P (MAP) 118/66 (83) 120/65 Pulse Ox 97 96 O2 Delivery Mechanical Ventilator O2 Flow Rate 90.00 100.00 FiO2 100 11/04/20 11/04/20 11/04/20 11/04/20 12:00 12:21 13:00 13:41 Temp 37.4 37.4 Pulse 86 97 82 82 Resp 24 19 B/P (MAP) 118/64 (82) 133/68 (89) 133/68 Pulse Ox 96 96 O2 Delivery Mechanical Ventilator Mechanical Ventilator O2 Flow Rate 100.00 100.00 11/04/20 11/04/20 11/04/20 11/04/20 13:56 15:05 15:48 17:42 Pulse 115 115 115 Resp 27 B/P (MAP) 118/63 118/63 Pulse Ox 90 O2 Flow Rate 80.00 FiO2 90 11/04/20 00:00 Intake Total 811 ml Output Total 3950 ml Balance -3139 ml Weight (Pounds): 219 Weight (Ounces): 6.0 Weight (Calculated Kilograms): 99.713804 Constitutional: appears stated age, well-developed, well-nourished Respiratory: other (intubated/ventilated; fair air entry) Cardiovascular: irregularly irregular, tachycardia Gastrointestional: No spleenomegaly Extremities: swelling (mod bilat LE swelling) Neurologic/Psychiatric: other (unable to cooperate with neuro exam d/t sedation) Skin: No rash on exposed areas, No ulcerations on exposed areas Results/Procedures: Labs Laboratory Tests 11/04/20 00:01: Glucometer 80 11/04/20 02:30: White Blood Count 8.1, Red Blood Count 4.19L, Hemoglobin 12.3L, Hematocrit 37L, Mean Corpuscular Volume 89, Mean Corpuscular Hemoglobin 29, Mean Corpuscular Hemoglobin Concent 33, Red Cell Distribution Width 13.0, Platelet Count 179, Mean Platelet Volume 10.9, Immature Granulocyte % (Auto) 1, Neutrophils (%) (Auto) 86H, Lymphocytes (%) (Auto) 6L, Monocytes (%) (Auto) 2, Eosinophils (%) (Auto) 6, Basophils (%) (Auto) 0, Neutrophils # (Auto) 7.0, Lymphocytes # (Auto) 0.5L, Monocytes # (Auto) 0.1, Eosinophils # (Auto) 0.5H, Basophils # (Auto) 0.0, Immature Granulocyte # (Auto) 0.1, Blood Gas Puncture Site RIGHT ARTLINE, Blood Gas Patient Temperature 37.5, Arterial Blood pH 7.40, Arterial Blood Partial Pressure CO2 49H, Arterial Blood Partial Pressure O2 81, Arterial Blood HCO3 30H , Arterial Blood Total CO2 31.3H, Arterial Blood Oxygen Saturation 96, Arterial Blood Base Excess 5.3H, James Test ARTLINE, Blood Gas Ventilator Setting YES, Blood Gas Inspired Oxygen 40, Sodium Level 132L, Potassium Level 3.6, Chloride Level 95L, Carbon Dioxide Level 26, Anion Gap 11, Blood Urea Nitrogen 13, Creatinine 0.80, Estimat Glomerular Filtration Rate > 60, BUN/Creatinine Ratio 16, Glucose Level 96, Calcium Level 7.8L, Phosphorus Level 2.0L, Magnesium Level 1.9, Triglycerides Level 112 11/04/20 10:58: Blood Gas Puncture Site RT RAD, Blood Gas Patient Temperature 37.9, Arterial Blood pH 7.37, Arterial Blood Partial Pressure CO2 54H, Arterial Blood Partial Pressure O2 152H, Arterial Blood HCO3 30H, Arterial Blood Total CO2 31.5H, Arterial Blood Oxygen Saturation 100, Arterial Blood Base Excess 5.1H, James Test ART LINE, Blood Gas Ventilator Setting YES, Blood Gas Inspired Oxygen 100% 11/04/20 11:18: Glucometer 109 11/04/20 17:35: Glucometer 163H Microbiology 10/31/20 Gram Stain - Final, Complete 10/31/20 Sputum Culture - Final, Complete No growth 10/30/20 Blood Culture - Final, Complete No growth Laboratory Tests 11/03/20 01:25 11/04/20 02:30 A/P: Assessment: Respiratory failure requiring intubation Recent hospitalization with COVID and influenza during late September 2020 Episode of a-fib with RVR - treated with IV Cardizem Nonischemic cardiomyopathy - ejection fraction 10% per echo of 05-23-[address] Lopez. - Last echo of 08/12/20 showed LVEF 30-35%. Mod diffuse hypokinesis. Severely dilated LA. Mod MR, Mild AI. RVSP 20 mmHg Status post single-chamber pacemaker defibrillator implantation in August 2010. - Device upgrade February 14, 2015 to a dual chamber device (RA, RV lead) per Dr. Page on 02-14-2015. - Device functioning normally per interrogation of Jul 2020. - Device interrogation 07/29/20 shows episodes of SVT and NSVT. He received a shock on 07/14/20 for what appears to be SVT/A Fl at approx 200 bpm, has had antitach pacing for some other episodes Pulmonary edema and large R pleural effusion in late Apr 2016, status post Pleurx catheter placement by Dr Jackson, removed late Jul 2016 Restrictive lung disease managed by Dr Dennis Chronic systolic congestive heart failure, clinically compensated Chronically low bp. D/t hypotension has not been able to tolerate BB, COURTNEY (-) or ARB History of nonsustained ventricular tachycardia, controlled after initiation of therapy with amiodarone (currently on 400 mg daily) Paroxysmal atrial tachycardia as documented on device interrogation of Chronic renal insufficiency. CKD stage 2-3 Obs sleep apnea for which he follows with Dr Dennis Plan: Unstable condition. Prognosis guarded Continue current regimen Monitor lab closely Replace electrolytes as indicated NAOMIE WATERS MD FACP FAC CCDS Nov 04, 2020 18:01
[2020-11-05] VITALS (30 sets, daily range): BP systolic 94–115; BP diastolic 49–68
[2020-11-05] MEDS: NOREPINEPHRINE 4 MG/250 ML 250 ML IV SCH ×7 (00:16→23:20)
[2020-11-05] MEDS: RT-ALBUTEROL/IPRATROPIUM 3 ML (DUONEB) VIAL INH SCH ×6 (01:38→22:18)
[2020-11-05] MEDS: PROPOFOL DRIP (ICU) 100 ML IV SCH ×4 (02:41→21:34)
[2020-11-05] MEDS: VASOPRESSIN INJECTION 20 UNIT in NS (IVPB) 100 ML IV SCH ×3 (02:49→19:26)
[2020-11-05 03:09] LABS: ABG BASE EXCESS 7.8 MMOL/L (-2.5-2.5); ABG OXYGEN SATURATION 98 % (94-100); ABG PCO2 53 MMHG (35-45); ABG PH 7.41 (7.37-7.43); ABG PO2 96 MMHG (79-93); ABG TCO2 34.3 MMOL/L (21.0-31.0); BASOPHILS % (AUTO) 0 % (0-10); EOSINOPHILS # (AUTO) 0.3 10^3/uL (0.0-0.3); EOSINOPHILS % (AUTO) 5 % (0-10); HEMATOCRIT 37 % (40-54); HEMOGLOBIN 11.8 g/dL (13.3-17.7); LYMPHOCYTES # (AUTO) 0.5 10^3/uL (1.0-4.0); LYMPHOCYTES % (AUTO) 7 % (12-44); MEAN CORPUSCULAR HEMOGLOBIN 29 pg (25-34); MEAN CORPUSCULAR HGB CONC 32 g/dL (32-36); MEAN CORPUSCULAR VOLUME 91 fL (80-99); MEAN PLATELET VOLUME 10.7 fL (9.0-12.2); MONOCYTES # (AUTO) 0.1 10^3/uL (0.0-1.0); MONOCYTES % (AUTO) 2 % (0-12); NEUTROPHILS # (AUTO) 5.4 10^3/uL (1.8-7.8); NEUTROPHILS % (AUTO) 85 % (42-75); PLATELET COUNT 193 10^3/uL (130-400); WHITE BLOOD COUNT 6.4 10^3/uL (4.3-11.0)
[2020-11-05 03:14] LABS: ALLENS TEST ART LINE; INSPIRED O2 60%; PATIENT TEMP 36.7; VENTILATOR YES
[2020-11-05 03:23] LABS: CHLORIDE 104 MMOL/L (98-107); POTASSIUM 3.7 MMOL/L (3.6-5.0); SODIUM 143 MMOL/L (135-145)
[2020-11-05 03:24] LABS: CALCIUM 7.8 MG/DL (8.5-10.1)
[2020-11-05 03:25] LABS: GLUCOSE 141 MG/DL (70-105)
[2020-11-05 03:26] LABS: CARBON DIOXIDE 30 MMOL/L (21-32)
[2020-11-05 03:28] LABS: GFR ESTIMATED > 60; PHOSPHORUS 2.8 MG/DL (2.3-4.7)
[2020-11-05 03:29] LABS: BUN/CREATININE RATIO 14
[2020-11-05 03:31] LABS: MAGNESIUM 2.3 MG/DL (1.6-2.4)
[2020-11-05] MEDS: POTASSIUM CL 10MEQ/50ML IVPB 50 ML IV SCH (03:32)
[2020-11-05] MEDS: MAGNESIUM 1 GM/100 ML IVPB 100 ML IV SCH (03:32)
[2020-11-05] MEDS: KCL 20 MEQ TAB (K-DUR) PO SCH (03:33)
--- NOTE | 2020-11-05 04:18 | Pulmonary Progress Note ---
Subjective Time Seen by a Provider: 04:12 Subjective/Events-last exam Sedated on vent Sepsis Event Evaluation Height, Weight, BMI Height: 5'7.00" Weight: 219lbs. 6.0oz. 99.600552ag; 38.33 BMI Method:Stated Exam Exam Vital Signs Date Time Temp Pulse Resp B/P (MAP) Pulse Ox O2 Delivery O2 Flow Rate FiO2 11/05/20 03:58 101/49 11/05/20 02:41 108/57 11/05/20 02:00 36.8 101 18 115/59 (77) 98 Mechanical Ventilator 60.00 11/05/20 01:38 88 24 94 65 11/05/20 01:00 96 11/05/20 01:00 36.8 96 24 114/55 (74) 94 Mechanical Ventilator 60.00 11/05/20 00:16 110/64 11/05/20 00:00 36.9 101 24 95/56 (69) 91 Mechanical Ventilator 60.00 11/04/20 23:33 Mechanical Ventilator 60.00 11/04/20 23:00 36.9 99 24 100/55 (70) 94 Mechanical Ventilator 65.00 11/04/20 22:00 36.9 101 24 105/55 (72) 95 Mechanical Ventilator 65.00 11/04/20 21:42 86 24 92 55 11/04/20 21:00 36.9 99 24 106/55 (72) 95 Mechanical Ventilator 65.00 11/04/20 20:18 94 Mechanical Ventilator 50 11/04/20 20:01 109/61 11/04/20 20:00 37.0 101 24 112/61 (78) 94 Mechanical Ventilator 50.00 11/04/20 19:00 95 11/04/20 19:00 37.1 95 104/58 (73) 98 Mechanical Ventilator 65.00 11/04/20 18:14 104 24 96 65 11/04/20 18:00 37.3 102 47 97/58 (71) 93 Mechanical Ventilator 65.00 11/04/20 18:00 65.00 11/04/20 17:42 115 118/63 11/04/20 17:00 37.3 95 19 108/57 (74) 96 Mechanical Ventilator 80.00 11/04/20 16:00 37.4 101 24 138/69 (92) 98 Mechanical Ventilator 80.00 11/04/20 15:48 115 118/63 11/04/20 15:05 80.00 11/04/20 15:00 37.4 107 59 107/59 (75) 91 Mechanical Ventilator 100.00 11/04/20 14:00 37.5 112 25 119/66 (83) 91 Mechanical Ventilator 100.00 11/04/20 13:56 115 27 90 90 11/04/20 13:41 82 133/68 11/04/20 13:00 37.4 82 19 133/68 (89) 96 Mechanical Ventilator 100.00 11/04/20 12:21 97 11/04/20 12:00 37.4 86 24 118/64 (82) 96 Mechanical Ventilator 100.00 11/04/20 11:36 90 120/65 11/04/20 11:14 90 24 96 100 11/04/20 11:00 37.8 94 24 118/66 (83) 97 Mechanical Ventilator 100.00 11/04/20 11:00 90.00 11/04/20 10:00 37.8 87 14 104/56 (72) 96 Mechanical Ventilator 65.00 11/04/20 09:00 37.8 96 18 97/54 (68) 88 Mechanical Ventilator 65.00 11/04/20 09:00 96 Mechanical Ventilator 55 11/04/20 08:39 96 100/53 11/04/20 08:10 37.9 11/04/20 08:00 37.9 97 12 109/59 (76) 90 Mechanical Ventilator 65.00 11/04/20 07:29 96 100/53 11/04/20 07:00 65.00 11/04/20 07:00 37.9 100 99/52 (68) 96 Mechanical Ventilator 65.00 11/04/20 06:53 96 24 91 45 11/04/20 06:47 92 11/04/20 06:00 37.8 103 108/56 (73) 90 Mechanical Ventilator 30.00 11/04/20 05:32 103/53 11/04/20 05:00 37.7 98 24 99/52 (68) 94 Mechanical Ventilator 30.00 I & O 11/05/20 07:00 Intake Total 3380 ml Output Total 5175 ml Balance -1795 ml Height & Weight Height: 5'7.00" Weight: 219lbs. 6.0oz. 99.460188ra; 38.33 BMI Method:Stated General Appearance: Chronically ill HEENT: Normal ENT Inspection Neck: Limited Range of Motion Respiratory: Lungs Clear, Normal Breath Sounds, No Accessory Muscle Use, No Respiratory Distress Cardiovascular: Regular Rate, Rhythm, No Gallop Capillary Refill: Less Than 3 Seconds Gastrointestinal: non tender, soft Extremity: Pedal Edema, Swelling Neurologic/Psychiatric: Other Skin: Warm/Dry Lymphatic: No Adenopathy Results Lab Laboratory Tests 11/04/20 02:30 11/05/20 03:05 Assessment/Plan Assessment/Plan Acute on chronic respiratory failure -Ventilator 450/24/10 55% -Increase PEEP to 12 -Fentanyl 100, propofol 20 -ABG reviewed -Permissive hypercapnea -S/p intubation 10/31 -Restart PRoning s/p VTach -- AICD converted pt to paced -Continue Ammio gtt -Consult cardiology PNA Avina cultures pending -s/p Vanco and Cefepime -Cefepime auto d/c'd yesterday. Restart Cefepime and recheck PCT. Hypotension - since intubation -LR at 20 -Levophed Hyponatremia -replace sodium Hypocalcemia -replace calcium HX of COVID 19 CHFAE AFib CKD NICM with dual implanted JAYESH POOLE DO Nov 05, 2020 04:18
[2020-11-05] MEDS: CEFEPIME INJECTION 1,000 MG in WATER (STERILE) FOR INJECTION 10 ML IV SCH ×4 (04:56→23:04)
[2020-11-05] MEDS: LEVOTHYROXINE 25 MCG (LEVOTHROID) TAB PO SCH (04:56)
[2020-11-05] MEDS: METOCLOPRAMIDE INJ 10 MG/2 ML (REGLAN) IVP SCH ×4 (04:56→23:04)
[2020-11-05] MEDS: inSUlin ASPART (NovoLOG) 1 UNIT/0.01 ML (CHARGE PER UNIT) SC SCH ×4 (04:56→23:04)
[2020-11-05] MEDS: fentaNYL DRIP PRE-MIX 250 ML IV SCH ×2 (06:05→17:29)
[2020-11-05] MEDS: DIGOXIN 0.125 MG (LANOXIN) TAB PO SCH (07:49)
[2020-11-05] MEDS: ASPIRIN 81 MG CHEW (CHILDREN'S ASA) PO SCH (07:49)
[2020-11-05] MEDS: PANTOPRAZOLE 40 MG (PROTONIX) VIAL IV SCH (07:49)
[2020-11-05] MEDS: AMIODARONE 200 MG (CORDARONE) TAB PO SCH ×2 (07:49→19:37)
[2020-11-05] MEDS: ARTIFICIAL TEARS OINT (LACRI-LUBE) 3.5 GM TUBE OU SCH ×3 (07:49→19:37)
--- NOTE | 2020-11-05 08:00 | Physical Therapy Progress Note ---
Therapy Progress Note Patient sedated and intubated. PT will continue to follow patient status. JONO CHÁVEZ PT Nov 05, 2020 08:00
--- NOTE | 2020-11-05 08:53 | Diagnostic Imaging Report ---
INDICATION: Dyspnea. COMPARISON: 11/04/2020 FINDINGS: Single frontal radiographic view of the chest was obtained and demonstrates indwelling endotracheal tube with tip just below the level of the clavicular heads. Gastric tube tip terminates in the stomach. Cardiac silhouette remains enlarged. Lungs continue to show diffuse mixed interstitial and alveolar infiltrates. Overall, aeration is stable. Small effusions cannot be excluded. There is no pneumothorax. Left-sided AICD and right upper extremity PICC line are also again identified. IMPRESSION: 1. Stable exam of the chest showing bilateral diffuse mixed interstitial and alveolar pneumonia versus edema. 2. Persistent moderate cardiomegaly. Dictated by: Dictated on workstation # [id number]
--- NOTE | 2020-11-05 09:21 | Physical Therapy Progress Note ---
Therapy Progress Note Non skilled PROM B U/LE in available planes. NOHEMI JOHNSON PT Nov 05, 2020 09:21
[2020-11-05] MEDS: ENOXAPARIN 40 MG/0.4 ML (LOVENOX) SYR SQ SCH ×2 (09:31→21:29)
--- NOTE | 2020-11-05 10:13 | Progress Note - Cardiology ---
Cardiology SOAP Progress Note Subjective: Intubated/sedated Objective: I&O/Vital Signs 11/06/20 11/06/20 11/06/20 11/06/20 21:56 22:00 22:54 23:00 Temp 36.6 35.7 Pulse 93 91 98 Resp B/P (MAP) 103/66 (78) 106/76 (86) Pulse Ox 95 94 93 94 O2 Delivery Mechanical Ventilator Mechanical Ventilator Mechanical Ventilator O2 Flow Rate 55.00 55.00 FiO2 55 50 11/07/20 11/07/20 11/07/20 11/07/20 00:00 00:15 01:00 01:00 Temp 35.4 37.7 Pulse 93 85 100 99 B/P (MAP) 110/63 (79) 106/60 114/67 (83) Pulse Ox 93 92 O2 Delivery Mechanical Ventilator Mechanical Ventilator O2 Flow Rate 55.00 55.00 11/07/20 11/07/20 11/07/20 11/07/20 01:20 02:00 02:13 03:00 Temp 38.2 38.4 Pulse 110 90 102 105 Resp 30 B/P (MAP) 127/73 (91) 84/53 137/78 (97) Pulse Ox 94 94 O2 Delivery Mechanical Ventilator Mechanical Ventilator O2 Flow Rate 55.00 55.00 FiO2 50 11/07/20 11/07/20 11/07/20 11/07/20 04:00 04:48 05:00 05:18 Temp 38.4 38.4 38.4 38.5 Pulse 98 105 B/P (MAP) 121/68 (85) 123/67 (85) Pulse Ox 90 90 O2 Delivery Mechanical Ventilator Mechanical Ventilator O2 Flow Rate 55.00 55.00 11/07/20 11/07/20 11/07/20 11/07/20 06:00 07:00 07:01 07:13 Temp 38.6 38.7 Pulse 112 114 112 106 B/P (MAP) 120/61 (80) 138/73 (94) Pulse Ox 91 93 92 O2 Delivery Mechanical Ventilator Mechanical Ventilator O2 Flow Rate 55.00 55.00 FiO2 50 11/07/20 11/07/20 11/07/20 07:21 07:25 09:37 Pulse 106 B/P (MAP) 136/72 O2 Delivery Mechanical Ventilator Mechanical Ventilator O2 Flow Rate 50.00 FiO2 50 11/07/20 00:00 Intake Total 1102 ml Output Total 575 ml Balance 527 ml Weight (Pounds): 219 Weight (Ounces): 6.0 Weight (Calculated Kilograms): 99.897279 Constitutional: appears stated age, well-developed, well-nourished Respiratory: other (intubated/ventilated; fair air entry) Cardiovascular: irregularly irregular Gastrointestional: soft, audible bowel sounds Extremities: swelling (mild bilat LE swelling) Neurologic/Psychiatric: other (unable to cooperate with neuro exam d/t sedation) Skin: No rash on exposed areas, No ulcerations on exposed areas Results/Procedures: Labs Laboratory Tests 11/06/20 11:29: Glucometer 162H 11/06/20 17:10: Glucometer 128H 11/07/20 00:04: Glucometer 130H 11/07/20 03:10: White Blood Count 7.4, Red Blood Count 3.61L, Hemoglobin 10.6L, Hematocrit 34L, Mean Corpuscular Volume 93, Mean Corpuscular Hemoglobin 29, Mean Corpuscular Hemoglobin Concent 32, Red Cell Distribution Width 13.4, Platelet Count 253, Mean Platelet Volume 11.0, Immature Granulocyte % (Auto) 1, Neutrophils (%) (Auto) 89H, Lymphocytes (%) (Auto) 6L, Monocytes (%) (Auto) 3, Eosinophils (%) (Auto) 0, Basophils (%) (Auto) 0, Neutrophils # (Auto) 6.6, Lymphocytes # (Auto) 0.5L, Monocytes # (Auto) 0.3, Eosinophils # (Auto) 0.0, Basophils # (Auto) 0.0, Immature Granulocyte # (Auto) 0.1, Neutrophils % (Manual) 88, Lymphocytes % (Manual) 8, Monocytes % (Manual) 3, Eosinophils % (Manual) 1, Blood Morphology Comment NORMAL, Blood Gas Puncture Site RT RAD, Blood Gas Patient Temperature 38.2, Arterial Blood pH 7.36L, Arterial Blood Partial Pressure CO2 57H, Arterial Blood Partial Pressure O2 105H, Arterial Blood HCO3 31H, Arterial Blood Total CO2 32.1H, Arterial Blood Oxygen Saturation 96, Arterial Blood Base Excess 5.5H, James Test POS, Blood Gas Ventilator Setting YES, Blood Gas Inspired Oxygen 50%, Sodium Level 136, Potassium Level 5.5H, Chloride Level 100, Carbon Dioxide Level 25, Anion Gap 11, Blood Urea Nitrogen 25H, Creatinine 1.08, Estimat Glomerular Filtration Rate > 60, BUN/Creatinine Ratio 23, Glucose Level 156H, Calcium Level 8.1L, Phosphorus Level 2.8, Magnesium Level 2.5H Microbiology 10/31/20 Gram Stain - Final, Complete 10/31/20 Sputum Culture - Final, Complete No growth 10/30/20 Blood Culture - Final, Complete No growth Procedures NAME: LYN MORENO [facility] REC#: [id number] PT STATUS: ADM IN : 1955 PHYSICIAN: ODELL GARCIA MD ADMIT DATE: 10/30/20/ICU Draft Date of Exam:11/05/20 CHEST 1 VIEW, AP/PA ONLY INDICATION: Dyspnea. COMPARISON: 11/04/2020 FINDINGS: Single frontal radiographic view of the chest was obtained and demonstrates indwelling endotracheal tube with tip just below the level of the clavicular heads. Gastric tube tip terminates in the stomach. Cardiac silhouette remains enlarged. Lungs continue to show diffuse mixed interstitial and alveolar infiltrates. Overall, aeration is stable. Small effusions cannot be excluded. There is no pneumothorax. Left-sided AICD and right upper extremity PICC line are also again identified. IMPRESSION: 1. Stable exam of the chest showing bilateral diffuse mixed interstitial and alveolar pneumonia versus edema. 2. Persistent moderate cardiomegaly. Dictated on workstation # [id number] Dict: 11/05/20 0829 Trans: 11/05/20 0852 [id number] Interpreted by: RAJINDER SCHMITT MD Electronically signed by: A/P: Assessment: Respiratory failure requiring intubation Recent hospitalization with COVID and influenza during late September 2020 Episode of a-fib with RVR - treated with IV Cardizem Nonischemic cardiomyopathy - ejection fraction 10% per echo of 05-23-[address] Lopez. - Last echo of 08/12/20 showed LVEF 30-35%. Mod diffuse hypokinesis. Severely dilated LA. Mod MR, Mild AI. RVSP 20 mmHg Status post single-chamber pacemaker defibrillator implantation in August 2010. - Device upgrade February 14, 2015 to a dual chamber device (RA, RV lead) per Dr. Page on 02-14-2015. - Device functioning normally per interrogation of Jul 2020. - Device interrogation 07/29/20 shows episodes of SVT and NSVT. He received a shock on 07/14/20 for what appears to be SVT/A Fl at approx 200 bpm, has had antitach pacing for some other episodes Pulmonary edema and large R pleural effusion in late Apr 2016, status post Pleurx catheter placement by Dr Jackson, removed late Jul 2016 Restrictive lung disease managed by Dr Dennis Chronic systolic congestive heart failure, clinically compensated Chronically low bp. D/t hypotension has not been able to tolerate BB, COURTNEY (-) or ARB History of nonsustained ventricular tachycardia, controlled after initiation of therapy with amiodarone (currently on 400 mg daily) Paroxysmal atrial tachycardia as documented on device interrogation of Chronic renal insufficiency. CKD stage 2-3 Obs sleep apnea for which he follows with Dr Dennis Plan: Unstable condition. Prognosis guarded Continue current regimen Monitor lab closely Replace electrolytes as indicated MAIDA RILEY Nov 05, 2020 10:13
--- NOTE | 2020-11-05 10:59 | Progress Note - Hospitalist ---
Subjective HPI/CC On Admission Date Seen by Provider: Nov 05, 2020 Time Seen by Provider: 10:00 Subjective/Events-last exam Pt remain ventilated Poor prognosis remains Checked meds and labs Prone positioning maintained Objective Exam Vital Signs Vital Signs Date Time Temp Pulse Resp B/P (MAP) Pulse Ox O2 Delivery O2 Flow Rate FiO2 11/06/20 05:36 Mechanical Ventilator 45.00 11/06/20 05:05 85/51 11/06/20 05:00 37.5 85 24 95 11/06/20 02:02 60 Capillary Refill : Less Than 3 Seconds General Appearance: No Apparent Distress, Chronically ill, Other (sedated) Respiratory: Lungs Clear, Normal Breath Sounds Cardiovascular: Regular Rate, Rhythm Extremity: Pedal Edema Neurologic/Psychiatric: Other (sedated) Results/Procedures Lab Laboratory Tests 11/06/20 03:05 Patient resulted labs reviewed. Imaging: Reviewed Imaging Report Assessment/Plan Assessment and Plan Assess & Plan/Chief Complaint Assessment: VDRF Previous COVID-19 Severe chronic debility Cardiomyopathy EF 10% PLan: Vent management Monitor closely Prognosis poor 11/05/20: Vent management Prognosis poor Critical Care Critically Ill Patient DOM SMITH DO Nov 05, 2020 10:59
[2020-11-05] MEDS: LACTATED RINGERS 1,000 ML IV SCH (11:28)
--- NOTE | 2020-11-05 16:25 | Progress Note - Cardiology ---
Cardiology SOAP Progress Note Subjective: On [facility] vent. Unable to provide any history Objective: I&O/Vital Signs 11/05/20 11/05/20 11/05/20 11/05/20 05:00 06:00 06:04 06:20 Temp 37.1 37.2 Pulse 90 89 84 Resp 24 24 B/P (MAP) 105/54 (71) 98/51 (67) Pulse Ox 92 96 O2 Delivery Mechanical Ventilator Mechanical Ventilator Mechanical Ventilator O2 Flow Rate 60.00 60.00 50.00 11/05/20 11/05/20 11/05/20 11/05/20 06:51 07:00 07:50 08:00 Temp 37.3 37.5 Pulse 103 107 103 100 Resp 24 56 23 B/P (MAP) 107/56 (73) 99/51 107/55 (72) Pulse Ox 91 96 90 O2 Delivery Mechanical Ventilator Mechanical Ventilator O2 Flow Rate 50.00 50.00 FiO2 55 11/05/20 11/05/20 11/05/20 11/05/20 08:05 08:09 09:00 09:31 Temp 37.5 Pulse 90 103 Resp 24 B/P (MAP) 113/56 (75) 99/51 Pulse Ox 94 97 O2 Delivery Mechanical Ventilator Mechanical Ventilator O2 Flow Rate 80.00 80.00 FiO2 70 11/05/20 11/05/20 11/05/20 11/05/20 09:40 10:00 10:00 10:57 Temp 37.6 Pulse 106 90 Resp 24 24 B/P (MAP) 106/50 (68) Pulse Ox 92 95 O2 Delivery Mechanical Ventilator Mechanical Ventilator O2 Flow Rate 70.00 70.00 100.00 FiO2 70 11/05/20 11/05/20 11/05/20 11/05/20 11:00 11:06 11:13 12:00 Temp 36.3 36.5 Pulse 114 90 90 112 Resp 24 23 B/P (MAP) 106/68 (81) 106/50 106/50 115/67 (83) Pulse Ox 90 92 O2 Delivery Mechanical Ventilator Mechanical Ventilator O2 Flow Rate 100.00 100.00 11/05/20 11/05/20 11/05/20 11/05/20 12:57 13:00 14:00 14:34 Temp 36.6 36.8 Pulse 110 118 111 112 Resp 24 24 24 B/P (MAP) 109/67 (81) 108/66 (80) Pulse Ox 94 96 94 O2 Delivery Mechanical Ventilator Mechanical Ventilator O2 Flow Rate 100.00 100.00 FiO2 100 11/05/20 11/05/20 11/05/20 11/05/20 14:40 14:47 15:00 15:26 Temp 36.9 Pulse 112 111 Resp 24 B/P (MAP) 102/65 103/64 (77) Pulse Ox 95 O2 Delivery Mechanical Ventilator Mechanical Ventilator Mechanical Ventilator O2 Flow Rate 95.00 100.00 11/05/20 11/05/20 15:38 16:00 Temp 36.9 Pulse 117 Resp 24 B/P (MAP) 101/61 (74) Pulse Ox 95 O2 Delivery Mechanical Ventilator Mechanical Ventilator O2 Flow Rate 90.00 90.00 11/05/20 00:00 Intake Total 1460 ml Output Total 2975 ml Balance -1515 ml Weight (Pounds): 219 Weight (Ounces): 6.0 Weight (Calculated Kilograms): 99.012464 Constitutional: appears stated age, well-developed, well-nourished Respiratory: other (intubated/ventilated; fair air entry) Cardiovascular: irregularly irregular Gastrointestional: soft, audible bowel sounds Extremities: swelling (mild bilat LE swelling) Neurologic/Psychiatric: other (unable to cooperate with neuro exam d/t sedation) Skin: No rash on exposed areas, No ulcerations on exposed areas Results/Procedures: Labs Laboratory Tests 11/04/20 17:35: Glucometer 163H 11/04/20 23:19: Glucometer 146H 11/05/20 03:05: White Blood Count 6.4, Red Blood Count 4.01L, Hemoglobin 11.8L, Hematocrit 37L, Mean Corpuscular Volume 91, Mean Corpuscular Hemoglobin 29, Mean Corpuscular Hemoglobin Concent 32, Red Cell Distribution Width 13.5, Platelet Count 193, Mean Platelet Volume 10.7, Immature Granulocyte % (Auto) 1, Neutrophils (%) (Auto) 85H, Lymphocytes (%) (Auto) 7L, Monocytes (%) (Auto) 2, Eosinophils (%) (Auto) 5, Basophils (%) (Auto) 0, Neutrophils # (Auto) 5.4, Lymphocytes # (Auto) 0.5L, Monocytes # (Auto) 0.1, Eosinophils # (Auto) 0.3, Basophils # (Auto) 0.0, Immature Granulocyte # (Auto) 0.1, Blood Gas Puncture Site ART LINE, Blood Gas Patient Temperature 36.7, Arterial Blood pH 7.41, Arterial Blood Partial Pressure CO2 53H, Arterial Blood Partial Pressure O2 96H, Arterial Blood HCO3 33H, Arterial Blood Total CO2 34.3H, Arterial Blood Oxygen Saturation 98, Arterial Blood Base Excess 7.8H, James Test ART LINE, Blood Gas Ventilator Setting YES, Blood Gas Inspired Oxygen 60%, Sodium Level 143, Potassium Level 3.7, Chloride Level 104, Carbon Dioxide Level 30, Anion Gap 9, Blood Urea Nitrogen 11, Creatinine 0.80, Estimat Glomerular Filtration Rate > 60, BUN/Creatinine Ratio 14, Glucose Level 141H, Calcium Level 7.8L, Phosphorus Level 2.8, Magnesium Level 2.3, Procalcitonin 0.66H 11/05/20 11:21: Glucometer 118H Microbiology 10/31/20 Gram Stain - Final, Complete 10/31/20 Sputum Culture - Final, Complete No growth 10/30/20 Blood Culture - Final, Complete No growth Laboratory Tests 11/04/20 02:30 11/05/20 03:05 A/P: Assessment: Respiratory failure requiring intubation Hospitalization with COVID and influenza in late September 2020 Episode of a-fib with RVR - treated with IV Cardizem Nonischemic cardiomyopathy - ejection fraction 10% per echo of 05-23-[address] Lopez. - Last echo of 08/12/20 showed LVEF 30-35%. Mod diffuse hypokinesis. Severely dilated LA. Mod MR, Mild AI. RVSP 20 mmHg Status post single-chamber pacemaker defibrillator implantation in August 2010. - Device upgrade February 14, 2015 to a dual chamber device (RA, RV lead) per Dr. Page on 02-14-2015. - Device functioning normally per interrogation of Jul 2020. - Device interrogation 07/29/20 shows episodes of SVT and NSVT. He received a shock on 07/14/20 for what appears to be SVT/A Fl at approx 200 bpm, has had antitach pacing for some other episodes Pulmonary edema and large R pleural effusion in late Apr 2016, status post Pleurx catheter placement by Dr Jackson, removed late Jul 2016 Restrictive lung disease managed by Dr Dennis Chronic systolic congestive heart failure, clinically compensated Chronically low bp. D/t hypotension has not been able to tolerate BB, COURTNEY (-) or ARB History of nonsustained ventricular tachycardia, controlled after initiation of therapy with amiodarone (currently on 400 mg daily) Paroxysmal atrial tachycardia as documented on device interrogation of Chronic renal insufficiency. CKD stage 2-3 Obs sleep apnea for which he follows with Dr Dennis Plan: Unstable condition. Prognosis guarded/poor Continue current regimen Monitor lab closely Replace electrolytes as indicated NAOMIE WATERS MD FACP FACC CCDS Nov 05, 2020 16:25
[2020-11-05] MEDS: APAP 325 MG/10.15 ML LIQ (TYLENOL) UDC PO PRN (17:40)
[2020-11-06] VITALS (30 sets, daily range): BP systolic 93–116; BP diastolic 53–76
[2020-11-06] MEDS: RT-ALBUTEROL/IPRATROPIUM 3 ML (DUONEB) VIAL INH SCH ×6 (02:02→22:54)
[2020-11-06] MEDS: VASOPRESSIN INJECTION 20 UNIT in NS (IVPB) 100 ML IV SCH ×2 (03:15→12:03)
[2020-11-06 03:17] LABS: BASOPHILS % (AUTO) 0 % (0-10); EOSINOPHILS # (AUTO) 0.4 10^3/uL (0.0-0.3); EOSINOPHILS % (AUTO) 5 % (0-10); HEMATOCRIT 35 % (40-54); LYMPHOCYTES # (AUTO) 0.6 10^3/uL (1.0-4.0); LYMPHOCYTES % (AUTO) 7 % (12-44); MEAN CORPUSCULAR HEMOGLOBIN 29 pg (25-34); MEAN CORPUSCULAR HGB CONC 31 g/dL (32-36); MEAN CORPUSCULAR VOLUME 94 fL (80-99); MEAN PLATELET VOLUME 11.1 fL (9.0-12.2); MONOCYTES # (AUTO) 0.2 10^3/uL (0.0-1.0); MONOCYTES % (AUTO) 3 % (0-12); NEUTROPHILS # (AUTO) 6.3 10^3/uL (1.8-7.8); NEUTROPHILS % (AUTO) 84 % (42-75); PLATELET COUNT 217 10^3/uL (130-400); WHITE BLOOD COUNT 7.5 10^3/uL (4.3-11.0)
[2020-11-06 03:18] LABS: ABG BASE EXCESS 6.9 MMOL/L (-2.5-2.5); ABG OXYGEN SATURATION 98 % (94-100); ABG PCO2 57 MMHG (35-45); ABG PH 7.37 (7.37-7.43); ABG PO2 97 MMHG (79-93); ABG TCO2 33.8 MMOL/L (21.0-31.0)
[2020-11-06 03:23] LABS: ALLENS TEST ART LINE; INSPIRED O2 50%; PATIENT TEMP 37.3; VENTILATOR YES
[2020-11-06 03:35] LABS: CHLORIDE 102 MMOL/L (98-107); POTASSIUM 4.5 MMOL/L (3.6-5.0); SODIUM 140 MMOL/L (135-145)
[2020-11-06 03:36] LABS: CALCIUM 7.9 MG/DL (8.5-10.1)
[2020-11-06 03:37] LABS: GLUCOSE 109 MG/DL (70-105); TRIGLYCERIDES 109 MG/DL (<150)
[2020-11-06 03:38] LABS: CARBON DIOXIDE 28 MMOL/L (21-32)
[2020-11-06 03:40] LABS: PHOSPHORUS 2.7 MG/DL (2.3-4.7)
[2020-11-06 03:41] LABS: BUN/CREATININE RATIO 16; CREATININE SERUM 0.85 MG/DL (0.60-1.30); GFR ESTIMATED > 60
[2020-11-06 03:43] LABS: MAGNESIUM 2.2 MG/DL (1.6-2.4)
[2020-11-06] MEDS: NOREPINEPHRINE 4 MG/250 ML 250 ML IV SCH ×3 (03:43→14:34)
[2020-11-06] MEDS: POTASSIUM CL 10MEQ/50ML IVPB 50 ML IV SCH (03:57)
[2020-11-06] MEDS: KCL 20 MEQ TAB (K-DUR) PO SCH (03:57)
[2020-11-06] MEDS: MAGNESIUM 1 GM/100 ML IVPB 100 ML IV SCH (03:57)
--- NOTE | 2020-11-06 04:26 | Pulmonary Progress Note ---
Subjective Time Seen by a Provider: 04:22 Subjective/Events-last exam Sedated on vent. Sepsis Event Evaluation Height, Weight, BMI Height: 5'7.00" Weight: 219lbs. 6.0oz. 99.566640tz; 38.33 BMI Method:Stated Exam Exam Vital Signs Date Time Temp Pulse Resp B/P (MAP) Pulse Ox O2 Delivery O2 Flow Rate FiO2 11/06/20 03:43 106/59 11/06/20 02:16 Mechanical Ventilator 50.00 11/06/20 02:02 78 24 97 60 11/05/20 23:20 96/58 11/05/20 23:00 37.8 109 24 109/63 (78) 94 Mechanical Ventilator 60.00 11/05/20 22:19 93 24 93 60 11/05/20 22:00 38 101 24 102/63 (76) 93 Mechanical Ventilator 60.00 11/05/20 21:34 106/81 11/05/20 21:30 Mechanical Ventilator 60.00 11/05/20 21:00 38.2 100 24 104/60 (75) 94 Mechanical Ventilator 70.00 11/05/20 20:15 Mechanical Ventilator 70 11/05/20 20:00 38.5 108 24 101/61 (74) 93 Mechanical Ventilator 70.00 11/05/20 19:36 38.6 105 24 106/61 (76) 95 Mechanical Ventilator 70.00 11/05/20 19:00 38.7 105 24 101/61 (74) 95 Mechanical Ventilator 80.00 11/05/20 19:00 105 11/05/20 18:48 110 99/60 11/05/20 18:00 38.8 110 24 99/60 (73) 93 Mechanical Ventilator 80.00 11/05/20 17:56 118 24 93 80 11/05/20 17:40 38.8 11/05/20 17:35 Mechanical Ventilator 80.00 11/05/20 17:20 117 94/61 11/05/20 17:00 36.9 117 24 94/61 (72) 96 Mechanical Ventilator 90.00 11/05/20 16:00 36.9 117 24 101/61 (74) 95 Mechanical Ventilator 90.00 11/05/20 15:38 Mechanical Ventilator 90.00 11/05/20 15:26 Mechanical Ventilator 11/05/20 15:00 36.9 111 24 103/64 (77) 95 Mechanical Ventilator 100.00 11/05/20 14:47 112 102/65 11/05/20 14:40 Mechanical Ventilator 95.00 11/05/20 14:34 112 24 94 100 11/05/20 14:00 36.8 111 24 108/66 (80) 96 Mechanical Ventilator 100.00 11/05/20 13:00 36.6 118 24 109/67 (81) 94 Mechanical Ventilator 100.00 11/05/20 12:57 110 11/05/20 12:00 36.5 112 23 115/67 (83) 92 Mechanical Ventilator 100.00 11/05/20 11:13 90 106/50 11/05/20 11:06 90 106/50 11/05/20 11:00 36.3 114 24 106/68 (81) 90 Mechanical Ventilator 100.00 11/05/20 10:57 Mechanical Ventilator 100.00 11/05/20 10:00 37.6 90 24 106/50 (68) 95 Mechanical Ventilator 70.00 11/05/20 10:00 106 24 92 70 11/05/20 09:40 70.00 11/05/20 09:31 103 99/51 11/05/20 09:00 37.5 90 24 113/56 (75) 97 Mechanical Ventilator 80.00 11/05/20 08:09 80.00 11/05/20 08:05 94 Mechanical Ventilator 70 11/05/20 08:00 37.5 100 23 107/55 (72) 90 Mechanical Ventilator 50.00 11/05/20 07:50 103 99/51 11/05/20 07:00 37.3 107 56 107/56 (73) 96 Mechanical Ventilator 50.00 11/05/20 06:51 103 24 91 55 11/05/20 06:20 84 11/05/20 06:04 Mechanical Ventilator 50.00 11/05/20 06:00 37.2 89 24 98/51 (67) 96 Mechanical Ventilator 60.00 11/05/20 05:00 37.1 90 24 105/54 (71) 92 Mechanical Ventilator 60.00 I & O 11/06/20 07:00 Intake Total 1660 ml Output Total 955 ml Balance 705 ml Height & Weight Height: 5'7.00" Weight: 219lbs. 6.0oz. 99.919763yk; 38.33 BMI Method:Stated General Appearance: No Apparent Distress, Chronically ill, Other (intubated) HEENT: Normal ENT Inspection Neck: Limited Range of Motion Respiratory: No Accessory Muscle Use, No Respiratory Distress, Decreased Breath Sounds Cardiovascular: Regular Rate, Rhythm Capillary Refill: Less Than 3 Seconds Gastrointestinal: non tender, soft Extremity: Pedal Edema, Swelling Neurologic/Psychiatric: Other Skin: Warm/Dry Lymphatic: No Adenopathy Results Lab Laboratory Tests 11/05/20 03:05 11/06/20 03:05 Assessment/Plan Assessment/Plan Acute on chronic respiratory failure -Ventilator 55% -Increase PEEP to 12 -Fentanyl 100, propofol 20 -ABG reviewed -Permissive hypercapnea -S/p intubation 10/31 -Restart PRoning s/p VTach -- AICD converted pt to paced -Continue Ammio gtt -Consult cardiology PNA Avina cultures pending -s/p Vanco and Cefepime -Cefepime auto d/c'd yesterday. Restart Cefepime and recheck PCT. Hypotension - since intubation -LR at 20 -Levophed -Start Solucortef. -Give 25gms of Albumin x 1 HX of COVID 19 CHFAE AFib CKD NICM with dual implanted JAYESH POOLE DO Nov 06, 2020 04:26
[2020-11-06] MEDS ORDERED: ALBUMIN 25% 25 GM/100 ML 100 ML IV ONE (04:30)
[2020-11-06] MEDS: CEFEPIME INJECTION 1,000 MG in WATER (STERILE) FOR INJECTION 10 ML IV SCH ×3 (05:05→17:11)
[2020-11-06] MEDS: PROPOFOL DRIP (ICU) 100 ML IV SCH ×3 (05:05→17:23)
[2020-11-06] MEDS: METOCLOPRAMIDE INJ 10 MG/2 ML (REGLAN) IVP SCH ×3 (05:05→17:11)
[2020-11-06] MEDS: inSUlin ASPART (NovoLOG) 1 UNIT/0.01 ML (CHARGE PER UNIT) SC SCH ×3 (05:05→17:11)
[2020-11-06] MEDS: HYDROCORTISONE 100 MG/2 ML (Solu-CORTEF) VIAL IV SCH ×3 (05:05→22:25)
[2020-11-06] MEDS: fentaNYL DRIP PRE-MIX 250 ML IV SCH ×3 (05:05→21:07)
[2020-11-06] MEDS: LEVOTHYROXINE 25 MCG (LEVOTHROID) TAB PO SCH (05:06)
[2020-11-06] MEDS: APAP 325 MG/10.15 ML LIQ (TYLENOL) UDC PO PRN (05:43)
--- NOTE | 2020-11-06 07:57 | Diagnostic Imaging Report ---
INDICATION: Shortness of breath Portable chest 1:05 AM There is ET tube projects over the trachea. NG tube enters the stomach. There is a dual-chamber pacemaker with an ICD. Right upper extremity PICC line tip projects over the SVC. There are dense alveolar infiltrates in both lungs. These appear slightly worse compared to the previous day. There are no effusions or pneumothoraces. IMPRESSION: Severe diffuse pulmonary infiltrates. Overall appearance appears slightly worse compared to the previous day. Dictated by: Dictated on workstation # [id number]
[2020-11-06] MEDS: ARTIFICIAL TEARS OINT (LACRI-LUBE) 3.5 GM TUBE OU SCH ×3 (08:03→21:16)
[2020-11-06] MEDS: ENOXAPARIN 40 MG/0.4 ML (LOVENOX) SYR SQ SCH ×2 (08:03→22:25)
[2020-11-06] MEDS: PANTOPRAZOLE 40 MG (PROTONIX) VIAL IV SCH (08:03)
[2020-11-06] MEDS: DIGOXIN 0.125 MG (LANOXIN) TAB PO SCH (08:03)
[2020-11-06] MEDS: AMIODARONE 200 MG (CORDARONE) TAB PO SCH ×2 (08:03→21:07)
[2020-11-06] MEDS: DOCUSATE SODIUM 10 MG/ML 10 ML UDC (COLACE) PO SCH ×2 (08:03→21:07)
[2020-11-06] MEDS: LACTATED RINGERS 1,000 ML IV SCH (08:03)
[2020-11-06] MEDS: ASPIRIN 81 MG CHEW (CHILDREN'S ASA) PO SCH (08:03)
--- NOTE | 2020-11-06 09:08 | Physical Therapy Progress Note ---
Therapy Progress Note Non skilled PROM B U/LE in available planes. NOHEMI JOHNSON PT Nov 06, 2020 09:08
--- NOTE | 2020-11-06 10:24 | Progress Note - Cardiology ---
Cardiology SOAP Progress Note Subjective: Remains intubated and sedated Objective: I&O/Vital Signs 11/06/20 11/06/20 11/06/20 11/06/20 21:56 22:00 22:54 23:00 Temp 36.6 35.7 Pulse 93 91 98 Resp B/P (MAP) 103/66 (78) 106/76 (86) Pulse Ox 95 94 93 94 O2 Delivery Mechanical Ventilator Mechanical Ventilator Mechanical Ventilator O2 Flow Rate 55.00 55.00 FiO2 55 50 11/07/20 11/07/20 11/07/20 11/07/20 00:00 00:15 01:00 01:00 Temp 35.4 37.7 Pulse 93 85 100 99 B/P (MAP) 110/63 (79) 106/60 114/67 (83) Pulse Ox 93 92 O2 Delivery Mechanical Ventilator Mechanical Ventilator O2 Flow Rate 55.00 55.00 11/07/20 11/07/20 11/07/20 11/07/20 01:20 02:00 02:13 03:00 Temp 38.2 38.4 Pulse 110 90 102 105 Resp B/P (MAP) 127/73 (91) 84/53 137/78 (97) Pulse Ox 94 94 O2 Delivery Mechanical Ventilator Mechanical Ventilator O2 Flow Rate 55.00 55.00 FiO2 50 11/07/20 11/07/20 11/07/20 11/07/20 04:00 04:48 05:00 05:18 Temp 38.4 38.4 38.4 38.5 Pulse 98 105 B/P (MAP) 121/68 (85) 123/67 (85) Pulse Ox 90 90 O2 Delivery Mechanical Ventilator Mechanical Ventilator O2 Flow Rate 55.00 55.00 11/07/20 11/07/20 11/07/20 11/07/20 06:00 07:00 07:01 07:13 Temp 38.6 38.7 Pulse 112 114 112 106 B/P (MAP) 120/61 (80) 138/73 (94) Pulse Ox 91 93 92 O2 Delivery Mechanical Ventilator Mechanical Ventilator O2 Flow Rate 55.00 55.00 FiO2 50 11/07/20 11/07/20 11/07/20 07:21 07:25 09:37 Pulse 106 B/P (MAP) 136/72 O2 Delivery Mechanical Ventilator Mechanical Ventilator O2 Flow Rate 50.00 FiO2 50 11/07/20 00:00 Intake Total 1102 ml Output Total 575 ml Balance 527 ml Weight (Pounds): 219 Weight (Ounces): 6.0 Weight (Calculated Kilograms): 99.171531 Constitutional: appears stated age, well-developed, well-nourished Respiratory: other (intubated/ventilated; fair air entry) Cardiovascular: irregularly irregular Gastrointestional: soft, audible bowel sounds Extremities: swelling (mild bilat LE swelling) Neurologic/Psychiatric: other (unable to cooperate with neuro exam d/t sedation) Skin: No rash on exposed areas, No ulcerations on exposed areas Results/Procedures: Labs Laboratory Tests 11/06/20 11:29: Glucometer 162H 11/06/20 17:10: Glucometer 128H 11/07/20 00:04: Glucometer 130H 11/07/20 03:10: White Blood Count 7.4, Red Blood Count 3.61L, Hemoglobin 10.6L, Hematocrit 34L, Mean Corpuscular Volume 93, Mean Corpuscular Hemoglobin 29, Mean Corpuscular Hemoglobin Concent 32, Red Cell Distribution Width 13.4, Platelet Count 253, Mean Platelet Volume 11.0, Immature Granulocyte % (Auto) 1, Neutrophils (%) (Auto) 89H, Lymphocytes (%) (Auto) 6L, Monocytes (%) (Auto) 3, Eosinophils (%) (Auto) 0, Basophils (%) (Auto) 0, Neutrophils # (Auto) 6.6, Lymphocytes # (Auto) 0.5L, Monocytes # (Auto) 0.3, Eosinophils # (Auto) 0.0, Basophils # (Auto) 0.0, Immature Granulocyte # (Auto) 0.1, Neutrophils % (Manual) 88, Lymphocytes % (Manual) 8, Monocytes % (Manual) 3, Eosinophils % (Manual) 1, Blood Morphology Comment NORMAL, Blood Gas Puncture Site RT RAD, Blood Gas Patient Temperature 38.2, Arterial Blood pH 7.36L, Arterial Blood Partial Pressure CO2 57H, Arterial Blood Partial Pressure O2 105H, Arterial Blood HCO3 31H, Arterial Blood Total CO2 32.1H, Arterial Blood Oxygen Saturation 96, Arterial Blood Base Excess 5.5H, James Test POS, Blood Gas Ventilator Setting YES, Blood Gas Inspired Oxygen 50%, Sodium Level 136, Potassium Level 5.5H, Chloride Level 100, Carbon Dioxide Level 25, Anion Gap 11, Blood Urea Nitrogen 25H, Creatinine 1.08, Estimat Glomerular Filtration Rate > 60, BUN/Creatinine Ratio 23, Glucose Level 156H, Calcium Level 8.1L, Phosphorus Level 2.8, Magnesium Level 2.5H Microbiology 10/31/20 Gram Stain - Final, Complete 10/31/20 Sputum Culture - Final, Complete No growth 10/30/20 Blood Culture - Final, Complete No growth Procedures NAME: LYN MORENO [facility] REC#: [id number] PT STATUS: ADM IN : 1955 PHYSICIAN: ODELL GARCIA MD ADMIT DATE: 10/30/20/ICU Signed Date of Exam:11/06/20 CHEST 1 VIEW, AP/PA ONLY INDICATION: Shortness of breath Portable chest 1:05 AM There is ET tube projects over the trachea. NG tube enters the stomach. There is a dual-chamber pacemaker with an ICD. Right upper extremity PICC line tip projects over the SVC. There are dense alveolar infiltrates in both lungs. These appear slightly worse compared to the previous day. There are no effusions or pneumothoraces. IMPRESSION: Severe diffuse pulmonary infiltrates. Overall appearance appears slightly worse compared to the previous day. Dictated by: Dictated on workstation # [id number] Dict: 11/06/20 0748 Trans: 11/06/20 0823 [facility] [id number] Interpreted by: ENEIDA FRANCO MD Electronically signed by: ENEIDA FRANCO MD 11/06/20 0823 A/P: Assessment: Respiratory failure requiring intubation Hospitalization with COVID and influenza in late September 2020 Episode of a-fib with RVR - treated with IV Cardizem Nonischemic cardiomyopathy - ejection fraction 10% per echo of 05-23-[address] Lopez. - Last echo of 08/12/20 showed LVEF 30-35%. Mod diffuse hypokinesis. Severely dilated LA. Mod MR, Mild AI. RVSP 20 mmHg Status post single-chamber pacemaker defibrillator implantation in August 2010. - Device upgrade February 14, 2015 to a dual chamber device (RA, RV lead) per Dr. Page on 02-14-2015. - Device functioning normally per interrogation of Jul 2020. - Device interrogation 07/29/20 shows episodes of SVT and NSVT. He received a shock on 07/14/20 for what appears to be SVT/A Fl at approx 200 bpm, has had antitach pacing for some other episodes Pulmonary edema and large R pleural effusion in late Apr 2016, status post Pleurx catheter placement by Dr Jackson, removed late Jul 2016 Restrictive lung disease managed by Dr Dennis Chronic systolic congestive heart failure, clinically compensated Chronically low bp. D/t hypotension has not been able to tolerate BB, COURTNEY (-) or ARB History of nonsustained ventricular tachycardia, controlled after initiation of therapy with amiodarone (currently on 400 mg daily) Paroxysmal atrial tachycardia as documented on device interrogation of Chronic renal insufficiency. CKD stage 2-3 Obs sleep apnea for which he follows with Dr Dennis Plan: Unstable condition. Prognosis guarded/poor Continue current regimen Monitor lab closely Replace electrolytes as indicated MAIDA RILEY Nov 06, 2020 10:24
--- NOTE | 2020-11-06 10:55 | Physician Query Clarification ---
"Physician Query-General Query to Physician: The medical record reflects the following clinical scenario: History/Risk factors: Recent OR procedure, Recent Hospitalization for COVID Clinical Findings:Admission VS/LABS HR 95, RR 48, Temp 37.7, Sp02 62% on RA, BP 132/49 -> 86/62 after fluid boluses, PCT 0.35 Treatment: ER: 2L NS bolus, Norepi, Cefepime and Vanco IV, (list no more than 2) Question: Do you agree with the impression of Sepsis per Dr. Yossi Davis and Septic Shock per Dr. Connie Edge? If you agree, please document in Progress Notes or Discharge Summary. 1. Yes; will document Sepsis with septic shock likely due to pneumonia present on admission in the Progress Notes 2. No; will continue to document Pneumonia in the Progress Notes 3. Other; will document explanation of clinical findings 4. Clinically undetermined; no explanation for clinical findings Please remember a lack of response to the above will prompt a phone page by CDI/coding staff. In responding to this query, please exercise your independent professional judgment. The purpose of this communication is to more accurately reflect the complexity of your patients condition. The fact that a question is asked does not imply that any particular answer is desired or expected. Thank you for timely response to this clarification. Asia Rome, MSN, RN RN Specialist-Clinical Doc Improvement CD -Health Info Mgmt Operations [address] [facility] t: [phone] | f: [phone] If you are unable to reach me at my extension, I may be working from home. Please contact me at [phone] PHYSICIAN RESPONSE: Based on the clinical findings in the record, please respond to the query above on this document as an addendum. Physician Response: Physician Response Agree with diagnosis of septic shock If you have questions please contact: Plan Consultant: Ext: Thank you for your time and cooperation. Clinical Cementer Helper/Plan Consultant This is a permanent part of the medical recor d ASIA ROME Nov 06, 2020 10:55 QUOC ALLISON MD Nov 14, 2020 13:24"
--- NOTE | 2020-11-06 11:16 | Progress Note - Hospitalist ---
Subjective HPI/CC On Admission Date Seen by Provider: Nov 06, 2020 Time Seen by Provider: 10:00 Subjective/Events-last exam Pt is prone currently, on the ventilator Still on Pressor therapy RN has no concerns Objective Exam Vital Signs Vital Signs Date Time Temp Pulse Resp B/P (MAP) Pulse Ox O2 Delivery O2 Flow Rate FiO2 11/07/20 05:18 38.5 11/07/20 03:00 105 30 137/78 (97) 94 Mechanical Ventilator 55.00 11/07/20 01:20 50 Capillary Refill : Less Than 3 Seconds General Appearance: No Apparent Distress, Chronically ill, Other (sedated) Respiratory: Crackles, Decreased Breath Sounds, Wheezing Cardiovascular: Regular Rate, Rhythm Results/Procedures Lab Laboratory Tests 11/07/20 03:10 Patient resulted labs reviewed. Imaging: Reviewed Imaging Report Assessment/Plan Assessment and Plan Assess & Plan/Chief Complaint Assessment: VDRF Previous COVID-19 Severe chronic debility Cardiomyopathy EF 10% PLan: Vent management Monitor closely Prognosis poor 11/05/20: Vent management Prognosis poor 11/06/20: Vent management Prognosis poor Critical Care Critically Ill Patient DOM SMITH DO Nov 06, 2020 11:16
--- NOTE | 2020-11-06 13:48 | Progress Note - Cardiology ---
Cardiology SOAP Progress Note Subjective: Intubated and on [facility] vent Not able to provide any history Objective: I&O/Vital Signs 11/06/20 11/06/20 11/06/20 11/06/20 02:00 02:02 02:16 03:00 Temp 37.4 37.3 Pulse 78 83 Resp 24 24 24 B/P (MAP) 106/58 (74) 105/59 (74) Pulse Ox 97 97 94 O2 Delivery Mechanical Ventilator Mechanical Ventilator Mechanical Ventilator O2 Flow Rate 60.00 50.00 50.00 FiO2 60 11/06/20 11/06/20 11/06/20 11/06/20 03:43 04:00 05:00 05:05 Temp 37.4 37.5 Pulse 78 85 Resp 24 24 B/P (MAP) 106/59 100/58 (72) 101/58 (72) 85/51 Pulse Ox 94 95 O2 Delivery Mechanical Ventilator Mechanical Ventilator O2 Flow Rate 50.00 50.00 11/06/20 11/06/20 11/06/20 11/06/20 05:36 06:00 06:38 07:00 Temp 37.5 37.7 Pulse 88 78 92 Resp 24 24 B/P (MAP) 98/55 (69) 103/56 (72) Pulse Ox 93 93 O2 Delivery Mechanical Ventilator Mechanical Ventilator Mechanical Ventilator O2 Flow Rate 45.00 45.00 45.00 11/06/20 11/06/20 11/06/20 11/06/20 07:06 08:00 08:00 08:24 Temp 37.9 Pulse 85 94 85 Resp 24 24 B/P (MAP) 108/61 (77) 102/54 Pulse Ox 93 94 O2 Delivery Mechanical Ventilator Mechanical Ventilator O2 Flow Rate 45.00 45.00 FiO2 45 11/06/20 11/06/20 11/06/20 11/06/20 08:46 09:00 09:59 10:00 Temp 37.9 37.8 Pulse 104 115 108 Resp 60 24 24 B/P (MAP) 104/60 (75) 111/65 (80) Pulse Ox 71 88 83 O2 Delivery Mechanical Ventilator Mechanical Ventilator Mechanical Ventilator O2 Flow Rate 45.00 45.00 FiO2 45 45 11/06/20 11/06/20 11/06/20 11/06/20 11:00 11:15 11:20 12:00 Temp 37.8 37.7 Pulse 107 107 108 Resp 24 24 B/P (MAP) 110/68 (82) 110/68 108/64 (79) Pulse Ox 92 95 O2 Delivery Mechanical Ventilator Mechanical Ventilator Mechanical Ventilator O2 Flow Rate 45.00 55.00 45.00 11/06/20 11/06/20 12:52 13:00 Temp 37.7 Pulse 103 110 Resp 24 B/P (MAP) 93/58 (70) Pulse Ox 94 O2 Delivery Mechanical Ventilator O2 Flow Rate 45.00 11/06/20 00:00 Intake Total 920 ml Output Total 535 ml Balance 385 ml Weight (Pounds): 219 Weight (Ounces): 6.0 Weight (Calculated Kilograms): 99.157708 Constitutional: appears stated age, well-developed, well-nourished Respiratory: other (intubated/ventilated; fair air entry) Cardiovascular: irregularly irregular Gastrointestional: soft, audible bowel sounds Extremities: swelling (mild bilat LE swelling) Neurologic/Psychiatric: other (unable to cooperate with neuro exam d/t sedation) Skin: No rash on exposed areas, No ulcerations on exposed areas Results/Procedures: Labs Laboratory Tests 11/05/20 17:18: Glucometer 118H 11/05/20 23:03: Glucometer 123H 11/06/20 03:05: White Blood Count 7.5, Red Blood Count 3.76L, Hemoglobin 11.0L, Hematocrit 35L, Mean Corpuscular Volume 94, Mean Corpuscular Hemoglobin 29, Mean Corpuscular Hemoglobin Concent 31L, Red Cell Distribution Width 13.8, Platelet Count 217, Mean Platelet Volume 11.1, Immature Granulocyte % (Auto) 1, Neutrophils (%) (Auto) 84H, Lymphocytes (%) (Auto) 7L, Monocytes (%) (Auto) 3, Eosinophils (%) (Auto) 5, Basophils (%) (Auto) 0, Neutrophils # (Auto) 6.3, Lymphocytes # (Auto) 0.6L, Monocytes # (Auto) 0.2, Eosinophils # (Auto) 0.4H, Basophils # (Auto) 0.0, Immature Granulocyte # (Auto) 0.1, Blood Gas Puncture Site ART LINE, Blood Gas Patient Temperature 37.3, Arterial Blood pH 7.37, Arterial Blood Partial Pressure CO2 57H, Arterial Blood Partial Pressure O2 97H, Arterial Blood HCO3 32H, Arterial Blood Total CO2 33.8H, Arterial Blood Oxygen Saturation 98, Arterial Blood Base Excess 6.9H, James Test ART LINE, Blood Gas Ventilator Setting YES, Blood Gas Inspired Oxygen 50%, Sodium Level 140, Potassium Level 4.5, Chloride Level 102, Carbon Dioxide Level 28, Anion Gap 10, Blood Urea Nitrogen 14, Creatinine 0.85, Estimat Glomerular Filtration Rate > 60, BU N/Creatinine Ratio 16, Glucose Level 109H, Calcium Level 7.9L, Phosphorus Level 2.7, Magnesium Level 2.2, B-Type Natriuretic Peptide 413.9H, Triglycerides Level 109, Procalcitonin 0.67H 11/06/20 05:17: D-Dimer 2.47H 11/06/20 11:29: Glucometer 162H Microbiology 10/31/20 Gram Stain - Final, Complete 10/31/20 Sputum Culture - Final, Complete No growth 10/30/20 Blood Culture - Final, Complete No growth Laboratory Tests 11/05/20 03:05 11/06/20 03:05 A/P: Assessment: Respiratory failure requiring intubation Hospitalization with COVID and influenza in late September 2020 Episode of a-fib with RVR - treated with IV Cardizem Nonischemic cardiomyopathy - ejection fraction 10% per echo of 05-23-[address] Lopez. - Last echo of 08/12/20 showed LVEF 30-35%. Mod diffuse hypokinesis. Severely dilated LA. Mod MR, Mild AI. RVSP 20 mmHg Status post single-chamber pacemaker defibrillator implantation in August 2010. - Device upgrade February 14, 2015 to a dual chamber device (RA, RV lead) per Dr. Page on 02-14-2015. - Device functioning normally per interrogation of Jul 2020. - Device interrogation 07/29/20 shows episodes of SVT and NSVT. He received a shock on 07/14/20 for what appears to be SVT/A Fl at approx 200 bpm, has had an titach pacing for some other episodes Pulmonary edema and large R pleural effusion in late Apr 2016, status post Pleurx catheter placement by Dr Jackson, removed late Jul 2016 Restrictive lung disease managed by Dr Dennis Chronic systolic congestive heart failure, clinically compensated Chronically low bp. D/t hypotension has not been able to tolerate BB, COURTNEY (-) or ARB History of nonsustained ventricular tachycardia, controlled after initiation of therapy with amiodarone (currently on 400 mg daily) Paroxysmal atrial tachycardia as documented on device interrogation of 8- 18 Chronic renal insufficiency. CKD stage 2-3 Obs sleep apnea for which he follows with Dr Dennis Plan: Unstable condition. Prognosis guarded/poor Continue current regimen Monitor lab closely Replace electrolytes as indicated NAOMIE WATERS MD FACP [facility] CCDS Nov 06, 2020 13:48
[2020-11-07] VITALS (30 sets, daily range): BP systolic 81–138; BP diastolic 47–78
[2020-11-07] MEDS: PROPOFOL DRIP (ICU) 100 ML IV SCH ×3 (00:15→17:08)
[2020-11-07] MEDS: VASOPRESSIN INJECTION 20 UNIT in NS (IVPB) 100 ML IV SCH ×3 (00:35→13:09)
[2020-11-07] MEDS: inSUlin ASPART (NovoLOG) 1 UNIT/0.01 ML (CHARGE PER UNIT) SC SCH ×4 (00:35→17:07)
[2020-11-07] MEDS: METOCLOPRAMIDE INJ 10 MG/2 ML (REGLAN) IVP SCH ×5 (00:40→23:40)
[2020-11-07] MEDS: CEFEPIME INJECTION 1,000 MG in WATER (STERILE) FOR INJECTION 10 ML IV SCH ×5 (00:40→23:40)
[2020-11-07] MEDS: RT-ALBUTEROL/IPRATROPIUM 3 ML (DUONEB) VIAL INH SCH ×6 (01:20→22:13)
[2020-11-07] MEDS: NOREPINEPHRINE 4 MG/250 ML 250 ML IV SCH ×3 (02:13→15:25)
--- NOTE | 2020-11-07 03:08 | Pulmonary Progress Note ---
ROSETTA LORENZO MED STUDENT 11/07/20 0308: Subjective Date Seen by a Provider: Nov 07, 2020 Time Seen by a Provider: 03:07 Subjective/Events-last exam Sedated on vent. Sepsis Event Evaluation Height, Weight, BMI Height: 5'7.00" Weight: 219lbs. 6.0oz. 99.804339ds; 38.33 BMI Method:Stated Exam Exam Vital Signs Date Time Temp Pulse Resp B/P (MAP) Pulse Ox O2 Delivery O2 Flow Rate FiO2 11/07/20 02:13 102 84/53 11/07/20 01:20 110 24 50 11/07/20 01:00 100 11/07/20 00:15 85 106/60 11/06/20 23:00 35.7 98 24 106/76 (86) 94 Mechanical Ventilator 55.00 11/06/20 22:54 91 24 93 50 11/06/20 22:00 36.6 93 24 103/66 (78) 94 Mechanical Ventilator 55.00 11/06/20 21:56 95 Mechanical Ventilator 55 11/06/20 21:00 37.0 98 24 94/73 (80) 91 Mechanical Ventilator 55.00 11/06/20 20:00 37.4 104 24 111/62 (78) 93 Mechanical Ventilator 55.00 11/06/20 19:00 105 11/06/20 19:00 37.4 105 24 114/67 (83) 96 Mechanical Ventilator 55.00 11/06/20 18:54 106 24 94 55 11/06/20 18:00 37.4 109 24 104/59 (74) 94 Mechanical Ventilator 55.00 11/06/20 17:23 107 104/60 11/06/20 17:00 37.5 107 24 104/60 (75) 94 Mechanical Ventilator 55.00 11/06/20 16:00 37.6 103 24 95/58 (70) 95 Mechanical Ventilator 55.00 11/06/20 15:00 37.7 105 24 97/59 (72) 94 Mechanical Ventilator 55.00 11/06/20 14:34 94 104/59 11/06/20 14:17 94 24 95 55 11/06/20 14:00 37.7 101 24 98/58 (71) 94 Mechanical Ventilator 55.00 11/06/20 13:00 37.7 110 24 93/58 (70) 94 Mechanical Ventilator 45.00 11/06/20 12:52 103 11/06/20 12:00 37.7 108 24 108/64 (79) 95 Mechanical Ventilator 45.00 11/06/20 11:20 107 110/68 11/06/20 11:15 Mechanical Ventilator 55.00 11/06/20 11:00 37.8 107 24 110/68 (82) 92 Mechanical Ventilator 45.00 11/06/20 10:00 37.8 108 24 111/65 (80) 83 Mechanical Ventilator 45.00 11/06/20 09:59 115 24 88 45 11/06/20 09:00 37.9 104 60 104/60 (75) 71 Mechanical Ventilator 45.00 11/06/20 08:46 Mechanical Ventilator 45 11/06/20 08:24 85 102/54 11/06/20 08:00 37.9 94 24 108/61 (77) 94 Mechanical Ventilator 45.00 11/06/20 08:00 Mechanical Ventilator 45.00 11/06/20 07:06 85 24 93 45 11/06/20 07:00 37.7 92 24 103/56 (72) 93 Mechanical Ventilator 45.00 11/06/20 06:38 78 11/06/20 06:00 37.5 88 24 98/55 (69) 93 Mechanical Ventilator 45.00 11/06/20 05:36 Mechanical Ventilator 45.00 11/06/20 05:05 85/51 11/06/20 05:00 37.5 85 24 101/58 (72) 95 Mechanical Ventilator 50.00 11/06/20 04:00 37.4 78 24 100/58 (72) 94 Mechanical Ventilator 50.00 11/06/20 03:43 106/59 I & O 11/07/20 07:00 Intake Total 2782 ml Output Total 725 ml Balance 2057 ml Height & Weight Height: 5'7.00" Weight: 219lbs. 6.0oz. 99.716517iz; 38.33 BMI Method:Stated General Appearance: No Apparent Distress, Chronically ill, Other (sedated) HEENT: Normal ENT Inspection Neck: Limited Range of Motion Respiratory: Lungs Clear, Normal Breath Sounds Cardiovascular: Regular Rate, Rhythm Capillary Refill: Less Than 3 Seconds Gastrointestinal: non tender, soft Extremity: Pedal Edema Neurologic/Psychiatric: Other (sedated) Skin: Warm/Dry Lymphatic: No Adenopathy Results Lab Laboratory Tests 11/06/20 03:05 Assessment/Plan Assessment/Plan Acute on chronic respiratory failure -Ventilator 450/24/12 50% -Fentanyl 100, propofol 10 -ABG reviewed -Permissive hypercapnea -S/p intubation 2/4 -Restart Proning s/p VTach -- AICD converted pt to paced -Continue Ammio gtt -Consult cardiology PNA Avina cultures pending -s/p Vanco and Cefepime -Cefepime auto d/c'd yesterday. Restart Cefepime and recheck PCT. Hypotension - since intubation -LR at 20 -Levophed -Start Solucortef. -Give 25gms of Albumin x 1 Hyperkalemia -Lasix HX of COVID 19 [facility] AFib CKD NICM with dual implanted JAYESH POOLE DO 11/07/20 0417: Assessment/Plan Assessment/Plan Acute on chronic respiratory failure -Ventilator 450/24/12 50% -Fentanyl 100, propofol 10 -ABG reviewed -Permissive hypercapnea -S/p intubation 2/4 -Restart Proning s/p VTach -- AICD converted pt to paced -Continue Ammio gtt -Consult cardiology PNA Avina cultures pending -s/p Vanco and Cefepime -Cefepime auto d/c'd yesterday. Restart Cefepime and recheck PCT. Hypotension - since intubation -LR at 20 -Levophed -Solucortef. -Give 25gms of Albumin x 1 Hyperkalemia -Lasix HX of COVID 19 CHFAE AFib CKD NICM with dual implanted Supervisory-Addendum Brief Verification & Attestation Participated in pt care: history, MDM, physical Personally performed: exam, MDM Care discussed with: Medical Student Procedures: n/a Results interpretation: Verified all documentation Verification and Attestation of Medical Student E/M Service A medical student performed and documented this service in my presence. I reviewed and verified all information documented by the medical student and made modifications to such information, when appropriate. I personally performed the physical exam and medical decision making. Jayesh Poole, Nov 18, 2020,16:53 ROSETTA LORENZO MED STUDENT Nov 07, 2020 03:08 JAYESH POOLE DO Nov 07, 2020 04:17
[2020-11-07 03:25] LABS: BASOPHILS % (AUTO) 0 % (0-10); EOSINOPHILS % (AUTO) 0 % (0-10); HEMATOCRIT 34 % (40-54); HEMOGLOBIN 10.6 g/dL (13.3-17.7); LYMPHOCYTES # (AUTO) 0.5 10^3/uL (1.0-4.0); LYMPHOCYTES % (AUTO) 6 % (12-44); MEAN CORPUSCULAR HEMOGLOBIN 29 pg (25-34); MEAN CORPUSCULAR HGB CONC 32 g/dL (32-36); MEAN CORPUSCULAR VOLUME 93 fL (80-99); MONOCYTES # (AUTO) 0.3 10^3/uL (0.0-1.0); MONOCYTES % (AUTO) 3 % (0-12); NEUTROPHILS # (AUTO) 6.6 10^3/uL (1.8-7.8); NEUTROPHILS % (AUTO) 89 % (42-75); PLATELET COUNT 253 10^3/uL (130-400); WHITE BLOOD COUNT 7.4 10^3/uL (4.3-11.0)
[2020-11-07 03:26] LABS: ABG BASE EXCESS 5.5 MMOL/L (-2.5-2.5); ABG OXYGEN SATURATION 96 % (94-100); ABG PCO2 57 MMHG (35-45); ABG PH 7.36 (7.37-7.43); ABG PO2 105 MMHG (79-93); ABG TCO2 32.1 MMOL/L (21.0-31.0)
[2020-11-07 03:32] LABS: ALLENS TEST POS; INSPIRED O2 50%
[2020-11-07 03:33] LABS: PATIENT TEMP 38.2; VENTILATOR YES
[2020-11-07 03:34] LABS: CHLORIDE 100 MMOL/L (98-107); POTASSIUM 5.5 MMOL/L (3.6-5.0); SODIUM 136 MMOL/L (135-145)
[2020-11-07 03:35] LABS: CALCIUM 8.1 MG/DL (8.5-10.1)
[2020-11-07 03:36] LABS: GLUCOSE 156 MG/DL (70-105)
[2020-11-07 03:37] LABS: CARBON DIOXIDE 25 MMOL/L (21-32)
[2020-11-07 03:40] LABS: CREATININE SERUM 1.08 MG/DL (0.60-1.30); GFR ESTIMATED > 60; PHOSPHORUS 2.8 MG/DL (2.3-4.7)
[2020-11-07 03:41] LABS: BUN/CREATININE RATIO 23
[2020-11-07 03:42] LABS: MAGNESIUM 2.5 MG/DL (1.6-2.4)
[2020-11-07 04:09] LABS: EOSINOPHILS % (MANUAL) 1 %; LYMPHOCYTES % (MANUAL) 8 %; MONOCYTES % (MANUAL) 3 %; NEUTROPHILS % (MANUAL) 88 %; RBC MORPH NORMAL
[2020-11-07] MEDS ORDERED: FUROSEMIDE 40 MG/4 ML INJ (LASIX) IVP ONE (04:30)
[2020-11-07] MEDS: APAP 325 MG/10.15 ML LIQ (TYLENOL) UDC PO PRN (04:48)
[2020-11-07] MEDS: fentaNYL DRIP PRE-MIX 250 ML IV SCH ×4 (04:48→23:33)
[2020-11-07] MEDS: POTASSIUM CL 10MEQ/50ML IVPB 50 ML IV SCH (05:39)
[2020-11-07] MEDS: MAGNESIUM 1 GM/100 ML IVPB 100 ML IV SCH (05:39)
[2020-11-07] MEDS: LEVOTHYROXINE 25 MCG (LEVOTHROID) TAB PO SCH (06:29)
[2020-11-07] MEDS: KCL 20 MEQ TAB (K-DUR) PO SCH (06:30)
[2020-11-07] MEDS: HYDROCORTISONE 100 MG/2 ML (Solu-CORTEF) VIAL IV SCH ×3 (06:32→21:24)
--- NOTE | 2020-11-07 08:08 | Physical Therapy Progress Note ---
Therapy Progress Note Patient remains sedated and intubated. PT will continue to monitor patient status. JONO CHÁVEZ PT Nov 07, 2020 08:08
[2020-11-07] MEDS: DIGOXIN 0.125 MG (LANOXIN) TAB PO SCH (08:19)
[2020-11-07] MEDS: AMIODARONE 200 MG (CORDARONE) TAB PO SCH ×2 (08:19→21:24)
[2020-11-07] MEDS: ASPIRIN 81 MG CHEW (CHILDREN'S ASA) PO SCH (08:19)
[2020-11-07] MEDS: ARTIFICIAL TEARS OINT (LACRI-LUBE) 3.5 GM TUBE OU SCH ×3 (08:19→21:24)
[2020-11-07] MEDS: PANTOPRAZOLE 40 MG (PROTONIX) VIAL IV SCH (08:19)
[2020-11-07] MEDS: DOCUSATE SODIUM 10 MG/ML 10 ML UDC (COLACE) PO SCH ×2 (08:19→21:24)
[2020-11-07] MEDS: ENOXAPARIN 40 MG/0.4 ML (LOVENOX) SYR SQ SCH ×2 (08:20→21:24)
[2020-11-07] MEDS: LACTATED RINGERS 1,000 ML IV SCH (08:20)
--- NOTE | 2020-11-07 08:35 | Diagnostic Imaging Report ---
Portable erect AP chest at 113 INDICATION: Respiratory distress The diffuse alveolar/interstitial pulmonary infiltrates involving both lung seen on the prior exam of 11/06/2020 are again evident and essentially no different. The right lung may be slightly better aerated. The heart is enlarged but stable. The left-sided defibrillator device seen previously is again evident and no different. The supportive tubes and lines seem stable in position. The mediastinum is not widened. The osseous structures are intact. IMPRESSION: The appearance of the chest has improved slightly as the right lung does seem somewhat better aerated. However there are still diffuse alveolar/interstitial pulmonary infiltrates bilaterally. A follow-up study would be recommended for continued evaluation. Dictated by: Dictated on workstation # [id number]
--- NOTE | 2020-11-07 09:49 | Progress Note - Cardiology ---
Cardiology SOAP Progress Note Subjective: Remains intubated and sedated Objective: I&O/Vital Signs 11/07/20 11/07/20 11/08/20 11/08/20 22:13 23:00 00:00 01:00 Temp 36.8 36.6 Pulse 75 89 93 91 Resp 24 24 B/P (MAP) 120/63 (82) 111/60 (77) Pulse Ox 96 97 96 O2 Delivery Mechanical Ventilator Mechanical Ventilator O2 Flow Rate 45.00 45.00 FiO2 45 11/08/20 11/08/20 11/08/20 11/08/20 01:00 02:00 02:18 03:00 Temp 36.6 36.7 36.6 Pulse 74 74 81 81 Resp 24 24 B/P (MAP) 107/59 (75) 99/54 (69) 103/52 (69) Pulse Ox 96 96 96 97 O2 Delivery Mechanical Ventilator Mechanical Ventilator Mechanical Ventilator O2 Flow Rate 45.00 45.00 45.00 FiO2 45 11/08/20 11/08/20 11/08/20 11/08/20 03:39 04:00 05:00 05:30 Temp 36.7 36.8 Pulse 77 85 80 Resp 24 B/P (MAP) 115/59 102/53 (69) 107/54 (71) Pulse Ox 97 97 O2 Delivery Mechanical Ventilator Mechanical Ventilator O2 Flow Rate 45.00 45.00 40.00 11/08/20 11/08/20 11/08/20 11/08/20 06:00 07:00 07:00 07:15 Temp 36.9 36.9 Pulse 96 78 82 76 Resp 24 B/P (MAP) 110/57 (74) 101/54 (70) Pulse Ox 96 93 O2 Delivery Mechanical Ventilator Mechanical Ventilator O2 Flow Rate 40.00 40.00 FiO2 45 11/08/20 11/08/20 11/08/20 11/08/20 08:00 09:00 09:00 09:45 Temp 37.0 37.1 Pulse 79 74 Resp 24 24 B/P (MAP) 97/48 (64) 104/52 (69) 79/43 Pulse Ox 92 91 92 O2 Delivery Mechanical Ventilator Mechanical Ventilator Mechanical Ventilator O2 Flow Rate 40.00 40.00 FiO2 50 11/08/20 11/08/20 09:49 09:56 Pulse 81 Resp 24 Pulse Ox 90 O2 Flow Rate 30.00 FiO2 30 11/08/20 00:00 Intake Total 1532 ml Output Total 1175 ml Balance 357 ml Weight (Pounds): 219 Weight (Ounces): 6.0 Weight (Calculated Kilograms): 99.671511 Constitutional: appears stated age, well-developed, well-nourished Respiratory: other (intubated/ventilated; fair air entry) Cardiovascular: irregularly irregular Gastrointestional: soft, audible bowel sounds Extremities: swelling (mild bilat LE swelling) Neurologic/Psychiatric: other (unable to cooperate with neuro exam d/t sedation) Skin: No rash on exposed areas, No ulcerations on exposed areas Results/Procedures: Labs Laboratory Tests 11/07/20 11:24: Glucometer 142H 11/07/20 15:55: Sodium Level 137, Potassium Level 4.8, Chloride Level 98, Carbon Dioxide Level 31, Anion Gap 8, Blood Urea Nitrogen 29H, Creatinine 1.15, Estimat Glomerular Filtration Rate > 60, BUN/Creatinine Ratio 25, Glucose Level 145H, Calcium Level 7.9L 11/07/20 17:07: Glucometer 135H 11/08/20 00:03: Glucometer 115H 11/08/20 03:20: White Blood Count 6.6, Red Blood Count 3.50L, Hemoglobin 10.3L, Hematocrit 33L, Mean Corpuscular Volume 93, Mean Corpuscular Hemoglobin 29, Mean Corpuscular Hemoglobin Concent 32, Red Cell Distribution Width 13.2, Platelet Count 301, Mean Platelet Volume 11.4, Immature Granulocyte % (Auto) 1, Neutrophils (%) (Auto) 87H, Lymphocytes (%) (Auto) 7L, Monocytes (%) (Auto) 6, Eosinophils (%) (Auto) 0, Basophils (%) (Auto) 0, Neutrophils # (Auto) 5.7, Lymphocytes # (Auto) 0.4L, Monocytes # (Auto) 0.4, Eosinophils # (Auto) 0.0, Basophils # (Auto) 0.0, Immature Granulocyte # (Auto) 0.1, Blood Gas Puncture Site RIGHT RADIAL, Blood Gas Patient Temperature 36.6, Arterial Blood pH 7.36L, Arterial Blood Partial Pressure CO2 57H, Arterial Blood Partial Pressure O2 134H, Arterial Blood HCO3 32H, Arterial Blood Total CO2 33.3H, Arterial Blood Oxygen Saturation 99, Arterial Blood Base Excess 6.2H, James Test ARTLINE, Blood Gas Ventilator Setting YES, Blood Gas Inspired Oxygen 45, Sodium Level 139, Potassium Level 4.5, Chloride Level 101, Carbon Dioxide Level 27, Anion Gap 11, Blood Urea Nitrogen 32H, Creatinine 1.04, Estimat Glomerular Filtration Rate > 60, BUN/Creatinine Ratio 31, Glucose Level 129H, Calcium Level 8.0L, Phosphorus Level 3.3, Magnesium Level 2.4, Triglycerides Level 136 Microbiology 10/31/20 Gram Stain - Final, Complete 10/31/20 Sputum Culture - Final, Complete No growth 10/30/20 Blood Culture - Final, Complete No growth Procedures NAME: LYN MORENO [facility] REC#: [id number] PT STATUS: ADM IN : 1955 PHYSICIAN: ODELL GARCIA MD ADMIT DATE: 10/30/20/ICU Draft Date of Exam:11/07/20 CHEST 1 VIEW, AP/PA ONLY Portable erect AP chest at 113 INDICATION: Respiratory distress The diffuse alveolar/interstitial pulmonary infiltrates involving both lung seen on the prior exam of 11/06/2020 are again evident and essentially no different. The right lung may be slightly better aerated. The heart is enlarged but stable. The left-sided defibrillator device seen previously is again evident and no different. The supportive tubes and lines seem stable in position. The mediastinum is not widened. The osseous structures are intact. IMPRESSION: The appearance of the chest has improved slightly as the right lung does seem somewhat better aerated. However there are still diffuse alveolar/interstitial pulmonary infiltrates bilaterally. A follow-up study would be recommended for continued evaluation. Dictated on workstation # [id number] Dict: 11/07/20 0815 Trans: 11/07/[address] [facility] [id number] Interpreted by: ANGELO DOHERTY MD Electronically signed by: A/P: Assessment: Respiratory failure requiring intubation Hospitalization with COVID and influenza in late September 2020 Episode of a-fib with RVR - treated with IV Cardizem Nonischemic cardiomyopathy - ejection fraction 10% per echo of 05-23-[address] Lopez. - Last echo of 08/12/20 showed LVEF 30-35%. Mod diffuse hypokinesis. Severely dilated LA. Mod MR, Mild AI. RVSP 20 mmHg Status post single-chamber pacemaker defibrillator implantation in August 2010. - Device upgrade February 14, 2015 to a dual chamber device (RA, RV lead) per Dr. Page on 02-14-2015. - Device functioning normally per interrogation of Jul 2020. - Device interrogation 07/29/20 shows episodes of SVT and NSVT. He received a shock on 07/14/20 for what appears to be SVT/A Fl at approx 200 bpm, has had antitach pacing for some other episodes Pulmonary edema and large R pleural effusion in late Apr 2016, status post Pleurx catheter placement by Dr Jackson, removed late Jul 2016 Restrictive lung disease managed by Dr Dennis Chronic systolic congestive heart failure, clinically compensated Chronically low bp. D/t hypotension has not been able to tolerate BB, COURTNEY (-) or ARB History of nonsustained ventricular tachycardia, controlled after initiation of therapy with amiodarone (currently on 400 mg daily) Paroxysmal atrial tachycardia as documented on device interrogation of Chronic renal insufficiency. CKD stage 2-3 Obs sleep apnea for which he follows with Dr Dennis Plan: Unstable condition. Prognosis guarded/poor Requiring increased pressor support Continue current regimen Monitor lab closely Replace electrolytes as indicated MAIDA RILEY Nov 07, 2020 09:49
--- NOTE | 2020-11-07 11:12 | Physical Therapy Progress Note ---
Therapy Progress Note Patient sedated and intubated. PT assisted with proning patient on this date. JONO CHÁVEZ PT Nov 07, 2020 11:11
--- NOTE | 2020-11-07 13:48 | Progress Note - Cardiology ---
Cardiology SOAP Progress Note Subjective: Intubated and on mech vent. Not able to communicate Objective: I&O/Vital Signs 11/07/20 11/07/20 11/07/20 11/07/20 02:00 02:13 03:00 04:00 Temp 38.2 38.4 38.4 Pulse 90 102 105 98 Resp 24 30 24 B/P (MAP) 127/73 (91) 84/53 137/78 (97) 121/68 (85) Pulse Ox 94 94 90 O2 Delivery Mechanical Ventilator Mechanical Ventilator Mechanical Ventilator O2 Flow Rate 55.00 55.00 55.00 11/07/20 11/07/20 11/07/20 11/07/20 04:48 05:00 05:18 06:00 Temp 38.4 38.4 38.5 38.6 Pulse 105 112 Resp 24 B/P (MAP) 123/67 (85) 120/61 (80) Pulse Ox 90 91 O2 Delivery Mechanical Ventilator Mechanical Ventilator O2 Flow Rate 55.00 55.00 11/07/20 11/07/20 11/07/20 11/07/20 07:00 07:01 07:13 07:21 Temp 38.7 Pulse 114 112 106 106 Resp B/P (MAP) 138/73 (94) 136/72 Pulse Ox 93 92 O2 Delivery Mechanical Ventilator O2 Flow Rate 55.00 FiO2 50 11/07/20 11/07/20 11/07/20 11/07/20 07:25 08:00 09:00 09:37 Temp 38.8 38.7 Pulse 122 112 Resp 24 B/P (MAP) 103/55 (71) 103/59 (74) Pulse Ox 92 93 O2 Delivery Mechanical Ventilator Mechanical Ventilator Mechanical Ventilator M echanical Ventilator O2 Flow Rate 50.00 50.00 50.00 FiO2 50 11/07/20 11/07/20 11/07/20 11/07/20 10:00 10:07 11:00 12:00 Temp 38.6 38.5 38.4 Pulse 105 104 112 87 Resp 24 24 24 24 B/P (MAP) 116/63 (80) 108/63 (78) 114/64 (81) Pulse Ox 95 90 94 95 O2 Delivery Mechanical Ventilator Mechanical Ventilator Mechanical Ventilator O2 Flow Rate 50.00 50.00 50.00 FiO2 50 2/11/11/07/20 11/07/20 11/07/20 12:36 12:36 12:45 13:00 Pulse 87 87 99 B/P (MAP) 114/64 114/64 O2 Delivery Mechanical Ventilator O2 Flow Rate 45.00 11/07/20 00:00 Intake Total 1102 ml Output Total 575 ml Balance 527 ml Weight (Pounds): 219 Weight (Ounces): 6.0 Weight (Calculated Kilograms): 99.375469 Constitutional: appears stated age, well-developed, well-nourished Respiratory: other (intubated/ventilated; fair air entry) Cardiovascular: irregularly irregular Gastrointestional: soft, audible bowel sounds Extremities: swelling (mild bilat LE swelling) Neurologic/Psychiatric: other (unable to cooperate with neuro exam d/t sedation) Skin: No rash on exposed areas, No ulcerations on exposed areas Results/Procedures: Labs Laboratory Tests 11/06/20 17:10: Glucometer 128H 11/07/20 00:04: Glucometer 130H 11/07/20 03:10: White Blood Count 7.4, Red Blood Count 3.61L, Hemoglobin 10.6L, Hematocrit 34L, Mean Corpuscular Volume 93, Mean Corpuscular Hemoglobin 29, Mean Corpuscular Hemoglobin Concent 32, Red Cell Distribution Width 13.4, Platelet Count 253, Mean Platelet Volume 11.0, Immature Granulocyte % (Auto) 1, Neutrophils (%) (Auto) 89H, Lymphocytes (%) (Auto) 6L, Monocytes (%) (Auto) 3, Eosinophils (%) (Auto) 0, Basophils (%) (Auto) 0, Neutrophils # (Auto) 6.6, Lymphocytes # (Auto) 0.5L, Monocytes # (Auto) 0.3, Eosinophils # (Auto) 0.0, Basophils # (Auto) 0.0, Immature Granulocyte # (Auto) 0.1, Neutrophils % (Manual) 88, Lymphocytes % (Manual) 8, Monocytes % (Manual) 3, Eosinophils % (Manual) 1, Blood Morphology Comment NORMAL, Blood Gas Puncture Site RT RAD, Blood Gas Patient Temperature 38.2, Arterial Blood pH 7.36L, Arterial Blood Partial Pressure CO2 57H, Arterial Blood Partial Pressure O2 105H, Arterial Blood HCO3 31H, Arterial Blood Total CO2 32.1H, Arterial Blood Oxygen Saturation 96, Arterial Blood Base Excess 5.5H, James Test POS, Blood Gas Ventilator Setting YES, Blood Gas Inspired Oxygen 50%, Sodium Level 136, Potassium Level 5.5H, Chloride Level 100, Carbon Dioxide Level 25, Anion Gap 11, Blood Urea Nitrogen 25H, Creatinine 1.08, Estimat Glomerular Filtration Rate > 60, BUN/Creatinine Ratio 23, Glucose Level 156H, Calcium Level 8.1L, Phosphorus Level 2.8, Magnesium Level 2.5H 11/07/20 11:24: Glucometer 142H Microbiology 10/31/20 Gram Stain - Final, Complete 10/31/20 Sputum Culture - Final, Complete No growth 10/30/20 Blood Culture - Final, Complete No growth A/P: Assessment: Respiratory failure requiring intubation Hospitalization with COVID and influenza in late September 2020 Episode of a-fib with RVR - treated with IV Cardizem Nonischemic cardiomyopathy - ejection fraction 10% per echo of 05-23-[address] Lopez. - Last echo of 08/12/20 showed LVEF 30-35%. Mod diffuse hypokinesis. Severely dilated LA. Mod MR, Mild AI. RVSP 20 mmHg Status post single-chamber pacemaker defibrillator implantation in August 2010. - Device upgrade February 14, 2015 to a dual chamber device (RA, RV lead) per Dr. Page on 02-14-2015. - Device functioning normally per interrogation of Jul 2020. - Device interrogation 07/29/20 shows episodes of SVT and NSVT. He received a shock on 07/14/20 for what appears to be SVT/A Fl at approx 200 bpm, has had antitach pacing for some other episodes Pulmonary edema and large R pleural effusion in late Apr 2016, status post Pleurx catheter placement by Dr Jackson, removed late Jul 2016 Restrictive lung disease managed by Dr Dennis Chronic systolic congestive heart failure, clinically compensated Chronically low bp. D/t hypotension has not been able to tolerate BB, COURTNEY (-) or ARB History of nonsustained ventricular tachycardia, controlled after initiation of therapy with amiodarone (currently on 400 mg daily) Paroxysmal atrial tachycardia as documented on device interrogation of Chronic renal insufficiency. CKD stage 2-3 Obs sleep apnea for which he follows with Dr Dennis Plan: Unstable condition. Prognosis guarded/poor Requiring increased pressor support Monitor labs closely and correct as needed NAOMIE WATERS MD FACP FAC CCDS Nov 07, 2020 13:48
[2020-11-07 16:16] LABS: CHLORIDE 98 MMOL/L (98-107); POTASSIUM 4.8 MMOL/L (3.6-5.0); SODIUM 137 MMOL/L (135-145)
[2020-11-07 16:17] LABS: CALCIUM 7.9 MG/DL (8.5-10.1)
[2020-11-07 16:18] LABS: GLUCOSE 145 MG/DL (70-105)
[2020-11-07 16:19] LABS: CARBON DIOXIDE 31 MMOL/L (21-32)
[2020-11-07 16:22] LABS: CREATININE SERUM 1.15 MG/DL (0.60-1.30); GFR ESTIMATED > 60
[2020-11-07 16:23] LABS: BUN/CREATININE RATIO 25
[2020-11-08] VITALS (30 sets, daily range): BP systolic 88–125; BP diastolic 42–66
[2020-11-08] MEDS: inSUlin ASPART (NovoLOG) 1 UNIT/0.01 ML (CHARGE PER UNIT) SC SCH ×4 (00:07→18:25)
[2020-11-08] MEDS: VASOPRESSIN INJECTION 20 UNIT in NS (IVPB) 100 ML IV SCH ×4 (00:10→22:53)
[2020-11-08] MEDS: RT-ALBUTEROL/IPRATROPIUM 3 ML (DUONEB) VIAL INH SCH ×6 (02:18→22:22)
--- NOTE | 2020-11-08 03:12 | Pulmonary Progress Note ---
ROSETTA LORENZO MED STUDENT 11/08/20 0312: Subjective Date Seen by a Provider: Nov 08, 2020 Time Seen by a Provider: 03:10 Subjective/Events-last exam Pt sedated on vent. Sepsis Event Evaluation Height, Weight, BMI Height: 5'7.00" Weight: 219lbs. 6.0oz. 99.016551dw; 38.33 BMI Method:Stated Exam Exam Vital Signs Date Time Temp Pulse Resp B/P (MAP) Pulse Ox O2 Delivery O2 Flow Rate FiO2 11/08/20 02:18 81 24 96 45 11/08/20 01:00 91 11/08/20 00:00 36.6 93 24 111/60 (77) 96 Mechanical Ventilator 45.00 11/07/20 23:00 36.8 89 24 120/63 (82) 97 Mechanical Ventilator 45.00 11/07/20 22:13 75 24 96 45 11/07/20 22:00 36.9 99 24 111/59 (76) 96 Mechanical Ventilator 45.00 11/07/20 21:35 92 Mechanical Ventilator 50 11/07/20 21:00 37.0 78 24 108/58 (75) 96 Mechanical Ventilator 45.00 11/07/20 20:00 37.2 80 24 109/59 (76) 96 Mechanical Ventilator 45.00 11/07/20 19:00 80 11/07/20 19:00 37.4 88 24 106/58 (74) 96 Mechanical Ventilator 45.00 11/07/20 18:53 83 24 96 45 11/07/20 18:00 37.6 90 24 102/55 (71) 96 Mechanical Ventilator 45.00 11/07/20 17:08 90 107/62 11/07/20 17:08 90 107/62 11/07/20 17:00 37.8 86 24 108/61 (77) 95 Mechanical Ventilator 45.00 11/07/20 16:00 37.8 96 36 81/47 (58) 94 Mechanical Ventilator 45.00 11/07/20 15:25 90 107/62 11/07/20 15:00 37.9 95 24 102/60 (74) 95 Mechanical Ventilator 45.00 11/07/20 14:40 90 24 95 50 11/07/20 14:00 38.1 92 24 105/58 (74) 94 Mechanical Ventilator 45.00 11/07/20 13:00 99 11/07/20 13:00 38.3 92 24 98/57 (71) 94 Mechanical Ventilator 45.00 11/07/20 12:45 Mechanical Ventilator 45.00 11/07/20 12:36 87 114/64 11/07/20 12:36 87 114/64 11/07/20 12:00 38.4 87 24 114/64 (81) 95 Mechanical Ventilator 50.00 11/07/20 11:00 38.5 112 24 108/63 (78) 94 Mechanical Ventilator 50.00 11/07/20 10:07 104 24 90 50 11/07/20 10:00 38.6 105 24 116/63 (80) 95 Mechanical Ventilator 50.00 11/07/20 09:37 Mechanical Ventilator 50 11/07/20 09:00 38.7 112 24 103/59 (74) 93 Mechanical Ventilator 50.00 11/07/20 08:00 38.8 122 24 103/55 (71) 92 Mechanical Ventilator 50.00 11/07/20 07:25 Mechanical Ventilator 50.00 11/07/20 07:21 106 136/72 11/07/20 07:13 106 24 92 50 11/07/20 07:01 112 11/07/20 07:00 38.7 114 21 138/73 (94) 93 Mechanical Ventilator 55.00 11/07/20 06:00 38.6 112 24 120/61 (80) 91 Mechanical Ventilator 55.00 11/07/20 05:18 38.5 11/07/20 05:00 38.4 105 24 123/67 (85) 90 Mechanical Ventilator 55.00 11/07/20 04:48 38.4 11/07/20 04:00 38.4 98 24 121/68 (85) 90 Mechanical Ventilator 55.00 I & O 11/08/20 07:00 Intake Total 2230 ml Output Total 1400 ml Balance 830 ml Height & Weight Height: 5'7.00" Weight: 219lbs. 6.0oz. 99.166131vs; 38.33 BMI Method:Stated General Appearance: No Apparent Distress, Chronically ill, Other (sedated) HEENT: Normal ENT Inspection Neck: Limited Range of Motion Respiratory: Crackles, Decreased Breath Sounds, Wheezing Cardiovascular: Regular Rate, Rhythm Capillary Refill: Less Than 3 Seconds Gastrointestinal: non tender, soft Extremity: Pedal Edema Neurologic/Psychiatric: Other (sedated) Skin: Warm/Dry Lymphatic: No Adenopathy Results Lab Laboratory Tests 11/07/20 03:10 11/07/20 15:55 Assessment/Plan Assessment/Plan Acute on chronic respiratory failure -Ventilator 450/24/12 45% -Fentanyl 100, propofol 20 -ABG reviewed -Permissive hypercapnea -S/p intubation 2/4 -Restart Proning s/p VTach -- AICD converted pt to paced -Continue Ammio gtt -Consult cardiology PNA Avina cultures pending -s/p Vanco and Cefepime -Cefepime auto d/c'd yesterday. Restart Cefepime and recheck PCT. Hypotension - since intubation -LR at 20 -Levophed -Solucortef. -Give 25gms of Albumin x 1 HX of COVID 19 CHFAE AFib CKD NICM with dual implanted JAYESH POOLE DO 11/08/20 0407: Assessment/Plan Assessment/Plan Acute on chronic respiratory failure -Ventilator 450/24/12 45% -Decrease PEEP to 10 -Fentanyl 100, propofol 20 -ABG reviewed -Permissive hypercapnea -S/p intubation 2/4 -Hold Proning s/p VTach -- AICD converted pt to paced -Continue Ammio gtt -Consult cardiology PNA Avina cultures pending -s/p Vanco and Cefepime -Cefepime auto d/c'd yesterday. Restart Cefepime and recheck PCT. Hypotension - since intubation -LR at 20 -Levophed -Solucortef. -Give 25gms of Albumin x 1 HX of COVID 19 CHFAE AFib CKD NICM with dual implanted Supervisory-Addendum Brief Verification & Attestation Participated in pt care: history, MDM, physical Personally performed: exam, history, MDM, supervision of care Care discussed with: Medical Student Procedures: n/a Verification and Attestation of Medical Student E/M Service A medical student performed and documented this service in my presence. I reviewed and verified all information documented by the medical student and made modifications to such information, when appropriate. I personally performed the physical exam and medical decision making. Jayesh Poole, Nov 18, 2020,16:56 ROSETTA LORENZO MED STUDENT Nov 08, 2020 03:12 JAYESH POOLE DO Nov 08, 2020 04:07
[2020-11-08] MEDS: PROPOFOL DRIP (ICU) 100 ML IV SCH ×3 (03:39→19:50)
[2020-11-08 03:42] LABS: ABG BASE EXCESS 6.2 MMOL/L (-2.5-2.5); ABG OXYGEN SATURATION 99 % (94-100); ABG PCO2 57 MMHG (35-45); ABG PH 7.36 (7.37-7.43); ABG PO2 134 MMHG (79-93); ABG TCO2 33.3 MMOL/L (21.0-31.0); ALLENS TEST ARTLINE
[2020-11-08 03:43] LABS: BASOPHILS % (AUTO) 0 % (0-10); EOSINOPHILS % (AUTO) 0 % (0-10); HEMATOCRIT 33 % (40-54); HEMOGLOBIN 10.3 g/dL (13.3-17.7); INSPIRED O2 45; LYMPHOCYTES # (AUTO) 0.4 10^3/uL (1.0-4.0); LYMPHOCYTES % (AUTO) 7 % (12-44); MEAN CORPUSCULAR HEMOGLOBIN 29 pg (25-34); MEAN CORPUSCULAR HGB CONC 32 g/dL (32-36); MEAN CORPUSCULAR VOLUME 93 fL (80-99); MEAN PLATELET VOLUME 11.4 fL (9.0-12.2); MONOCYTES # (AUTO) 0.4 10^3/uL (0.0-1.0); MONOCYTES % (AUTO) 6 % (0-12); NEUTROPHILS # (AUTO) 5.7 10^3/uL (1.8-7.8); NEUTROPHILS % (AUTO) 87 % (42-75); PATIENT TEMP 36.6; PLATELET COUNT 301 10^3/uL (130-400); VENTILATOR YES; WHITE BLOOD COUNT 6.6 10^3/uL (4.3-11.0)
[2020-11-08 03:51] LABS: CHLORIDE 101 MMOL/L (98-107); POTASSIUM 4.5 MMOL/L (3.6-5.0); SODIUM 139 MMOL/L (135-145)
[2020-11-08 03:53] LABS: GLUCOSE 129 MG/DL (70-105); TRIGLYCERIDES 136 MG/DL (<150)
[2020-11-08 03:55] LABS: CARBON DIOXIDE 27 MMOL/L (21-32)
[2020-11-08 03:57] LABS: CREATININE SERUM 1.04 MG/DL (0.60-1.30); GFR ESTIMATED > 60; PHOSPHORUS 3.3 MG/DL (2.3-4.7)
[2020-11-08 03:58] LABS: BUN/CREATININE RATIO 31
[2020-11-08 03:59] LABS: MAGNESIUM 2.4 MG/DL (1.6-2.4)
[2020-11-08] MEDS ORDERED: ALBUMIN 25% 25 GM/100 ML 100 ML IV ONE (04:15)
[2020-11-08] MEDS: METOCLOPRAMIDE INJ 10 MG/2 ML (REGLAN) IVP SCH ×4 (05:15→23:28)
[2020-11-08] MEDS: CEFEPIME INJECTION 1,000 MG in WATER (STERILE) FOR INJECTION 10 ML IV SCH ×4 (05:15→23:28)
[2020-11-08] MEDS: KCL 20 MEQ TAB (K-DUR) PO SCH (05:16)
[2020-11-08] MEDS: HYDROCORTISONE 100 MG/2 ML (Solu-CORTEF) VIAL IV SCH ×3 (05:18→23:28)
[2020-11-08] MEDS: POTASSIUM CL 10MEQ/50ML IVPB 50 ML IV SCH (05:18)
[2020-11-08] MEDS: MAGNESIUM 1 GM/100 ML IVPB 100 ML IV SCH (05:18)
[2020-11-08] MEDS: fentaNYL DRIP PRE-MIX 250 ML IV SCH ×3 (05:26→17:55)
[2020-11-08] MEDS: LEVOTHYROXINE 25 MCG (LEVOTHROID) TAB PO SCH (06:39)
--- NOTE | 2020-11-08 07:36 | Diagnostic Imaging Report ---
INDICATION: Respiratory failure Portable chest 2:06 AM There is an ET tube projecting over the trachea. NG tube tip appears to be in the distal esophagus. There is a dual-chamber pacemaker. Right upper extremity PICC line tip projects over the SVC. There are diffuse pulmonary infiltrates which have a mixed interstitial and alveolar appearance. These are improved from the previous day. IMPRESSION: Improving diffuse pulmonary infiltrates. NG tube appears to be in the distal esophagus. Dictated by: Dictated on workstation # [id number]
[2020-11-08] MEDS: ENOXAPARIN 40 MG/0.4 ML (LOVENOX) SYR SQ SCH ×2 (07:46→23:28)
[2020-11-08] MEDS: AMIODARONE 200 MG (CORDARONE) TAB PO SCH ×2 (07:47→20:13)
[2020-11-08] MEDS: ASPIRIN 81 MG CHEW (CHILDREN'S ASA) PO SCH (07:47)
[2020-11-08] MEDS: DOCUSATE SODIUM 10 MG/ML 10 ML UDC (COLACE) PO SCH ×2 (07:47→20:13)
[2020-11-08] MEDS: PANTOPRAZOLE 40 MG (PROTONIX) VIAL IV SCH (07:47)
[2020-11-08] MEDS: DIGOXIN 0.125 MG (LANOXIN) TAB PO SCH (07:47)
[2020-11-08] MEDS: ARTIFICIAL TEARS OINT (LACRI-LUBE) 3.5 GM TUBE OU SCH ×3 (07:52→20:13)
--- NOTE | 2020-11-08 07:52 | Physical Therapy Progress Note ---
Therapy Progress Note Patient remains sedated and intubated. PT will continue to monitor patient status. JONO CHÁVEZ PT Nov 08, 2020 07:52
[2020-11-08] MEDS: NOREPINEPHRINE 4 MG/250 ML 250 ML IV SCH ×4 (09:28→19:50)
--- NOTE | 2020-11-08 09:57 | Diagnostic Imaging Report ---
INDICATION: OG replacement COMPARISON: Imaging from the same date TECHNIQUE: Single radiograph of the chest dated 11/08/2020 at 9:42. FINDINGS: Endotracheal tube, right-sided PICC line, and left-sided pacer device are again identified, appearing stable. Enteric catheter has been advanced since the prior examination which now appears to extend into the body of the stomach. The cardiac silhouette is enlarged. Extensive bilateral mixed interstitial and airspace opacities are again noted bilaterally, appearing similar to the prior examination. No large volume pleural effusion. No pneumothorax. No acute osseous abnormality. IMPRESSION: Interval advancement of enteric catheter with the distal tip now identified within the body of the stomach. Persistent extensive bilateral pulmonary infiltrates. Remainder of exam appears stable. Dictated by: Dictated on workstation # [id number]
[2020-11-08] MEDS ORDERED: LACTATED RINGERS 1,000 ML IV ONE (10:00)
--- NOTE | 2020-11-08 10:06 | Physical Therapy Progress Note ---
Therapy Progress Note Non skilled PROM B U/LE in available planes. NOHEMI JOHNSON PT Nov 08, 2020 10:06
--- NOTE | 2020-11-08 10:10 | Progress Note - Cardiology ---
Cardiology SOAP Progress Note Subjective: Remains intubated and sedated Objective: I&O/Vital Signs 11/10/20 11/10/20 11/10/20 11/10/20 21:45 22:00 23:00 23:47 Temp 36.5 Pulse 116 93 96 Resp 26 29 10 B/P (MAP) 103/56 (72) 101/51 (68) Pulse Ox 94 91 89 O2 Delivery Mechanical Ventilator Mechanical Ventilator O2 Flow Rate 40.00 40.00 FiO2 40 11/11/20 11/11/20 11/11/20 11/11/20 00:00 00:59 01:00 01:00 Pulse 100 111 105 105 Resp 23 28 40 B/P (MAP) 114/60 (78) 101/53 (69) Pulse Ox 92 92 91 O2 Delivery Mechanical Ventilator Mechanical Ventilator O2 Flow Rate 40.00 40.00 FiO2 40 11/11/20 11/11/20 11/11/20 11/11/20 02:00 03:00 04:00 04:21 Temp 36.6 Pulse 108 106 112 Resp 23 23 39 B/P (MAP) 105/69 (81) 100/52 (68) 123/67 (85) Pulse Ox 91 92 85 O2 Delivery Mechanical Ventilator Mechanical Ventilator Mechanical Ventilator O2 Flow Rate 40.00 40.00 40.00 11/11/20 11/11/20 11/11/20 11/11/20 05:00 06:00 06:34 06:55 Pulse 96 105 92 100 Resp 29 35 28 B/P (MAP) 105/56 (72) 110/58 (75) Pulse Ox 92 91 90 O2 Delivery Mechanical Ventilator Mechanical Ventilator O2 Flow Rate 40.00 40.00 FiO2 40 11/11/20 11/11/20 11/11/20 07:46 08:51 09:06 Temp 37.0 Pulse 91 Resp 40 B/P (MAP) 102/47 (65) Pulse Ox 88 90 O2 Delivery Mechanical Ventilator Mechanical Ventilator O2 Flow Rate 50.00 FiO2 40 11/11/20 00:00 Intake Total 720 ml Output Total 2500 ml Balance -1780 ml Weight (Pounds): 219 Weight (Ounces): 6.0 Weight (Calculated Kilograms): 99.035911 Constitutional: appears stated age, well-developed, well-nourished Respiratory: other (intubated/ventilated; fair air entry) Cardiovascular: irregularly irregular Gastrointestional: soft, audible bowel sounds Extremities: swelling (mild bilat LE swelling) Neurologic/Psychiatric: other (unable to cooperate with neuro exam d/t sedation) Skin: No rash on exposed areas, No ulcerations on exposed areas Results/Procedures: Labs Laboratory Tests 11/11/20 04:15: White Blood Count 10.4, Red Blood Count 3.60L, Hemoglobin 10.4L, Hematocrit 33L, Mean Corpuscular Volume 91, Mean Corpuscular Hemoglobin 29, Mean Corpuscular Hemoglobin Concent 32, Red Cell Distribution Width 13.6, Platelet Count 424H, Mean Platelet Volume 11.1, Immature Granulocyte % (Auto) 2, Neutrophils (%) (Auto) 87H, Lymphocytes (%) (Auto) 6L, Monocytes (%) (Auto) 5, Eosinophils (%) (Auto) 0, Basophils (%) (Auto) 0, Neutrophils # (Auto) 9.1H, Lymphocytes # (Auto) 0.6L, Monocytes # (Auto) 0.5, Eosinophils # (Auto) 0.0, Basophils # (Auto) 0.0, Immature Granulocyte # (Auto) 0.2H, Blood Gas Puncture Site RIGHT ARTLINE, Blood Gas Patient Temperature 36.6, Arterial Blood pH 7.49H, Arterial Blood Partial Pressure CO2 46H, Arterial Blood Partial Pressure O2 108H, Arterial Blood HCO3 35H, Arterial Blood Total CO2 36.4H, Arterial Blood Oxygen Saturation 99, Arterial Blood Base Excess 10.9H, James Test ARTLINE, Blood Gas Ventilator Setting YES, Blood Gas Inspired Oxygen 40, Sodium Level 140, Potassiu m Level 3.9, Chloride Level 98, Carbon Dioxide Level 31, Anion Gap 11, Blood Urea Nitrogen 47H, Creatinine 0.87, Estimat Glomerular Filtration Rate > 60, BUN/Creatinine Ratio 54, Glucose Level 151H, Calcium Level 7.4L, Corrected Calcium 8.5, Phosphorus Level 3.1, Magnesium Level 2.5H, Total Bilirubin 0.5, Aspartate Amino Transf (AST/SGOT) 33, Alanine Aminotransferase (ALT/SGPT) 30, Alkaline Phosphatase 52, Total Protein 5.3L, Albumin 2.6L, Procalcitonin 0.11H 11/11/20 07:20: Blood Gas Puncture Site ART LINE, Blood Gas Patient Temperature 36.5, Arterial Blood pH 7.47H, Arterial Blood Partial Pressure CO2 50H, Arterial Blood Partial Pressure O2 77L, Arterial Blood HCO3 36H, Arterial Blood Total CO2 37.1H, Arterial Blood Oxygen Saturation 96, Arterial Blood Base Excess 11.1H, James Test N/A, Blood Gas Ventilator Setting YES, Blood Gas Inspired Oxygen 40% Microbiology 10/31/20 Gram Stain - Final, Complete 10/31/20 Sputum Culture - Final, Complete No growth 10/30/20 Blood Culture - Final, Complete No growth Procedures NAME: LYN MORENO [facility] REC#: [id number] PT STATUS: ADM IN : 1955 PHYSICIAN: JAYESH DENNIS DO ADMIT DATE: 10/30/20/ICU Draft Date of Exam:11/08/20 CHEST 1 VIEW, AP/PA ONLY INDICATION: OG replacement COMPARISON: Imaging from the same date TECHNIQUE: Single radiograph of the chest dated 11/08/2020 at 9:42. FINDINGS: Endotracheal tube, right-sided PICC line, and left-sided pacer device are again identified, appearing stable. Enteric catheter has been advanced since the prior examination which now appears to extend into the body of the stomach. The cardiac silhouette is enlarged. Extensive bilateral mixed interstitial and airspace opacities are again noted bilaterally, appearing similar to the prior examination. No large volume pleural effusion. No pneumothorax. No acute osseous abnormality. IMPRESSION: Interval advancement of enteric catheter with the distal tip now identified within the body of the stomach. Persistent extensive bilateral pulmonary infiltrates. Remainder of exam appears stable. Dictated on workstation # [id number] Dict: 11/08/20 0950 Trans: 11/08/20 0957 [facility] [id number] Interpreted by: TAMMY LAN MD Electronically signed by: A/P: Assessment: Respiratory failure requiring intubation Hospitalization with COVID and influenza in late September 2020 Episode of a-fib with RVR - treated with IV Cardizem Nonischemic cardiomyopathy - ejection fraction 10% per echo of 05-23-[address] Lopez. - Last echo of 08/12/20 showed LVEF 30-35%. Mod diffuse hypokinesis. Severely dilated LA. Mod MR, Mild AI. RVSP 20 mmHg Status post single-chamber pacemaker defibrillator implantation in August 2010. - Device upgrade February 14, 2015 to a dual chamber device (RA, RV lead) per Dr. Page on 02-14-2015. - Device functioning normally per interrogation of Jul 2020. - Device interrogation 07/29/20 shows episodes of SVT and NSVT. He received a shock on 07/14/20 for what appears to be SVT/A Fl at approx 200 bpm, has had antitach pacing for some other episodes Pulmonary edema and large R pleural effusion in late Apr 2016, status post Pleurx catheter placement by Dr Jackson, removed late Jul 2016 Restrictive lung disease managed by Dr Dennis Chronic systolic congestive heart failure, clinically compensated Chronically low bp. D/t hypotension has not been able to tolerate BB, COURTNEY (-) or ARB History of nonsustained ventricular tachycardia, controlled after initiation of therapy with amiodarone (currently on 400 mg daily) Paroxysmal atrial tachycardia as documented on device interrogation of Chronic renal insufficiency. CKD stage 2-3 Obs sleep apnea for which he follows with Dr Dennis Plan: Unstable condition. Prognosis guarded/poor Requiring increased pressor support Monitor labs closely and correct as needed MAIDA RILEY Nov 08, 2020 10:10
[2020-11-08] MEDS: LACTATED RINGERS 1,000 ML IV SCH (11:40)
--- NOTE | 2020-11-08 17:33 | Progress Note - Cardiology ---
Cardiology SOAP Progress Note Subjective: [facility] Unable to communicate Objective: I&O/Vital Signs 11/08/20 11/08/20 11/08/20 11/08/20 06:00 07:00 07:00 07:15 Temp 36.9 36.9 Pulse 96 78 82 76 Resp 22 24 24 B/P (MAP) 110/57 (74) 101/54 (70) Pulse Ox 96 93 O2 Delivery Mechanical Ventilator Mechanical Ventilator O2 Flow Rate 40.00 40.00 FiO2 45 11/08/20 11/08/20 11/08/20 11/08/20 08:00 09:00 09:00 09:45 Temp 37.0 37.1 Pulse 79 74 Resp 24 24 B/P (MAP) 97/48 (64) 104/52 (69) 79/43 Pulse Ox 92 91 92 O2 Delivery Mechanical Ventilator Mechanical Ventilator Mechanical Ventilator O2 Flow Rate 40.00 40.00 FiO2 50 11/08/20 11/08/20 11/08/20 11/08/20 09:49 09:56 10:00 11:00 Temp 37.3 37.3 Pulse 81 81 86 Resp 24 24 24 B/P (MAP) 101/53 (69) 88/42 (57) Pulse Ox 90 99 89 O2 Delivery Mechanical Ventilator Mechanical Ventilator O2 Flow Rate 30.00 30.00 30.00 FiO2 30 11/08/20 11/08/20 11/08/20 11/08/20 11:54 12:00 13:00 13:00 Temp 37.3 37.4 Pulse 117 102 85 Resp 24 24 B/P (MAP) 91/53 (66) 107/61 (76) Pulse Ox 91 92 O2 Delivery Mechanical Ventilator Mechanical Ventilator O2 Flow Rate 35.00 35.00 35.00 11/08/20 11/08/20 11/08/20 14:00 15:00 15:12 Temp 37.6 37.7 Pulse 102 84 86 Resp 24 24 24 B/P (MAP) 102/62 (75) 109/60 (76) Pulse Ox 95 96 97 O2 Delivery Mechanical Ventilator Mechanical Ventilator O2 Flow Rate 35.00 35.00 FiO2 35 11/08/20 00:00 Intake Total 1532 ml Output Total 1175 ml Balance 357 ml Weight (Pounds): 219 Weight (Ounces): 6.0 Weight (Calculated Kilograms): 99.150662 Constitutional: appears stated age, well-developed, well-nourished Neurologic/Psychiatric: other (unable to cooperate with neuro exam d/t sedation) Results/Procedures: Labs Laboratory Tests 11/08/20 00:03: Glucometer 115H 11/08/20 03:20: White Blood Count 6.6, Red Blood Count 3.50L, Hemoglobin 10.3L, Hematocrit 33L, Mean Corpuscular Volume 93, Mean Corpuscular Hemoglobin 29, Mean Corpuscular Hemoglobin Concent 32, Red Cell Distribution Width 13.2, Platelet Count 301, Mean Platelet Volume 11.4, Immature Granulocyte % (Auto) 1, Neutrophils (%) (Auto) 87H, Lymphocytes (%) (Auto) 7L, Monocytes (%) (Auto) 6, Eosinophils (%) (Auto) 0, Basophils (%) (Auto) 0, Neutrophils # (Auto) 5.7, Lymphocytes # (Auto) 0.4L, Monocytes # (Auto) 0.4, Eosinophils # (Auto) 0.0, Basophils # (Auto) 0.0, Immature Granulocyte # (Auto) 0.1, Blood Gas Puncture Site RIGHT RADIAL, Blood Gas Patient Temperature 36.6, Arterial Blood pH 7.36L, Arterial Blood Partial Pressure CO2 57H, Arterial Blood Partial Pressure O2 134H, Arterial Blood HCO3 32H, Arterial Blood Total CO2 33.3H, Arterial Blood Oxygen Saturation 99, Arterial Blood Base Excess 6.2H, James Test ARTLINE, Blood Gas Ventilator Set ting YES, Blood Gas Inspired Oxygen 45, Sodium Level 139, Potassium Level 4.5, Chloride Level 101, Carbon Dioxide Level 27, Anion Gap 11, Blood Urea Nitrogen 32H, Creatinine 1.04, Estimat Glomerular Filtration Rate > 60, BUN/Creatinine Ratio 31, Glucose Level 129H, Calcium Level 8.0L, Phosphorus Level 3.3, Magnesium Level 2.4, Triglycerides Level 136 11/08/20 11:23: Glucometer 152H Microbiology 10/31/20 Gram Stain - Final, Complete 10/31/20 Sputum Culture - Final, Complete No growth 10/30/20 Blood Culture - Final, Complete No growth A/P: Assessment: Respiratory failure requiring intubation Hospitalization with COVID and influenza in late September 2020 Episode of a-fib with RVR - treated with IV Cardizem Nonischemic cardiomyopathy - ejection fraction 10% per echo of 05-23-[address] Lopez. - Last echo of 08/12/20 showed LVEF 30-35%. Mod diffuse hypokinesis. Severely dilated LA. Mod MR, Mild AI. RVSP 20 mmHg Status post single-chamber pacemaker defibrillator implantation in August 2010. - Device upgrade February 14, 2015 to a dual chamber device (RA, RV lead) per Dr. Page on 02-14-2015. - Device functioning normally per interrogation of Jul 2020. - Device interrogation 07/29/20 shows episodes of SVT and NSVT. He received a shock on 07/14/20 for what appears to be SVT/A Fl at approx 200 bpm, has had antitach pacing for some other episodes Pulmonary edema and large R pleural effusion in late Apr 2016, status post Pleurx catheter placement by Dr Jakcson, removed late Jul 2016 Restrictive lung disease managed by Dr Dennis Chronic systolic congestive heart failure, clinically compensated Chronically low bp. D/t hypotension has not been able to tolerate BB, COURTNEY (-) or ARB History of nonsustained ventricular tachycardia, controlled after initiation of therapy with amiodarone (currently on 400 mg daily) Paroxysmal atrial tachycardia as documented on device interrogation of Chronic renal insufficiency. CKD stage 2-3 Obs sleep apnea for which he follows with Dr Dennis Plan: Unstable condition. Prognosis guarded/poor Requiring increased pressor support Monitor labs closely and correct as needed NAOMIE WATERS MD FACP FAC CCDS Nov 08, 2020 17:33
[2020-11-08] MEDS ORDERED: DIGOXIN 0.25 MG/ML (LANOXIN) 2 ML AMP ONE (23:52)
[2020-11-08] MEDS ORDERED: meTOprolol 5 MG/5 ML (LOPRESSOR) VIAL ONE (23:52)
[2020-11-09] VITALS (29 sets, daily range): BP systolic 93–128; BP diastolic 45–69
[2020-11-09] MEDS ORDERED: DIGOXIN 0.25 MG/ML (LANOXIN) 2 ML AMP IV ONE
[2020-11-09] MEDS ORDERED: meTOprolol 5 MG/5 ML (LOPRESSOR) VIAL IV ONE
[2020-11-09] MEDS: inSUlin ASPART (NovoLOG) 1 UNIT/0.01 ML (CHARGE PER UNIT) SC SCH ×4 (00:07→17:28)
[2020-11-09] MEDS: fentaNYL DRIP PRE-MIX 250 ML IV SCH (00:25)
[2020-11-09] MEDS: RT-ALBUTEROL/IPRATROPIUM 3 ML (DUONEB) VIAL INH SCH ×6 (02:35→22:03)
[2020-11-09] MEDS: NOREPINEPHRINE 4 MG/250 ML 250 ML IV SCH ×4 (03:07→20:35)
[2020-11-09] MEDS: MAGNESIUM 1 GM/100 ML IVPB 100 ML IV SCH (03:07)
[2020-11-09] MEDS: KCL 20 MEQ TAB (K-DUR) PO SCH (03:07)
[2020-11-09] MEDS: POTASSIUM CL 10MEQ/50ML IVPB 50 ML IV SCH (03:08)
[2020-11-09 03:34] LABS: BASOPHILS % (AUTO) 0 % (0-10); EOSINOPHILS % (AUTO) 0 % (0-10); HEMATOCRIT 31 % (40-54); HEMOGLOBIN 9.7 g/dL (13.3-17.7); LYMPHOCYTES # (AUTO) 0.4 10^3/uL (1.0-4.0); LYMPHOCYTES % (AUTO) 7 % (12-44); MEAN CORPUSCULAR HEMOGLOBIN 29 pg (25-34); MEAN CORPUSCULAR HGB CONC 31 g/dL (32-36); MEAN CORPUSCULAR VOLUME 93 fL (80-99); MEAN PLATELET VOLUME 11.4 fL (9.0-12.2); MONOCYTES # (AUTO) 0.4 10^3/uL (0.0-1.0); MONOCYTES % (AUTO) 7 % (0-12); NEUTROPHILS % (AUTO) 85 % (42-75); PLATELET COUNT 312 10^3/uL (130-400)
[2020-11-09 03:35] LABS: ABG BASE EXCESS 6.8 MMOL/L (-2.5-2.5); ABG OXYGEN SATURATION 97 % (94-100); ABG PCO2 51 MMHG (35-45); ABG PH 7.41 (7.37-7.43); ABG PO2 104 MMHG (79-93); ABG TCO2 32.9 MMOL/L (21.0-31.0)
[2020-11-09 03:43] LABS: ALLENS TEST ARTLINE; PATIENT TEMP 37.5; VENTILATOR YES
[2020-11-09 03:59] LABS: CHLORIDE 102 MMOL/L (98-107); POTASSIUM 4.7 MMOL/L (3.6-5.0); SODIUM 137 MMOL/L (135-145)
[2020-11-09 04:00] LABS: CALCIUM 7.6 MG/DL (8.5-10.1); GLUCOSE 158 MG/DL (70-105)
[2020-11-09 04:02] LABS: CARBON DIOXIDE 27 MMOL/L (21-32)
[2020-11-09 04:04] LABS: CREATININE SERUM 1.01 MG/DL (0.60-1.30); GFR ESTIMATED > 60; PHOSPHORUS 2.3 MG/DL (2.3-4.7)
[2020-11-09 04:05] LABS: BUN/CREATININE RATIO 38
[2020-11-09 04:07] LABS: MAGNESIUM 2.5 MG/DL (1.6-2.4)
--- NOTE | 2020-11-09 05:34 | Pulmonary Progress Note ---
Subjective Time Seen by a Provider: 05:29 Subjective/Events-last exam PT is sedated on vent. Sepsis Event Evaluation Height, Weight, BMI Height: 5'7.00" Weight: 219lbs. 6.0oz. 99.159387xm; 38.33 BMI Method:Stated Exam Exam Vital Signs Date Time Temp Pulse Resp B/P (MAP) Pulse Ox O2 Delivery O2 Flow Rate FiO2 11/09/20 05:00 37.5 106 24 97/51 (66) 95 Mechanical Ventilator 50.00 11/09/20 04:07 Mechanical Ventilator 50.00 11/09/20 04:00 37.5 93 24 97/45 (62) 94 Mechanical Ventilator 55.00 11/09/20 03:00 37.5 103 23 105/60 (75) 92 Mechanical Ventilator 55.00 11/09/20 02:35 110 26 91 55 11/09/20 02:00 37.4 97 24 123/69 (87) 91 Mechanical Ventilator 55.00 11/09/20 01:00 37.4 103 26 111/60 (77) 91 Mechanical Ventilator 55.00 11/09/20 00:39 120 11/09/20 00:37 Mechanical Ventilator 55.00 11/09/20 00:08 Mechanical Ventilator 45.00 11/09/20 00:00 37.5 128 24 113/68 (83) 92 Mechanical Ventilator 40.00 11/08/20 23:00 37.6 74 24 95/53 (67) 92 Mechanical Ventilator 40.00 11/08/20 22:22 86 24 94 40 11/08/20 22:00 37.6 90 24 115/65 (82) 92 Mechanical Ventilator 40.00 11/08/20 21:00 93 Mechanical Ventilator 40 11/08/20 21:00 37.5 83 24 100/54 (69) 92 Mechanical Ventilator 40.00 11/08/20 20:00 37.5 86 24 106/62 (77) 92 Mechanical Ventilator 40.00 11/08/20 19:50 96 115/64 11/08/20 19:49 96 115/64 11/08/20 19:28 37.5 Mechanical Ventilator 40.00 11/08/20 19:00 93 11/08/20 19:00 37.5 88 24 91/50 (64) 92 Mechanical Ventilator 40.00 11/08/20 18:36 40.00 11/08/20 18:28 96 24 93 40 11/08/20 18:00 37.7 84 24 119/66 (83) 92 Mechanical Ventilator 35.00 11/08/20 17:00 37.8 77 24 125/65 (85) 93 Mechanical Ventilator 35.00 11/08/20 16:00 37.8 78 24 120/66 (84) 97 Mechanical Ventilator 35.00 11/08/20 15:12 86 24 97 35 11/08/20 15:00 37.7 84 24 109/60 (76) 96 Mechanical Ventilator 35.00 11/08/20 14:00 37.6 102 24 102/62 (75) 95 Mechanical Ventilator 35.00 11/08/20 13:00 37.4 85 24 107/61 (76) 92 Mechanical Ventilator 35.00 11/08/20 13:00 102 11/08/20 12:00 37.3 117 24 91/53 (66) 91 Mechanical Ventilator 35.00 11/08/20 11:54 35.00 11/08/20 11:00 37.3 86 24 88/42 (57) 89 Mechanical Ventilator 30.00 11/08/20 10:00 37.3 81 24 101/53 (69) 99 Mechanical Ventilator 30.00 11/08/20 09:56 81 24 90 30 11/08/20 09:49 30.00 11/08/20 09:45 79/43 11/08/20 09:00 92 Mechanical Ventilator 50 11/08/20 09:00 37.1 74 24 104/52 (69) 91 Mechanical Ventilator 40.00 11/08/20 08:00 37.0 79 24 97/48 (64) 92 Mechanical Ventilator 40.00 11/08/20 07:15 76 24 93 45 11/08/20 07:00 82 11/08/20 07:00 36.9 78 24 101/54 (70) Mechanical Ventilator 40.00 11/08/20 06:00 36.9 96 22 110/57 (74) 96 Mechanical Ventilator 40.00 11/08/20 05:30 40.00 I & O 11/09/20 07:00 Intake Total 2750 ml Output Total 850 ml Balance 1900 ml Height & Weight Height: 5'7.00" Weight: 219lbs. 6.0oz. 99.340527ql; 38.33 BMI Method:Stated General Appearance: No Apparent Distress, Chronically ill, Other (sedated) HEENT: Normal ENT Inspection Neck: Limited Range of Motion Respiratory: Crackles, Decreased Breath Sounds, Wheezing Cardiovascular: Regular Rate, Rhythm Capillary Refill: Less Than 3 Seconds Gastrointestinal: non tender, soft Extremity: Pedal Edema Neurologic/Psychiatric: Other (sedated) Skin: Warm/Dry Lymphatic: No Adenopathy Results Lab Laboratory Tests 11/07/20 15:55 11/08/20 03:20 11/09/20 03:16 Assessment/Plan Assessment/Plan Acute on chronic respiratory failure -Ventilator 450/24/10 50% -Fentanyl 100, propofol 20 -ABG reviewed -Permissive hypercapnea -S/p intubation 10/31 -Restart Proning s/p VTach -- AICD converted pt to paced -Continue Ammio gtt -Consult cardiology PNA Avina cultures pending -s/p Vanco and Cefepime -Cefepime auto d/c'd yesterday. Restart Cefepime and recheck PCT. Hypotension - since intubation -LR at 20 -Levophed -Solucortef. -Give 25gms of Albumin x 1 HX of COVID 19 CHFAE AFib CKD NICM with dual implanted JAYESH POOLE DO Nov 09, 2020 05:34
[2020-11-09] MEDS: HYDROCORTISONE 100 MG/2 ML (Solu-CORTEF) VIAL IV SCH ×3 (05:45→21:47)
[2020-11-09] MEDS: CEFEPIME INJECTION 1,000 MG in WATER (STERILE) FOR INJECTION 10 ML IV SCH ×3 (05:45→17:24)
[2020-11-09] MEDS: METOCLOPRAMIDE INJ 10 MG/2 ML (REGLAN) IVP SCH ×3 (05:45→17:24)
[2020-11-09] MEDS: VASOPRESSIN INJECTION 20 UNIT in NS (IVPB) 100 ML IV SCH ×2 (05:46→15:10)
[2020-11-09] MEDS: LEVOTHYROXINE 25 MCG (LEVOTHROID) TAB PO SCH (05:46)
--- NOTE | 2020-11-09 07:59 | Diagnostic Imaging Report ---
Portable semi-erect AP chest at 2:25. Indication: Respiratory distress The cardiomegaly and the alveolar/interstitial infiltrates involving both lungs seen previously on 11/08/2020 are again evident. There does seem to be somewhat greater involvement of the left retrocardiac region by pneumonia/atelectasis than on the prior exam. The mediastinum is not widened. The osseous structures are intact. The supportive tubes and lines and the left-sided defibrillator device seen previously are similar in position. Impression: The appearance of the chest has worsened since the prior exam as there is greater involvement of the left lung base by pneumonia/atelectasis. Dictated by: Dictated on workstation # [id number]
[2020-11-09] MEDS: ASPIRIN 81 MG CHEW (CHILDREN'S ASA) PO SCH (08:01)
[2020-11-09] MEDS: ENOXAPARIN 40 MG/0.4 ML (LOVENOX) SYR SQ SCH ×2 (08:01→21:48)
[2020-11-09] MEDS: PANTOPRAZOLE 40 MG (PROTONIX) VIAL IV SCH (08:01)
[2020-11-09] MEDS: AMIODARONE 200 MG (CORDARONE) TAB PO SCH ×2 (08:02→20:33)
[2020-11-09] MEDS: ARTIFICIAL TEARS OINT (LACRI-LUBE) 3.5 GM TUBE OU SCH ×3 (08:02→20:33)
[2020-11-09] MEDS: DIGOXIN 0.125 MG (LANOXIN) TAB PO SCH (08:02)
[2020-11-09] MEDS: DOCUSATE SODIUM 10 MG/ML 10 ML UDC (COLACE) PO SCH ×2 (08:02→20:33)
[2020-11-09] MEDS: LACTATED RINGERS 1,000 ML IV SCH (10:38)
--- NOTE | 2020-11-09 15:55 | Progress Note - Cardiology ---
Cardiology SOAP Progress Note Subjective: Intubated and on mech vent. Unresponsive Objective: I&O/Vital Signs 11/09/20 11/09/20 11/09/20 11/09/20 04:00 04:07 05:00 06:00 Temp 37.5 37.5 37.4 Pulse 93 106 92 Resp 24 B/P (MAP) 97/45 (62) 97/51 (66) 93/49 (64) Pulse Ox 94 95 94 O2 Delivery Mechanical Ventilator Mechanical Ventilator Mechanical Ventilator Mechanical Ventilator O2 Flow Rate 55.00 50.00 50.00 50.00 11/09/20 11/09/20 11/09/20 11/09/20 07:00 07:00 07:45 08:00 Temp 37.4 37.5 Pulse 88 89 107 115 Resp 36 B/P (MAP) 106/55 (72) 121/63 (82) Pulse Ox 95 93 94 O2 Delivery Mechanical Ventilator Mechanical Ventilator O2 Flow Rate 50.00 50.00 FiO2 50 11/09/20 11/09/20 11/09/20 11/09/20 09:00 09:00 10:00 10:42 Temp 37.4 37.4 Pulse 104 98 87 Resp 25 B/P (MAP) 93/48 (63) 102/51 (68) Pulse Ox 93 93 95 95 O2 Delivery Mechanical Ventilator Mechanical Ventilator Mechanical Ventilator O2 Flow Rate 50.00 50.00 FiO2 45 50 11/09/20 11/09/20 11/09/20 11/09/20 10:46 10:46 12:00 13:00 Temp 37.4 Pulse 84 91 Resp 25 B/P (MAP) 102/49 (66) Pulse Ox 93 O2 Delivery Mechanical Ventilator Mechanical Ventilator O2 Flow Rate 45.00 45.00 45.00 11/09/20 11/09/20 11/09/20 11/09/20 13:00 14:00 14:56 15:00 Temp 37.3 37.2 37.3 Pulse 96 98 102 90 Resp 26 B/P (MAP) 99/50 (66) 97/48 (64) 95/49 (64) Pulse Ox 92 93 92 91 O2 Delivery Mechanical Ventilator Mechanical Ventilator Mechanical Ventilator O2 Flow Rate 45.00 45.00 45.00 FiO2 45 11/09/20 00:00 Intake Total 720 ml Output Total 600 ml Balance 120 ml Weight (Pounds): 219 Weight (Ounces): 6.0 Weight (Calculated Kilograms): 99.828551 Constitutional: appears stated age, well-developed, well-nourished Neurologic/Psychiatric: other (unable to cooperate with neuro exam d/t sedation) Results/Procedures: Labs Laboratory Tests 11/08/20 18:12: Glucometer 159H 11/09/20 00:04: Glucometer 165H 11/09/20 03:16: White Blood Count 6.0, Red Blood Count 3.35L, Hemoglobin 9.7L, Hematocrit 31L, Mean Corpuscular Volume 93, Mean Corpuscular Hemoglobin 29, Mean Corpuscular Hemoglobin Concent 31L, Red Cell Distribution Width 13.2, Platelet Count 312, Mean Platelet Volume 11.4, Immature Granulocyte % (Auto) 2, Neutrophils (%) (Auto) 85H, Lymphocytes (%) (Auto) 7L, Monocytes (%) (Auto) 7, Eosinophils (%) (Auto) 0, Basophils (%) (Auto) 0, Neutrophils # (Auto) 5.0, Lymphocytes # (Auto) 0.4L, Monocytes # (Auto) 0.4, Eosinophils # (Auto) 0.0, Basophils # (Auto) 0.0, Immature Granulocyte # (Auto) 0.1, Sodium Level 137, Potassium Level 4.7, Chloride Level 102, Carbon Dioxide Level 27, Anion Gap 8, Blood Urea Nitrogen 38H, Creatinine 1.01, Estimat Glomerular Filtration Rate > 60, BUN/Creatinine Ratio 38, Glucose Level 158H, Calcium Level 7.6L, Phosphorus Level 2.3, Magnesium Level 2.5H 11/09/20 03:17: Blood Gas Puncture Site HT ART, Blood Gas Patient Temperature 37.5, Arterial Blood pH 7.41, Arterial Blood Partial Pressure CO2 51H, Arterial Blood Partial Pressure O2 104H, Arterial Blood HCO3 31H, Arterial Blood Total CO2 32.9H, Arterial Blood Oxygen Saturation 97, Arterial Blood Base Excess 6.8H, James Test ARTLINE, Blood Gas Ventilator Setting YES, Blood Gas Inspired Oxygen 55% 11/09/20 11:42: Glucometer 174H Microbiology 10/31/20 Gram Stain - Final, Complete 10/31/20 Sputum Culture - Final, Complete No growth 10/30/20 Blood Culture - Final, Complete No growth Laboratory Tests 11/08/20 03:20 11/09/20 03:16 A/P: Assessment: Respiratory failure requiring intubation Hospitalization with COVID and influenza in late September 2020 Episode of a-fib with RVR - treated with IV Cardizem Nonischemic cardiomyopathy - ejection fraction 10% per echo of 05-23-[address] Lopez. - Last echo of 08/12/20 showed LVEF 30-35%. Mod diffuse hypokinesis. Severely dilated LA. Mod MR, Mild AI. RVSP 20 mmHg Status post single-chamber pacemaker defibrillator implantation in August 2010. - Device upgrade February 14, 2015 to a dual chamber device (RA, RV lead) per Dr. Page on 02-14-2015. - Device functioning normally per interrogation of Jul 2020. - Device interrogation 07/29/20 shows episodes of SVT and NSVT. He received a shock on 07/14/20 for what appears to be SVT/A Fl at approx 200 bpm, has had antitach pacing for some other episodes Pulmonary edema and large R pleural effusion in late Apr 2016, status post Pleurx catheter placement by Dr Jackson, removed late Jul 2016 Restrictive lung disease managed by Dr Dennis Chronic systolic congestive heart failure, clinically compensated Chronically low bp. D/t hypotension has not been able to tolerate BB, COURTNEY (-) or ARB History of nonsustained ventricular tachycardia, controlled after initiation of therapy with amiodarone (currently on 400 mg daily) Paroxysmal atrial tachycardia as documented on device interrogation of Chronic renal insufficiency. CKD stage 2-3 Obs sleep apnea for which he follows with Dr Dennis Plan: Unstable condition. Prognosis guarded/poor Requiring continuing pressor support Monitor labs closely and correct as needed NAOMIE WATERS MD FACP FAC CCDS Nov 09, 2020 15:55
[2020-11-09] MEDS: PROPOFOL DRIP (ICU) 100 ML IV SCH (16:00)
[2020-11-10] VITALS (31 sets, daily range): BP systolic 94–140; BP diastolic 49–73
[2020-11-10] MEDS: PROPOFOL DRIP (ICU) 100 ML IV SCH ×4 (00:30→20:12)
[2020-11-10] MEDS: METOCLOPRAMIDE INJ 10 MG/2 ML (REGLAN) IVP SCH ×4 (00:30→18:19)
[2020-11-10] MEDS: CEFEPIME INJECTION 1,000 MG in WATER (STERILE) FOR INJECTION 10 ML IV SCH (00:30)
[2020-11-10] MEDS: inSUlin ASPART (NovoLOG) 1 UNIT/0.01 ML (CHARGE PER UNIT) SC SCH ×2 (00:30→03:37)
[2020-11-10] MEDS: VASOPRESSIN INJECTION 20 UNIT in NS (IVPB) 100 ML IV SCH ×4 (00:31→23:55)
[2020-11-10 01:39] LABS: BASOPHILS % (AUTO) 0 % (0-10); EOSINOPHILS % (AUTO) 0 % (0-10); HEMATOCRIT 33 % (40-54); HEMOGLOBIN 10.3 g/dL (13.3-17.7); LYMPHOCYTES # (AUTO) 0.5 10^3/uL (1.0-4.0); LYMPHOCYTES % (AUTO) 7 % (12-44); MEAN CORPUSCULAR HEMOGLOBIN 29 pg (25-34); MEAN CORPUSCULAR HGB CONC 31 g/dL (32-36); MEAN CORPUSCULAR VOLUME 91 fL (80-99); MEAN PLATELET VOLUME 11.1 fL (9.0-12.2); MONOCYTES # (AUTO) 0.4 10^3/uL (0.0-1.0); MONOCYTES % (AUTO) 6 % (0-12); NEUTROPHILS # (AUTO) 5.7 10^3/uL (1.8-7.8); NEUTROPHILS % (AUTO) 86 % (42-75); PLATELET COUNT 330 10^3/uL (130-400); WHITE BLOOD COUNT 6.7 10^3/uL (4.3-11.0)
[2020-11-10 01:47] LABS: CHLORIDE 102 MMOL/L (98-107); SODIUM 138 MMOL/L (135-145)
[2020-11-10 01:49] LABS: CALCIUM 7.5 MG/DL (8.5-10.1); GLUCOSE 136 MG/DL (70-105)
[2020-11-10 01:50] LABS: TRIGLYCERIDES 102 MG/DL (<150)
[2020-11-10 01:51] LABS: CARBON DIOXIDE 27 MMOL/L (21-32)
[2020-11-10 01:53] LABS: ABG BASE EXCESS 7.1 MMOL/L (-2.5-2.5); ABG OXYGEN SATURATION 96 % (94-100); ABG PCO2 46 MMHG (35-45); ABG PH 7.45 (7.37-7.43); ABG PO2 77 MMHG (79-93); ABG TCO2 32.6 MMOL/L (21.0-31.0); CREATININE SERUM 0.85 MG/DL (0.60-1.30); GFR ESTIMATED > 60; PHOSPHORUS 2.5 MG/DL (2.3-4.7)
[2020-11-10 01:54] LABS: BUN/CREATININE RATIO 52
[2020-11-10 01:55] LABS: ALLENS TEST ARTLINE; INSPIRED O2 40; MAGNESIUM 2.6 MG/DL (1.6-2.4); PATIENT TEMP 37.3; VENTILATOR YES
[2020-11-10] MEDS: RT-ALBUTEROL/IPRATROPIUM 3 ML (DUONEB) VIAL INH SCH ×6 (02:18→21:45)
[2020-11-10] MEDS: NOREPINEPHRINE 4 MG/250 ML 250 ML IV SCH ×4 (02:59→19:56)
[2020-11-10] MEDS: KCL 20 MEQ TAB (K-DUR) PO SCH (03:01)
[2020-11-10] MEDS: POTASSIUM CL 10MEQ/50ML IVPB 50 ML IV SCH (03:01)
[2020-11-10] MEDS: MAGNESIUM 1 GM/100 ML IVPB 100 ML IV SCH (03:01)
[2020-11-10] MEDS: fentaNYL DRIP PRE-MIX 250 ML IV SCH ×2 (03:36→08:36)
--- NOTE | 2020-11-10 05:21 | Pulmonary Progress Note ---
Subjective Time Seen by a Provider: 05:16 Subjective/Events-last exam PT is sedated on vent. Sepsis Event Evaluation Height, Weight, BMI Height: 5'7.00" Weight: 219lbs. 6.0oz. 99.314376dz; 38.33 BMI Method:Stated Exam Exam Vital Signs Date Time Temp Pulse Resp B/P (MAP) Pulse Ox O2 Delivery O2 Flow Rate FiO2 11/10/20 03:26 112 26 90 50 11/10/20 02:18 80 26 96 40 11/10/20 01:00 96 11/10/20 00:00 37.3 93 27 140/70 (93) 98 Mechanical Ventilator 40.00 11/09/20 23:00 37.3 94 25 128/66 (86) 96 Mechanical Ventilator 40.00 11/09/20 22:03 98 24 96 40 11/09/20 22:00 37.4 86 24 117/61 (79) 95 Mechanical Ventilator 40.00 11/09/20 21:00 37.4 87 24 113/59 (77) 95 Mechanical Ventilator 40.00 11/09/20 21:00 94 Mechanical Ventilator 45 11/09/20 20:00 37.5 106 25 119/62 (81) 93 Mechanical Ventilator 40.00 11/09/20 19:00 37.6 112 27 111/53 (72) 91 Mechanical Ventilator 40.00 11/09/20 19:00 107 11/09/20 19:00 Mechanical Ventilator 40.00 11/09/20 18:34 94 26 92 45 11/09/20 18:00 37.5 108 29 97/46 (63) 91 Mechanical Ventilator 45.00 11/09/20 17:00 37.4 96 25 104/50 (68) 91 Mechanical Ventilator 45.00 11/09/20 16:00 37.3 103 28 111/52 (71) 93 Mechanical Ventilator 45.00 11/09/20 15:00 37.3 90 26 95/49 (64) 91 Mechanical Ventilator 45.00 11/09/20 14:56 102 25 92 45 11/09/20 14:00 37.2 98 24 97/48 (64) 93 Mechanical Ventilator 45.00 11/09/20 13:00 37.3 96 26 99/50 (66) 92 Mechanical Ventilator 45.00 11/09/20 13:00 91 11/09/20 12:00 37.4 84 25 102/49 (66) 93 Mechanical Ventilator 45.00 11/09/20 10:46 45.00 11/09/20 10:46 Mechanical Ventilator 45.00 11/09/20 10:42 87 25 95 50 11/09/20 10:00 37.4 98 25 102/51 (68) 95 Mechanical Ventilator 50.00 11/09/20 09:00 93 Mechanical Ventilator 45 11/09/20 09:00 37.4 104 25 93/48 (63) 93 Mechanical Ventilator 50.00 11/09/20 08:00 37.5 115 36 121/63 (82) 94 Mechanical Ventilator 50.00 11/09/20 07:45 107 26 93 50 11/09/20 07:00 37.4 89 23 106/55 (72) 95 Mechanical Ventilator 50.00 11/09/20 07:00 88 11/09/20 06:00 37.4 92 24 93/49 (64) 94 Mechanical Ventilator 50.00 I & O 11/10/20 07:00 Intake Total 1240 ml Output Total 850 ml Balance 390 ml Height & Weight Height: 5'7.00" Weight: 219lbs. 6.0oz. 99.033698ju; 38.33 BMI Method:Stated General Appearance: No Apparent Distress, Chronically ill, Other (sedated) HEENT: Normal ENT Inspection Neck: Limited Range of Motion Respiratory: Crackles, Decreased Breath Sounds, Wheezing Cardiovascular: Regular Rate, Rhythm Capillary Refill: Less Than 3 Seconds Gastrointestinal: non tender, soft Extremity: Pedal Edema Neurologic/Psychiatric: Other (sedated) Skin: Warm/Dry Lymphatic: No Adenopathy Results Lab Laboratory Tests 11/09/20 03:16 11/10/20 01:25 Assessment/Plan Assessment/Plan Acute on chronic respiratory failure -Ventilator 450/24/10 50% -Increase PEEP to 12 -Fentanyl 100, propofol 20 -S/p intubation 2/4 s/p VTach -- AICD converted pt to paced -Continue Ammio gtt -Consult cardiology PNA Avina cultures pending - Cefepime HX of COVID 19 CHFAE AFib CKD NICM with dual implanted JAYESH POOLE DO Nov 10, 2020 05:21
[2020-11-10] MEDS ORDERED: MINERAL OIL ENEMA 133 ML BTL PR PRN (05:30)
[2020-11-10] MEDS: HYDROCORTISONE 100 MG/2 ML (Solu-CORTEF) VIAL IV SCH ×3 (06:34→21:52)
[2020-11-10] MEDS: LEVOTHYROXINE 25 MCG (LEVOTHROID) TAB PO SCH (06:34)
--- NOTE | 2020-11-10 07:16 | Diagnostic Imaging Report ---
Indication: Dyspnea. Comparison: 11/09/2020. Discussion: 2 frontal views of the chest were obtained. Endotracheal tube and enteric tube are stable as is the left-sided pacemaker. Right upper extremity PICC line is stable. Cardiomegaly is stable. Severe pulmonary infiltrates are increased from the prior, likely pneumonia or edema. No definite pleural fluid. No pneumothorax. Impression: 1. Worsening severe pulmonary infiltrates. Dictated by: Dictated on workstation # [id number]
[2020-11-10] MEDS: FUROSEMIDE 40 MG/4 ML INJ (LASIX) IVP SCH ×2 (08:11→19:56)
[2020-11-10] MEDS: ARTIFICIAL TEARS OINT (LACRI-LUBE) 3.5 GM TUBE OU SCH ×3 (08:11→19:56)
[2020-11-10] MEDS: PANTOPRAZOLE 40 MG (PROTONIX) VIAL IV SCH (08:11)
[2020-11-10] MEDS: LACTULOSE SYRUP 10GM/15ML (ENULOSE) 30ML UDC PO SCH ×2 (08:12→19:55)
[2020-11-10] MEDS: DIGOXIN 0.125 MG (LANOXIN) TAB PO SCH (08:12)
[2020-11-10] MEDS: ASPIRIN 81 MG CHEW (CHILDREN'S ASA) PO SCH (08:12)
[2020-11-10] MEDS: AMIODARONE 200 MG (CORDARONE) TAB PO SCH ×2 (08:12→20:11)
[2020-11-10] MEDS: DOCUSATE SODIUM 10 MG/ML 10 ML UDC (COLACE) PO SCH ×2 (08:12→19:56)
[2020-11-10] MEDS: ENOXAPARIN 40 MG/0.4 ML (LOVENOX) SYR SQ SCH ×2 (08:44→21:52)
[2020-11-10] MEDS: LACTATED RINGERS 1,000 ML IV SCH (11:11)
[2020-11-10] MEDS ORDERED: FUROSEMIDE 40 MG/4 ML INJ (LASIX) IVP NR (13:45)
--- NOTE | 2020-11-10 14:24 | Progress Note - Cardiology ---
Cardiology SOAP Progress Note Subjective: Intubated, on mech vent, unresponsive Objective: I&O/Vital Signs 11/10/20 11/10/20 11/10/20 11/10/20 03:00 03:26 03:30 04:00 Temp 37.4 37.3 Pulse 116 112 107 Resp 24 B/P (MAP) 136/72 (93) 109/60 (76) Pulse Ox 92 90 91 O2 Delivery Mechanical Ventilator Mechanical Ventilator Mechanical Ventilator O2 Flow Rate 40.00 60.00 60.00 FiO2 50 11/10/20 11/10/20 11/10/20 11/10/20 05:00 06:00 06:30 07:00 Temp 37.2 37.1 Pulse 87 116 82 91 Resp 23 29 B/P (MAP) 107/55 (72) 119/65 (83) 108/60 (76) Pulse Ox 94 95 98 99 O2 Delivery Mechanical Ventilator Mechanical Ventilator Mechanical Ventilator O2 Flow Rate 60.00 60.00 60.00 FiO2 50 11/10/20 11/10/20 11/10/20 11/10/20 07:00 08:00 08:42 08:46 Temp 36.2 Pulse 92 72 Resp 24 B/P (MAP) 108/60 (76) Pulse Ox 100 94 O2 Delivery Mechanical Ventilator Mechanical Ventilator O2 Flow Rate 60.00 50.00 FiO2 60 11/10/20 11/10/20 11/10/20 11/10/20 09:00 09:19 10:00 11:00 Pulse 95 89 88 124 Resp 24 B/P (MAP) 94/51 (65) 97/53 (68) 105/54 (71) Pulse Ox 98 96 99 96 O2 Delivery Mechanical Ventilator Mechanical Ventilator Mechanical Ventilator O2 Flow Rate 50.00 50.00 50.00 FiO2 45 11/10/20 11/10/20 11/10/20 11/10/20 12:00 12:00 12:29 13:00 Temp 37.1 Pulse 124 87 93 Resp 24 B/P (MAP) 114/59 (77) 96/49 (65) Pulse Ox 96 95 O2 Delivery Mechanical Ventilator Mechanical Ventilator O2 Flow Rate 45.00 45.00 45.00 11/10/20 14:00 Pulse 112 Resp 26 B/P (MAP) 101/53 (69) Pulse Ox 96 O2 Delivery Mechanical Ventilator O2 Flow Rate 45.00 11/10/20 00:00 Intake Total 720 ml Output Total 375 ml Balance 345 ml Weight (Pounds): 219 Weight (Ounces): 6.0 Weight (Calculated Kilograms): 99.953491 Constitutional: appears stated age, well-developed, well-nourished Respiratory: No accessory muscle use; other (fair air entry, diminished at the bases) Cardiovascular: regular rate-rhythm, S1 and S2, systolic murmur (soft ROCKY at card base) Gastrointestional: distended; No guarding; audible bowel sounds Extremities: No clubbing, No cyanosis; significant edema (marked, bilateral edema) Neurologic/Psychiatric: other (unable to cooperate with neuro exam d/t sedation) Skin: No rash on exposed areas, No ulcerations on exposed areas Results/Procedures: Labs Laboratory Tests 11/09/20 17:28: Glucometer 147H 11/10/20 00:28: Glucometer 131H 11/10/20 01:25: White Blood Count 6.7, Red Blood Count 3.59L, Hemoglobin 10.3L, Hematocrit 33L, Mean Corpuscular Volume 91, Mean Corpuscular Hemoglobin 29, Mean Corpuscular H emoglobin Concent 31L, Red Cell Distribution Width 13.3, Platelet Count 330, Mean Platelet Volume 11.1, Immature Granulocyte % (Auto) 1, Neutrophils (%) (Auto) 86H, Lymphocytes (%) (Auto) 7L, Monocytes (%) (Auto) 6, Eosinophils (%) (Auto) 0, Basophils (%) (Auto) 0, Neutrophils # (Auto) 5.7, Lymphocytes # (Auto) 0.5L, Monocytes # (Auto) 0.4, Eosinophils # (Auto) 0.0, Basophils # (Auto) 0.0, Immature Granulocyte # (Auto) 0.1, Blood Gas Puncture Site RIGHT ARTLINE, Blood Gas Patient Temperature 37.3, Arterial Blood pH 7.45H, Arterial Blood Partial Pressure CO2 46H, Arterial Blood Partial Pressure O2 77L, Arterial Blood HCO3 31H, Arterial Blood Total CO2 32.6H, Arterial Blood Oxygen Saturation 96, Arterial Blood Base Excess 7.1H, James Test ARTLINE, Blood Gas Ventilator Setting YES, Blood Gas Inspired Oxygen 40, Sodium Level 138, Potassium Level 5.0, Chloride Level 102, Carbon Dioxide Level 27, Anion Gap 9, Blood Urea Nitrogen 44H, Creatinine 0.85, Estimat Glomerular Filtration Rate > 60, BUN/Creatinine Ratio 52, Glucose Level 136H, Calcium Level 7.5L, Phosphorus Level 2.5, Magnesium Level 2.6H, Triglycerides Level 102 Microbiology 10/31/20 Gram Stain - Final, Complete 10/31/20 Sputum Culture - Final, Complete No growth 10/30/20 Blood Culture - Final, Complete No growth Laboratory Tests 11/09/20 03:16 11/10/20 01:25 A/P: Assessment: Respiratory failure, multifactorial - post-COVID syndrome (hospitalization with COVID and influenza in late September 2020 - pneumonia - h/o obesity-hypoventilation and sleep apnea - ac on chronic systolic CHF PAF Nonischemic cardiomyopathy - ejection fraction 10% per echo of 05-23-[address] Lopez. - Last echo of 08/12/20 showed LVEF 30-35%. Mod diffuse hypokinesis. Severely dilated LA. Mod MR, Mild AI. RVSP 20 mmHg Status post single-chamber pacemaker defibrillator implantation in August 2010. - Device upgrade February 14, 2015 to a dual chamber device (RA, RV lead) per Dr. Page on 02-14-2015. - Device functioning normally per interrogation of Jul 2020. - Device interrogation 07/29/20 shows episodes of SVT and NSVT. He received a shock on 07/14/20 for what appears to be SVT/A Fl at approx 200 bpm, has had antitach pacing for some other episodes Chronically low bp. D/t hypotension has not been able to tolerate BB, COURTNEY (-) or ARB History of nonsustained ventricular tachycardia, controlled after initiation of therapy with amiodarone (currently on 400 mg daily) Chronic renal insufficiency. CKD stage 2-3 Plan: * iv diuretics today * Enoxaparin for DVT and stroke prophylaxis * Monitor labs * Prognosis guarded/poor NAOMIE WATERS MD FACP [facility] Nov 10, 2020 14:24
[2020-11-11] VITALS (31 sets, daily range): BP systolic 96–150; BP diastolic 47–73
[2020-11-11] MEDS: RT-ALBUTEROL/IPRATROPIUM 3 ML (DUONEB) VIAL INH SCH ×6 (00:59→22:05)
[2020-11-11] MEDS: METOCLOPRAMIDE INJ 10 MG/2 ML (REGLAN) IVP SCH ×5 (01:18→23:44)
[2020-11-11] MEDS: NOREPINEPHRINE 4 MG/250 ML 250 ML IV SCH ×4 (04:03→21:32)
[2020-11-11 04:21] LABS: ABG BASE EXCESS 10.9 MMOL/L (-2.5-2.5); ABG OXYGEN SATURATION 99 % (94-100); ABG PCO2 46 MMHG (35-45); ABG PH 7.49 (7.37-7.43); ABG PO2 108 MMHG (79-93); ABG TCO2 36.4 MMOL/L (21.0-31.0)
[2020-11-11 04:22] LABS: BASOPHILS % (AUTO) 0 % (0-10); EOSINOPHILS % (AUTO) 0 % (0-10); HEMATOCRIT 33 % (40-54); HEMOGLOBIN 10.4 g/dL (13.3-17.7); LYMPHOCYTES # (AUTO) 0.6 10^3/uL (1.0-4.0); LYMPHOCYTES % (AUTO) 6 % (12-44); MEAN CORPUSCULAR HEMOGLOBIN 29 pg (25-34); MEAN CORPUSCULAR HGB CONC 32 g/dL (32-36); MEAN CORPUSCULAR VOLUME 91 fL (80-99); MEAN PLATELET VOLUME 11.1 fL (9.0-12.2); MONOCYTES # (AUTO) 0.5 10^3/uL (0.0-1.0); MONOCYTES % (AUTO) 5 % (0-12); NEUTROPHILS # (AUTO) 9.1 10^3/uL (1.8-7.8); NEUTROPHILS % (AUTO) 87 % (42-75); PLATELET COUNT 424 10^3/uL (130-400); WHITE BLOOD COUNT 10.4 10^3/uL (4.3-11.0)
[2020-11-11 04:23] LABS: ALLENS TEST ARTLINE; INSPIRED O2 40; PATIENT TEMP 36.6; VENTILATOR YES
[2020-11-11 04:31] LABS: ALBUMIN 2.6 GM/DL (3.2-4.5); CHLORIDE 98 MMOL/L (98-107); POTASSIUM 3.9 MMOL/L (3.6-5.0); SODIUM 140 MMOL/L (135-145)
[2020-11-11 04:32] LABS: CALCIUM 7.4 MG/DL (8.5-10.1)
[2020-11-11 04:33] LABS: GLUCOSE 151 MG/DL (70-105)
[2020-11-11 04:34] LABS: TOTAL PROTEIN 5.3 GM/DL (6.4-8.2)
[2020-11-11 04:35] LABS: BILIRUBIN,TOTAL 0.5 MG/DL (0.1-1.0); CARBON DIOXIDE 31 MMOL/L (21-32)
[2020-11-11 04:37] LABS: ALKALINE PHOSPHATASE 52 U/L (40-136); CREATININE SERUM 0.87 MG/DL (0.60-1.30); GFR ESTIMATED > 60; PHOSPHORUS 3.1 MG/DL (2.3-4.7)
[2020-11-11 04:38] LABS: BUN/CREATININE RATIO 54
[2020-11-11 04:40] LABS: ALANINE AMINOTRANSFERASE 30 U/L (0-55); MAGNESIUM 2.5 MG/DL (1.6-2.4)
--- NOTE | 2020-11-11 05:06 | Pulmonary Progress Note ---
Subjective Time Seen by a Provider: 04:59 Subjective/Events-last exam No complications noted. Sepsis Event Evaluation Height, Weight, BMI Height: 5'7.00" Weight: 219lbs. 6.0oz. 99.326997gv; 38.33 BMI Method:Stated Exam Exam Vital Signs Date Time Temp Pulse Resp B/P (MAP) Pulse Ox O2 Delivery O2 Flow Rate FiO2 11/11/20 04:21 36.6 11/11/20 04:00 112 39 123/67 (85) 85 Mechanical Ventilator 40.00 11/11/20 03:00 106 23 100/52 (68) 92 Mechanical Ventilator 40.00 11/11/20 02:00 108 23 105/69 (81) 91 Mechanical Ventilator 40.00 11/11/20 01:00 105 40 101/53 (69) 91 Mechanical Ventilator 40.00 11/11/20 01:00 105 11/11/20 00:59 111 28 92 40 11/11/20 00:00 100 23 114/60 (78) 92 Mechanical Ventilator 40.00 11/10/20 23:47 36.5 11/10/20 23:00 96 10 101/51 (68) 89 Mechanical Ventilator 40.00 11/10/20 22:00 93 29 103/56 (72) 91 Mechanical Ventilator 40.00 11/10/20 21:45 116 26 94 40 11/10/20 21:00 93 25 104/49 (67) 89 Mechanical Ventilator 40.00 11/10/20 21:00 2 Mechanical Ventilator 40 11/10/20 20:12 112 94/50 11/10/20 19:55 36.6 112 24 94/50 (65) 89 Mechanical Ventilator 40.00 11/10/20 19:00 112 26 106/71 (83) Mechanical Ventilator 45.00 11/10/20 19:00 110 11/10/20 18:07 101 27 94 40 11/10/20 18:00 87 25 105/58 (74) 97 Mechanical Ventilator 45.00 11/10/20 17:00 82 24 101/56 (71) 95 Mechanical Ventilator 45.00 11/10/20 16:00 98 26 116/65 (82) 95 Mechanical Ventilator 45.00 11/10/20 15:00 86 23 112/60 (77) 95 Mechanical Ventilator 45.00 11/10/20 14:40 95 115/59 11/10/20 14:40 95 115/59 11/10/20 14:33 95 115/59 11/10/20 14:25 95 25 97 40 11/10/20 14:00 112 26 101/53 (69) 96 Mechanical Ventilator 45.00 11/10/20 13:00 93 24 96/49 (65) 95 Mechanical Ventilator 45.00 11/10/20 12:29 87 11/10/20 12:00 124 28 114/59 (77) 96 Mechanical Ventilator 45.00 11/10/20 12:00 37.1 45.00 11/10/20 11:00 124 28 105/54 (71) 96 Mechanical Ventilator 50.00 11/10/20 10:00 88 25 97/53 (68) 99 Mechanical Ventilator 50.00 11/10/20 09:19 89 24 96 45 11/10/20 09:00 95 24 94/51 (65) 98 Mechanical Ventilator 50.00 11/10/20 08:46 36.2 50.00 11/10/20 08:42 94 Mechanical Ventilator 60 11/10/20 08:00 72 24 108/60 (76) 100 Mechanical Ventilator 60.00 11/10/20 07:00 92 11/10/20 07:00 91 29 108/60 (76) 99 Mechanical Ventilator 60.00 11/10/20 06:30 82 24 98 50 11/10/20 06:00 37.1 116 26 119/65 (83) 95 Mechanical Ventilator 60.00 11/10/20 05:00 37.2 87 23 107/55 (72) 94 Mechanical Ventilator 60.00 I & O 11/11/20 07:00 Intake Total 1450 ml Output Total 3700 ml Balance -2250 ml Height & Weight Height: 5'7.00" Weight: 219lbs. 6.0oz. 99.457824ou; 38.33 BMI Method:Stated General Appearance: No Apparent Distress, Chronically ill, Other (sedated) HEENT: Normal ENT Inspection Neck: Limited Range of Motion Respiratory: Crackles, Decreased Breath Sounds, Wheezing Cardiovascular: Regular Rate, Rhythm Capillary Refill: Less Than 3 Seconds Gastrointestinal: non tender, soft Extremity: Pedal Edema Neurologic/Psychiatric: Other (sedated) Skin: Warm/Dry Lymphatic: No Adenopathy Results Lab Laboratory Tests 11/10/20 01:25 11/11/20 04:15 Assessment/Plan Assessment/Plan Acute on chronic respiratory failure -Ventilator 450/24/10 50% -Decrease VT to 400 -Repeat ABG in 1hr -Increase PEEP to 12 -Fentanyl 100, propofol 20 -S/p intubation 2/4 s/p VTach -- AICD converted pt to paced -Continue Ammio gtt -Consult cardiology PNA Avina cultures pending - Cefepime - stopped yesterday -Check PCT if normal will not continue Cefepime. HX of COVID 19 CHFAE 30-35% AFib CKD NICM with dual implanted JAYESH POOEL DO Nov 11, 2020 05:06
[2020-11-11] MEDS: POTASSIUM CL 10MEQ/50ML IVPB 50 ML IV SCH (05:40)
[2020-11-11] MEDS: PROPOFOL DRIP (ICU) 100 ML IV SCH ×3 (05:40→18:01)
[2020-11-11] MEDS: KCL 20 MEQ TAB (K-DUR) PO SCH (05:40)
[2020-11-11] MEDS: MAGNESIUM 1 GM/100 ML IVPB 100 ML IV SCH (05:40)
[2020-11-11] MEDS: LEVOTHYROXINE 25 MCG (LEVOTHROID) TAB PO SCH (05:46)
[2020-11-11] MEDS: CEFEPIME INJECTION 1,000 MG in WATER (STERILE) FOR INJECTION 10 ML IV SCH ×4 (05:53→23:44)
[2020-11-11 07:27] LABS: ABG BASE EXCESS 11.1 MMOL/L (-2.5-2.5); ABG OXYGEN SATURATION 96 % (94-100); ABG PCO2 50 MMHG (35-45); ABG PH 7.47 (7.37-7.43); ABG PO2 77 MMHG (79-93); ABG TCO2 37.1 MMOL/L (21.0-31.0)
[2020-11-11 07:29] LABS: INSPIRED O2 40%; PATIENT TEMP 36.5; VENTILATOR YES
--- NOTE | 2020-11-11 07:57 | Diagnostic Imaging Report ---
EXAM: CHEST 1 VIEW, AP/PA ONLY INDICATION: Respiratory failure. COMPARISON: Chest radiograph 11/10/2020. FINDINGS: Low lung volumes accentuate the cardiomegaly. Diffuse interstitial and airspace opacities. No pleural effusion or pneumothorax. AICD. ETT tip between the level of clavicles and davon. NG tube tip in the stomach. Right PICC tip near the RA/SVC junction. IMPRESSION: 1. Support lines in the expected positions. 2. Stable diffuse airspace opacities bilaterally. Dictated by: Dictated on workstation # [id number]
[2020-11-11] MEDS: VASOPRESSIN INJECTION 20 UNIT in NS (IVPB) 100 ML IV SCH ×2 (08:05→18:02)
[2020-11-11] MEDS: DIGOXIN 0.125 MG (LANOXIN) TAB PO SCH (08:05)
[2020-11-11] MEDS: DOCUSATE SODIUM 10 MG/ML 10 ML UDC (COLACE) PO SCH ×2 (08:05→20:59)
[2020-11-11] MEDS: ASPIRIN 81 MG CHEW (CHILDREN'S ASA) PO SCH (08:05)
[2020-11-11] MEDS: AMIODARONE 200 MG (CORDARONE) TAB PO SCH ×2 (08:05→20:59)
[2020-11-11] MEDS: PANTOPRAZOLE 40 MG (PROTONIX) VIAL IV SCH (08:05)
[2020-11-11] MEDS: LACTULOSE SYRUP 10GM/15ML (ENULOSE) 30ML UDC PO SCH ×2 (08:05→20:59)
[2020-11-11] MEDS: ARTIFICIAL TEARS OINT (LACRI-LUBE) 3.5 GM TUBE OU SCH ×3 (08:05→20:59)
--- NOTE | 2020-11-11 08:05 | Physical Therapy Progress Note ---
Therapy Progress Note Patient remains sedated and intubated. Will continue to monitor patient status. JONO CHÁVEZ PT Nov 11, 2020 08:05
[2020-11-11] MEDS ORDERED: meTOprolol 5 MG/5 ML (LOPRESSOR) VIAL ONE (08:55)
[2020-11-11] MEDS ORDERED: meTOprolol 5 MG/5 ML (LOPRESSOR) VIAL IV NR (09:15)
--- NOTE | 2020-11-11 09:26 | Progress Note - Cardiology ---
Cardiology SOAP Progress Note Subjective: Remains intubated and sedated Objective: I&O/Vital Signs 11/11/20 11/11/20 11/11/20 11/11/20 22:00 22:06 23:00 23:47 Temp 38.6 Pulse 113 103 113 Resp 29 30 29 B/P (MAP) 135/64 (87) 128/65 (86) Pulse Ox 93 93 94 O2 Delivery Mechanical Ventilator Mechanical Ventilator Mechanical Ventilator O2 Flow Rate 60.00 60.00 70.00 FiO2 60 11/12/20 11/12/20 11/12/20 11/12/20 00:00 00:59 01:00 01:00 Pulse 85 90 101 101 Resp 27 27 B/P (MAP) 108/55 (72) 110/55 107/55 (72) Pulse Ox 94 95 O2 Delivery Mechanical Ventilator Mechanical Ventilator O2 Flow Rate 70.00 70.00 11/12/20 11/12/20 11/12/20 11/12/20 01:36 02:00 03:00 03:31 Temp 37.5 Pulse 86 92 88 Resp 25 26 25 B/P (MAP) 102/51 (68) 109/53 (71) Pulse Ox 94 95 95 O2 Delivery Mechanical Ventilator Mechanical Ventilator O2 Flow Rate 70.00 70.00 FiO2 70 11/12/20 11/12/20 11/12/20 11/12/20 04:00 05:00 06:00 06:32 Pulse 79 73 85 97 Resp 24 24 24 B/P (MAP) 103/49 (67) 101/49 (66) 104/50 (68) Pulse Ox 94 94 94 O2 Delivery Mechanical Ventilator Mechanical Ventilator Mechanical Ventilator O2 Flow Rate 70.00 70.00 70.00 11/12/20 11/12/20 11/12/20 11/12/20 06:47 06:58 07:00 07:33 Temp 37.6 Pulse 84 86 Resp 24 24 B/P (MAP) 101/56 (71) Pulse Ox 95 94 O2 Delivery Mechanical Ventilator Mechanical Ventilator O2 Flow Rate 65.00 65.00 FiO2 70 11/12/20 11/12/20 08:00 08:03 Pulse 81 87 Resp 25 B/P (MAP) 117/62 (80) 116/60 Pulse Ox 96 O2 Delivery Mechanical Ventilator O2 Flow Rate 65.00 11/12/20 00:00 Intake Total 710 ml Output Total 2075 ml Balance -1365 ml Weight (Pounds): 219 Weight (Ounces): 6.0 Weight (Calculated Kilograms): 99.507400 Constitutional: appears stated age, well-developed, well-nourished Respiratory: No accessory muscle use; other (fair air entry, diminished at the bases) Cardiovascular: irregularly irregular, tachycardia, S1 and S2, systolic murmur (soft ROCKY at card base) Gastrointestional: distended; No guarding; audible bowel sounds Extremities: No clubbing, No cyanosis; significant edema (marked, bilateral edema) Neurologic/Psychiatric: other (unable to cooperate with neuro exam d/t sedation) Skin: No rash on exposed areas, No ulcerations on exposed areas Results/Procedures: Labs Laboratory Tests 11/12/20 03:30: White Blood Count 11.0, Red Blood Count 3.54L, Hemoglobin 10.3L, Hematocrit 33L, Mean Corpuscular Volume 93, Mean Corpuscular Hemoglobin 29, Mean Corpuscular Hemoglobin Concent 31L, Red Cell Distribution Width 14.2, Platelet Count 448H, Mean Platelet Volume 10.8, Immature Granulocyte % (Auto) 1, Neutrophils (%) (Auto) 86H, Lymphocytes (%) (Auto) 8L, Monocytes (%) (Auto) 3, Eosinophils (%) (Auto) 2, Basophils (%) (Auto) 0, Neutrophils # (Auto) 9.5H, Lymphocytes # (Auto) 0.8L, Monocytes # (Auto) 0.3, Eosinophils # (Auto) 0.2, Basophils # (Auto) 0.0, Immature Granulocyte # (Auto) 0.2H, Sodium Level 142, Potassium Level 4.0, Chloride Level 100, Carbon Dioxide Level 33H, Anion Gap 9, Blood Urea Nitrogen 44H, Creatinine 0.88, Estimat Glomerular Filtration Rate > 60, BUN/Creatinine Ratio 50, Glucose Level 91, Calcium Level 7.4L, Corrected Calcium 8.6, Phosphorus Level 3.1, Magnesium Level 2.3, Total Bilirubin 0.7, Aspartate Amino Transf (AST/SGOT) 48H, Alanine Aminotransferase (ALT/SGPT) 41, Alkaline Phosphatase 49, Total Protein 5.2L, Albumin 2.5L 11/12/20 03:40: Blood Gas Puncture Site RIGHT RADIAL, Blood Gas Patient Temperature 37.5, Arterial Blood pH 7.40, Arterial Blood Partial Pressure CO2 61H, Arterial Blood Partial Pressure O2 127H, Arterial Blood HCO3 37H, Arterial Blood Total CO2 38.7H, Arterial Blood Oxygen Saturation 99, Arterial Blood Base Excess 11.7H, James Test ARTLINE, Blood Gas Ventilator Setting YES, Blood Gas Inspired Oxygen 70 11/12/20 06:10: D-Dimer 1.90H, Urine Color AMBERH, Urine Clarity CLEAR, Urine pH 5.5, Urine Specific [place] 1.025H, Urine Protein 2+H, Urine Glucose (UA) NEGATIVE, Urine Ketones NEGATIVE, Urine Nitrite NEGATIVE, Urine Bilirubin NEGATIVE, Urine Urobil inogen 0.2, Urine Leukocyte Esterase NEGATIVE, Urine RBC (Auto) 3+H, Urine RBC 25-50H, Urine WBC 0-2, Urine Crystals PRESENTH, Urine Amorphous Sediment MOD QUYNH URATESH, Urine Bacteria NEGATIVE, Urine Casts NONE, Urine Mucus NEGATIVE, Urine Culture Indicated NO Microbiology 10/31/20 Gram Stain - Final, Complete 10/31/20 Sputum Culture - Final, Complete No growth 10/30/20 Blood Culture - Final, Complete No growth Procedures NAME: LYN MORENO [facility] REC#: [id number] PT STATUS: ADM IN : 1955 PHYSICIAN: JAYESH POOLE DO ADMIT DATE: 10/30/20/ICU Signed Date of Exam:11/11/20 CHEST 1 VIEW, AP/PA ONLY EXAM: CHEST 1 VIEW, AP/PA ONLY INDICATION: Respiratory failure. COMPARISON: Chest radiograph 11/10/2020. FINDINGS: Low lung volumes accentuate the cardiomegaly. Diffuse interstitial and airspace opacities. No pleural effusion or pneumothorax. AICD. ETT tip between the level of clavicles and davon. NG tube tip in the stomach. Right PICC tip near the RA/SVC junction. IMPRESSION: 1. Support lines in the expected positions. 2. Stable diffuse airspace opacities bilaterally. Dictated by: Dictated on workstation # [id number] Dict: 11/11/20 [id number] Trans: 11/11/20818 CV [id number] Interpreted by: MELLO PATEL MD Electronically signed by: MELLO PATEL MD 11/11/20818 A/P: Assessment: Respiratory failure, multifactorial - post-COVID syndrome (hospitalization with COVID and influenza in late September 2020 - pneumonia - h/o obesity-hypoventilation and sleep apnea - ac on chronic systolic CHF PAF Nonischemic cardiomyopathy - ejection fraction 10% per echo of 05-23-[address] Lopez. - Last echo of 08/12/20 showed LVEF 30-35%. Mod diffuse hypokinesis. Severely dilated LA. Mod MR, Mild AI. RVSP 20 mmHg Status post single-chamber pacemaker defibrillator implantation in August 2010. - Device upgrade February 14, 2015 to a dual chamber device (RA, RV lead) per Dr. Page on 02-14-2015. - Device functioning normally per interrogation of Jul 2020. - Device interrogation 07/29/20 shows episodes of SVT and NSVT. He received a shock on 07/14/20 for what appears to be SVT/A Fl at approx 200 bpm, has had antitach pacing for some other episodes Chronically low bp. D/t hypotension has not been able to tolerate BB, COURTNEY (-) or ARB History of nonsustained ventricular tachycardia, controlled after initiation of therapy with amiodarone (currently on 400 mg daily) Chronic renal insufficiency. CKD stage 2-3 Plan: * Tachycardic - start IV Lopressor * Enoxaparin for DVT and stroke prophylaxis * Monitor labs * Prognosis guarded/poor MAIDA RILEY Nov 11, 2020 09:26
[2020-11-11] MEDS: ENOXAPARIN 40 MG/0.4 ML (LOVENOX) SYR SQ SCH ×2 (09:56→23:41)
[2020-11-11] MEDS ORDERED: FUROSEMIDE 40 MG/4 ML INJ (LASIX) IVP NR (10:15)
[2020-11-11] MEDS ORDERED: KCL 10 MEQ TAB (MICRO K) PO NR (10:15)
[2020-11-11] MEDS: LACTATED RINGERS 1,000 ML IV SCH (10:56)
[2020-11-11] MEDS: meTOprolol 5 MG/5 ML (LOPRESSOR) VIAL IV SCH ×3 (11:47→23:44)
--- NOTE | 2020-11-11 12:15 | Progress Note - Cardiology ---
Cardiology SOAP Progress Note Subjective: Intubated and on mech vent. Unresponsive Objective: I&O/Vital Signs 11/11/20 11/11/20 11/11/20 11/11/20 00:59 01:00 01:00 02:00 Pulse 111 105 105 108 Resp 28 40 23 B/P (MAP) 101/53 (69) 105/69 (81) Pulse Ox 92 91 91 O2 Delivery Mechanical Ventilator Mechanical Ventilator O2 Flow Rate 40.00 40.00 FiO2 40 11/11/20 11/11/20 11/11/20 11/11/20 03:00 04:00 04:21 05:00 Temp 36.6 Pulse 106 112 96 Resp 23 39 29 B/P (MAP) 100/52 (68) 123/67 (85) 105/56 (72) Pulse Ox 92 85 92 O2 Delivery Mechanical Ventilator Mechanical Ventilator Mechanical Ventilator O2 Flow Rate 40.00 40.00 40.00 11/11/20 11/11/20 11/11/20 11/11/20 06:00 06:34 06:55 07:00 Pulse 105 92 100 86 Resp 35 28 20 B/P (MAP) 110/58 (75) 125/56 (79) Pulse Ox 91 90 89 O2 Delivery Mechanical Ventilator Mechanical Ventilator O2 Flow Rate 40.00 40.00 FiO2 40 11/11/20 11/11/20 11/11/20 11/11/20 07:46 08:00 08:51 09:00 Temp 37.0 Pulse 103 124 Resp 53 B/P (MAP) 105/52 (69) 112/55 (74) Pulse Ox 89 88 88 O2 Delivery Mechanical Ventilator Mechanical Ventilator Mechanical Ventilator O2 Flow Rate 40.00 40.00 FiO2 40 11/11/20 11/11/20 11/11/20 11/11/20 09:06 09:24 10:00 10:02 Pulse 91 94 90 Resp 40 39 B/P (MAP) 102/47 (65) 121/60 (80) 121/63 Pulse Ox 90 94 O2 Delivery Mechanical Ventilator Mechanical Ventilator Mechanical Ventilator O2 Flow Rate 50.00 60.00 60.00 11/11/20 11/11/20 11:00 11:12 Pulse 100 106 Resp 31 32 B/P (MAP) 139/70 (93) Pulse Ox 95 95 O2 Delivery Mechanical Ventilator O2 Flow Rate 60.00 FiO2 60 11/11/20 00:00 Intake Total 720 ml Output Total 2500 ml Balance -1780 ml Weight (Pounds): 219 Weight (Ounces): 6.0 Weight (Calculated Kilograms): 99.491663 Constitutional: appears stated age, well-developed, well-nourished Respiratory: No accessory muscle use; other (fair air entry, diminished at the bases) Cardiovascular: irregularly irregular, tachycardia, S1 and S2, systolic murmur (soft ROCKY at card base) Gastrointestional: distended; No guarding; audible bowel sounds Extremities: No clubbing, No cyanosis; significant edema (marked, bilateral edema) Neurologic/Psychiatric: other (unable to cooperate with neuro exam d/t sedation) Skin: No rash on exposed areas, No ulcerations on exposed areas Results/Procedures: Labs Laboratory Tests 11/11/20 04:15: White Blood Count 10.4, Red Blood Count 3.60L, Hemoglobin 10.4L, Hematocrit 33L, Mean Corpuscular Volume 91, Mean Corpuscular Hemoglobin 29, Mean Corpuscular Hemoglobin Concent 32, Red Cell Distribution Width 13.6, Platelet Count 424H, Mean Platelet Volume 11.1, Immature Granulocyte % (Auto) 2, Neutrophils (%) (Au to) 87H, Lymphocytes (%) (Auto) 6L, Monocytes (%) (Auto) 5, Eosinophils (%) (Auto) 0, Basophils (%) (Auto) 0, Neutrophils # (Auto) 9.1H, Lymphocytes # (Auto) 0.6L, Monocytes # (Auto) 0.5, Eosinophils # (Auto) 0.0, Basophils # ( Auto) 0.0, Immature Granulocyte # (Auto) 0.2H, Blood Gas Puncture Site RIGHT AR TLINE, Blood Gas Patient Temperature 36.6, Arterial Blood pH 7.49H, Arterial Blood Partial Pressure CO2 46H, Arterial Blood Partial Pressure O2 108H, Arterial Blood HCO3 35H, Arterial Blood Total CO2 36.4H, Arterial Blood Oxygen Saturation 99, Arterial Blood Base Excess 10.9H, James Test ARTLINE, Blood Gas Ventilator Setting YES, Blood Gas Inspired Oxygen 40, Sodium Level 140, Potassium Level 3.9, Chloride Level 98, Carbon Dioxide Level 31, Anion Gap 11, Blood Urea Nitrogen 47H, Creatinine 0.87, Estimat Glomerular Filtration Rate > 60, BUN/Creatinine Ratio 54, Glucose Level 151H, Calcium Level 7.4L, Corrected Calcium 8.5, Phosphorus Level 3.1, Magnesium Level 2.5H, Total Bilirubin 0.5, Aspartate Amino Transf (AST/SGOT) 33, Alanine Aminotransferase (ALT/SGPT) 30, Alkaline Phosphatase 52, Total Protein 5.3L, Albumin 2.6L, Procalcitonin 0.11H 11/11/20 07:20: Blood Gas Puncture Site ART LINE, Blood Gas Patient Temperature 36.5, Arterial Blood pH 7.47H, Arterial Blood Partial Pressure CO2 50H, Arterial Blood Partial Pressure O2 77L, Arterial Blood HCO3 36H, Arterial Blood Total CO2 37.1H, Arterial Blood Oxygen Saturation 96, Arterial Blood Base Excess 11.1H, James Test N/A, Blood Gas Ventilator Setting YES, Blood Gas Inspired Oxygen 40% Microbiology 10/31/20 Gram Stain - Final, Complete 10/31/20 Sputum Culture - Final, Complete No growth 10/30/20 Blood Culture - Final, Complete No growth Laboratory Tests 11/10/20 01:25 11/11/20 04:15 A/P: Assessment: Respiratory failure, multifactorial - post-COVID syndrome (hospitalization with COVID and influenza in late September 2020) - pneumonia - h/o obesity-hypoventilation and sleep apnea - ac on chronic systolic CHF PAF Nonischemic cardiomyopathy - ejection fraction 10% per echo of 05-23-[address] Lopez. - Last echo of 08/12/20 showed LVEF 30-35%. Mod diffuse hypokinesis. Severely dilated LA. Mod MR, Mild AI. RVSP 20 mmHg Status post single-chamber pacemaker defibrillator implantation in August 2010. - Device upgrade February 14, 2015 to a dual chamber device (RA, RV lead) per Dr. Page on 02-14-2015. - Device functioning normally per interrogation of Jul 2020. - Device interrogation 07/29/20 shows episodes of SVT and NSVT. He received a sh ock on 07/14/20 for what appears to be SVT/A Fl at approx 200 bpm, has had antitach pacing for some other episodes Chronically low bp. D/t hypotension has not been able to tolerate BB, COURTNEY (-) or ARB History of nonsustained ventricular tachycardia, controlled after initiation of therapy with amiodarone (currently on 400 mg daily) Chronic renal insufficiency. CKD stage 2-3 Plan: * Tachycardic - start IV Lopressor * Repeat iv diuretic today * Enoxaparin for DVT and stroke prophylaxis * Monitor labs * Prognosis guarded/poor NAOMIE WATERS MD FACP [facility] CCDS Nov 11, 2020 12:15
[2020-11-11] MEDS: APAP 325 MG/10.15 ML LIQ (TYLENOL) UDC PO PRN (16:01)
[2020-11-11] MEDS: fentaNYL DRIP PRE-MIX 250 ML IV SCH (16:26)
[2020-11-12] VITALS (30 sets, daily range): BP systolic 98–129; BP diastolic 48–69
[2020-11-12] MEDS: PROPOFOL DRIP (ICU) 100 ML IV SCH ×4 (00:59→20:42)
[2020-11-12] MEDS: VASOPRESSIN INJECTION 20 UNIT in NS (IVPB) 100 ML IV SCH ×3 (01:35→23:24)
[2020-11-12] MEDS: RT-ALBUTEROL/IPRATROPIUM 3 ML (DUONEB) VIAL INH SCH ×6 (01:36→21:22)
[2020-11-12 03:44] LABS: BASOPHILS % (AUTO) 0 % (0-10); EOSINOPHILS # (AUTO) 0.2 10^3/uL (0.0-0.3); EOSINOPHILS % (AUTO) 2 % (0-10); HEMATOCRIT 33 % (40-54); HEMOGLOBIN 10.3 g/dL (13.3-17.7); LYMPHOCYTES # (AUTO) 0.8 10^3/uL (1.0-4.0); LYMPHOCYTES % (AUTO) 8 % (12-44); MEAN CORPUSCULAR HEMOGLOBIN 29 pg (25-34); MEAN CORPUSCULAR HGB CONC 31 g/dL (32-36); MEAN CORPUSCULAR VOLUME 93 fL (80-99); MEAN PLATELET VOLUME 10.8 fL (9.0-12.2); MONOCYTES # (AUTO) 0.3 10^3/uL (0.0-1.0); MONOCYTES % (AUTO) 3 % (0-12); NEUTROPHILS # (AUTO) 9.5 10^3/uL (1.8-7.8); NEUTROPHILS % (AUTO) 86 % (42-75); PLATELET COUNT 448 10^3/uL (130-400)
[2020-11-12 03:44] LABS: ABG BASE EXCESS 11.7 MMOL/L (-2.5-2.5); ABG OXYGEN SATURATION 99 % (94-100); ABG PCO2 61 MMHG (35-45); ABG PO2 127 MMHG (79-93); ABG TCO2 38.7 MMOL/L (21.0-31.0)
[2020-11-12 03:46] LABS: ALLENS TEST ARTLINE; INSPIRED O2 70; PATIENT TEMP 37.5; VENTILATOR YES
[2020-11-12 04:25] LABS: ALBUMIN 2.5 GM/DL (3.2-4.5); CHLORIDE 100 MMOL/L (98-107); SODIUM 142 MMOL/L (135-145)
[2020-11-12 04:26] LABS: CALCIUM 7.4 MG/DL (8.5-10.1)
[2020-11-12 04:27] LABS: GLUCOSE 91 MG/DL (70-105); TOTAL PROTEIN 5.2 GM/DL (6.4-8.2)
[2020-11-12 04:28] LABS: CARBON DIOXIDE 33 MMOL/L (21-32)
[2020-11-12 04:29] LABS: BILIRUBIN,TOTAL 0.7 MG/DL (0.1-1.0)
[2020-11-12 04:31] LABS: ALKALINE PHOSPHATASE 49 U/L (40-136); CREATININE SERUM 0.88 MG/DL (0.60-1.30); GFR ESTIMATED > 60; PHOSPHORUS 3.1 MG/DL (2.3-4.7)
[2020-11-12 04:32] LABS: BUN/CREATININE RATIO 50
[2020-11-12] MEDS: NOREPINEPHRINE 4 MG/250 ML 250 ML IV SCH ×4 (04:32→23:25)
[2020-11-12 04:34] LABS: ALANINE AMINOTRANSFERASE 41 U/L (0-55); MAGNESIUM 2.3 MG/DL (1.6-2.4)
--- NOTE | 2020-11-12 05:03 | Pulmonary Progress Note ---
Subjective Time Seen by a Provider: 04:59 Subjective/Events-last exam Pt is sedated on ventilator. Sepsis Event Evaluation Height, Weight, BMI Height: 5'7.00" Weight: 219lbs. 6.0oz. 99.036370qu; 38.33 BMI Method:Stated Exam Exam Vital Signs Date Time Temp Pulse Resp B/P (MAP) Pulse Ox O2 Delivery O2 Flow Rate FiO2 11/12/20 03:31 37.5 11/12/20 03:00 88 25 109/53 (71) 95 Mechanical Ventilator 70.00 11/12/20 02:00 92 26 102/51 (68) 95 Mechanical Ventilator 70.00 11/12/20 01:36 86 25 94 70 11/12/20 01:00 101 27 107/55 (72) 95 Mechanical Ventilator 70.00 11/12/20 01:00 101 11/12/20 00:59 90 110/55 11/12/20 00:00 85 27 108/55 (72) 94 Mechanical Ventilator 70.00 11/11/20 23:47 38.6 Mechanical Ventilator 70.00 11/11/20 23:00 113 29 128/65 (86) 94 Mechanical Ventilator 60.00 11/11/20 22:06 103 30 93 60 11/11/20 22:00 113 29 135/64 (87) 93 Mechanical Ventilator 60.00 11/11/20 21:00 98 109/61 (77) 95 Mechanical Ventilator 60.00 11/11/20 21:00 92 Mechanical Ventilator 60 11/11/20 20:00 98 36 112/60 (77) 94 Mechanical Ventilator 60.00 11/11/20 19:00 94 25 98/55 (69) 93 Mechanical Ventilator 60.00 11/11/20 19:00 94 11/11/20 18:17 99 28 92 60 11/11/20 18:01 108 123/60 11/11/20 18:00 109 124/62 (82) 93 Mechanical Ventilator 60.00 11/11/20 17:00 100 47 96/52 (67) 91 Mechanical Ventilator 60.00 11/11/20 16:45 37.6 11/11/20 16:01 38.1 11/11/20 16:00 129 118/58 (78) 91 Mechanical Ventilator 60.00 11/11/20 15:55 38.1 11/11/20 15:00 91 54 100/54 (69) 91 Mechanical Ventilator 60.00 11/11/20 14:58 96 27 91 60 11/11/20 14:00 96 58 109/57 (74) 90 Mechanical Ventilator 60.00 11/11/20 13:00 107 30 150/71 (97) 93 Mechanical Ventilator 60.00 11/11/20 12:45 37.5 11/11/20 12:44 113 11/11/20 12:00 93 31 139/73 (95) 95 Mechanical Ventilator 60.00 11/11/20 11:12 106 32 95 60 11/11/20 11:00 100 31 139/70 (93) 95 Mechanical Ventilator 60.00 11/11/20 10:02 90 121/63 11/11/20 10:00 94 39 121/60 (80) 94 Mechanical Ventilator 60.00 11/11/20 09:24 Mechanical Ventilator 60.00 11/11/20 09:06 91 40 102/47 (65) 90 Mechanical Ventilator 50.00 11/11/20 09:00 124 112/55 (74) 88 Mechanical Ventilator 40.00 11/11/20 08:51 88 Mechanical Ventilator 40 11/11/20 08:00 103 53 105/52 (69) 89 Mechanical Ventilator 40.00 11/11/20 07:46 37.0 11/11/20 07:00 86 20 125/56 (79) 89 Mechanical Ventilator 40.00 11/11/20 06:55 100 28 90 40 11/11/20 06:34 92 11/11/20 06:00 105 35 110/58 (75) 91 Mechanical Ventilator 40.00 11/11/20 05:00 96 29 105/56 (72) 92 Mechanical Ventilator 40.00 I & O 11/12/20 07:00 Intake Total 1160 ml Output Total 2500 ml Balance -1340 ml Height & Weight Height: 5'7.00" Weight: 219lbs. 6.0oz. 99.892373oh; 38.33 BMI Method:Stated General Appearance: No Apparent Distress, Chronically ill, Other (sedated) HEENT: Normal ENT Inspection Neck: Limited Range of Motion Respiratory: Crackles, Decreased Breath Sounds, Wheezing Cardiovascular: Regular Rate, Rhythm Capillary Refill: Less Than 3 Seconds Gastrointestinal: non tender, soft Extremity: Pedal Edema Neurologic/Psychiatric: Other (sedated) Skin: Warm/Dry Lymphatic: No Adenopathy Results Lab Laboratory Tests 11/11/20 04:15 11/12/20 03:30 Assessment/Plan Assessment/Plan Acute on chronic respiratory failure -Ventilator 400// 50% -Increase PEEP to 16 -Fentanyl 100, propofol 20 -S/p intubation 10/31 -Resume proning -Will start Decadron -Repeat DDIMER s/p VTach -- AICD converted pt to paced -PO Ammio -cardiology following PNA Avina cultures pending - Cefepime HX of COVID 19 CHFAE 30-35% AFib CKD NICM with dual implanted Attempted to call family for update however there was no answer. Pt's prognosis is very poor. JAYESH POOLE DO Nov 12, 2020 05:03
[2020-11-12] MEDS: CEFEPIME INJECTION 1,000 MG in WATER (STERILE) FOR INJECTION 10 ML IV SCH ×4 (06:12→23:24)
[2020-11-12] MEDS: POTASSIUM CL 10MEQ/50ML IVPB 50 ML IV SCH ×5 (06:12→08:30)
[2020-11-12] MEDS: KCL 20 MEQ TAB (K-DUR) PO SCH (06:13)
[2020-11-12] MEDS: METOCLOPRAMIDE INJ 10 MG/2 ML (REGLAN) IVP SCH ×4 (06:13→23:24)
[2020-11-12] MEDS: MAGNESIUM 1 GM/100 ML IVPB 100 ML IV SCH (06:13)
[2020-11-12] MEDS: LEVOTHYROXINE 25 MCG (LEVOTHROID) TAB PO SCH (06:14)
[2020-11-12] MEDS: meTOprolol 5 MG/5 ML (LOPRESSOR) VIAL IV SCH ×4 (06:14→23:24)
[2020-11-12 06:55] LABS: BILIRUBIN,URINE NEGATIVE (NEGATIVE); CLARITY,URINE CLEAR; COLOR,URINE AMBER; GLUCOSE, URINE (UA) NEGATIVE (NEGATIVE); KETONES,URINE NEGATIVE (NEGATIVE); LEUKOCYTE ESTERASE ,URINE NEGATIVE (NEGATIVE); NITRITE,URINE NEGATIVE (NEGATIVE); PH,URINE 5.5 (5-9); PROTEIN,URINE 2+ (NEGATIVE)
[2020-11-12 07:07] LABS: AMORPHOUS SEDIMENT,UR MOD AMOR URATES /LPF; BACTERIA,URINE NEGATIVE /HPF; RBC,URINE 25-50 /HPF; WBC,URINE 0-2 /HPF
--- NOTE | 2020-11-12 07:09 | Diagnostic Imaging Report ---
INDICATION: Ventilated patient. Respiratory distress. COMPARISON: 11/11/2020 FINDINGS: Single frontal radiograph view the chest was obtained and demonstrates indwelling endotracheal tube with tip below the clavicular heads above the davon. Indwelling gastric tube is also noted, but tip is obscured. Left-sided AICD is also present. Cardiac silhouette is moderately enlarged. Lungs continue to show scattered mixed interstitial and alveolar opacities. Overall, aeration is stable. Small effusions cannot be excluded. There is no pneumothorax. Pulmonary vasculature is mildly prominent as well. Osseous structures are unremarkable. IMPRESSION: 1. Persistent stable diffuse mixed interstitial and alveolar pneumonia versus pulmonary edema. Clinical correlation is advised. 2. Moderate cardiomegaly. 3. Lines and tubes as above. Dictated by: Dictated on workstation # [id number]
[2020-11-12] MEDS: fentaNYL DRIP PRE-MIX 250 ML IV SCH ×2 (07:30→23:30)
[2020-11-12] MEDS: LACTULOSE SYRUP 10GM/15ML (ENULOSE) 30ML UDC PO SCH ×2 (08:03→21:02)
[2020-11-12] MEDS: AMIODARONE 200 MG (CORDARONE) TAB PO SCH ×2 (08:03→21:03)
[2020-11-12] MEDS: DIGOXIN 0.125 MG (LANOXIN) TAB PO SCH (08:03)
[2020-11-12] MEDS: ASPIRIN 81 MG CHEW (CHILDREN'S ASA) PO SCH (08:03)
[2020-11-12] MEDS: PANTOPRAZOLE 40 MG (PROTONIX) VIAL IV SCH ×2 (08:03→21:02)
[2020-11-12] MEDS: DOCUSATE SODIUM 10 MG/ML 10 ML UDC (COLACE) PO SCH ×2 (08:03→21:02)
[2020-11-12] MEDS: ARTIFICIAL TEARS OINT (LACRI-LUBE) 3.5 GM TUBE OU SCH ×3 (08:04→21:02)
[2020-11-12] MEDS: FUROSEMIDE 40 MG/4 ML INJ (LASIX) IVP SCH (08:04)
--- NOTE | 2020-11-12 08:24 | Physical Therapy Progress Note ---
Therapy Progress Note Patient remains sedated and intubated. PT will continue to monitor. JONO CHÁVEZ PT Nov 12, 2020 08:24
--- NOTE | 2020-11-12 09:38 | Progress Note - Cardiology ---
Cardiology SOAP Progress Note Subjective: Remains intubated and sedated Objective: I&O/Vital Signs 11/12/20 11/13/20 11/13/20 11/13/20 23:00 00:00 01:00 01:00 Pulse 83 70 80 80 Resp 24 24 24 B/P (MAP) 105/57 (73) 101/56 (71) 103/55 (71) Pulse Ox 95 95 95 O2 Delivery Mechanical Ventilator Mechanical Ventilator Mechanical Ventilator O2 Flow Rate 60.00 60.00 60.00 11/13/20 11/13/20 11/13/20 11/13/20 01:22 01:23 02:00 03:00 Pulse 84 86 140 123 Resp 24 24 24 24 B/P (MAP) 108/57 (74) 101/59 (73) 107/57 (74) Pulse Ox 95 95 90 94 O2 Delivery Mechanical Ventilator Mechanical Ventilator Mechanical Ventilator O2 Flow Rate 55.00 55.00 55.00 FiO2 60 11/13/20 11/13/20 11/13/20 11/13/20 03:00 03:59 04:00 04:53 Temp 36.2 36.5 Pulse 105 113 Resp 24 B/P (MAP) 115/64 114/64 (81) Pulse Ox 96 O2 Delivery Mechanical Ventilator O2 Flow Rate 55.00 55.00 11/13/20 11/13/20 11/13/20 11/13/20 06:00 06:28 06:32 07:00 Pulse 122 124 96 Resp 26 25 B/P (MAP) 122/67 (85) Pulse Ox 95 95 O2 Delivery Mechanical Ventilator O2 Flow Rate 55.00 50.00 FiO2 50 11/13/20 11/13/20 11/13/20 11/13/20 07:00 07:30 08:00 08:59 Temp 37.9 Pulse 107 135 Resp 26 27 B/P (MAP) 111/65 (80) 112/65 (81) Pulse Ox 95 94 95 O2 Delivery Mechanical Ventilator Mechanical Ventilator Mechanical Ventilator O2 Flow Rate 50.00 50.00 FiO2 50 11/13/20 11/13/20 11/13/20 11/13/20 09:00 09:01 09:01 10:00 Pulse 128 96 96 124 Resp 31 24 B/P (MAP) 104/59 (74) 111/60 111/60 105/60 (75) Pulse Ox 94 95 O2 Delivery Mechanical Ventilator Mechanical Ventilator O2 Flow Rate 50.00 50.00 11/13/20 11/13/20 10:28 10:28 Pulse 124 125 Resp 25 B/P (MAP) 105/60 Pulse Ox 94 FiO2 50 11/13/20 00:00 Intake Total 60 ml Output Total 1600 ml Balance -1540 ml Weight (Pounds): 219 Weight (Ounces): 6.0 Weight (Calculated Kilograms): 99.314935 Constitutional: appears stated age, well-developed, well-nourished Respiratory: No accessory muscle use; other (fair air entry, diminished at the bases) Cardiovascular: irregularly irregular, tachycardia, S1 and S2, systolic murmur (soft ROCKY at card base) Gastrointestional: distended; No guarding; audible bowel sounds Extremities: No clubbing, No cyanosis; significant edema (bilat LE /UE swelling including scrotal edema) Neurologic/Psychiatric: other (unable to cooperate with neuro exam d/t sedation) Skin: No rash on exposed areas, No ulcerations on exposed areas Results/Procedures: Labs Laboratory Tests 11/12/20 18:15: Prothrombin Time 15.8H, INR Comment 1.2, Activated Partial Thromboplast Time 28, Fibrinogen 678H, D-Dimer 1.84H 11/12/20 23:23: Glucometer 92 11/13/20 03:10: White Blood Count 13.1H, Red Blood Count 3.84L, Hemoglobin 11.2L, Hematocrit 37L , Mean Corpuscular Volume 95, Mean Corpuscular Hemoglobin 29, Mean Corpuscular Hemoglobin Concent 31L, Red Cell Distribution Width 14.1, Platelet Count 477H, Mean Platelet Volume 11.0, Immature Granulocyte % (Auto) 1, Neutrophils (%) (Auto) 89H, Lymphocytes (%) (Auto) 5L, Monocytes (%) (Auto) 3, Eosinophils (%) (Auto) 1, Basophils (%) (Auto) 0, Neutrophils # (Auto) 11.7H, Lymphocytes # (Auto) 0.7L, Monocytes # (Auto) 0.4, Eosinophils # (Auto) 0.2, Basophils # (Auto) 0.0, Immature Granulocyte # (Auto) 0.2H, Blood Gas Puncture Site RIGHT RADIAL, Blood Gas Patient Temperature 36.2, Arterial Blood pH 7.33*L, Arterial Blood Partial Pressure CO2 69H, Arterial Blood Partial Pressure O2 114H, Arterial Blood HCO3 36H, Arterial Blood Total CO2 38.1H, Arterial Blood Oxygen Saturation 99, Arterial Blood Base Excess 9.8H, James Test POSITIVE, Blood Gas Ventilator Setting YES, Blood Gas Inspired Oxygen 55, Sodium Level 143, Potassium Level 4.2, Chloride Level 98, Carbon Dioxide Level 31, Anion Gap 14, Blood Urea Nitrogen 50H, Creatinine 0.93, Estimat Glomerular Filtration Rate > 60, BUN/Creatinine Ratio 54, Glucose Level 95, Calcium Level 7.9L, Corrected Calcium 8.9, Phosphorus Level 4.2, Magnesium Level 2.4, Total Bilirubin 0.6, Aspartate Amino Transf (AST/SGOT) 55H, Alanine Aminotransferase (ALT/SGPT) 44, Alkaline Phosphatase 49, Total Protein 5.9L, Albumin 2.8L 11/13/20 06:36: Glucometer 125H Microbiology 11/12/20 Gram Stain - Final, Resulted 11/12/20 Sputum Culture - Preliminary, Resulted Gram Negative Misha 10/30/20 Blood Culture - Final, Complete No growth Procedures NAME: LYN MORENO [facility] REC#: [id number] PT STATUS: ADM IN : 1955 PHYSICIAN: ODELL GARCIA MD ADMIT DATE: 10/30/20/ICU Signed Date of Exam:11/12/20 CHEST 1 VIEW, AP/PA ONLY INDICATION: Ventilated patient. Respiratory distress. COMPARISON: 11/11/2020 FINDINGS: Single frontal radiograph view the chest was obtained and demonstrates indwelling endotracheal tube with tip below the clavicular heads above the davon. Indwelling gastric tube is also noted, but tip is obscured. Left-sided AICD is also present. Cardiac silhouette is moderately enlarged. Lungs continue to show scattered mixed interstitial and alveolar opacities. Overall, aeration is stable. Small effusions cannot be excluded. There is no pneumothorax. Pulmonary vasculature is mildly prominent as well. Osseous structures are unremarkable. IMPRESSION: 1. Persistent stable diffuse mixed interstitial and alveolar pneumonia versus pulmonary edema. Clinical correlation is advised. 2. Moderate cardiomegaly. 3. Lines and tubes as above. Dictated by: Dictated on workstation # [id number] Dict: 11/12/20 0656 Trans: 11/12/20 0829 [facility] [id number] Interpreted by: RAJINDER SCHMITT MD Electronically signed by: RAJINDER SCHMITT MD 11/12/2029 A/P: Assessment: Respiratory failure, multifactorial - post-COVID syndrome (hospitalization with COVID and influenza in late September 2020) - pneumonia - h/o obesity-hypoventilation and sleep apnea - ac on chronic systolic CHF PAF Nonischemic cardiomyopathy - ejection fraction 10% per echo of 05-23-[address] Lopez. - Last echo of 08/12/20 showed LVEF 30-35%. Mod diffuse hypokinesis. Severely dilated LA. Mod MR, Mild AI. RVSP 20 mmHg Status post single-chamber pacemaker defibrillator implantation in August 2010. - Device upgrade February 14, 2015 to a dual chamber device (RA, RV lead) per Dr. Page on 02-14-2015. - Device functioning normally per interrogation of Jul 2020. - Device interrogation 07/29/20 shows episodes of SVT and NSVT. He received a shock on 07/14/20 for what appears to be SVT/A Fl at approx 200 bpm, has had antitach pacing for some other episodes Chronically low bp. D/t hypotension has not been able to tolerate BB, COURTNEY (-) or ARB History of nonsustained ventricular tachycardia, controlled after initiation of therapy with amiodarone (currently on 400 mg daily) Chronic renal insufficiency. CKD stage 2-3 Plan: * Continue IV BB * Continue IV diuretics * Replace electrolytes * Enoxaparin for DVT and stroke prophylaxis * Monitor labs * Prognosis guarded/poor MAIDA RILEY Nov 12, 2020 09:38
[2020-11-12] MEDS: ENOXAPARIN 40 MG/0.4 ML (LOVENOX) SYR SQ SCH (10:16)
[2020-11-12] MEDS: APAP 325 MG/10.15 ML LIQ (TYLENOL) UDC PO PRN (11:15)
[2020-11-12] MEDS: LACTATED RINGERS 1,000 ML IV SCH (11:16)
--- NOTE | 2020-11-12 12:32 | Progress Note - Cardiology ---
Cardiology SOAP Progress Note Subjective: Intubated, on mech vent, unresponsive Objective: I&O/Vital Signs 11/12/20 11/12/20 11/12/20 11/12/20 00:59 01:00 01:00 01:36 Pulse 90 101 101 86 Resp 25 B/P (MAP) 110/55 107/55 (72) Pulse Ox 95 94 O2 Delivery Mechanical Ventilator O2 Flow Rate 70.00 FiO2 70 11/12/20 11/12/20 11/12/20 11/12/20 02:00 03:00 03:31 04:00 Temp 37.5 Pulse 92 88 79 Resp 24 B/P (MAP) 102/51 (68) 109/53 (71) 103/49 (67) Pulse Ox 95 95 94 O2 Delivery Mechanical Ventilator Mechanical Ventilator Mechanical Ventilator O2 Flow Rate 70.00 70.00 70.00 11/12/20 11/12/20 11/12/20 11/12/20 05:00 06:00 06:32 06:47 Pulse 73 85 97 84 Resp 24 B/P (MAP) 101/49 (66) 104/50 (68) Pulse Ox 94 94 95 O2 Delivery Mechanical Ventilator Mechanical Ventilator O2 Flow Rate 70.00 70.00 FiO2 70 11/12/20 11/12/20 11/12/20 11/12/20 06:58 07:00 07:33 08:00 Temp 37.6 Pulse 86 81 Resp B/P (MAP) 101/56 (71) 117/62 (80) Pulse Ox 94 96 O2 Delivery Mechanical Ventilator Mechanical Ventilator Mechanical Ventilator O2 Flow Rate 65.00 65.00 65.00 11/12/20 11/12/20 11/12/20 11/12/20 08:03 08:15 09:00 09:48 Pulse 87 107 122 Resp B/P (MAP) 116/60 124/67 (86) Pulse Ox 92 95 94 O2 Delivery Mechanical Ventilator Mechanical Ventilator O2 Flow Rate 65.00 FiO2 65 65 11/12/20 11/12/20 11/12/20 11/12/20 10:00 11:00 11:15 12:00 Temp 38.2 Pulse 108 106 85 Resp 24 B/P (MAP) 112/64 (80) 129/69 (89) 113/61 (78) Pulse Ox 91 94 95 O2 Delivery Mechanical Ventilator Mechanical Ventilator Mechanical Ventilator O2 Flow Rate 65.00 65.00 65.00 11/12/20 00:00 Intake Total 710 ml Output Total 2075 ml Balance -1365 ml Weight (Pounds): 219 Weight (Ounces): 6.0 Weight (Calculated Kilograms): 99.445886 Constitutional: appears stated age, well-developed, well-nourished Respiratory: No accessory muscle use; other (fair air entry, diminished at the bases) Cardiovascular: irregularly irregular, tachycardia, S1 and S2, systolic murmur (soft ROCKY at card base) Gastrointestional: distended; No guarding; audible bowel sounds Extremities: No clubbing, No cyanosis; significant edema (bilat LE /UE swelling including scrotal edema) Neurologic/Psychiatric: other (unable to cooperate with neuro exam d/t sedation) Skin: No rash on exposed areas, No ulcerations on exposed areas Results/Procedures: Labs Laboratory Tests 11/12/20 03:30: White Blood Count 11.0, Red Blood Count 3.54L, Hemoglobin 10.3L, Hematocrit 33L, Mean Corpuscular Volume 93, Mean Corpuscular Hemoglobin 29, Mean Corpuscular Hemoglobin Concent 31L, Red Cell Distribution Width 14.2, Platelet Count 448H, Mean Platelet Volume 10.8, Immature Granulocyte % (Auto) 1, Neutrophils (%) (Auto) 86H, Lymphocytes (%) (Auto) 8L, Monocytes (%) (Auto) 3, Eosinophils (%) (Auto) 2, Basophils (%) (Auto) 0, Neutrophils # (Auto) 9.5H, Lymphocytes # (Auto) 0.8L, Monocytes # (Auto) 0.3, Eosinophils # (Auto) 0.2, Basophils # (Auto) 0.0, Immature Granulocyte # (Auto) 0.2H, Sodium Level 142, Potassium Level 4.0, Chloride Level 100, Carbon Dioxide Level 33H, Anion Gap 9, Blood Urea Nitrogen 44H, Creatinine 0.88, Estimat Glomerular Filtration Rate > 60, BUN/Creatinine Ratio 50, Glucose Level 91, Calcium Level 7.4L, Corrected Calcium 8.6, Phosphorus Level 3.1, Magnesium Level 2.3, Total Bilirubin 0.7, Aspartate Amino Transf (AST/SGOT) 48H, Alanine Aminotransferase (ALT/SGPT) 41, Alkaline Phosphatase 49, Total Protein 5.2L, Albumin 2.5L 11/12/20 03:40: Blood Gas Puncture Site RIGHT RADIAL, Blood Gas Patient Temperature 37.5, Arterial Blood pH 7.40, Arterial Blood Partial Pressure CO2 61H, Arterial Blood Partial Pressure O2 127H, Arterial Blood HCO3 37H, Arterial Blood Total CO2 38.7H, Arterial Blood Oxygen Saturation 99, Arterial Blood Base Excess 11.7H, James Test ARTLINE, Blood Gas Ventilator Setting YES, Blood Gas Inspired Oxygen 70 11/12/20 06:10: D-Dimer 1.90H, Urine Color AMBERH, Urine Clarity CLEAR, Urine pH 5.5, Urine Specific [place] 1.025H, Urine Protein 2+H, Urine Glucose (UA) NEGATIVE, Urine Ketones NEGATIVE, Urine Nitrite NEGATIVE, Urine Bilirubin NEGATIVE, Urine Urobilinogen 0.2, Urine Leukocyte Esterase NEGATIVE, Urine RBC (Auto) 3+H, Urine RBC 25-50H, Urine WBC 0-2, Urine Crystals PRESENTH, Urine Amorphous Sediment MOD QUYNH URATESH, Urine Bacteria NEGATIVE, Urine Casts NONE, Urine Mucus NEGATIVE, Urine Culture Indicated NO Microbiology 10/31/20 Gram Stain - Final, Complete 10/31/20 Sputum Culture - Final, Complete No growth 10/30/20 Blood Culture - Final, Complete No growth Laboratory Tests 11/11/20 04:15 11/12/20 03:30 A/P: Assessment: Respiratory failure, multifactorial - post-COVID syndrome (hospitalization with COVID and influenza in late September 2020) - pneumonia - h/o obesity-hypoventilation and sleep apnea - ac on chronic systolic CHF PAF Nonischemic cardiomyopathy - ejection fraction 10% per echo of 05-23-[address] Lopez. - Last echo of 08/12/20 showed LVEF 30-35%. Mod diffuse hypokinesis. Severely dilated LA. Mod MR, Mild AI. RVSP 20 mmHg Status post single-chamber pacemaker defibrillator implantation in August 2010. - Device upgrade February 14, 2015 to a dual chamber device (RA, RV lead) per Dr. Page on 02-14-2015. - Device functioning normally per interrogation of Jul 2020. - Device interrogation 07/29/20 shows episodes of SVT and NSVT. He received a shock on 07/14/20 for what appears to be SVT/A Fl at approx 200 bpm, has had antitach pacing for some other episodes Chronically low bp. D/t hypotension has not been able to tolerate BB, COURTNEY (-) or ARB History of nonsustained ventricular tachycardia, controlled after initiation of therapy with amiodarone (currently on 400 mg daily) Chronic renal insufficiency. CKD stage 2-3 Plan: * Continue IV BB, as tolerated * Continue IV diuretics, as needed * Monitor and correct labs * Enoxaparin for DVT and stroke prophylaxis * Poor prognosis NAOMIE WATERS MD FACP [facility] Nov 12, 2020 12:32
[2020-11-12] MEDS ORDERED: FUROSEMIDE 40 MG/4 ML INJ (LASIX) IVP ONE (17:00)
[2020-11-12 18:44] LABS: FIBRIN DEGRADATION PRODUCTS 1.84 UG/ML (0.00-0.49); INR 1.2 (0.8-1.4); PROTHROMBIN TIME PATIENT 15.8 SEC (12.2-14.7)
[2020-11-13] VITALS (29 sets, daily range): BP systolic 101–122; BP diastolic 55–68
[2020-11-13] MEDS: RT-ALBUTEROL/IPRATROPIUM 3 ML (DUONEB) VIAL INH SCH ×6 (01:22→21:18)
[2020-11-13] MEDS: VASOPRESSIN INJECTION 20 UNIT in NS (IVPB) 100 ML IV SCH ×3 (02:06→20:16)
[2020-11-13] MEDS: NOREPINEPHRINE 4 MG/250 ML 250 ML IV SCH ×4 (02:07→20:16)
[2020-11-13 03:20] LABS: ABG BASE EXCESS 9.8 MMOL/L (-2.5-2.5); ABG OXYGEN SATURATION 99 % (94-100); ABG PCO2 69 MMHG (35-45); ABG PO2 114 MMHG (79-93); ABG TCO2 38.1 MMOL/L (21.0-31.0); BASOPHILS % (AUTO) 0 % (0-10); EOSINOPHILS # (AUTO) 0.2 10^3/uL (0.0-0.3); EOSINOPHILS % (AUTO) 1 % (0-10); HEMATOCRIT 37 % (40-54); HEMOGLOBIN 11.2 g/dL (13.3-17.7); LYMPHOCYTES # (AUTO) 0.7 10^3/uL (1.0-4.0); LYMPHOCYTES % (AUTO) 5 % (12-44); MEAN CORPUSCULAR HEMOGLOBIN 29 pg (25-34); MEAN CORPUSCULAR HGB CONC 31 g/dL (32-36); MEAN CORPUSCULAR VOLUME 95 fL (80-99); MONOCYTES # (AUTO) 0.4 10^3/uL (0.0-1.0); MONOCYTES % (AUTO) 3 % (0-12); NEUTROPHILS # (AUTO) 11.7 10^3/uL (1.8-7.8); NEUTROPHILS % (AUTO) 89 % (42-75); PLATELET COUNT 477 10^3/uL (130-400); WHITE BLOOD COUNT 13.1 10^3/uL (4.3-11.0)
[2020-11-13 03:21] LABS: ABG PH 7.33 (7.37-7.43); ALLENS TEST POSITIVE; INSPIRED O2 55; PATIENT TEMP 36.2; VENTILATOR YES
[2020-11-13 03:32] LABS: ALBUMIN 2.8 GM/DL (3.2-4.5); CHLORIDE 98 MMOL/L (98-107); POTASSIUM 4.2 MMOL/L (3.6-5.0); SODIUM 143 MMOL/L (135-145)
[2020-11-13 03:33] LABS: CALCIUM 7.9 MG/DL (8.5-10.1)
[2020-11-13 03:35] LABS: GLUCOSE 95 MG/DL (70-105); TOTAL PROTEIN 5.9 GM/DL (6.4-8.2)
[2020-11-13 03:36] LABS: BILIRUBIN,TOTAL 0.6 MG/DL (0.1-1.0); CARBON DIOXIDE 31 MMOL/L (21-32)
[2020-11-13 03:38] LABS: ALKALINE PHOSPHATASE 49 U/L (40-136); CREATININE SERUM 0.93 MG/DL (0.60-1.30); GFR ESTIMATED > 60; PHOSPHORUS 4.2 MG/DL (2.3-4.7)
[2020-11-13 03:39] LABS: BUN/CREATININE RATIO 54
[2020-11-13 03:41] LABS: ALANINE AMINOTRANSFERASE 44 U/L (0-55); MAGNESIUM 2.4 MG/DL (1.6-2.4)
[2020-11-13] MEDS: PROPOFOL DRIP (ICU) 100 ML IV SCH ×3 (03:59→17:27)
[2020-11-13] MEDS: POTASSIUM CL 10MEQ/50ML IVPB 50 ML IV SCH (05:14)
[2020-11-13] MEDS: MAGNESIUM 1 GM/100 ML IVPB 100 ML IV SCH (05:15)
[2020-11-13] MEDS: KCL 20 MEQ TAB (K-DUR) PO SCH (05:15)
--- NOTE | 2020-11-13 06:24 | Pulmonary Progress Note ---
Subjective Time Seen by a Provider: 06:22 Sepsis Event Evaluation Height, Weight, BMI Height: 5'7.00" Weight: 219lbs. 6.0oz. 99.307434er; 38.33 BMI Method:Stated Exam Exam Vital Signs Date Time Temp Pulse Resp B/P (MAP) Pulse Ox O2 Delivery O2 Flow Rate FiO2 11/13/20 04:53 36.5 11/13/20 04:00 113 24 114/64 (81) 96 Mechanical Ventilator 55.00 11/13/20 03:59 105 115/64 11/13/20 03:00 36.2 55.00 11/13/20 03:00 123 24 107/57 (74) 94 Mechanical Ventilator 55.00 11/13/20 02:00 140 24 101/59 (73) 90 Mechanical Ventilator 55.00 11/13/20 01:23 86 24 108/57 (74) 95 Mechanical Ventilator 55.00 11/13/20 01:22 84 24 95 60 11/13/20 01:00 80 11/13/20 01:00 80 24 103/55 (71) 95 Mechanical Ventilator 60.00 11/13/20 00:00 70 24 101/56 (71) 95 Mechanical Ventilator 60.00 11/12/20 23:00 83 24 105/57 (73) 95 Mechanical Ventilator 60.00 11/12/20 22:00 85 24 107/58 (74) 95 Mechanical Ventilator 60.00 11/12/20 21:23 96 24 95 60 11/12/20 21:00 95 Mechanical Ventilator 60 11/12/20 21:00 95 24 111/60 (77) 95 Mechanical Ventilator 60.00 11/12/20 20:42 78 111/59 11/12/20 20:25 36.9 11/12/20 20:00 91 24 98/58 (71) 95 Mechanical Ventilator 60.00 11/12/20 19:00 93 11/12/20 19:00 87 24 111/61 (78) 95 Mechanical Ventilator 60.00 11/12/20 18:11 89 24 95 60 11/12/20 18:00 78 24 106/60 (75) 95 Mechanical Ventilator 60.00 11/12/20 17:00 86 24 108/62 (77) 95 Mechanical Ventilator 60.00 11/12/20 16:00 81 24 106/57 (73) 95 Mechanical Ventilator 60.00 11/12/20 15:23 37.4 11/12/20 15:00 86 24 109/61 (77) 95 Mechanical Ventilator 60.00 11/12/20 14:07 Mechanical Ventilator 60.00 11/12/20 14:05 87 24 95 60 11/12/20 14:00 84 24 100/59 (73) 95 Mechanical Ventilator 65.00 11/12/20 13:51 92 104/61 11/12/20 13:00 84 24 110/60 (77) 95 Mechanical Ventilator 65.00 11/12/20 12:42 92 11/12/20 12:00 85 24 113/61 (78) 95 Mechanical Ventilator 65.00 11/12/20 12:00 37.6 11/12/20 11:15 38.2 11/12/20 11:00 106 25 129/69 (89) 94 Mechanical Ventilator 65.00 11/12/20 10:00 108 27 112/64 (80) 91 Mechanical Ventilator 65.00 11/12/20 09:48 122 27 94 65 11/12/20 09:00 107 33 124/67 (86) 95 Mechanical Ventilator 65.00 11/12/20 08:15 92 Mechanical Ventilator 65 11/12/20 08:03 87 116/60 11/12/20 08:00 81 25 117/62 (80) 96 Mechanical Ventilator 65.00 11/12/20 07:33 37.6 11/12/20 07:00 86 24 101/56 (71) 94 Mechanical Ventilator 65.00 11/12/20 06:58 Mechanical Ventilator 65.00 11/12/20 06:47 84 24 95 70 11/12/20 06:32 97 I & O 11/13/20 07:00 Intake Total 1050 ml Output Total 2900 ml Balance -1850 ml Height & Weight Height: 5'7.00" Weight: 219lbs. 6.0oz. 99.453640mb; 38.33 BMI Method:Stated General Appearance: No Apparent Distress, Chronically ill, Other (sedated) HEENT: Normal ENT Inspection Neck: Limited Range of Motion Respiratory: Crackles, Decreased Breath Sounds, Wheezing Cardiovascular: Regular Rate, Rhythm Capillary Refill: Less Than 3 Seconds Gastrointestinal: non tender, soft Extremity: Pedal Edema Neurologic/Psychiatric: Other (sedated) Skin: Warm/Dry Lymphatic: No Adenopathy Results Lab Laboratory Tests 11/12/20 03:30 11/13/20 03:10 Assessment/Plan Assessment/Plan Acute on chronic respiratory failure -Ventilator 55% -Decrease PEEP to 14 -Fentanyl 100, propofol 20 -S/p intubation 10/31 - proning - Decadron -Repeat DDIMER s/p VTach -- AICD converted pt to paced -PO Ammio -cardiology following PNA Avina cultures pending - Cefepime HX of COVID 19 CHFAE 30-35% AFib CKD NICM with dual implanted JAYESH POOLE DO Nov 13, 2020 06:24
[2020-11-13] MEDS: ENOXAPARIN 40 MG/0.4 ML (LOVENOX) SYR SC SCH ×2 (06:34→20:16)
[2020-11-13] MEDS: LEVOTHYROXINE 25 MCG (LEVOTHROID) TAB PO SCH (06:35)
[2020-11-13] MEDS: METOCLOPRAMIDE INJ 10 MG/2 ML (REGLAN) IVP SCH ×3 (06:35→17:27)
[2020-11-13] MEDS: CEFEPIME INJECTION 1,000 MG in WATER (STERILE) FOR INJECTION 10 ML IV SCH ×3 (06:35→17:27)
[2020-11-13] MEDS: meTOprolol 5 MG/5 ML (LOPRESSOR) VIAL IV SCH ×3 (06:37→17:27)
--- NOTE | 2020-11-13 07:19 | Diagnostic Imaging Report ---
INDICATION: Respiratory distress. FINDINGS: Portable chest shows cardiomegaly with normal vascularity. There has been partial clearing of the bilateral infiltrates since 11/12/2020. There is no effusion or pneumothorax. ET tube and OG tube remain in place. IMPRESSION: Improving chest. Dictated by: Dictated on workstation # [id number]
[2020-11-13] MEDS: FUROSEMIDE 40 MG/4 ML INJ (LASIX) IVP SCH (08:25)
[2020-11-13] MEDS: PANTOPRAZOLE 40 MG (PROTONIX) VIAL IV SCH ×2 (08:27→20:15)
[2020-11-13] MEDS: ARTIFICIAL TEARS OINT (LACRI-LUBE) 3.5 GM TUBE OU SCH ×3 (08:27→20:16)
[2020-11-13] MEDS: LACTULOSE SYRUP 10GM/15ML (ENULOSE) 30ML UDC PO SCH ×2 (08:27→20:15)
[2020-11-13] MEDS: DIGOXIN 0.125 MG (LANOXIN) TAB PO SCH (08:27)
[2020-11-13] MEDS: ASPIRIN 81 MG CHEW (CHILDREN'S ASA) PO SCH (08:27)
[2020-11-13] MEDS: AMIODARONE 200 MG (CORDARONE) TAB PO SCH ×2 (08:27→20:15)
[2020-11-13] MEDS: DOCUSATE SODIUM 10 MG/ML 10 ML UDC (COLACE) PO SCH ×2 (08:27→20:15)
[2020-11-13] MEDS: LACTATED RINGERS 1,000 ML IV SCH (09:02)
--- NOTE | 2020-11-13 09:32 | Physical Therapy Progress Note ---
Therapy Progress Note PROM B U/LE in all available planes. NOHEMI JOHNSON PT Nov 13, 2020 09:32
--- NOTE | 2020-11-13 10:56 | Progress Note - Cardiology ---
Cardiology SOAP Progress Note Subjective: Remains intubated and sedated Objective: I&O/Vital Signs 11/13/20 11/13/20 11/13/20 11/13/20 03:59 04:00 04:53 06:00 Temp 36.5 Pulse 105 113 122 Resp 24 26 B/P (MAP) 115/64 114/64 (81) 122/67 (85) Pulse Ox 96 95 O2 Delivery Mechanical Ventilator Mechanical Ventilator O2 Flow Rate 55.00 55.00 11/13/20 11/13/20 11/13/20 11/13/20 06:28 06:32 07:00 07:00 Pulse 124 96 107 Resp B/P (MAP) 111/65 (80) Pulse Ox 95 95 O2 Delivery Mechanical Ventilator O2 Flow Rate 50.00 50.00 FiO2 50 11/13/20 11/13/20 11/13/20 11/13/20 07:30 08:00 08:59 09:00 Temp 37.9 Pulse 135 128 Resp 27 31 B/P (MAP) 112/65 (81) 104/59 (74) Pulse Ox 94 95 94 O2 Delivery Mechanical Ventilator Mechanical Ventilator Mechanical Ventilator O2 Flow Rate 50.00 50.00 FiO2 50 11/13/20 11/13/20 11/13/20 11/13/20 09:01 09:01 10:00 10:28 Pulse 96 96 124 124 Resp 24 B/P (MAP) 111/60 111/60 105/60 (75) 105/60 Pulse Ox 95 O2 Delivery Mechanical Ventilator O2 Flow Rate 50.00 11/13/20 11/13/20 11/13/20 11/13/20 10:28 11:00 11:36 12:00 Temp 37.4 Pulse 125 101 124 Resp 25 24 24 B/P (MAP) 114/62 (79) 117/68 (84) Pulse Ox 94 94 95 O2 Delivery Mechanical Ventilator Mechanical Ventilator O2 Flow Rate 50.00 50.00 FiO2 50 11/13/20 11/13/20 11/13/20 11/13/20 12:50 13:00 14:00 14:50 Pulse 102 99 99 117 Resp 24 24 B/P (MAP) 118/67 (84) 118/67 Pulse Ox 95 94 O2 Delivery Mechanical Ventilator O2 Flow Rate 50.00 FiO2 50 11/13/20 11/13/20 15:17 15:21 Temp 37.9 38.0 11/13/20 00:00 Intake Total 60 ml Output Total 1600 ml Balance -1540 ml Weight (Pounds): 219 Weight (Ounces): 6.0 Weight (Calculated Kilograms): 99.932514 Constitutional: appears stated age, well-developed, well-nourished Respiratory: No accessory muscle use; other (fair air entry, diminished at the bases) Cardiovascular: irregularly irregular, tachycardia, S1 and S2, systolic murmur (soft ROCKY at card base) Gastrointestional: distended; No guarding; audible bowel sounds Extremities: No clubbing, No cyanosis; significant edema (bilat LE /UE swelling including scrotal edema) Neurologic/Psychiatric: other (unable to cooperate with neuro exam d/t sedation) Skin: No rash on exposed areas, No ulcerations on exposed areas Results/Procedures: Labs Laboratory Tests 11/12/20 18:15: Prothrombin Time 15.8H, INR Comment 1.2, Activated Partial Thromboplast Time 28, Fibrinogen 678H, D-Dimer 1.84H 11/12/20 23:23: Glucometer 92 11/13/20 03:10: White Blood Count 13.1H, Red Blood Count 3.84L, Hemoglobin 11.2L, Hematocrit 37L , Mean Corpuscular Volume 95, Mean Corpuscular Hemoglobin 29, Mean Corpuscular Hemoglobin Concent 31L, Red Cell Distribution Width 14.1, Platelet Count 477H, Mean Platelet Volume 11.0, Immature Granulocyte % (Auto) 1, Neutrophils (%) (Auto) 89H, Lymphocytes (%) (Auto) 5L, Monocytes (%) (Auto) 3, Eosinophils (%) (Auto) 1, Basophils (%) (Auto) 0, Neutrophils # (Auto) 11.7H, Lymphocytes # (Auto) 0.7L, Monocytes # (Auto) 0.4, Eosinophils # (Auto) 0.2, Basophils # (Auto) 0.0, Immature Granulocyte # (Auto) 0.2H, Blood Gas Puncture Site RIGHT R ADIAL, Blood Gas Patient Temperature 36.2, Arterial Blood pH 7.33*L, Arterial Blood Partial Pressure CO2 69H, Arterial Blood Partial Pressure O2 114H, Arterial Blood HCO3 36H, Arterial Blood Total CO2 38.1H, Arterial Blood Oxygen Saturation 99, Arterial Blood Base Excess 9.8H, James Test POSITIVE, Blood Gas Ventilator Setting YES, Blood Gas Inspired Oxygen 55, Sodium Level 143, Potas sium Level 4.2, Chloride Level 98, Carbon Dioxide Level 31, Anion Gap 14, Blood Urea Nitrogen 50H, Creatinine 0.93, Estimat Glomerular Filtration Rate > 60, BUN/Creatinine Ratio 54, Glucose Level 95, Calcium Level 7.9L, Corrected Calcium 8.9, Phosphorus Level 4.2, Magnesium Level 2.4, Total Bilirubin 0.6, Aspartate Amino Transf (AST/SGOT) 55H, Alanine Aminotransferase (ALT/SGPT) 44, Alkaline Phosphatase 49, Total Protein 5.9L, Albumin 2.8L 11/13/20 06:36: Glucometer 125H Microbiology 11/12/20 Gram Stain - Final, Resulted 11/12/20 Sputum Culture - Preliminary, Resulted Gram Negative Misha 10/30/20 Blood Culture - Final, Complete No growth Procedures NAME: LYN MORENO [facility] REC#: [id number] PT STATUS: ADM IN : 1955 PHYSICIAN: ODELL GARCIA MD ADMIT DATE: 10/30/20/ICU Signed Date of Exam:11/13/20 CHEST 1 VIEW, AP/PA ONLY INDICATION: Respiratory distress. FINDINGS: Portable chest shows cardiomegaly with normal vascularity. There has been partial clearing of the bilateral infiltrates since 11/12/2020. There is no effusion or pneumothorax. ET tube and OG tube remain in place. IMPRESSION: Improving chest. Dictated by: Dictated on workstation # [id number] Dict: 11/13/20704 Trans: 11/13/2033 [id number] Interpreted by: KEITH SAMPSON MD Electronically signed by: KEITH SAMPSON MD 11/13/20 0833 A/P: Assessment: Respiratory failure, multifactorial - post-COVID syndrome (hospitalization with COVID and influenza in late September 2020) - pneumonia - h/o obesity-hypoventilation and sleep apnea - ac on chronic systolic CHF PAF Nonischemic cardiomyopathy - ejection fraction 10% per echo of 05-23-[address] Lopez. - Last echo of 08/12/20 showed LVEF 30-35%. Mod diffuse hypokinesis. Severely dilated LA. Mod MR, Mild AI. RVSP 20 mmHg Status post single-chamber pacemaker defibrillator implantation in August 2010. - Device upgrade February 14, 2015 to a dual chamber device (RA, RV lead) per Dr. Page on 02-14-2015. - Device functioning normally per interrogation of Jul 2020. - Device interrogation 07/29/20 shows episodes of SVT and NSVT. He received a shock on 07/14/20 for what appears to be SVT/A Fl at approx 200 bpm, has had antitach pacing for some other episodes Chronically low bp. D/t hypotension has not been able to tolerate BB, COURTNEY (-) or ARB History of nonsustained ventricular tachycardia, controlled after initiation of therapy with amiodarone (currently on 400 mg daily) Chronic renal insufficiency. CKD stage 2-3 Plan: * Continue IV BB, as tolerated * Continue IV diuretics, as needed * Monitor and correct labs * Enoxaparin for DVT and stroke prophylaxis * Poor prognosis MAIDA RILEY Nov 13, 2020 10:56
[2020-11-13] MEDS: fentaNYL DRIP PRE-MIX 250 ML IV SCH (13:23)
[2020-11-13] MEDS: APAP 325 MG/10.15 ML LIQ (TYLENOL) UDC PO PRN (15:21)
--- NOTE | 2020-11-13 15:23 | Progress Note - Cardiology ---
Cardiology SOAP Progress Note Subjective: Intubated, on mech vent, unresponsive Objective: I&O/Vital Signs 11/13/20 11/13/20 11/13/20 11/13/20 03:59 04:00 04:53 06:00 Temp 36.5 Pulse 105 113 122 Resp 24 26 B/P (MAP) 115/64 114/64 (81) 122/67 (85) Pulse Ox 96 95 O2 Delivery Mechanical Ventilator Mechanical Ventilator O2 Flow Rate 55.00 55.00 11/13/20 11/13/20 11/13/20 11/13/20 06:28 06:32 07:00 07:00 Pulse 124 96 107 Resp B/P (MAP) 111/65 (80) Pulse Ox 95 95 O2 Delivery Mechanical Ventilator O2 Flow Rate 50.00 50.00 FiO2 50 11/13/20 11/13/20 11/13/20 11/13/20 07:30 08:00 08:59 09:00 Temp 37.9 Pulse 135 128 Resp 27 31 B/P (MAP) 112/65 (81) 104/59 (74) Pulse Ox 94 95 94 O2 Delivery Mechanical Ventilator Mechanical Ventilator Mechanical Ventilator O2 Flow Rate 50.00 50.00 FiO2 50 11/13/20 11/13/20 11/13/20 11/13/20 09:01 09:01 10:00 10:28 Pulse 96 96 124 124 Resp 24 B/P (MAP) 111/60 111/60 105/60 (75) 105/60 Pulse Ox 95 O2 Delivery Mechanical Ventilator O2 Flow Rate 50.00 11/13/20 11/13/20 11/13/20 11/13/20 10:28 11:00 11:36 12:00 Temp 37.4 Pulse 125 101 124 Resp 25 24 24 B/P (MAP) 114/62 (79) 117/68 (84) Pulse Ox 94 94 95 O2 Delivery Mechanical Ventilator Mechanical Ventilator O2 Flow Rate 50.00 50.00 FiO2 50 11/13/20 11/13/20 11/13/20 11/13/20 12:50 13:00 14:00 14:50 Pulse 102 99 99 117 Resp 24 24 B/P (MAP) 118/67 (84) 118/67 Pulse Ox 95 94 O2 Delivery Mechanical Ventilator O2 Flow Rate 50.00 FiO2 50 11/13/20 11/13/20 15:17 15:21 Temp 37.9 38.0 11/13/20 00:00 Intake Total 60 ml Output Total 1600 ml Balance -1540 ml Weight (Pounds): 219 Weight (Ounces): 6.0 Weight (Calculated Kilograms): 99.614439 Constitutional: appears stated age, well-developed, well-nourished Respiratory: No accessory muscle use; other (fair air entry, diminished at the bases) Cardiovascular: irregularly irregular, tachycardia, S1 and S2, systolic murmur (soft ROCKY at card base) Gastrointestional: distended; No guarding; audible bowel sounds Extremities: No clubbing, No cyanosis; significant edema (bilat LE /UE swelling including scrotal edema) Neurologic/Psychiatric: other (unable to cooperate with neuro exam d/t sedation) Skin: No rash on exposed areas, No ulcerations on exposed areas Results/Procedures: Labs Laboratory Tests 11/12/20 18:15: Prothrombin Time 15.8H, INR Comment 1.2, Activated Partial Thromboplast Time 28, Fibrinogen 678H, D-Dimer 1.84H 11/12/20 23:23: Glucometer 92 11/13/20 03:10: White Blood Count 13.1H, Red Blood Count 3.84L, Hemoglobin 11.2L, Hematocrit 37L , Mean Corpuscular Volume 95, Mean Corpuscular Hemoglobin 29, Mean Corpuscular Hemoglobin Concent 31L, Red Cell Distribution Width 14.1, Platelet Count 477H, Mean Platelet Volume 11.0, Immature Granulocyte % (Auto) 1, Neutrophils (%) (Auto) 89H, Lymphocytes (%) (Auto) 5L, Monocytes (%) (Auto) 3, Eosinophils (%) (Auto) 1, Basophils (%) (Auto) 0, Neutrophils # (Auto) 11.7H, Lymphocytes # (Auto) 0.7L, Monocytes # (Auto) 0.4, Eosinophils # (Auto) 0.2, Basophils # (Auto) 0.0, Immature Granulocyte # (Auto) 0.2H, Blood Gas Puncture Site RIGHT RADIAL, Blood Gas Patient Temperature 36.2, Arterial Blood pH 7.33*L, Arterial Blood Partial Pressure CO2 69H, Arterial Blood Partial Pressure O2 114H, Arterial Blood HCO3 36H, Arterial Blood Total CO2 38.1H, Arterial Blood Oxygen Saturation 99, Arterial Blood Base Excess 9.8H, James Test POSITIVE, Blood Gas Ventilator Setting YES, Blood Gas Inspired Oxygen 55, Sodium Level 143, Potassium Level 4.2, Chloride Level 98, Carbon Dioxide Level 31, Anion Gap 14, Blood Urea Nitrogen 50H, Creatinine 0.93, Estimat Glomerular Filtration Rate > 60, BUN/Creatinine Ratio 54, Glucose Level 95, Calcium Level 7.9L, Corrected Calcium 8.9, Phosphorus Level 4.2, Magnesium Level 2.4, Total Bilirubin 0.6, Aspartate Amino Transf (AST/SGOT) 55H, Alanine Aminotransferase (ALT/SGPT) 44, Alkaline Phosphatase 49, Total Protein 5.9L, Albumin 2.8L 11/13/20 06:36: Glucometer 125H Microbiology 11/12/20 Gram Stain - Final, Resulted 11/12/20 Sputum Culture - Preliminary, Resulted Gram Negative Misha 10/30/20 Blood Culture - Final, Complete No growth Laboratory Tests 11/12/20 03:30 11/13/20 03:10 A/P: Assessment: Respiratory failure, multifactorial - post-COVID syndrome (hospitalization with COVID and influenza in late September 2020) - pneumonia - h/o obesity-hypoventilation and sleep apnea - ac on chronic systolic CHF PAF Nonischemic cardiomyopathy - ejection fraction 10% per echo of 05-23-[address] Lopez. - Last echo of 08/12/20 showed LVEF 30-35%. Mod diffuse hypokinesis. Severely dilated LA. Mod MR, Mild AI. RVSP 20 mmHg Status post single-chamber pacemaker defibrillator implantation in August 2010. - Device upgrade February 14, 2015 to a dual chamber device (RA, RV lead) per Dr. Page on 02-14-2015. - Device functioning normally per interrogation of Jul 2020. - Device interrogation 07/29/20 shows episodes of SVT and NSVT. He received a shock on 07/14/20 for what appears to be SVT/A Fl at approx 200 bpm, has had antitach pacing for some other episodes Chronically low bp. D/t hypotension has not been able to tolerate BB, COURTNEY (-) or ARB History of nonsustained ventricular tachycardia, controlled after initiation of therapy with amiodarone (currently on 400 mg daily) Chronic renal insufficiency. CKD stage 2-3 Plan: * Continue IV BB, as tolerated * Continue IV diuretics, as needed * Monitor and correct labs * Enoxaparin for DVT and stroke prophylaxis * Poor prognosis NAOMIE WATERS MD [facility] CCDS Nov 13, 2020 15:23
[2020-11-14] VITALS (29 sets, daily range): BP systolic 82–131; BP diastolic 49–63
[2020-11-14] MEDS: PROPOFOL DRIP (ICU) 100 ML IV SCH ×4 (01:03→22:12)
[2020-11-14] MEDS: RT-ALBUTEROL/IPRATROPIUM 3 ML (DUONEB) VIAL INH SCH ×6 (01:31→22:52)
[2020-11-14 03:03] LABS: ABG BASE EXCESS 12.5 MMOL/L (-2.5-2.5); ABG OXYGEN SATURATION 99 % (94-100); ABG PCO2 66 MMHG (35-45); ABG PH 7.38 (7.37-7.43); ABG PO2 104 MMHG (79-93); ABG TCO2 40.2 MMOL/L (21.0-31.0); ALLENS TEST ART LINE; INSPIRED O2 50%; PATIENT TEMP 36.8; VENTILATOR YES
[2020-11-14 03:20] LABS: BASOPHILS % (AUTO) 0 % (0-10); EOSINOPHILS % (AUTO) 0 % (0-10); HEMATOCRIT 33 % (40-54); LYMPHOCYTES # (AUTO) 0.9 X 10^3 (1.0-4.0); LYMPHOCYTES % (AUTO) 8 % (12-44); MEAN CORPUSCULAR HEMOGLOBIN 29 PG (25-34); MEAN CORPUSCULAR HGB CONC 30 G/DL (32-36); MEAN CORPUSCULAR VOLUME 95 FL (80-99); MEAN PLATELET VOLUME 11.4 FL (7.4-10.4); MONOCYTES # (AUTO) 0.7 X 10^3 (0.0-1.0); MONOCYTES % (AUTO) 7 % (0-12); NEUTROPHILS # (AUTO) 9.2 X 10^3 (1.8-7.8); NEUTROPHILS % (AUTO) 84 % (42-75); PLATELET COUNT 498 10^3/uL (130-400); WHITE BLOOD COUNT 10.9 10^3/uL (4.3-11.0)
[2020-11-14] MEDS: NOREPINEPHRINE 4 MG/250 ML 250 ML IV SCH ×3 (03:31→23:00)
[2020-11-14] MEDS: VASOPRESSIN INJECTION 20 UNIT in NS (IVPB) 100 ML IV SCH ×3 (03:32→20:17)
[2020-11-14 03:38] LABS: CARBON DIOXIDE 33 MMOL/L (21-32); CHLORIDE 98 MMOL/L (98-107); POTASSIUM 4.3 MMOL/L (3.6-5.0); SODIUM 142 MMOL/L (135-145)
[2020-11-14 03:39] LABS: ALANINE AMINOTRANSFERASE 44 U/L (0-55); ALBUMIN 2.5 GM/DL (3.2-4.5); ALKALINE PHOSPHATASE 45 U/L (40-136); BILIRUBIN,TOTAL 0.7 MG/DL (0.1-1.0); BUN/CREATININE RATIO 52; CALCIUM 7.8 MG/DL (8.5-10.1); CREATININE SERUM 1.16 MG/DL (0.60-1.30); GFR ESTIMATED > 60; GLUCOSE 100 MG/DL (70-105); MAGNESIUM 2.6 MG/DL (1.6-2.4); PHOSPHORUS 3.2 MG/DL (2.3-4.7); TOTAL PROTEIN 5.4 GM/DL (6.4-8.2)
[2020-11-14] MEDS: CEFEPIME INJECTION 1,000 MG in WATER (STERILE) FOR INJECTION 10 ML IV SCH ×5 (05:28→17:47)
[2020-11-14] MEDS: meTOprolol 5 MG/5 ML (LOPRESSOR) VIAL IV SCH ×4 (05:28→17:47)
[2020-11-14] MEDS: METOCLOPRAMIDE INJ 10 MG/2 ML (REGLAN) IVP SCH ×4 (05:29→17:47)
[2020-11-14] MEDS: LEVOTHYROXINE 25 MCG (LEVOTHROID) TAB PO SCH (05:33)
[2020-11-14] MEDS: KCL 20 MEQ TAB (K-DUR) PO SCH (05:47)
[2020-11-14] MEDS: POTASSIUM CL 10MEQ/50ML IVPB 50 ML IV SCH (05:47)
[2020-11-14] MEDS: MAGNESIUM 1 GM/100 ML IVPB 100 ML IV SCH (05:47)
--- NOTE | 2020-11-14 06:15 | Pulmonary Progress Note ---
Subjective Time Seen by a Provider: 06:03 Subjective/Events-last exam Pt is sedated on vent. Sepsis Event Evaluation Height, Weight, BMI Height: 5'7.00" Weight: 219lbs. 6.0oz. 99.983848hu; 38.33 BMI Method:Stated Exam Exam Vital Signs Date Time Temp Pulse Resp B/P (MAP) Pulse Ox O2 Delivery O2 Flow Rate FiO2 11/14/20 04:00 87 24 106/52 (70) 94 Mechanical Ventilator 50.00 11/14/20 03:00 94 24 113/56 (75) 95 Mechanical Ventilator 50.00 11/14/20 02:24 36.8 11/14/20 02:00 98 24 102/56 (71) 94 Mechanical Ventilator 50.00 11/14/20 01:31 111 24 94 50 11/14/20 01:03 96 108/58 11/14/20 01:00 101 11/14/20 01:00 93 24 106/55 (72) 93 Mechanical Ventilator 50.00 11/14/20 00:00 93 24 107/57 (74) 93 Mechanical Ventilator 50.00 11/14/20 00:00 37.6 11/13/20 23:00 106 24 113/58 (76) 94 Mechanical Ventilator 50.00 11/13/20 22:09 37.6 11/13/20 22:00 113 24 112/61 (78) 94 Mechanical Ventilator 50.00 11/13/20 21:19 104 24 94 50 11/13/20 21:00 95 Mechanical Ventilator 50 11/13/20 21:00 113 24 118/62 (80) 94 Mechanical Ventilator 50.00 11/13/20 20:17 37.4 11/13/20 20:00 123 24 117/63 (81) 94 Mechanical Ventilator 50.00 11/13/20 19:05 38.6 11/13/20 19:00 120 25 118/61 (80) 94 Mechanical Ventilator 50.00 11/13/20 19:00 124 11/13/20 18:01 112 25 94 50 11/13/20 18:00 107 25 112/63 (79) 94 Mechanical Ventilator 50.00 11/13/20 17:27 122 114/64 11/13/20 17:00 120 25 118/63 (81) 94 Mechanical Ventilator 50.00 11/13/20 16:00 122 25 117/64 (81) 94 Mechanical Ventilator 50.00 11/13/20 16:00 37.6 11/13/20 15:21 38.0 11/13/20 15:17 37.9 11/13/20 15:00 122 25 114/64 (81) 95 Mechanical Ventilator 50.00 11/13/20 14:50 117 24 94 50 11/13/20 14:00 99 118/67 11/13/20 14:00 93 24 118/62 (80) 95 Mechanical Ventilator 50.00 11/13/20 13:00 99 24 118/67 (84) 95 Mechanical Ventilator 50.00 11/13/20 12:50 102 11/13/20 12:00 124 24 117/68 (84) 95 Mechanical Ventilator 50.00 11/13/20 11:36 37.4 11/13/20 11:00 101 24 114/62 (79) 94 Mechanical Ventilator 50.00 11/13/20 10:28 125 25 94 50 11/13/20 10:28 124 105/60 11/13/20 10:00 124 24 105/60 (75) 95 Mechanical Ventilator 50.00 11/13/20 09:01 96 111/60 11/13/20 09:01 96 111/60 11/13/20 09:00 128 31 104/59 (74) 94 Mechanical Ventilator 50.00 11/13/20 08:59 95 Mechanical Ventilator 50 11/13/20 08:00 135 27 112/65 (81) 94 Mechanical Ventilator 50.00 11/13/20 07:30 37.9 11/13/20 07:00 107 26 111/65 (80) 95 Mechanical Ventilator 50.00 11/13/20 07:00 96 25 95 50 11/13/20 06:32 124 11/13/20 06:28 50.00 I & O 11/14/20 07:00 Intake Total 1670 ml Output Total 2275 ml Balance -605 ml Height & Weight Height: 5'7.00" Weight: 219lbs. 6.0oz. 99.811598nk; 38.33 BMI Method:Stated General Appearance: No Apparent Distress, Chronically ill, Other (sedated) HEENT: Normal ENT Inspection Neck: Limited Range of Motion Respiratory: Crackles, Decreased Breath Sounds, Wheezing Cardiovascular: Regular Rate, Rhythm Capillary Refill: Less Than 3 Seconds Gastrointestinal: non tender, soft Extremity: Pedal Edema Neurologic/Psychiatric: Other (sedated) Skin: Warm/Dry Lymphatic: No Adenopathy Results Lab Laboratory Tests 11/13/20 03:10 11/14/20 02:22 Assessment/Plan Assessment/Plan Acute on chronic respiratory failure -Ventilator 400/24/14 55% -Decrease PEEP to 12 -Fentanyl 100, propofol 20 -S/p intubation 10/31 - proning - Decadron -Repeat DDIMER s/p VTach -- AICD converted pt to paced -PO Ammio -cardiology following PNA Avina cultures pending - Cefepime HX of COVID 19 CHFAE 30-35% AFib CKD NICM with dual implanted I called and discussed pt's current condition and prognosis with his sister Madhavi. I explained comfort care to Madhavi. She is going to call and talk with other family members and get back with us. JAYESH POOLE DO Nov 14, 2020 06:15
[2020-11-14] MEDS: LACTATED RINGERS 1,000 ML IV SCH (06:20)
[2020-11-14] MEDS: fentaNYL DRIP PRE-MIX 250 ML IV SCH ×2 (06:20→22:12)
--- NOTE | 2020-11-14 07:19 | Diagnostic Imaging Report ---
INDICATION: Respiratory failure, intubated COMPARISON: 11/13/2020 FINDINGS: Single view chest demonstrates unchanged bilateral pulmonary infiltrates. ET tube is stable. There is no pneumothorax. The heart remains slightly enlarged. Pacemaker stable. IMPRESSION: Unchanged aeration of the lungs. Dictated by: Dictated on workstation # [id number]
--- NOTE | 2020-11-14 08:19 | Physical Therapy Progress Note ---
Therapy Progress Note Patient remains sedated and intubated. PT will continue to monitor patient status. JONO CHÁVEZ PT Nov 14, 2020 08:19
[2020-11-14] MEDS: LACTULOSE SYRUP 10GM/15ML (ENULOSE) 30ML UDC PO SCH ×2 (08:40→20:43)
[2020-11-14] MEDS: DOCUSATE SODIUM 10 MG/ML 10 ML UDC (COLACE) PO SCH ×2 (08:41→20:43)
[2020-11-14] MEDS: FUROSEMIDE 40 MG/4 ML INJ (LASIX) IVP SCH (08:41)
[2020-11-14] MEDS: PANTOPRAZOLE 40 MG (PROTONIX) VIAL IV SCH ×2 (08:41→20:42)
[2020-11-14] MEDS: ASPIRIN 81 MG CHEW (CHILDREN'S ASA) PO SCH (08:42)
[2020-11-14] MEDS: AMIODARONE 200 MG (CORDARONE) TAB PO SCH ×2 (08:42→20:43)
[2020-11-14] MEDS: ENOXAPARIN 40 MG/0.4 ML (LOVENOX) SYR SC SCH ×2 (08:48→20:43)
[2020-11-14] MEDS: DIGOXIN 0.125 MG (LANOXIN) TAB PO SCH (08:50)
[2020-11-14] MEDS: ARTIFICIAL TEARS OINT (LACRI-LUBE) 3.5 GM TUBE OU SCH ×3 (08:52→20:43)
--- NOTE | 2020-11-14 09:03 | Physical Therapy Progress Note ---
Therapy Progress Note Non skilled PROM B U/LE in available planes. NOHEMI JOHNSON PT Nov 14, 2020 09:03
[2020-11-14] MEDS: APAP 325 MG/10.15 ML LIQ (TYLENOL) UDC PO PRN (09:15)
--- NOTE | 2020-11-14 09:51 | Progress Note - Cardiology ---
Cardiology SOAP Progress Note Subjective: Intubated and sedated Objective: I&O/Vital Signs 11/13/20 11/13/20 11/13/20 11/14/20 22:00 22:09 23:00 00:00 Temp 37.6 37.6 Pulse 113 106 Resp 24 24 B/P (MAP) 112/61 (78) 113/58 (76) Pulse Ox 94 94 O2 Delivery Mechanical Ventilator Mechanical Ventilator O2 Flow Rate 50.00 50.00 11/14/20 11/14/20 11/14/20 11/14/20 00:00 01:00 01:00 01:03 Pulse 93 93 101 96 Resp 24 B/P (MAP) 107/57 (74) 106/55 (72) 108/58 Pulse Ox 93 93 O2 Delivery Mechanical Ventilator Mechanical Ventilator O2 Flow Rate 50.00 50.00 11/14/20 11/14/20 11/14/20 11/14/20 01:31 02:00 02:24 03:00 Temp 36.8 Pulse 111 98 94 Resp 24 24 B/P (MAP) 102/56 (71) 113/56 (75) Pulse Ox 94 94 95 O2 Delivery Mechanical Ventilator Mechanical Ventilator O2 Flow Rate 50.00 50.00 FiO2 50 11/14/20 11/14/20 11/14/20 11/14/20 04:00 05:00 06:00 07:00 Pulse 87 92 131 121 Resp 24 24 24 25 B/P (MAP) 106/52 (70) 97/51 (66) 118/60 (79) Pulse Ox 94 94 94 94 O2 Delivery Mechanical Ventilator Mechanical Ventilator Mechanical Ventilator O2 Flow Rate 50.00 50.00 50.00 FiO2 50 11/14/20 11/14/20 11/14/20 11/14/20 07:39 08:34 08:35 09:15 Temp 37.2 38.2 38.2 Pulse 124 B/P (MAP) 110/56 11/14/20 00:00 Intake Total 850 ml Output Total 1525 ml Balance -675 ml Weight (Pounds): 219 Weight (Ounces): 6.0 Weight (Calculated Kilograms): 99.436555 Constitutional: appears stated age, well-developed, well-nourished Respiratory: No accessory muscle use; other (fair air entry, diminished at the bases) Cardiovascular: irregularly irregular, tachycardia, S1 and S2, systolic murmur (soft ROCYK at card base) Gastrointestional: distended; No guarding; audible bowel sounds Extremities: No clubbing, No cyanosis; significant edema (bilat LE /UE swelling including scrotal edema) Neurologic/Psychiatric: other (unable to cooperate with neuro exam d/t sedation) Skin: No rash on exposed areas, No ulcerations on exposed areas Results/Procedures: Labs Laboratory Tests 11/14/20 02:22: White Blood Count 10.9, Red Blood Count 3.46L, Hemoglobin 10.0L, Hematocrit 33L, Mean Corpuscular Volume 95, Mean Corpuscular Hemoglobin 29, Mean Corpuscular Hemoglobin Concent 30L, Red Cell Distribution Width 14.2, Platelet Count 498H, Mean Platelet Volume 11.4H, Neutrophils (%) (Auto) 84H, Lymphocytes (%) (Auto) 8L, Monocytes (%) (Auto) 7, Eosinophils (%) (Auto) 0, Basophils (%) (Auto) 0, Neutrophils # (Auto) 9.2H, Lymphocytes # (Auto) 0.9L, Monocytes # (Auto) 0.7, Eosinophils # (Auto) 0.0, Basophils # (Auto) 0.0, Blood Gas Puncture Site ART, Blood Gas Patient Temperature 36.8, Arterial Blood pH 7.38, Arterial Blood Partial Pressure CO2 66H, Arterial Blood Partial Pressure O2 104H, Arterial Blood HCO3 38H, Arterial Blood Total CO2 40.2H, Arterial Blood Oxygen Saturation 99, Arterial Blood Base Excess 12.5H, James Test ART LINE, Blood Gas Ventilator Setting YES, Blood Gas Inspired Oxygen 50%, Sodium Level 142, Potassium Level 4.3, Chloride Level 98, Carbon Dioxide Level 33H, Anion Gap 11, Blood Urea Nitrogen 60H, Creatinine 1.16, Estimat Glomerular Filtration Rate > 60, BUN/Creatinine Ratio 52, Glucose Level 100, Calcium Level 7.8L, Corrected Calcium 9.0, Phosphorus Level 3.2, Magnesium Level 2.6H, Total Bilirubin 0.7, Aspartate Amino Transf (AST/SGOT) 61H, Alanine Aminotransferase (ALT/SGPT) 44, Alkaline Phosphatase 45, Total Protein 5.4L, Albumin 2.5L, Digoxin Level 0.85 Microbiology 11/12/20 Gram Stain - Final, Resulted 11/12/20 Sputum Culture - Preliminary, Resulted Usual upper respiratory doris Citrobacter freundii complex 11/12/20 Blood Culture - Preliminary, Resulted A/P: Assessment: Respiratory failure, multifactorial - post-COVID syndrome (hospitalization with COVID and influenza in late September 2020) - pneumonia - h/o obesity-hypoventilation and sleep apnea - ac on chronic systolic CHF PAF Nonischemic cardiomyopathy - ejection fraction 10% per echo of 05-23-[address] Lopez. - Last echo of 08/12/20 showed LVEF 30-35%. Mod diffuse hypokinesis. Severely dilated LA. Mod MR, Mild AI. RVSP 20 mmHg Status post single-chamber pacemaker defibrillator implantation in August 2010. - Device upgrade February 14, 2015 to a dual chamber device (RA, RV lead) per Dr. Page on 02-14-2015. - Device functioning normally per interrogation of Jul 2020. - Device interrogation 07/29/20 shows episodes of SVT and NSVT. He received a shock on 07/14/20 for what appears to be SVT/A Fl at approx 200 bpm, has had antitach pacing for some other episodes Chronically low bp. D/t hypotension has not been able to tolerate BB, COURTNEY (-) or ARB History of nonsustained ventricular tachycardia, controlled after initiation of therapy with amiodarone (currently on 400 mg daily) Chronic renal insufficiency. CKD stage 2-3 Plan: * Continue IV BB, as tolerated * Continue IV diuretics * Monitor and correct labs * Enoxaparin for DVT and stroke prophylaxis * Poor prognosis MAIDA RILEY Nov 14, 2020 09:51
[2020-11-14] MEDS ORDERED: IBUPROFEN SUSP 100MG/5ML (MOTRIN) UDC ONE (11:31)
[2020-11-14] MEDS: IBUPROFEN SUSP 100MG/5ML (MOTRIN) UDC PO PRN (11:36)
[2020-11-14] MEDS ORDERED: VANCOMYCIN INJECTION 2,500 MG in NS IV 500 ML 500 ML IV NR (12:00)
--- NOTE | 2020-11-14 13:51 | Progress Note - Cardiology ---
Cardiology SOAP Progress Note Subjective: Intubated, on mech vent, unresponsive Objective: I&O/Vital Signs 11/14/20 11/14/20 11/14/20 11/14/20 02:00 02:24 03:00 04:00 Temp 36.8 Pulse 98 94 87 Resp 24 B/P (MAP) 102/56 (71) 113/56 (75) 106/52 (70) Pulse Ox 94 95 94 O2 Delivery Mechanical Ventilator Mechanical Ventilator Mechanical Ventilator O2 Flow Rate 50.00 50.00 50.00 11/14/20 11/14/20 11/14/20 11/14/20 05:00 06:00 06:32 07:00 Pulse 92 131 125 121 Resp B/P (MAP) 97/51 (66) 118/60 (79) Pulse Ox 94 94 94 O2 Delivery Mechanical Ventilator Mechanical Ventilator O2 Flow Rate 50.00 50.00 FiO2 50 11/14/20 11/14/20 11/14/20 11/14/20 07:00 07:39 08:00 08:00 Temp 37.2 Pulse 111 116 Resp B/P (MAP) 108/56 (73) 111/59 (76) Pulse Ox 94 93 94 O2 Delivery Mechanical Ventilator Mechanical Ventilator Mechanical Ventilator O2 Flow Rate 50.00 50.00 FiO2 50 11/14/20 11/14/20 11/14/20 11/14/20 08:34 08:35 09:00 09:15 Temp 38.2 38.2 Pulse 124 116 Resp 25 B/P (MAP) 110/56 97/56 (70) Pulse Ox 95 O2 Delivery Mechanical Ventilator O2 Flow Rate 50.00 11/14/20 11/14/20 11/14/20 11/14/20 10:00 10:08 10:50 11:00 Temp 38.8 Pulse 115 123 121 Resp 24 B/P (MAP) 100/51 (67) 107/53 (71) Pulse Ox 95 91 94 O2 Delivery Mechanical Ventilator Mechanical Ventilator O2 Flow Rate 50.00 50.00 FiO2 50 11/14/20 11/14/20 11/14/20 11:36 12:00 12:10 Temp 38.6 37.4 Pulse Ox 93 O2 Delivery Mechanical Ventilator FiO2 50 11/14/20 00:00 Intake Total 850 ml Output Total 1525 ml Balance -675 ml Weight (Pounds): 219 Weight (Ounces): 6.0 Weight (Calculated Kilograms): 99.161529 Constitutional: appears stated age, well-developed, well-nourished Respiratory: No accessory muscle use; other (fair air entry, diminished at the bases) Cardiovascular: irregularly irregular, tachycardia, S1 and S2, systolic murmur (soft ROCKY at card base) Gastrointestional: distended; No guarding; audible bowel sounds Extremities: No clubbing, No cyanosis; significant edema (bilat LE /UE swelling including scrotal edema) Neurologic/Psychiatric: other (unable to cooperate with neuro exam d/t sedation) Skin: No rash on exposed areas, No ulcerations on exposed areas Results/Procedures: Labs Laboratory Tests 11/14/20 02:22: White Blood Count 10.9, Red Blood Count 3.46L, Hemoglobin 10.0L, Hematocrit 33L, Mean Corpuscular Volume 95, Mean Corpuscular Hemoglobin 29, Mean Corpuscular Hemoglobin Concent 30L, Red Cell Distribution Width 14.2, Platelet Count 498H, Mean Platelet Volume 11.4H, Neutrophils (%) (Auto) 84H, Lymphocytes (%) (Auto) 8L, Monocytes (%) (Auto) 7, Eosinophils (%) (Auto) 0, Basophils (%) (Auto) 0, Neutrophils # (Auto) 9.2H, Lymphocytes # (Auto) 0.9L, Monocytes # (Auto) 0.7, Eosinophils # (Auto) 0.0, Basophils # (Auto) 0.0, Blood Gas Puncture Site ART, Blood Gas Patient Temperature 36.8, Arterial Blood pH 7.38, Arterial Blood Partial Pressure CO2 66H, Arterial Blood Partial Pressure O2 104H, Arterial Blood HCO3 38H, Arterial Blood Total CO2 40.2H, Arterial Blood Oxygen Saturation 99, Arterial Blood Base Excess 12.5H, James Test ART LINE, Blood Gas Ventilator Setting YES, Blood Gas Inspired Oxygen 50%, Sodium Level 142, Potassium Level 4.3, Chloride Level 98, Carbon Dioxide Level 33H, Anion Gap 11, Blood Urea Nit rogen 60H, Creatinine 1.16, Estimat Glomerular Filtration Rate > 60, BUN/Creatinine Ratio 52, Glucose Level 100, Calcium Level 7.8L, Corrected Calcium 9.0, Phosphorus Level 3.2, Magnesium Level 2.6H, Total Bilirubin 0.7, Aspartate Amino Transf (AST/SGOT) 61H, Alanine Aminotransferase (ALT/SGPT) 44, Alkaline Phosphatase 45, Total Protein 5.4L, Albumin 2.5L, Digoxin Level 0.85 Microbiology 11/12/20 Gram Stain - Final, Complete 11/12/20 Sputum Culture - Final, Complete Usual upper respiratory doris Citrobacter freundii complex 11/12/20 Blood Culture - Preliminary, Resulted Probable Coag Negative Staph A/P: Assessment: Respiratory failure, multifactorial - post-COVID syndrome (hospitalization with COVID and influenza in late September 2020) - pneumonia - h/o obesity-hypoventilation and sleep apnea - ac on chronic systolic CHF PAF Nonischemic cardiomyopathy - ejection fraction 10% per echo of 05-23-[address] Lopez. - Last echo of 08/12/20 showed LVEF 30-35%. Mod diffuse hypokinesis. Severely dilated LA. Mod MR, Mild AI. RVSP 20 mmHg Status post single-chamber pacemaker defibrillator implantation in August 2010. - Device upgrade February 14, 2015 to a dual chamber device (RA, RV lead) per Dr. Page on 02-14-2015. - Device functioning normally per interrogation of Jul 2020. - Device interrogation 07/29/20 shows episodes of SVT and NSVT. He received a shock on 07/14/20 for what appears to be SVT/A Fl at approx 200 bpm, has had antitach pacing for some other episodes Chronically low bp. D/t hypotension has not been able to tolerate BB, COURTNEY (-) or ARB History of nonsustained ventricular tachycardia, controlled after initiation of therapy with amiodarone (currently on 400 mg daily) Chronic renal insufficiency. CKD stage 2-3 Plan: * Continue current regimen and adjust as needed * Monitor and correct labs * Poor prognosis NAOMIE WATERS MD FACP [facility] CCDS Nov 14, 2020 13:51
[2020-11-15] VITALS (29 sets, daily range): BP systolic 84–122; BP diastolic 7–85
[2020-11-15] MEDS: METOCLOPRAMIDE INJ 10 MG/2 ML (REGLAN) IVP SCH ×4 (00:06→17:23)
[2020-11-15] MEDS: CEFEPIME INJECTION 1,000 MG in WATER (STERILE) FOR INJECTION 10 ML IV SCH ×4 (00:06→17:23)
[2020-11-15] MEDS: meTOprolol 5 MG/5 ML (LOPRESSOR) VIAL IV SCH ×4 (00:06→17:23)
[2020-11-15] MEDS: VANCOMYCIN 1250 MG/NS 250 ML IVPB IV SCH ×4 (00:07→12:35)
[2020-11-15] MEDS: RT-ALBUTEROL/IPRATROPIUM 3 ML (DUONEB) VIAL INH SCH ×6 (02:13→23:29)
[2020-11-15 02:14] LABS: ABG BASE EXCESS 11.8 MMOL/L (-2.5-2.5); ABG OXYGEN SATURATION 97 % (94-100); ABG PCO2 58 MMHG (35-45); ABG PH 7.41 (7.37-7.43); ABG PO2 86 MMHG (79-93); ALLENS TEST ART LINE; BASOPHILS % (AUTO) 0 % (0-10); EOSINOPHILS % (AUTO) 0 % (0-10); HEMATOCRIT 32 % (40-54); HEMOGLOBIN 10.1 g/dL (13.3-17.7); INSPIRED O2 40%; LYMPHOCYTES # (AUTO) 0.6 10^3/uL (1.0-4.0); LYMPHOCYTES % (AUTO) 5 % (12-44); MEAN CORPUSCULAR HEMOGLOBIN 30 pg (25-34); MEAN CORPUSCULAR HGB CONC 32 g/dL (32-36); MEAN CORPUSCULAR VOLUME 94 fL (80-99); MEAN PLATELET VOLUME 11.1 fL (9.0-12.2); MONOCYTES # (AUTO) 0.8 10^3/uL (0.0-1.0); MONOCYTES % (AUTO) 7 % (0-12); NEUTROPHILS # (AUTO) 9.7 10^3/uL (1.8-7.8); NEUTROPHILS % (AUTO) 87 % (42-75); PATIENT TEMP 35.9; PLATELET COUNT 414 10^3/uL (130-400); VENTILATOR YES; WHITE BLOOD COUNT 11.2 10^3/uL (4.3-11.0)
[2020-11-15 02:26] LABS: ALBUMIN 2.5 GM/DL (3.2-4.5); POTASSIUM 4.5 MMOL/L (3.6-5.0)
[2020-11-15 02:27] LABS: CALCIUM 7.6 MG/DL (8.5-10.1)
[2020-11-15 02:29] LABS: TOTAL PROTEIN 5.3 GM/DL (6.4-8.2)
[2020-11-15 02:30] LABS: BILIRUBIN,TOTAL 0.5 MG/DL (0.1-1.0)
[2020-11-15 02:32] LABS: PHOSPHORUS 3.8 MG/DL (2.3-4.7)
[2020-11-15 02:33] LABS: CREATININE SERUM 1.26 MG/DL (0.60-1.30)
[2020-11-15 02:35] LABS: MAGNESIUM 2.7 MG/DL (1.6-2.4)
[2020-11-15] MEDS: NOREPINEPHRINE 4 MG/250 ML 250 ML IV SCH ×4 (03:52→20:41)
[2020-11-15] MEDS: VASOPRESSIN INJECTION 20 UNIT in NS (IVPB) 100 ML IV SCH ×3 (03:53→20:41)
[2020-11-15] MEDS: POTASSIUM CL 10MEQ/50ML IVPB 50 ML IV SCH (03:53)
[2020-11-15] MEDS: KCL 20 MEQ TAB (K-DUR) PO SCH (03:53)
[2020-11-15] MEDS: MAGNESIUM 1 GM/100 ML IVPB 100 ML IV SCH (03:53)
--- NOTE | 2020-11-15 05:17 | Pulmonary Progress Note ---
Subjective Date Seen by a Provider: Nov 15, 2020 Time Seen by a Provider: 05:13 Subjective/Events-last exam Pt is sedated on vent. Sepsis Event Evaluation Height, Weight, BMI Height: 5'7.00" Weight: 219lbs. 6.0oz. 99.685830ih; 38.33 BMI Method:Stated Exam Exam Vital Signs Date Time Temp Pulse Resp B/P (MAP) Pulse Ox O2 Delivery O2 Flow Rate FiO2 11/15/20 04:00 95 Mechanical Ventilator 40 11/15/20 04:00 86 21 94/55 (68) 96 Mechanical Ventilator 40.00 11/15/20 03:00 95 19 94/58 (70) 96 Mechanical Ventilator 40.00 11/15/20 02:14 100 26 94 40 11/15/20 02:00 35.9 109 24 122/68 (86) 94 Mechanical Ventilator 40.00 11/15/20 01:00 36.3 84 24 97/51 (66) 96 Mechanical Ventilator 40.00 11/15/20 01:00 90 11/15/20 00:00 95 Mechanical Ventilator 40 11/15/20 00:00 36.4 75 21 92/52 (65) 95 Mechanical Ventilator 40.00 11/14/20 23:00 36.6 90 21 98/54 (69) 95 Mechanical Ventilator 40.00 11/14/20 22:52 86 27 95 40 11/14/20 22:12 87 120/63 11/14/20 22:00 36.7 89 24 120/61 (80) 97 Mechanical Ventilator 40.00 11/14/20 21:00 36.7 77 19 131/63 (85) 97 Mechanical Ventilator 40.00 11/14/20 20:04 Mechanical Ventilator 40.00 11/14/20 20:00 95 Mechanical Ventilator 40 11/14/20 20:00 36.9 81 19 106/53 (70) 96 Mechanical Ventilator 50.00 11/14/20 19:00 86 11/14/20 19:00 37.1 80 21 97/51 (66) 95 Mechanical Ventilator 50.00 11/14/20 18:14 70 24 94 50 11/14/20 18:00 83 24 96/57 (70) 96 Mechanical Ventilator 50.00 11/14/20 17:00 80 24 88/51 (63) 96 Mechanical Ventilator 50.00 11/14/20 16:45 95 Mechanical Ventilator 40 11/14/20 16:00 87 24 89/51 (64) 95 Mechanical Ventilator 50.00 11/14/20 15:06 82 24 97 50 11/14/20 15:00 83 24 82/51 (61) 97 Mechanical Ventilator 50.00 11/14/20 14:27 89 98/53 11/14/20 14:15 38.1 11/14/20 14:00 89 24 88/52 (64) 97 Mechanical Ventilator 50.00 11/14/20 13:00 89 24 104/50 (68) 97 Mechanical Ventilator 50.00 11/14/20 12:50 100 11/14/20 12:10 37.4 11/14/20 12:00 93 Mechanical Ventilator 50 11/14/20 12:00 102 24 100/50 (67) 96 Mechanical Ventilator 50.00 11/14/20 11:36 38.6 11/14/20 11:00 121 24 107/53 (71) 94 Mechanical Ventilator 50.00 11/14/20 10:50 38.8 11/14/20 10:08 123 25 91 50 11/14/20 10:00 115 26 100/51 (67) 95 Mechanical Ventilator 50.00 11/14/20 09:15 38.2 11/14/20 09:00 116 25 97/56 (70) 95 Mechanical Ventilator 50.00 11/14/20 08:35 124 110/56 11/14/20 08:34 38.2 11/14/20 08:00 116 26 111/59 (76) 94 Mechanical Ventilator 50.00 11/14/20 08:00 93 Mechanical Ventilator 50 11/14/20 07:39 37.2 11/14/20 07:00 111 26 108/56 (73) 94 Mechanical Ventilator 50.00 11/14/20 07:00 121 25 94 50 11/14/20 06:32 125 11/14/20 06:00 131 24 118/60 (79) 94 Mechanical Ventilator 50.00 I & O 11/15/20 07:00 Intake Total 870 ml Output Total 1750 ml Balance -880 ml Height & Weight Height: 5'7.00" Weight: 219lbs. 6.0oz. 99.402786tr; 38.33 BMI Method:Stated General Appearance: No Apparent Distress, Chronically ill, Other (sedated) HEENT: Normal ENT Inspection Neck: Limited Range of Motion Respiratory: Crackles, Decreased Breath Sounds, Wheezing Cardiovascular: Regular Rate, Rhythm Capillary Refill: Less Than 3 Seconds Gastrointestinal: non tender, soft Extremity: Pedal Edema Neurologic/Psychiatric: Other (sedated) Skin: Warm/Dry Lymphatic: No Adenopathy Results Lab Laboratory Tests 11/14/20 02:22 11/15/20 02:00 Assessment/Plan Assessment/Plan Acute on chronic respiratory failure -Ventilator // 55% -Decrease PEEP to 12 -Fentanyl 100, propofol 20 -S/p intubation 10/31 - proning - Decadron s/p VTach -- AICD converted pt to paced -PO Ammio -cardiology following PNA Avina cultures pending - Cefepime HX of COVID 19 CHFAE 30-35% AFib CKD NICM with dual implanted Attempted to call family this morning however there was no answer. JAYESH POOLE DO Nov 15, 2020 05:16
[2020-11-15] MEDS: PROPOFOL DRIP (ICU) 100 ML IV SCH ×2 (05:55→17:23)
[2020-11-15] MEDS: LEVOTHYROXINE 25 MCG (LEVOTHROID) TAB PO SCH (05:55)
--- NOTE | 2020-11-15 07:21 | Diagnostic Imaging Report ---
Indication: Respiratory distress Portable chest 2:29 AM There is ET tube projects over the trachea. NG tube appears to enter the stomach. Right upper extremity PICC line tip projects over the SVC. There is a dual-chamber pacemaker. There is cardiomegaly. There is pulmonary vascular congestion. There is some perihilar alveolar infiltrates. IMPRESSION: Congestive heart failure with perihilar alveolar infiltrate which is probably pulmonary edema. No significant change compared to the previous day. Dictated by: Dictated on workstation # [id number]
--- NOTE | 2020-11-15 07:52 | Physical Therapy Progress Note ---
Therapy Progress Note Patient remains sedated and intubated. PT will continue to monitor patient status. JONO CHÁVEZ PT Nov 15, 2020 07:52
[2020-11-15] MEDS: FUROSEMIDE 40 MG/4 ML INJ (LASIX) IVP SCH (08:18)
[2020-11-15] MEDS: PANTOPRAZOLE 40 MG (PROTONIX) VIAL IV SCH ×2 (08:18→20:27)
[2020-11-15] MEDS: ARTIFICIAL TEARS OINT (LACRI-LUBE) 3.5 GM TUBE OU SCH ×3 (08:19→20:27)
[2020-11-15] MEDS: AMIODARONE 200 MG (CORDARONE) TAB PO SCH ×2 (08:19→20:27)
[2020-11-15] MEDS: ASPIRIN 81 MG CHEW (CHILDREN'S ASA) PO SCH (08:19)
[2020-11-15] MEDS: DIGOXIN 0.125 MG (LANOXIN) TAB PO SCH (08:19)
[2020-11-15] MEDS: ENOXAPARIN 40 MG/0.4 ML (LOVENOX) SYR SC SCH ×2 (08:19→20:27)
[2020-11-15] MEDS: LACTULOSE SYRUP 10GM/15ML (ENULOSE) 30ML UDC PO SCH ×2 (08:40→20:27)
[2020-11-15] MEDS: DOCUSATE SODIUM 10 MG/ML 10 ML UDC (COLACE) PO SCH ×2 (08:40→20:26)
[2020-11-15] MEDS: LACTATED RINGERS 1,000 ML IV SCH (11:17)
[2020-11-15] MEDS: fentaNYL DRIP PRE-MIX 250 ML IV SCH (17:22)
[2020-11-15] MEDS ORDERED: TROUGH ORDER-PHARMACY XX NR (23:00)
[2020-11-16] VITALS (30 sets, daily range): BP systolic 93–175; BP diastolic 57–98
[2020-11-16] MEDS: CEFEPIME INJECTION 1,000 MG in WATER (STERILE) FOR INJECTION 10 ML IV SCH (00:03)
[2020-11-16] MEDS: meTOprolol 5 MG/5 ML (LOPRESSOR) VIAL IV SCH ×4 (00:03→18:07)
[2020-11-16] MEDS: METOCLOPRAMIDE INJ 10 MG/2 ML (REGLAN) IVP SCH ×4 (00:04→18:07)
[2020-11-16] MEDS: VANCOMYCIN 1250 MG/NS 250 ML IVPB IV SCH ×2 (00:08)
[2020-11-16] MEDS: RT-ALBUTEROL/IPRATROPIUM 3 ML (DUONEB) VIAL INH SCH ×6 (01:22→22:35)
[2020-11-16] MEDS: IBUPROFEN SUSP 100MG/5ML (MOTRIN) UDC PO PRN ×2 (01:40→11:24)
[2020-11-16] MEDS: PROPOFOL DRIP (ICU) 100 ML IV SCH ×3 (01:41→16:29)
[2020-11-16 01:44] LABS: BASOPHILS % (AUTO) 0 % (0-10); EOSINOPHILS % (AUTO) 0 % (0-10); HEMATOCRIT 35 % (40-54); HEMOGLOBIN 10.7 g/dL (13.3-17.7); LYMPHOCYTES # (AUTO) 0.7 10^3/uL (1.0-4.0); LYMPHOCYTES % (AUTO) 5 % (12-44); MEAN CORPUSCULAR HEMOGLOBIN 29 pg (25-34); MEAN CORPUSCULAR HGB CONC 31 g/dL (32-36); MEAN CORPUSCULAR VOLUME 95 fL (80-99); MEAN PLATELET VOLUME 11.3 fL (9.0-12.2); MONOCYTES % (AUTO) 7 % (0-12); NEUTROPHILS # (AUTO) 12.8 10^3/uL (1.8-7.8); NEUTROPHILS % (AUTO) 88 % (42-75); PLATELET COUNT 497 10^3/uL (130-400); WHITE BLOOD COUNT 14.7 10^3/uL (4.3-11.0)
[2020-11-16 01:48] LABS: ABG BASE EXCESS 11.8 MMOL/L (-2.5-2.5); ABG OXYGEN SATURATION 97 % (94-100); ABG PCO2 68 MMHG (35-45); ABG PH 7.37 (7.37-7.43); ABG PO2 106 MMHG (79-93); ABG TCO2 39.3 MMOL/L (21.0-31.0)
[2020-11-16 01:51] LABS: ALBUMIN 2.8 GM/DL (3.2-4.5); ALLENS TEST YES-POS; INSPIRED O2 32%; PATIENT TEMP 38.2; POTASSIUM 4.7 MMOL/L (3.6-5.0); VENTILATOR YES
[2020-11-16 01:54] LABS: TOTAL PROTEIN 5.8 GM/DL (6.4-8.2)
[2020-11-16 01:55] LABS: BILIRUBIN,TOTAL 0.6 MG/DL (0.1-1.0)
[2020-11-16 01:57] LABS: CREATININE SERUM 1.45 MG/DL (0.60-1.30); PHOSPHORUS 3.9 MG/DL (2.3-4.7)
[2020-11-16 02:00] LABS: MAGNESIUM 2.7 MG/DL (1.6-2.4)
[2020-11-16] MEDS: VASOPRESSIN INJECTION 20 UNIT in NS (IVPB) 100 ML IV SCH ×3 (02:02→23:08)
[2020-11-16] MEDS: POTASSIUM CL 10MEQ/50ML IVPB 50 ML IV SCH (02:02)
[2020-11-16] MEDS: KCL 20 MEQ TAB (K-DUR) PO SCH (02:02)
[2020-11-16] MEDS: NOREPINEPHRINE 4 MG/250 ML 250 ML IV SCH ×4 (02:02→22:08)
[2020-11-16] MEDS: MAGNESIUM 1 GM/100 ML IVPB 100 ML IV SCH (02:02)
[2020-11-16] MEDS: APAP 325 MG/10.15 ML LIQ (TYLENOL) UDC PO PRN ×2 (03:48→19:35)
[2020-11-16] MEDS: LEVOTHYROXINE 25 MCG (LEVOTHROID) TAB PO SCH (05:40)
[2020-11-16] MEDS: LACTATED RINGERS 1,000 ML IV SCH (05:44)
--- NOTE | 2020-11-16 07:26 | Diagnostic Imaging Report ---
EXAMINATION: Portable erect AP chest at 2:42 AM INDICATION: Respiratory distress The cardiomegaly noted on the prior exam of 11/15/2020 is again evident. The heart does seem somewhat less prominent than on the prior study. Furthermore, the alveolar/interstitial pulmonary infiltrates noted previously are also less striking than on the prior exam. There is still some residual pneumonia/atelectasis and/or pulmonary edema present, however. The mediastinum is not widened. The osseous structures are intact. The supportive tubes and lines seem to be in good position. IMPRESSION: The appearance of the chest has improved as there has been a slight decrease in the size of the heart and both lungs do seem somewhat better aerated. A follow-up study would be recommended for continued evaluation. Dictated by: Dictated on workstation # [id number]
[2020-11-16] MEDS: ENOXAPARIN 40 MG/0.4 ML (LOVENOX) SYR SC SCH ×2 (08:02→22:00)
[2020-11-16] MEDS: FUROSEMIDE 40 MG/4 ML INJ (LASIX) IVP SCH (08:02)
[2020-11-16] MEDS: DOCUSATE SODIUM 10 MG/ML 10 ML UDC (COLACE) PO SCH ×2 (08:02→22:00)
[2020-11-16] MEDS: PANTOPRAZOLE 40 MG (PROTONIX) VIAL IV SCH ×2 (08:02→21:59)
[2020-11-16] MEDS: ARTIFICIAL TEARS OINT (LACRI-LUBE) 3.5 GM TUBE OU SCH ×3 (08:02→22:00)
[2020-11-16] MEDS: DIGOXIN 0.125 MG (LANOXIN) TAB PO SCH (08:02)
[2020-11-16] MEDS: LACTULOSE SYRUP 10GM/15ML (ENULOSE) 30ML UDC PO SCH ×2 (08:02→22:00)
[2020-11-16] MEDS: ASPIRIN 81 MG CHEW (CHILDREN'S ASA) PO SCH (08:02)
[2020-11-16] MEDS: AMIODARONE 200 MG (CORDARONE) TAB PO SCH ×2 (08:03→22:00)
--- NOTE | 2020-11-16 08:05 | Physical Therapy Progress Note ---
Therapy Progress Note Patient remains sedated and intubated. PT will continue to monitor patient status. EULA RODARTE PT Nov 16, 2020 08:05
--- NOTE | 2020-11-16 11:44 | Progress Note - Hospitalist ---
Subjective HPI/CC On Admission Date Seen by Provider: Nov 16, 2020 Time Seen by Provider: 11:30 Subjective/Events-last exam Patient still intubated Living will and difficulty finding DPOA is an issue Patient has a very poor prognosis Objective Exam Vital Signs Vital Signs Date Time Temp Pulse Resp B/P (MAP) Pulse Ox O2 Delivery O2 Flow Rate FiO2 11/16/20 19:35 38.0 11/16/20 19:34 89 25 135/71 (92) 91 Mechanical Ventilator 30.00 11/16/20 18:47 30 Capillary Refill : Less Than 3 Seconds General Appearance: No Apparent Distress, WD/WN, Chronically ill Results/Procedures Lab Laboratory Tests 11/16/20 01:33 Patient resulted labs reviewed. Imaging: Reviewed Imaging Report Assessment/Plan Assessment and Plan Assess & Plan/Chief Complaint Assessment: VDRF Previous COVID-19 Severe chronic debility Cardiomyopathy EF 10% PLan: Vent management Monitor closely Prognosis poor 11/05/20: Vent management Prognosis poor 11/06/20: Vent management Prognosis poor 11/17/20: Very poor prognosis Monitor closely Critical Care Critically Ill Patient DOM SMITH DO Nov 16, 2020 11:44
[2020-11-16] MEDS ORDERED: TROUGH ORDER-PHARMACY XX NR (14:30)
--- NOTE | 2020-11-16 14:30 | Cardiology Progress Note ---
Cardiology SOAP Progress Note Subjective: Intubated/ventilated. Objective: I&O/Vital Signs 11/16/20 11/16/20 11/16/20 11/16/20 03:00 03:48 03:50 03:59 Temp 38.3 38.3 38.3 Pulse 96 Resp 25 B/P (MAP) 131/80 (97) Pulse Ox 93 94 O2 Delivery Mechanical Ventilator Mechanical Ventilator O2 Flow Rate 32.00 FiO2 32 11/16/20 11/16/20 11/16/20 11/16/20 04:00 05:00 06:00 07:00 Temp 38.3 38.3 38.3 Pulse 104 100 90 91 Resp 24 B/P (MAP) 138/86 (103) 132/78 (96) 93/57 (69) Pulse Ox 93 93 91 O2 Delivery Mechanical Ventilator Mechanical Ventilator Mechanical Ventilator O2 Flow Rate 32.00 32.00 32.00 11/16/20 11/16/20 11/16/20 11/16/20 07:00 07:23 08:00 08:00 Temp 38.0 38.0 Pulse 92 100 104 Resp 24 B/P (MAP) 112/70 (84) 105/67 (80) Pulse Ox 92 92 91 91 O2 Delivery Mechanical Ventilator Mechanical Ventilator Mechanical Ventilator O2 Flow Rate 32.00 32.00 FiO2 32 30 11/16/20 11/16/20 11/16/20 11/16/20 08:11 09:00 09:31 10:00 Temp 38.0 38.1 Pulse 98 98 105 Resp 24 B/P (MAP) 121/74 (90) 121/74 122/87 (99) Pulse Ox 91 91 O2 Delivery Mechanical Ventilator Mechanical Ventilator Mechanical Ventilator O2 Flow Rate 30.00 30.00 30.00 11/16/20 11/16/20 11/16/20 11/16/20 10:25 11:00 11:24 12:00 Temp 38.2 38.2 38.1 Pulse 97 112 102 Resp 25 B/P (MAP) 145/83 (103) 124/69 (87) Pulse Ox 91 91 91 O2 Delivery Mechanical Ventilator Mechanical Ventilator O2 Flow Rate 30.00 30.00 FiO2 30 11/16/20 11/16/20 11/16/20 11/16/20 12:00 12:10 12:45 13:00 Temp 38.2 38.2 Pulse 107 109 Resp 27 B/P (MAP) 129/88 (102) Pulse Ox 91 93 O2 Delivery Mechanical Ventilator Mechanical Ventilator O2 Flow Rate 30.00 FiO2 30 11/16/20 14:00 Temp 38.2 Pulse 101 Resp 25 B/P (MAP) 143/89 (107) Pulse Ox 93 O2 Delivery Mechanical Ventilator O2 Flow Rate 30.00 11/16/20 00:00 Intake Total 1070 ml Output Total 1350 ml Balance -280 ml Weight (Pounds): 219 Weight (Ounces): 6.0 Weight (Calculated Kilograms): 99.037251 Constitutional: appears stated age, well-developed, well-nourished Respiratory: No accessory muscle use; other (fair air entry, diminished at the bases) Cardiovascular: irregularly irregular, tachycardia, S1 and S2, systolic murmur (soft ROCKY at card base) Gastrointestional: distended; No guarding; audible bowel sounds Extremities: No clubbing, No cyanosis; significant edema (bilat LE /UE swelling including scrotal edema) Neurologic/Psychiatric: other (unable to cooperate with neuro exam d/t sedation) Skin: No rash on exposed areas, No ulcerations on exposed areas Results/Procedures: Labs Laboratory Tests 11/15/20 23:05: Vancomycin Level Trough 36.1*H 11/16/20 01:33: White Blood Count 14.7H, Red Blood Count 3.69L, Hemoglobin 10.7L, Hematocrit 35L , Mean Corpuscular Volume 95, Mean Corpuscular Hemoglobin 29, Mean Corpuscular Hemoglobin Concent 31L, Red Cell Distribution Width 14.2, Platelet Count 497H, Mean Platelet Volume 11.3, Immature Granulocyte % (Auto) 1, Neutrophils (%) (Auto) 88H, Lymphocytes (%) (Auto) 5L, Monocytes (%) (Auto) 7, Eosinophils (%) (Auto) 0, Basophils (%) (Auto) 0, Neutrophils # (Auto) 12.8H, Lymphocytes # (Auto) 0.7L, Monocytes # (Auto) 1.0, Eosinophils # (Auto) 0.0, Basophils # (Auto) 0.0, Immature Granulocyte # (Auto) 0.1, Blood Gas Puncture Site RIGHT RADIAL, Blood Gas Patient Temperature 38.2, Arterial Blood pH 7.37, Arterial Blood Partial Pressure CO2 68H, Arterial Blood Partial Pressure O2 106H, Arterial Blood HCO3 37H, Arterial Blood Total CO2 39.3H, Arterial Blood Oxygen Saturation 97, Arterial Blood Base Excess 11.8H, James Test YES-POS, Blood Gas Ventilator Setting YES, Blood Gas Inspired Oxygen 32%, Sodium Level 142, Potassium Level 4.7, Chloride Level 98, Carbon Dioxide Level 33H, Anion Gap 11, Blood Urea Nitrogen 78H, Creatinine 1.45H, Estimat Glomerular Filtration Rate 49, BUN/Creatinine Ratio 54, Glucose Level 98, Calcium Level 8.0L, Corrected Calcium 9.0, Phosphorus Level 3.9, Magnesium Level 2.7H, Total Bilirubin 0.6, Aspartate Amino Transf (AST/SGOT) 69H, Alanine Aminotransferase (ALT/SGPT) 59H, Alkaline Phosphatase 46, Total Protein 5.8L, Albumin 2.8L Microbiology 11/12/20 Gram Stain - Final, Complete 11/12/20 Sputum Culture - Final, Complete Usual upper respiratory doris Citrobacter freundii complex 11/12/20 Blood Culture - Final, Complete Staphylococcus epidermidis A/P: Assessment/Dx: severe pneumonia, Septic shock, Wide-complex tachycardia, Atrial fibrillation with RVR, ICD in place Plan: Respiratory failure, multifactorial - post-COVID syndrome (hospitalization with COVID and influenza in late September 2020) - pneumonia - h/o obesity-hypoventilation and sleep apnea - ac on chronic systolic CHF PAF Nonischemic cardiomyopathy - ejection fraction 10% per echo of 05-23-[address] Lopez. - Last echo of 08/12/20 showed LVEF 30-35%. Mod diffuse hypokinesis. Severely dilated LA. Mod MR, Mild AI. RVSP 20 mmHg Status post single-chamber pacemaker defibrillator implantation in August 2010. - Device upgrade February 14, 2015 to a dual chamber device (RA, RV lead) per Dr. Page on 02-14-2015. - Device functioning normally per interrogation of Jul 2020. - Device interrogation 07/29/20 shows episodes of SVT and NSVT. He received a shock on 07/14/20 for what appears to be SVT/A Fl at approx 200 bpm, has had antitach pacing for some other episodes Chronically low bp. D/t hypotension has not been able to tolerate BB, COURTNEY (-) or ARB History of nonsustained ventricular tachycardia, controlled after initiation of therapy with amiodarone (currently on 400 mg daily) Chronic renal insufficiency. CKD stage 2-3 Thank you for your consultation. Please call me if you have any questions. Anam Edge MD, FACP, FACC, FSCAI, FHRS, CCDS Interventional Cardiology Cardiac Electrophysiology Vascular Medicine and Endovascular Interventions Clinical Quality Measures [facility] Care: [facility] Adalberto EDGE MD Nov 16, 2020 14:30
[2020-11-16] MEDS: fentaNYL DRIP PRE-MIX 250 ML IV SCH (16:30)
[2020-11-17] VITALS (30 sets, daily range): BP systolic 84–165; BP diastolic 56–107
[2020-11-17] MEDS: meTOprolol 5 MG/5 ML (LOPRESSOR) VIAL IV SCH ×4 (02:43→17:34)
[2020-11-17] MEDS: METOCLOPRAMIDE INJ 10 MG/2 ML (REGLAN) IVP SCH ×4 (02:43→17:34)
[2020-11-17] MEDS: PROPOFOL DRIP (ICU) 100 ML IV SCH ×4 (02:45→21:27)
[2020-11-17] MEDS: RT-ALBUTEROL/IPRATROPIUM 3 ML (DUONEB) VIAL INH SCH ×6 (02:52→22:27)
[2020-11-17 04:13] LABS: BASOPHILS % (AUTO) 0 % (0-10); EOSINOPHILS % (AUTO) 0 % (0-10); HEMATOCRIT 34 % (40-54); HEMOGLOBIN 10.6 g/dL (13.3-17.7); LYMPHOCYTES # (AUTO) 0.7 10^3/uL (1.0-4.0); LYMPHOCYTES % (AUTO) 6 % (12-44); MEAN CORPUSCULAR HEMOGLOBIN 29 pg (25-34); MEAN CORPUSCULAR HGB CONC 31 g/dL (32-36); MEAN CORPUSCULAR VOLUME 93 fL (80-99); MEAN PLATELET VOLUME 11.2 fL (9.0-12.2); MONOCYTES # (AUTO) 0.8 10^3/uL (0.0-1.0); MONOCYTES % (AUTO) 6 % (0-12); NEUTROPHILS # (AUTO) 11.8 10^3/uL (1.8-7.8); NEUTROPHILS % (AUTO) 87 % (42-75); PLATELET COUNT 404 10^3/uL (130-400); WHITE BLOOD COUNT 13.5 10^3/uL (4.3-11.0)
[2020-11-17 04:22] LABS: ALBUMIN 2.6 GM/DL (3.2-4.5); POTASSIUM 4.3 MMOL/L (3.6-5.0)
[2020-11-17 04:23] LABS: CALCIUM 7.9 MG/DL (8.5-10.1)
[2020-11-17 04:24] LABS: ABG BASE EXCESS 11.8 MMOL/L (-2.5-2.5); ABG OXYGEN SATURATION 97 % (94-100); ABG PCO2 53 MMHG (35-45); ABG PH 7.45 (7.37-7.43); ABG PO2 93 MMHG (79-93); ALLENS TEST YES-POS
[2020-11-17 04:24] LABS: TOTAL PROTEIN 5.3 GM/DL (6.4-8.2)
[2020-11-17 04:25] LABS: INSPIRED O2 30%; PATIENT TEMP 37.2; VENTILATOR YES
[2020-11-17 04:26] LABS: BILIRUBIN,TOTAL 0.6 MG/DL (0.1-1.0)
[2020-11-17 04:27] LABS: PHOSPHORUS 3.5 MG/DL (2.3-4.7)
[2020-11-17 04:28] LABS: CREATININE SERUM 1.65 MG/DL (0.60-1.30)
[2020-11-17 04:31] LABS: MAGNESIUM 2.6 MG/DL (1.6-2.4)
[2020-11-17] MEDS: MAGNESIUM 1 GM/100 ML IVPB 100 ML IV SCH (04:53)
[2020-11-17] MEDS: NOREPINEPHRINE 4 MG/250 ML 250 ML IV SCH ×4 (04:53→22:28)
[2020-11-17] MEDS: POTASSIUM CL 10MEQ/50ML IVPB 50 ML IV SCH (04:53)
[2020-11-17] MEDS: KCL 20 MEQ TAB (K-DUR) PO SCH (04:54)
[2020-11-17] MEDS: VASOPRESSIN INJECTION 20 UNIT in NS (IVPB) 100 ML IV SCH ×3 (04:54→22:28)
[2020-11-17] MEDS: LEVOTHYROXINE 25 MCG (LEVOTHROID) TAB PO SCH (06:25)
[2020-11-17] MEDS ORDERED: TROUGH ORDER-PHARMACY XX NR (08:00)
--- NOTE | 2020-11-17 08:24 | Diagnostic Imaging Report ---
INDICATION: ET tube malposition EXAMINATION: Chest 11/16/2020 COMPARISON: 11/16/2020 at 2:42 a.m. FINDINGS: The heart is stable. Pulmonary vasculature is congested. There are increased interstitial changes throughout both lungs with likely bibasilar infiltrates. No effusions or pneumothorax. Left-sided pacemaker is stable. A right PICC line tip difficult to visualize but likely unchanged. There is a feeding tube coursing beneath the diaphragm. ET tube unremarkable. IMPRESSION: 1. Pulmonary edema with bibasilar infiltrates. 2. Tubes and lines as above. Dictated by: Dictated on workstation # [id number]
[2020-11-17] MEDS: ARTIFICIAL TEARS OINT (LACRI-LUBE) 3.5 GM TUBE OU SCH ×3 (08:40→21:28)
[2020-11-17] MEDS: FUROSEMIDE 40 MG/4 ML INJ (LASIX) IVP SCH (08:40)
[2020-11-17] MEDS: PANTOPRAZOLE 40 MG (PROTONIX) VIAL IV SCH ×2 (08:40→21:28)
[2020-11-17] MEDS: DIGOXIN 0.125 MG (LANOXIN) TAB PO SCH (08:40)
[2020-11-17] MEDS: ENOXAPARIN 40 MG/0.4 ML (LOVENOX) SYR SC SCH ×2 (08:40→21:28)
[2020-11-17] MEDS: LACTULOSE SYRUP 10GM/15ML (ENULOSE) 30ML UDC PO SCH ×2 (08:41→21:28)
[2020-11-17] MEDS: DOCUSATE SODIUM 10 MG/ML 10 ML UDC (COLACE) PO SCH ×2 (08:41→21:28)
[2020-11-17] MEDS: AMIODARONE 200 MG (CORDARONE) TAB PO SCH ×2 (08:41→21:28)
[2020-11-17] MEDS: ASPIRIN 81 MG CHEW (CHILDREN'S ASA) PO SCH (08:41)
--- NOTE | 2020-11-17 10:37 | Progress Note - Hospitalist ---
Subjective HPI/CC On Admission Date Seen by Provider: Nov 17, 2020 Time Seen by Provider: 10:45 Subjective/Events-last exam Patient about the same Low grade fever Creatinine 1.6 Worsened status and slowly declining Ethics committee to discuss terminal extubation Objective Exam Vital Signs Vital Signs Date Time Temp Pulse Resp B/P (MAP) Pulse Ox O2 Delivery O2 Flow Rate FiO2 11/17/20 18:27 85 24 95 30 11/17/20 18:00 98/56 (70) Mechanical Ventilator 30.00 11/17/20 17:34 36.4 Capillary Refill : Less Than 3 Seconds General Appearance: No Apparent Distress, WD/WN, Chronically ill, Other (sedated) Respiratory: Decreased Breath Sounds Extremity: Pedal Edema Results/Procedures Lab Laboratory Tests 11/17/20 04:00 Patient resulted labs reviewed. Imaging: Reviewed Imaging Report Assessment/Plan Assessment and Plan Assess & Plan/Chief Complaint Assessment: VDRF Previous COVID-19 Severe chronic debility Cardiomyopathy EF 10% PLan: Vent management Monitor closely Prognosis poor 11/05/20: Vent management Prognosis poor 11/06/20: Vent management Prognosis poor 11/16/20: Very poor prognosis Monitor closely 11/17/20: Monitor closely Needs terminal extubation Prognosis poor Critical Care Critically Ill Patient DOM SMITH DO Nov 17, 2020 10:37
[2020-11-17] MEDS: LACTATED RINGERS 1,000 ML IV SCH (11:34)
--- NOTE | 2020-11-17 13:50 | Cardiology Progress Note ---
Cardiology SOAP Progress Note Subjective: intubated/ventilated Objective: I&O/Vital Signs 11/17/20 11/17/20 11/17/20 11/17/20 02:00 02:45 02:52 03:00 Temp 37.1 37.2 Pulse 98 89 78 86 Resp 24 B/P (MAP) 116/83 (94) 117/62 126/62 (83) Pulse Ox 92 92 92 O2 Delivery Mechanical Ventilator Mechanical Ventilator O2 Flow Rate 30.00 30.00 FiO2 30 11/17/20 11/17/20 11/17/20 11/17/20 04:00 04:00 05:00 06:00 Temp 37.2 37.3 37.6 Pulse 90 106 106 Resp B/P (MAP) 116/74 (88) 127/87 (100) 148/85 (106) Pulse Ox 91 94 91 92 O2 Delivery Mechanical Ventilator Mechanical Ventilator Mechanical Ventilator Mechanical Ventilator O2 Flow Rate 30.00 30.00 30.00 FiO2 30 11/17/20 11/17/20 11/17/20 11/17/20 06:47 07:00 07:00 08:00 Temp 37.8 37.9 Pulse 93 109 110 116 Resp B/P (MAP) 114/80 (91) 130/80 (97) Pulse Ox 92 90 91 O2 Delivery Mechanical Ventilator Mechanical Ventilator O2 Flow Rate 30.00 30.00 FiO2 30 11/17/20 11/17/20 11/17/20 11/17/20 08:00 09:00 10:00 10:03 Temp 37.8 37.2 Pulse 126 93 111 Resp B/P (MAP) 126/77 (93) 118/77 (91) Pulse Ox 91 92 92 93 O2 Delivery Mechanical Ventilator Mechanical Ventilator Mechanical Ventilator O2 Flow Rate 30.00 30.00 FiO2 30 30 11/17/20 11/17/20 11/17/20 11/17/20 11:00 12:00 12:00 12:50 Temp 37.2 37.4 Pulse 100 79 88 Resp B/P (MAP) 130/80 (97) 136/83 (100) Pulse Ox 91 91 92 O2 Delivery Mechanical Ventilator Mechanical Ventilator Mechanical Ventilator O2 Flow Rate 30.00 30.00 FiO2 30 11/17/20 13:00 Temp 37.6 Pulse 107 Resp 26 B/P (MAP) 165/99 (121) Pulse Ox 93 O2 Delivery Mechanical Ventilator O2 Flow Rate 30.00 11/17/20 00:00 Intake Total 1070 ml Output Total 1250 ml Balance -180 ml Weight (Pounds): 219 Weight (Ounces): 6.0 Weight (Calculated Kilograms): 99.030587 Constitutional: appears stated age, well-developed, well-nourished Respiratory: No accessory muscle use; other (fair air entry, diminished at the bases) Cardiovascular: irregularly irregular, tachycardia, S1 and S2, systolic murmur (soft ROCKY at card base) Gastrointestional: distended; No guarding; audible bowel sounds Extremities: No clubbing, No cyanosis; significant edema (bilat LE /UE swelling including scrotal edema) Neurologic/Psychiatric: other (unable to cooperate with neuro exam d/t sedation) Skin: No rash on exposed areas, No ulcerations on exposed areas Results/Procedures: Labs Laboratory Tests 11/16/20 14:40: Vancomycin Level Trough 27.8*H 11/17/20 04:00: White Blood Count 13.5H, Red Blood Count 3.64L, Hemoglobin 10.6L, Hematocrit 34L , Mean Corpuscular Volume 93, Mean Corpuscular Hemoglobin 29, Mean Corpuscular Hemoglobin Concent 31L, Red Cell Distribution Width 14.1, Platelet Count 404H, Mean Platelet Volume 11.2, Immature Granulocyte % (Auto) 1, Neutrophils (%) (Auto) 87H, Lymphocytes (%) (Auto) 6L, Monocytes (%) (Auto) 6, Eosinophils (%) (Auto) 0, Basophils (%) (Auto) 0, Neutrophils # (Auto) 11.8H, Lymphocytes # (Auto) 0.7L, Monocytes # (Auto) 0.8, Eosinophils # (Auto) 0.0, Basophils # (Auto) 0.0, Immature Granulocyte # (Auto) 0.2H, Sodium Level 142, Potassium Level 4.3, Chloride Level 98, Carbon Dioxide Level 32, Anion Gap 12, Blood Urea Nitrogen 86H, Creatinine 1.65H, Estimat Glomerular Filtration Rate 42, BUN/Creatinine Ratio 52, Glucose Level 87, Calcium Level 7.9L, Corrected Calcium 9.0, Phosphorus Level 3.5, Magnesium Level 2.6H, Total Bilirubin 0.6, Aspartate Amino Transf (AST/SGOT) 86H, Alanine Aminotransferase (ALT/SGPT) 65H, Alkaline Phosphatase 47, Total Protein 5.3L, Albumin 2.6L 11/17/20 04:15: Blood Gas Puncture Site LEFT RADIAL, Blood Gas Patient Temperature 37.2, Arterial Blood pH 7.45H, Arterial Blood Partial Pressure CO2 53H, Arterial Blood Partial Pressure O2 93, Arterial Blood HCO3 36H, Arterial Blood Total CO2 38.0H, Arterial Blood Oxygen Saturation 97, Arterial Blood Base Excess 11.8H, James Test YES-POS, Blood Gas Ventilator Setting YES, Blood Gas Inspired Oxygen 30% 11/17/20 07:45: Vancomycin Level Trough 22.6H Microbiology 11/12/20 Gram Stain - Final, Complete 11/12/20 Sputum Culture - Final, Complete Usual upper respiratory doris Citrobacter freundii complex 11/12/20 Blood Culture - Final, Complete Staphylococcus epidermidis A/P: Assessment/Dx: severe pneumonia, Septic shock, Wide-complex tachycardia, Atrial fibrillation with RVR, ICD in place Plan: Respiratory failure, multifactorial - post-COVID syndrome (hospitalization with COVID and influenza in late September 2020) - pneumonia - h/o obesity-hypoventilation and sleep apnea - ac on chronic systolic CHF PAF Nonischemic cardiomyopathy - ejection fraction 10% per echo of 05-23-[address] Lopez. - Last echo of 08/12/20 showed LVEF 30-35%. Mod diffuse hypokinesis. Severely dilated LA. Mod MR, Mild AI. RVSP 20 mmHg Status post single-chamber pacemaker defibrillator implantation in August 2010. - Device upgrade February 14, 2015 to a dual chamber device (RA, RV lead) per Dr. Page on 02-14-2015. - Device functioning normally per interrogation of Jul 2020. - Device interrogation 07/29/20 shows episodes of SVT and NSVT. He received a shock on 07/14/20 for what appears to be SVT/A Fl at approx 200 bpm, has had antitach pacing for some other episodes Chronically low bp. D/t hypotension has not been able to tolerate BB, COURTNEY (-) or ARB History of nonsustained ventricular tachycardia, controlled after initiation of therapy with amiodarone (currently on 400 mg daily) Chronic renal insufficiency. CKD stage 2-3 Thank you for your consultation. Please call me if you have any questions. Anam Edge MD, FACP, FACC, FSCAI, FHRS, CCDS Interventional Cardiology Cardiac Electrophysiology Vascular Medicine and Endovascular Interventions Clinical Quality Measures Type of Care: Type of Care: Pallative Care Adalberto EDGE MD Nov 17, 2020 13:50
[2020-11-17] MEDS: fentaNYL DRIP PRE-MIX 250 ML IV SCH (16:30)
[2020-11-18] VITALS (29 sets, daily range): BP systolic 85–146; BP diastolic 53–89
[2020-11-18] MEDS: METOCLOPRAMIDE INJ 10 MG/2 ML (REGLAN) IVP SCH ×5 (00:12→23:22)
[2020-11-18] MEDS: meTOprolol 5 MG/5 ML (LOPRESSOR) VIAL IV SCH ×3 (00:12→12:05)
[2020-11-18] MEDS: RT-ALBUTEROL/IPRATROPIUM 3 ML (DUONEB) VIAL INH SCH ×6 (02:13→22:14)
[2020-11-18 02:44] LABS: BASOPHILS % (AUTO) 0 % (0-10); EOSINOPHILS # (AUTO) 0.2 10^3/uL (0.0-0.3); EOSINOPHILS % (AUTO) 1 % (0-10); HEMATOCRIT 35 % (40-54); LYMPHOCYTES # (AUTO) 0.7 10^3/uL (1.0-4.0); LYMPHOCYTES % (AUTO) 5 % (12-44); MEAN CORPUSCULAR HEMOGLOBIN 29 pg (25-34); MEAN CORPUSCULAR HGB CONC 31 g/dL (32-36); MEAN CORPUSCULAR VOLUME 94 fL (80-99); MEAN PLATELET VOLUME 11.3 fL (9.0-12.2); MONOCYTES # (AUTO) 0.7 10^3/uL (0.0-1.0); MONOCYTES % (AUTO) 5 % (0-12); NEUTROPHILS # (AUTO) 12.8 10^3/uL (1.8-7.8); NEUTROPHILS % (AUTO) 88 % (42-75); PLATELET COUNT 385 10^3/uL (130-400); WHITE BLOOD COUNT 14.5 10^3/uL (4.3-11.0)
[2020-11-18 02:55] LABS: ALBUMIN 2.5 GM/DL (3.2-4.5)
[2020-11-18 02:56] LABS: POTASSIUM 4.5 MMOL/L (3.6-5.0)
[2020-11-18 02:57] LABS: CALCIUM 7.9 MG/DL (8.5-10.1)
[2020-11-18 02:58] LABS: TOTAL PROTEIN 5.3 GM/DL (6.4-8.2)
[2020-11-18 03:00] LABS: BILIRUBIN,TOTAL 0.6 MG/DL (0.1-1.0)
[2020-11-18 03:01] LABS: PHOSPHORUS 4.4 MG/DL (2.3-4.7)
[2020-11-18 03:02] LABS: CREATININE SERUM 1.79 MG/DL (0.60-1.30)
[2020-11-18 03:04] LABS: MAGNESIUM 2.6 MG/DL (1.6-2.4)
[2020-11-18] MEDS: NOREPINEPHRINE 4 MG/250 ML 250 ML IV SCH (03:58)
[2020-11-18] MEDS: POTASSIUM CL 10MEQ/50ML IVPB 50 ML IV SCH (03:59)
[2020-11-18] MEDS: KCL 20 MEQ TAB (K-DUR) PO SCH (03:59)
[2020-11-18] MEDS: MAGNESIUM 1 GM/100 ML IVPB 100 ML IV SCH (03:59)
[2020-11-18] MEDS: PROPOFOL DRIP (ICU) 100 ML IV SCH ×3 (04:56→22:58)
[2020-11-18] MEDS: fentaNYL DRIP PRE-MIX 250 ML IV SCH (04:56)
--- NOTE | 2020-11-18 05:23 | Pulmonary Progress Note ---
Subjective Time Seen by a Provider: 05:18 Subjective/Events-last exam Sedated on vent. Sepsis Event Evaluation Height, Weight, BMI Height: 5'7.00" Weight: 219lbs. 6.0oz. 99.093761qw; 38.33 BMI Method:Stated Exam Exam Vital Signs Date Time Temp Pulse Resp B/P (MAP) Pulse Ox O2 Delivery O2 Flow Rate FiO2 11/18/20 04:56 104 106/54 11/18/20 04:00 94 Mechanical Ventilator 30 11/18/20 04:00 36.0 11/18/20 02:13 100 25 94 40 11/18/20 02:00 95 26 85/53 (64) 94 Mechanical Ventilator 30.00 11/18/20 01:00 102 11/18/20 01:00 102 26 87/59 (68) 94 Mechanical Ventilator 30.00 11/18/20 00:16 36.4 11/18/20 00:00 94 Mechanical Ventilator 30 11/18/20 00:00 96 26 97/66 (76) 95 Mechanical Ventilator 30.00 11/17/20 23:00 95 25 97/65 (76) 95 Mechanical Ventilator 30.00 11/17/20 22:28 98 25 95 40 11/17/20 22:00 89 25 93/68 (76) 95 Mechanical Ventilator 30.00 11/17/20 21:27 100 95/60 11/17/20 21:15 93 26 95/60 (72) 95 Mechanical Ventilator 30.00 11/17/20 20:00 94 Mechanical Ventilator 30 11/17/20 20:00 36.0 Mechanical Ventilator 30.00 11/17/20 20:00 98 25 91/76 (81) 95 Mechanical Ventilator 30.00 11/17/20 19:00 88 11/17/20 19:00 88 27 84/67 (73) 96 Mechanical Ventilator 30.00 11/17/20 18:27 85 24 95 30 11/17/20 18:00 78 24 98/56 (70) 95 Mechanical Ventilator 30.00 11/17/20 17:34 36.4 11/17/20 17:00 102 23 119/64 (82) 94 Mechanical Ventilator 30.00 11/17/20 16:49 94 Mechanical Ventilator 40 11/17/20 16:00 102 25 112/57 (75) 94 Mechanical Ventilator 30.00 11/17/20 15:00 88 26 110/74 (86) 91 Mechanical Ventilator 30.00 11/17/20 14:30 98 116/64 11/17/20 14:07 98 26 91 30 11/17/20 14:00 37.3 101 24 154/102 (119) 95 Mechanical Ventilator 30.00 11/17/20 13:00 37.6 107 26 165/99 (121) 93 Mechanical Ventilator 30.00 11/17/20 12:50 88 11/17/20 12:00 92 Mechanical Ventilator 30 11/17/20 12:00 37.4 79 25 136/83 (100) 91 Mechanical Ventilator 30.00 11/17/20 11:00 37.2 100 26 130/80 (97) 91 Mechanical Ventilator 30.00 11/17/20 10:03 111 26 93 30 11/17/20 10:00 37.2 93 24 118/77 (91) 92 Mechanical Ventilator 30.00 11/17/20 09:00 37.8 126 26 126/77 (93) 92 Mechanical Ventilator 30.00 11/17/20 08:00 91 Mechanical Ventilator 30 11/17/20 08:00 37.9 116 26 130/80 (97) 91 Mechanical Ventilator 30.00 11/17/20 07:00 37.8 110 28 114/80 (91) 90 Mechanical Ventilator 30.00 11/17/20 07:00 109 11/17/20 06:47 93 26 92 30 11/17/20 06:00 37.6 106 24 148/85 (106) 92 Mechanical Ventilator 30.00 I & O 11/18/20 07:00 Intake Total 1550 ml Output Total 2750 ml Balance -1200 ml Height & Weight Height: 5'7.00" Weight: 219lbs. 6.0oz. 99.694512yu; 38.33 BMI Method:Stated General Appearance: No Apparent Distress, WD/WN, Chronically ill, Other (sedated) HEENT: Normal ENT Inspection Neck: Limited Range of Motion Respiratory: Decreased Breath Sounds Cardiovascular: Regular Rate, Rhythm Capillary Refill: Less Than 3 Seconds Gastrointestinal: non tender, soft Extremity: Pedal Edema Neurologic/Psychiatric: Other Skin: Warm/Dry Lymphatic: No Adenopathy Results Lab Laboratory Tests 11/17/20 04:00 11/18/20 02:35 Assessment/Plan Assessment/Plan Acute on chronic respiratory failure --improving -Continue current care. I do not recommend DEEP TISSUE MASSAGE THERAPIST at this time secondary to current improvement. -Consult [facility] for possible transfer -Ventilator 400/24/12 30% -Decrease PEEP to 8 -Decrease RR to 20 -COVID was dx 09/24 - pt was discharged home with 02 then returned secondary to worsening respiratory failure. -Fentanyl 100, propofol 20 -D/C sedation and give pt time to wake up. This may take 24-48hrs will continue to monitor. -S/p intubation /4 - D/C proning -D/C Decadron s/p VTach -- AICD converted pt to paced -PO Ammio -cardiology following PNA with Citerobacter -Start Zosyn Bacteremia with staph epi / BC -Continue Vanco HX of COVID 19 CHFAE 30-35% AFib CKD NICM with dual implanted I discussed with family this morning. I updated family on pt's improvement. [employer]equila bowling is very appreciative and thankful for patient's improvement. Family is in agreement for transfer to [facility] for continuation of ventilator weaning. Ethics consult was placed this weekend however pt is doing better. I do not recommend DEEP TISSUE MASSAGE THERAPIST at this time secondary to pt improvement. Family is appreciative and in agreement with current care. I recommend continuation of current medical treatment and ventilator weaning. JAYESH POOLE DO Nov 18, 2020 05:23
[2020-11-18] MEDS ORDERED: PIPERACILLIN/TAZOBACTAM (BULK) 4.5 GM in NS (IVPB) 100 ML IV SCH ×2 (06:00→09:00)
[2020-11-18] MEDS: LACTATED RINGERS 1,000 ML IV SCH (06:08)
[2020-11-18] MEDS: LEVOTHYROXINE 25 MCG (LEVOTHROID) TAB PO SCH (06:08)
[2020-11-18] MEDS: VASOPRESSIN INJECTION 20 UNIT in NS (IVPB) 100 ML IV SCH ×2 (06:09→16:39)
[2020-11-18] MEDS ORDERED: TROUGH ORDER-PHARMACY XX NR (08:00)
--- NOTE | 2020-11-18 08:01 | Diagnostic Imaging Report ---
Indication: Respiratory distress. Time of exam: 3:08 AM Correlation is made with prior chest from 11/16/2020. ET tube has tip above the davon. NG tube and right upper extremity PICC line as well as cardiac defibrillator remains in place. There are infiltrates in both lungs mid and lower lung persaud, similar to 2 days earlier. No effusion or pneumothorax is seen. IMPRESSION: Continued bilateral infiltrates, similar to examination 2 days earlier. Dictated by: Dictated on workstation # [id number]
--- NOTE | 2020-11-18 08:02 | Physical Therapy Progress Note ---
Therapy Progress Note Patient sedated and intubated. PT will continue to monitor patient status. JONO CHÁVEZ PT Nov 18, 2020 08:02
[2020-11-18] MEDS: ASPIRIN 81 MG CHEW (CHILDREN'S ASA) PO SCH (08:33)
[2020-11-18] MEDS: AMIODARONE 200 MG (CORDARONE) TAB PO SCH ×2 (08:33→20:54)
[2020-11-18] MEDS: PANTOPRAZOLE 40 MG (PROTONIX) VIAL IV SCH ×2 (08:33→20:54)
[2020-11-18] MEDS: DOCUSATE SODIUM 10 MG/ML 10 ML UDC (COLACE) PO SCH ×2 (08:33→20:54)
[2020-11-18] MEDS: ENOXAPARIN 40 MG/0.4 ML (LOVENOX) SYR SC SCH ×2 (08:34→20:54)
[2020-11-18] MEDS: DIGOXIN 0.125 MG (LANOXIN) TAB PO SCH (08:34)
[2020-11-18] MEDS: LACTULOSE SYRUP 10GM/15ML (ENULOSE) 30ML UDC PO SCH ×2 (08:34→20:54)
[2020-11-18] MEDS: ARTIFICIAL TEARS OINT (LACRI-LUBE) 3.5 GM TUBE OU SCH ×3 (08:34→20:54)
--- NOTE | 2020-11-18 09:32 | Physical Therapy Progress Note ---
Therapy Progress Note Nonskilled PROM all extremities in supine. Restraints remain on bilateral UE's JONO CHÁVEZ PT Nov 18, 2020 09:32
--- NOTE | 2020-11-18 09:58 | Cardiology Progress Note ---
Subjective Date Seen by Provider: Nov 18, 2020 Time Seen by Provider: 09:55 Subjective/Events-last exam Patient is sedated and intubated Review of Systems General: Other (unable to provide review of systems) Objective-Cardiology Exam Last Set of Vital Signs Vital Signs 11/18/20 11/18/20 11/18/20 08:00 09:00 09:17 Temp 36.7 Pulse 104 Resp 27 B/P (MAP) 132/80 (97) Pulse Ox 92 O2 Delivery Mechanical Ventilator O2 Flow Rate 30.00 FiO2 35 Capillary Refill : Less Than 3 Seconds I&O Intake and Output 11/18/20 00:00 Intake Total 1890 ml Output Total 2850 ml Balance -960 ml Intake Oral 0 ml IV Total 450 ml Tube Feeding 1080 ml Other 360 ml Output Urine Total 2850 ml # Bowel Movements 1 General: Other (sedated and intubated) HEENT: Atraumatic Neck: Supple Lungs: Normal Air Movement Heart: Normal S1, Normal S2, Other (tachycardia) Abdomen: Normal Bowel Sounds Extremities: No Clubbing Skin: No Rashes Neuro: Other (sedated and intubated) Psych/Mental Status: Other (sedated and intubated) Results Lab Laboratory Tests 11/18/20 02:35 A/P-Cardiology Admission Diagnosis Acute respiratory failure Acute renal failure Congestive heart failure, chronic compensated left ventricular systolic dysfunction, nonischemic cardiomyopathy Pneumonia Assessment/Plan Acute respiratory failure, ventilator dependent secondary to pneumonia, receiving antibiotics and managed by primary care team Post-COVID pneumonia, he was hospitalized for COVID and influenza late in September 2020. Currently ventilator dependent. Congestive heart failure, nonischemic cardiomyopathy, acute on chronic left ventricular systolic dysfunction, last echo done in July 2020 showing ejection fraction 30-35 percent, diffuse left ventricular hypokinesia, severely dilated left atrium, moderate mitral regurgitation, mild aortic regurgitation, PA pressure 20 mmHg History of wide-complex tachycardia, paroxysmal atrial fibrillation, history of single-chamber ICD implantation in August 2010, device upgraded to dual- chamber pacemaker in 2014. Had episode of supraventricular tachycardia. Chronic borderline hypotension. Continue to monitor blood pressure History of nonsustained ventricular tachycardia improved after initiating amiodarone X Acute on chronic renal failure stage 2-3, continue to monitor renal function MIGUEL ANGEL HART MD Nov 18, 2020 09:58
[2020-11-18] MEDS ORDERED: VANCOMYCIN 1 GM/NS 250 ML IVPB IV SCH ×4 (12:00)
[2020-11-18] MEDS: meTOprolol TARTRATE 50 MG (LOPRESSOR) TAB PO SCH ×2 (14:05→20:56)
--- NOTE | 2020-11-18 15:12 | Diagnostic Imaging Report ---
INDICATION: Tube placement. TIME OF EXAM: 2:35 PM. COMPARISON: Correlation is made with the prior exam from earlier this same day. FINDINGS: The ET tube has its tip above the davon. The NG tube appears to pass below the diaphragm. There is a right upper extremity PICC line with the tip overlying the SVC/right atrial junction. A cardiac pacemaker is in place. There are bilateral pulmonary infiltrates, similar to earlier today. No effusion or pneumothorax is seen. IMPRESSION: Continued bilateral pulmonary infiltrates. Overall appearance of the chest is similar to the examination from earlier this same day. Dictated by: Dictated on workstation # [id number]
[2020-11-18] MEDS: PIPERACILLIN/TAZOBACTAM (BULK) 4.5 GM in NS (IVPB) 100 ML IV SCH ×2 (16:50→23:22)
[2020-11-18] MEDS ORDERED: PROPOFOL DRIP (ICU) 100 ML IV ONE (17:37)
[2020-11-18] MEDS ORDERED: DexMEDEtomidine PRE MIX 100 ML IV SCH (17:45)
[2020-11-18] MEDS: DexMEDEtomidine 250 ML DRIP 250 ML IV SCH (18:12)
[2020-11-18] MEDS: RIFAXIMIN 550 MG TABLET (XIFAXAN) PO SCH (20:54)
[2020-11-18] MEDS: APAP 325 MG/10.15 ML LIQ (TYLENOL) UDC PO PRN (23:24)
[2020-11-19] VITALS (17 sets, daily range): BP systolic 79–140; BP diastolic 55–102
[2020-11-19] MEDS: VASOPRESSIN INJECTION 20 UNIT in NS (IVPB) 100 ML IV SCH ×2 (00:04→09:08)
[2020-11-19] MEDS: RT-ALBUTEROL/IPRATROPIUM 3 ML (DUONEB) VIAL INH SCH ×3 (02:33→10:16)
[2020-11-19 02:37] LABS: ABG BASE EXCESS 10.7 MMOL/L (-2.5-2.5); ABG OXYGEN SATURATION 91 % (94-100); ABG PCO2 52 MMHG (35-45); ABG PH 7.45 (7.37-7.43); ABG PO2 66 MMHG (79-93); ABG TCO2 36.6 MMOL/L (21.0-31.0)
[2020-11-19 02:38] LABS: BASOPHILS % (AUTO) 0 % (0-10); EOSINOPHILS % (AUTO) 0 % (0-10); HEMATOCRIT 33 % (40-54); HEMOGLOBIN 10.4 g/dL (13.3-17.7); LYMPHOCYTES # (AUTO) 0.7 10^3/uL (1.0-4.0); LYMPHOCYTES % (AUTO) 3 % (12-44); MEAN CORPUSCULAR HEMOGLOBIN 29 pg (25-34); MEAN CORPUSCULAR HGB CONC 32 g/dL (32-36); MEAN CORPUSCULAR VOLUME 92 fL (80-99); MEAN PLATELET VOLUME 11.8 fL (9.0-12.2); MONOCYTES # (AUTO) 0.4 10^3/uL (0.0-1.0); MONOCYTES % (AUTO) 2 % (0-12); NEUTROPHILS # (AUTO) 18.6 10^3/uL (1.8-7.8); NEUTROPHILS % (AUTO) 93 % (42-75); PLATELET COUNT 318 10^3/uL (130-400)
[2020-11-19 02:43] LABS: ALLENS TEST YES-POS; INSPIRED O2 60%; PATIENT TEMP 37.8; VENTILATOR YES
[2020-11-19 02:46] LABS: ALBUMIN 2.3 GM/DL (3.2-4.5); POTASSIUM 4.5 MMOL/L (3.6-5.0)
[2020-11-19 02:47] LABS: CALCIUM 7.5 MG/DL (8.5-10.1)
[2020-11-19 02:48] LABS: TOTAL PROTEIN 4.8 GM/DL (6.4-8.2)
[2020-11-19 02:50] LABS: BILIRUBIN,TOTAL 1.1 MG/DL (0.1-1.0)
[2020-11-19 02:52] LABS: CREATININE SERUM 2.3 MG/DL (0.60-1.30); PHOSPHORUS 3.6 MG/DL (2.3-4.7)
[2020-11-19 02:54] LABS: MAGNESIUM 2.5 MG/DL (1.6-2.4)
[2020-11-19 03:02] LABS: BAND NEUTROPHILS 9 %; NEUTROPHILS % (MANUAL) 85 %
[2020-11-19 03:03] LABS: LYMPHOCYTES % (MANUAL) 2 %; MONOCYTES % (MANUAL) 4 %; RBC MORPH NORMAL
--- NOTE | 2020-11-19 05:00 | Pulmonary Progress Note ---
Subjective Time Seen by a Provider: 04:54 Subjective/Events-last exam Pt is down to 30% Fio2. Sepsis Event Evaluation Height, Weight, BMI Height: 5'7.00" Weight: 219lbs. 6.0oz. 99.350628uy; 38.33 BMI Method:Stated Exam Exam Vital Signs Date Time Temp Pulse Resp B/P (MAP) Pulse Ox O2 Delivery O2 Flow Rate FiO2 11/19/20 04:28 37.4 11/19/20 04:00 90 Mechanical Ventilator 50 11/19/20 02:43 Mechanical Ventilator 50.00 11/19/20 02:33 120 35 96 50 11/19/20 02:00 37.9 11/19/20 01:00 105 11/19/20 00:18 39.0 11/19/20 00:00 90 Mechanical Ventilator 60 11/18/20 23:24 39.9 11/18/20 23:00 103 27 106/64 (78) 95 Mechanical Ventilator 60.00 11/18/20 22:58 109 11/18/20 22:15 108 37 93 80 11/18/20 22:00 100 27 118/70 (86) 95 Mechanical Ventilator 60.00 11/18/20 21:00 Mechanical Ventilator 60.00 11/18/20 21:00 99 31 111/73 (86) Mechanical Ventilator 60.00 11/18/20 20:00 90 Mechanical Ventilator 60 11/18/20 20:00 105 117/65 (82) 99 Mechanical Ventilator 80.00 11/18/20 19:00 Mechanical Ventilator 80.00 11/18/20 19:00 125 11/18/20 19:00 37.5 11/18/20 19:00 125 121/77 (92) 98 Mechanical Ventilator 80.00 11/18/20 18:22 123 33 98 80 11/18/20 18:12 107 120/81 11/18/20 18:00 115 42 120/81 (94) 100 Mechanical Ventilator 100.00 11/18/20 17:43 120 146/89 11/18/20 17:38 Mechanical Ventilator 100.00 11/18/20 17:00 120 30 146/89 (108) 88 Mechanical Ventilator 65.00 11/18/20 16:27 Mechanical Ventilator 65.00 11/18/20 16:01 86 11/18/20 16:00 129 25 137/85 (102) 92 Mechanical Ventilator 30.00 11/18/20 16:00 37.7 11/18/20 16:00 90 Mechanical Ventilator 60 11/18/20 15:00 109 30 127/74 (91) 89 Mechanical Ventilator 30.00 11/18/20 14:00 121 31 90 50 11/18/20 14:00 142 32 118/86 (97) 97 Mechanical Ventilator 30.00 11/18/20 13:00 122 28 126/89 (101) 91 Mechanical Ventilator 30.00 11/18/20 12:54 139 11/18/20 12:24 37.0 11/18/20 12:00 149 29 120/84 (96) 90 Mechanical Ventilator 30.00 11/18/20 12:00 90 Mechanical Ventilator 35 11/18/20 11:00 133 29 127/86 (100) 91 Mechanical Ventilator 30.00 11/18/20 10:56 144 26 97 35 11/18/20 10:00 121 28 129/78 (95) 92 Mechanical Ventilator 30.00 11/18/20 09:17 36.7 11/18/20 09:00 104 27 132/80 (97) 92 Mechanical Ventilator 30.00 11/18/20 08:00 111 24 137/78 (97) 92 Mechanical Ventilator 30.00 11/18/20 08:00 92 Mechanical Ventilator 35 11/18/20 07:34 110 28 93 35 11/18/20 07:00 120 21 141/87 (105) 97 Mechanical Ventilator 30.00 11/18/20 06:46 110 11/18/20 06:00 106 24 144/80 (101) 98 Mechanical Ventilator 30.00 11/18/20 05:00 105 25 94/71 (79) 96 Mechanical Ventilator 30.00 11/18/20 04:56 104 106/54 I & O 11/19/20 07:00 Intake Total 1400 ml Output Total 1610 ml Balance -210 ml Height & Weight Height: 5'7.00" Weight: 219lbs. 6.0oz. 99.117129wh; 38.33 BMI Method:Stated General Appearance: No Apparent Distress, WD/WN, Chronically ill, Other (sedated) HEENT: Normal ENT Inspection Neck: Limited Range of Motion Respiratory: Decreased Breath Sounds Cardiovascular: Regular Rate, Rhythm Capillary Refill: Less Than 3 Seconds Gastrointestinal: non tender, soft Extremity: Pedal Edema Neurologic/Psychiatric: Other Skin: Warm/Dry Lymphatic: No Adenopathy Results Lab Laboratory Tests 11/18/20 02:35 11/19/20 02:20 Assessment/Plan Assessment/Plan Acute on chronic respiratory failure --improving -Continue current care. I do not recommend ORACLE IAM CONSULTANT at this time secondary to current improvement. Fi02 has been titrated down to 30% -Transfer to [facility] today if possible. Family is in agreement with plan -CXR appears stable -Consult [facility] for possible transfer -Ventilator 400/20/10 30% -Ventilator is ready for weaning. Will proceed with [facility] hospital transfer. -COVID was dx 09/24 - pt was discharged home with 02 then returned secondary to worsening respiratory failure. -Precedex , propofol 20 -S/p intubation 10/31 - D/C proning -D/C Decadron s/p VTach -- AICD converted pt to paced -PO Ammio -cardiology following PNA with Citerobacter --Change Abx to Zyvox and Merrem. Hypotension -Pt is only on a small amount of Levophed. -Titrate Levophed to D/C while decreasing Sedation. Bacteremia with staph epi 2/2 BC -Change Abx to Zyvox and Merrem. Worsening renal failure -Give a liter bolus of LR over 4hours -Hold Lasix HX of COVID 19 CHFAE 30-35% AFib CKD NICM with dual implanted Family is very appreciative and thankful for patient's improvement. Family is in agreement for transfer to [facility] for continuation of ventilator weaning. Ethics consult was placed this weekend however pt is doing better. I do not recommend ORACLE IAM CONSULTANT at this time secondary to pt improvement. Family is appreciative and in agreement with current care. I recommend continuation of current medical treatment and ventilator weaning. JAYESH POOLE DO Nov 19, 2020 05:00
[2020-11-19] MEDS ORDERED: MEROPENEM 500 MG VIAL (MERREM) IV ONE (05:09)
[2020-11-19] MEDS ORDERED: WATER (STERILE) FOR INJECTION 10 ML ONE (05:10)
[2020-11-19] MEDS: LACTATED RINGERS 1,000 ML IV SCH ×4 (05:16→11:43)
[2020-11-19] MEDS: PROPOFOL DRIP (ICU) 100 ML IV SCH ×2 (05:17→10:01)
[2020-11-19] MEDS: DexMEDEtomidine 250 ML DRIP 250 ML IV SCH (05:17)
[2020-11-19] MEDS: KCL 20 MEQ TAB (K-DUR) PO SCH (05:18)
[2020-11-19] MEDS: POTASSIUM CL 10MEQ/50ML IVPB 50 ML IV SCH (05:18)
[2020-11-19] MEDS: MAGNESIUM 1 GM/100 ML IVPB 100 ML IV SCH (05:18)
[2020-11-19] MEDS: LEVOTHYROXINE 25 MCG (LEVOTHROID) TAB PO SCH (05:19)
[2020-11-19] MEDS ORDERED: NOREPINEPHRINE 4 MG/250 ML 250 ML IV ONE (05:42)
[2020-11-19] MEDS: NOREPINEPHRINE 4 MG/250 ML 250 ML IV SCH ×2 (05:55→11:43)
[2020-11-19] MEDS ORDERED: MEROPENEM 500 MG in WATER (STERILE) FOR INJECTION 10 ML IV SCH (06:00)
[2020-11-19] MEDS: LACTULOSE SYRUP 10GM/15ML (ENULOSE) 30ML UDC PO SCH (07:46)
[2020-11-19] MEDS: DOCUSATE SODIUM 10 MG/ML 10 ML UDC (COLACE) PO SCH (07:46)
[2020-11-19] MEDS: meTOprolol TARTRATE 50 MG (LOPRESSOR) TAB PO SCH ×2 (07:47→09:08)
[2020-11-19] MEDS: ASPIRIN 81 MG CHEW (CHILDREN'S ASA) PO SCH (07:47)
[2020-11-19] MEDS: DIGOXIN 0.125 MG (LANOXIN) TAB PO SCH (07:47)
[2020-11-19] MEDS: AMIODARONE 200 MG (CORDARONE) TAB PO SCH (07:47)
[2020-11-19] MEDS: RIFAXIMIN 550 MG TABLET (XIFAXAN) PO SCH (07:47)
[2020-11-19] MEDS: PANTOPRAZOLE 40 MG (PROTONIX) VIAL IV SCH (07:50)
[2020-11-19] MEDS: ARTIFICIAL TEARS OINT (LACRI-LUBE) 3.5 GM TUBE OU SCH ×2 (07:50→11:44)
[2020-11-19] MEDS: ENOXAPARIN 40 MG/0.4 ML (LOVENOX) SYR SC SCH (07:50)
--- NOTE | 2020-11-19 07:59 | Physical Therapy Progress Note ---
Therapy Progress Note Patient remains sedated and intubated. PT will continue to follow. JONO CHÁVEZ PT Nov 19, 2020 07:59
--- NOTE | 2020-11-19 08:57 | Diagnostic Imaging Report ---
Indication: Respiratory distress Portable chest 1:50 AM ET tube projects over the trachea. There is an NG tube that can be traced as far as the distal esophagus. There is a dual-chamber pacemaker. There is right upper extremity PICC line with tip projecting over the SVC. There are bilateral perihilar alveolar infiltrates. There are no effusions or pneumothoraces. IMPRESSION: Bilateral perihilar infiltrates consistent with pneumonia. No appreciable change compared to the previous day. Dictated by: Dictated on workstation # [id number]
[2020-11-19] MEDS ORDERED: LINEZOLID IVPB 300 ML IV SCH (09:00)
--- NOTE | 2020-11-19 10:13 | Cardiology Progress Note ---
Subjective Date Seen by Provider: Nov 19, 2020 Time Seen by Provider: 10:11 Subjective/Events-last exam patient is sedated and intubated Review of Systems General: Other (unable to provide review of systems) Objective-Cardiology Exam Last Set of Vital Signs Vital Signs 11/19/20 11/19/20 11/19/20 11/19/20 07:49 08:00 09:00 10:01 Temp 37.6 Pulse 89 Resp 34 B/P (MAP) 115/75 (88) Pulse Ox 91 O2 Delivery Mechanical Ventilator O2 Flow Rate 30.00 FiO2 45 Capillary Refill : Less Than 3 Seconds I&O Intake and Output 11/19/20 00:00 Intake Total 1600 ml Output Total 1835 ml Balance -235 ml Tube Feeding 1080 ml Other 520 ml Output Urine Total 1835 ml General: Other (sedated and intubated) HEENT: Atraumatic Neck: Supple Lungs: Normal Air Movement Heart: Normal S1, Normal S2, Other (tachycardia) Abdomen: Normal Bowel Sounds Extremities: No Clubbing Skin: No Rashes Neuro: Other (sedated and intubated) Psych/Mental Status: Other (sedated and intubated) Results Lab Laboratory Tests 11/19/20 02:20 A/P-Cardiology Admission Diagnosis Acute respiratory failure Acute renal failure Congestive heart failure, chronic compensated left ventricular systolic dysfunction, nonischemic cardiomyopathy Pneumonia Assessment/Plan Acute respiratory failure, ventilator dependent secondary to pneumonia, receiving antibiotics, very slow progress, possible transfer to [place]. Appreciate Dr. Dennis's health Post-COVID pneumonia, he was hospitalized for COVID and influenza late in September 2020. Currently ventilator dependent. Congestive heart failure, nonischemic cardiomyopathy, acute on chronic left ventricular systolic dysfunction, last echo done in July 2020 showing ejection fraction 30-35 percent, diffuse left ventricular hypokinesia, severely dilated left atrium, moderate mitral regurgitation, mild aortic regurgitation, PA pressure 20 mmHg History of wide-complex tachycardia, paroxysmal atrial fibrillation, history of single-chamber ICD implantation in August 2010, device upgraded to dual- chamber pacemaker in 2014. Had episode of supraventricular tachycardia. Chronic borderline hypotension. Continue to monitor blood pressure History of nonsustained ventricular tachycardia improved after initiating amiodarone X Acute on chronic renal failure stage 2-3, continue to monitor renal function MIGUEL ANGEL HART MD Nov 19, 2020 10:12
[2020-11-19] MEDS: proPOfol 200 MG/20 ML (DIPRIVAN) VIAL IV ONE ×2 (10:53→10:55)
--- NOTE | 2020-11-19 12:10 | Anesthesia-Procedure Note ---
Procedures/Interventions Procedure Start/Stop/Diagnosis Date of Procedure: Nov 19, 2020 Start Time: 11:05 Referring Physician: Dr Dennis Preprocedural Diagnosis: Resp. Failure Brief History Called to ICU for ETT exchange prior to transfer to [place] for a leak in his current ETT. Pt is sedated and on ventilator. VSS prior to and post-procedure. 8.0 cuffed ETT easily passed through V.C. after current ETT removed with good view of glottic opening. Stop Time: 11:15 Postprocedural Diagnosis: Same Intubation Reason Intubation/Diagnosis: Resp. Failure -- leak in current ETT cuff RSI: Yes 100% pre-Ox, [id number]: Yes (Change to 100% via ventilator) Intubation Method: orotracheal Videoscope used: Yes (Arthur X3 blade) Grade View: 1 Medications: Propofol (150 mg IV), Succinylcholine (100 mg IV) Mask Ventilation: negative (On vent at 100% for preoxygenation) Breath Sounds after Intubation: bilateral-equal ETT Securred @ (cm): 23 Intubated with ease: Yes Intubation Complications: no complications PARISH SOLORIO DO Nov 19, 2020 12:10
[2020-11-19] MEDS ORDERED: SUCCINYLCHOLINE INJ 100 MG/5 ML SYR/VIAL INJ ONE (14:00)
== END 2020-11-19 14:10 | DRG 870 ==
LOC: EDUNIT# 09:06 → ER 09:07 → ICU 11:15
PROVIDERS: ADMIT Family Medicine; ATTEND Family Medicine
PROC: 5A1955Z Respiratory Ventilation, Greater than 96 Consecutive Hours (ICD-10-PCS; principal; 2020-10-31)
PROC: 0BH17EZ Insertion of Endotracheal Airway into Trachea, Via Natural or Artificial Opening (ICD-10-PCS; 2020-10-31)
DX: A41.1 Sepsis due to other specified staphylococcus (principal); R65.21 Severe sepsis with septic shock; J96.22 Acute and chronic respiratory failure with hypercapnia; J96.21 Acute and chronic respiratory failure with hypoxia; J15.8 Pneumonia due to other specified bacteria; I50.23 Acute on chronic systolic (congestive) heart failure; I13.0 Hypertensive heart and chronic kidney disease with heart failure and stage 1 through stage 4 chronic kidney disease, or unspecified chronic kidney disease; N17.9 Acute kidney failure, unspecified; Z66 Do not resuscitate; I42.9 Cardiomyopathy, unspecified; I47.2 Ventricular tachycardia; E87.1 Hypo-osmolality and hyponatremia; Z86.16 Personal history of COVID-19; I48.0 Paroxysmal atrial fibrillation; N18.30 Chronic kidney disease, stage 3 unspecified; J43.9 Emphysema, unspecified; I25.10 Atherosclerotic heart disease of native coronary artery without angina pectoris; I95.9 Hypotension, unspecified; E83.51 Hypocalcemia; G47.33 Obstructive sleep apnea (adult) (pediatric); E87.5 Hyperkalemia; E03.9 Hypothyroidism, unspecified; M19.91 Primary osteoarthritis, unspecified site; M10.9 Gout, unspecified; I25.2 Old myocardial infarction; Z95.810 Presence of automatic (implantable) cardiac defibrillator; Z79.82 Long term (current) use of aspirin; Z82.49 Family history of ischemic heart disease and other diseases of the circulatory system
CPT/HCPCS: 36415; 36569; 71045; 76937; 80048; 80053; 80162; 80202; 80306; 81000; 82140; 82533; 82805; 82962; 83605; 83735; 83880; 84100; 84145; 84443; 84478; 84484; 85007; 85025; 85027; 85379; 85384; 85610; 85730; 86141; 87040; 87070; 87077; 87081; 87186; 87205; 93005; 94002; 94003; 94640; 94660; 94799; 96374; 96375